=== PATIENT | male | born 1960 | race Caucasian/White ===

== ENCOUNTER 2018-01-08 19:10 | Inpatient (IN) | payer OTHER ==
--- NOTE | 2018-01-08 19:25 | ER Document Report ---
ED General - General Stated Complaint: IRRIGULAR HEART BEAT Time Seen by Provider: 01/08/18 19:14 Mode of Arrival: Medic Information source: Patient, Emergency Med Personnel Notes: 58-year-old male history of SVT presents with complaints of heart racing lightheadedness. Patient comes from intermediate where he was noted the patient's heart rate was in the 200s+, patient denies any actual chest pain EMS gave adenosine with no improvement 3 and then cardioverted at 60 J TRAVEL OUTSIDE OF THE [place] IN LAST 30 DAYS: No - HPI Onset: Just prior to arrival Onset/Duration: Sudden Quality of pain: No pain Severity: Severe Pain Level: Denies Associated symptoms: Other Exacerbated by: Denies Relieved by: Denies Similar symptoms previously: Yes Recently seen / treated by doctor: No Past Medical History - Social History Smoking Status: Unknown if Ever Smoked Cigarette use (# per day): No Chew tobacco use (# tins/day): No Smoking Education Provided: No Family History: Reviewed & Not Pertinent Review of Systems - Review of Systems Notes: REVIEW OF SYSTEMS: CONSTITUTIONAL : Denies fever, chills, or sweats. Denies recent illness. EENT: Denies eye, ear, throat, or mouth pain or symptoms. Denies nasal or sinus congestion or discharge. Denies throat, tongue, or mouth swelling or difficulty swallowing. CARDIOVASCULAR: Admits to palpitations RESPIRATORY: Denies cough, cold, or chest congestion. Denies shortness of breath, difficulty breathing, or wheezing. GASTROINTESTINAL: Denies abdominal pain or distention. Denies nausea, vomiting , or diarrhea. Denies blood in vomitus, stools, or per rectum. Denies black, tarry stools. Denies constipation. GENITOURINARY: Denies difficulty urinating, painful urination, burning, frequency, blood in urine, or discharge. MUSCULOSKELETAL: Denies back or neck pain or stiffness. Denies joint pain or swelling. SKIN: Denies rash, lesions or sores. HEMATOLOGIC : Denies easy bruising or bleeding. LYMPHATIC: Denies swollen, enlarged glands. NEUROLOGICAL: Denies confusion or altered mental status. Denies passing out or loss of consciousness. Denies dizziness or lightheadedness. Denies headache. Denies weakness or paralysis or loss of use of either side. Denies problems with gait or speech. Denies sensory loss, numbness, or tingling. Denies seizures. PSYCHIATRIC: Denies anxiety or stress. Denies depression, suicidal ideation, or homicidal ideation. ALL OTHER SYSTEMS REVIEWED AND NEGATIVE. Dictation was performed using [employer] voice recognition software PHYSICAL EXAMINATION: GENERAL: Well-appearing, well-nourished and in no acute distress. HEAD: Atraumatic, normocephalic. EYES: Pupils equal round and reactive to light, extraocular movements intact, sclera anicteric, conjunctiva are normal. ENT: Nares patent, oropharynx clear without exudates. Moist mucous membranes. NECK: Normal range of motion, supple without lymphadenopathy LUNGS: Breath sounds clear to auscultation bilaterally and equal. No wheezes rales or rhonchi. HEART: Tachycardic ABDOMEN: Soft, nontender, nondistended abdomen. No guarding, no rebound. No masses appreciated. Musculoskeletal: Normal range of motion, no pitting or edema. No cyanosis. NEUROLOGICAL: Cranial nerves grossly intact. Normal speech, normal gait. Normal sensory, motor exams PSYCH: Normal mood, normal affect. SKIN: Warm, Dry, normal turgor, no rashes or lesions noted. Physical Exam - Vital signs Vitals: Resp 31 H 01/08/18 19:16 Course - Re-evaluation Re-evalutation: 01/08/18 20:42 Patient has been sinus tach throughout, I did speak with Dr. Carver who requested I placed the patient on metoprolol, given the acute renal failure I do believe further hydration and observation overnight is appropriate for the patient - Vital Signs Vital signs: Temp Pulse Resp BP Pulse Ox 20 135/81 H 98 01/08/18 20:01 01/08/18 20:01 01/08/18 20:01 - Laboratory Result Diagrams: 01/08/18 19:13 01/08/18 19:13 Laboratory results interpreted by me: 01/08/18 01/08/18 19:13 19:13 WBC 11.2 H MCHC 36.3 H Lymphocytes % (Manual) 10 L Monocytes % (Manual) 14 H Abs Neuts (Manual) 8.5 H Abs Monocytes (Manual) 1.6 H Potassium 3.4 L BUN 51 H Creatinine 2.27 H Est GFR ( Amer) 36 L Est GFR (Non-Af Amer) 30 L Glucose 127 H Direct Bilirubin 0.5 H Discharge - Discharge Clinical Impression: SVT (supraventricular tachycardia) Condition: Stable Disposition: ADMITTED OBSERVATION Admitting Provider: Hospitalist Unit Admitted: Telemetry Referrals: NARENDRA ARRIETA II, MD [Primary Care Provider] - Follow up as needed
[2018-01-08 19:26] LABS: HEMOGLOBIN 15.6 g/dL (13.5-17.0); MEAN CORPUSCULAR HEMOGLOBIN 29.2 pg (27.0-33.4); MEAN CORPUSCULAR HGB CONC 36.3 g/dL (32.0-36.0); MEAN CORPUSCULAR VOLUME 80 fl (80-97); PLATELET COUNT 195 10^3/uL (150-450); RED BLOOD COUNT 5.36 10^6/uL (4.35-5.55); RED CELL DISTRIBUTION WIDTH 13.3 % (11.5-14.0); WHITE BLOOD COUNT 11.2 10^3/uL (4.0-10.5)
[2018-01-08 20:07] LABS: ABSOLUTE LYMPHOCYTES# (MANUAL) 1.1 10^3/uL (0.5-4.7); ABSOLUTE MONOCYTES # (MANUAL) 1.6 10^3/uL (0.1-1.4); ABSOLUTE NEUTROPHILS# (MANUAL) 8.5 10^3/uL (1.7-8.2); BASOPHILS % (MANUAL) 0 % (0-2); EOSINOPHILS % (MANUAL) 0 % (0-6); LYMPHOCYTES % (MANUAL) 10 % (13-45); MONOCYTES % (MANUAL) 14 % (3-13); PLATELET COMMENT ADEQUATE; RBC MORPHOLOGY COMMENT NORMO-CYTIC/CHROMIC; SEGMENTED NEUTROPHILS % (MAN) 76 % (42-78); TOTAL CELLS COUNTED 100
[2018-01-08 20:10] LABS: CREATINE KINASE MB 2.08 ng/mL (<4.55)
[2018-01-08 20:11] LABS: ALANINE AMINOTRANSFERASE 46 U/L (21-72); ALBUMIN 4.1 g/dL (3.5-5.0); ALKALINE PHOSPHATASE 118 U/L (38-126); ANION GAP 16 (5-19); ASPARTATE AMINO TRANSFERASE 26 U/L (17-59); BILIRUBIN,DIRECT 0.5 mg/dL (0.0-0.4); BILIRUBIN,TOTAL 0.9 mg/dL (0.2-1.3); BLOOD UREA NITROGEN 51 mg/dL (7-20); CALCIUM 9.3 mg/dL (8.4-10.2); CARBON DIOXIDE 30 mmol/L (22-30); CHLORIDE 99 mmol/L (98-107); CREATINE KINASE 98 U/L (55-170); GLUCOSE 127 mg/dL (75-110); POTASSIUM 3.4 mmol/L (3.6-5.0); TOTAL PROTEIN 7.1 g/dL (6.3-8.2)
[2018-01-08 20:16] LABS: TROPONIN I 0.035 ng/mL
[2018-01-08] MEDS ORDERED: METOPROLOL TARTRATE 50 MG TABLET PO ONE (20:37)
[2018-01-08] MEDS ORDERED: NORMAL SALINE 1000 ML 1,000 ML IV ONE (20:44)
[2018-01-08] MEDS ORDERED: ONDANSETRON HCL INJ/PF 4 MG/2 ML SDV IV PRN (22:28)
[2018-01-08] MEDS ORDERED: ACETAMINOPHEN 325 MG TABLET PO PRN (22:28)
--- NOTE | 2018-01-08 22:44 | EKG REPORT ---
SEVERITY:- ABNORMAL ECG - SINUS TACHYCARDIA LEFT VENTRICULAR HYPERTROPHY : Confirmed by: Bessy Duvall MD 08-Jan-2018 22:43:21
--- NOTE | 2018-01-08 22:44 | EKG REPORT ---
SEVERITY:- ABNORMAL ECG - SINUS RHYTHM ATRIAL PREMATURE COMPLEX PROBABLE LEFT VENTRICULAR HYPERTROPHY BORDERLINE PROLONGED QT INTERVAL : Confirmed by: Bessy Duvall MD 08-Jan-2018 22:43:06
--- NOTE | 2018-01-08 23:35 | RADIOLOGY REPORT (SQ) ---
EXAM DESCRIPTION: XR CHEST 2 VIEWS COMPLETED DATE/TME: 01/08/2018 00:00 CLINICAL HISTORY: tachypnea COMPARISON: 01/03/2011 FINDINGS: Frontal and lateral views of the chest. Leads overlie the chest. The cardiomediastinal silhouette has normal size and contour. No consolidation, pneumothorax, or pleural effusion. 0.8 cm nodular opacity in the right lung base not previously visualized on comparison chest radiograph. No displaced rib fractures identified. Upper abdominal soft tissues are unremarkable. IMPRESSION: 1. No acute pulmonary process identified. 2. Interval development of 0.8 cm nodular opacity in the right chest. Correlation with dedicated CT of the chest recommended for definitive characterization.
[2018-01-08 23:57] LABS: ANION GAP 12 (5-19); BLOOD UREA NITROGEN 49 mg/dL (7-20); CALCIUM 8.9 mg/dL (8.4-10.2); CARBON DIOXIDE 28 mmol/L (22-30); CHLORIDE 103 mmol/L (98-107); CREATINE KINASE 97 U/L (55-170); GLUCOSE 117 mg/dL (75-110); POTASSIUM 3.7 mmol/L (3.6-5.0); SODIUM 143.1 mmol/L (137-145)
[2018-01-09 00:10] LABS: CREATINE KINASE MB 1.77 ng/mL (<4.55); TROPONIN I 0.034 ng/mL
[2018-01-09] MEDS ORDERED: POTASSIUM CHLORIDE 10 MEQ CAPSULE.ER PO ONE (01:03)
--- NOTE | 2018-01-09 01:33 | PDOC H&P ---
History of Present Illness Admission Date/PCP: 01/08/18 22:28 Patient complains of: Heart palpitations, weakness History of Present Illness: ARNOLD JAMES is a 58 year old man who is incarcerated. He states that recently the penitentiary has been changing his blood pressure medications around. Over the last few days he started to feel a little bit different, he could not really describe it any differently. He has been having heart palpitations and felt weak the day of admission. In penitentiary his heart rate was measured at 220. EMS was called and he was brought to the emergency department. Here he was found to be in supraventricular tachycardia. He received adenosine 6 mg followed by 12 mg followed by another 12 mg. He was still in supraventricular tachycardia and was symptomatic. He was cardioverted at 60 J. Subsequent to that he has been in sinus tach. He has been started on metoprolol 50 mg twice daily as recommended by linen supply load builder to the ER physician. He is currently hemodynamically stable and is being admitted to the hospitalist service for further monitoring and evaluation. Of note his first troponin was slightly elevated and this will be monitored as well. Past Medical History Cardiac Medical History: Reports: Hypertension Pulmonary Medical History: Denies: Chronic Obstructive Pulmonary Disease (COPD) EENT Medical History: Denies: Eyes, Ears Neurological Medical History: Denies: Ischemic CVA Endocrine Medical History: Denies: Diabetes Mellitus Type 2 Renal/ Medical History: Denies: Chronic Kidney Disease Malignancy Medical History: Denies: None GI Medical History: Denies: Gastroesophageal Reflux Disease Musculoskeltal Medical History: Reports: Arthritis Skin Medical History: Denies: Eczema, Psoriasis Psychiatric Medical History: Denies: Alcohol Dependency, Depression, General Anxiety Disorder Traumatic Medical History: Denies: Traumatic Brain Injury Hematology: Denies: Bleeding Tendencies Infectious Medical History: Reports: Other Infectious History Note: Patient unaware Past Surgical History Past Surgical History: Reports: Orthopedic Surgery - Right arm surgery for fracture Social History Information Source: Patient Lives with: Other - Incarcerated Smoking Status: Current Every Day Smoker Frequency of Alcohol Use: None Hx Recreational Drug Use: No Drugs: None Hx Prescription Drug Abuse: No Past Social History Note: patient is trying to quit smoking after 40 yrs and is having a hard time doing so, we can offer help on discharge. No illegal drug use or EtOH use currently. 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 Now incarcerated. Has a girlfriend that knows he is here. - Advance Directive Resuscitation Status: Full Code Surrogate healthcare decision maker:: sister Lanette Rodriguez phone: [phone] Family History Parental Family History Reviewed: Yes - mother had CAD/CABG, fatehr ? cause Children Family History Reviewed: Yes - no children Sibling(s) Family History Reviewed.: Yes - many medical problems with his sibllings inlcuding cardiac dx and EtOH use disorder Medication/Allergy Allergies/Adverse Reactions: No Known Allergies Allergy (Verified 01/08/18 22:26) Review of Systems Constitutional: ABSENT: chills, fever(s), headache(s) Eyes: ABSENT: visual disturbances Ears: ABSENT: hearing changes Nose, Mouth, and Throat: ABSENT: sore throat Cardiovascular: PRESENT: palpitations. ABSENT: chest pain, edema, orthropnea Respiratory: ABSENT: cough, dyspnea, sputum Gastrointestinal: ABSENT: nausea, vomiting Genitourinary: ABSENT: dysuria Musculoskeletal: ABSENT: deformity, muscle weakness Integumentary: ABSENT: diaphoresis, lesions Neurological: PRESENT: weakness. ABSENT: confusion, focal weakness, syncope Psychiatric: ABSENT: anxiety, depression Endocrine: ABSENT: cold intolerance, heat intolerance Hematologic/Lymphatic: ABSENT: easy bleeding, easy bruising Allergic/Immunologic: ABSENT: seasonal rhinorrhea Physical Exam Vital Signs: Temp Pulse Resp BP Pulse Ox 19 143/92 H 98 01/09/18 01:02 01/09/18 01:02 01/09/18 01:02 General appearance: PRESENT: no acute distress, cooperative, thin Head exam: PRESENT: atraumatic, normocephalic Eye exam: PRESENT: EOMI. ABSENT: conjunctival injection, scleral icterus Ear exam: PRESENT: normal external ear exam Mouth exam: PRESENT: moist, tongue midline Neck exam: ABSENT: lymphadenopathy Respiratory exam: PRESENT: clear to auscultation carrillo, unlabored. ABSENT: rales , rhonchi, wheezes Cardiovascular exam: PRESENT: tachycardia. ABSENT: irregular rhythm, systolic murmur Pulses: PRESENT: normal radial pulses GI/Abdominal exam: PRESENT: normal bowel sounds, soft. ABSENT: diminished bowel sounds, firm, guarding, tenderness Rectal exam: ABSENT: deferred Gentrourinary exam: ABSENT: indwelling catheter Extremities exam: ABSENT: pedal edema, +1 edema Neurological exam: PRESENT: alert, awake, oriented to person, oriented to place , oriented to situation, CN II-XII grossly intact Psychiatric exam: PRESENT: appropriate affect. ABSENT: anxious Skin exam: PRESENT: dry, intact, warm Results Laboratory Results: 01/08/18 22:48 01/08/18 22:48 Sodium 143.1 Potassium 3.7 Chloride 103 Carbon Dioxide 28 Anion Gap 12 BUN 49 H Creatinine 1.97 H Est GFR ( Amer) 42 L Est GFR (Non-Af Amer) 35 L Glucose 117 H Calcium 8.9 Magnesium 2.0 01/08/18 01/08/18 22:48 22:48 Creatine Kinase 97 CK-MB (CK-2) 1.77 Troponin I 0.034 Impressions: Chest X-Ray 01/08/18 00:00 IMPRESSION: 1. No acute pulmonary process identified. 2. Interval development of 0.8 cm nodular opacity in the right chest. Correlation with dedicated CT of the chest recommended for definitive characterization. Assessment & Plan - Diagnosis (1) SVT (supraventricular tachycardia) Is this a current diagnosis for this admission?: Yes Plan: Came into ED with SVT, failed adenosine 6 mg>>12 mg>>12 mg and then was unstable so then was cardioverted at 60 joules. Was then in sinus tach and now in sinus rhythm. Chest pain free. He is being admitted on tele, firdt trop elevated but possibly due to cardioversion and will follow trops, is chest pain free. Unit Trust Manager was called by ED MD and we have started pt on metoprolol 50 mg po q12 hrs and has gotten one dose. Hemodynamically stable. (2) HTN (hypertension) Qualifiers: Hypertension type: essential hypertension Qualified Code(s): I10 - Essential (primary) hypertension Is this a current diagnosis for this admission?: Yes Plan: well controlled now, will monitor and add is antihypertensives as indicated when meds reconciled. (3) Pulmonary nodule, right Is this a current diagnosis for this admission?: Yes Plan: found on CXR done this evening, long tobacco hx, ct chest ordered to better evaluate (4) Elevated troponin Is this a current diagnosis for this admission?: Yes Plan: prob due to cardioversion, will follow trops. Chest pain free, no EKG findings to indicate ischemia. (5) Hypokalemia Is this a current diagnosis for this admission?: Yes Plan: 3.4 then repeat improved to 3.7, 20 mEq of KCl given and will repeat in the am. Mag is 2.0. - Time Time Spent: 50 to 70 Minutes Medications reviewed and adjusted accordingly: Yes - Inpatient Certification Based on my medical assessment, after consideration of the patient's comorbidities, presenting symptoms, or acuity I expect that the services needed warrant INPATIENT care.: Yes I certify that my determination is in accordance with my understanding of Medicare's requirements for reasonable and necessary INPATIENT services [42 CFR 412.3e].: Yes Medical Necessity: Need For Continuous Telemetry Monitoring
[2018-01-09] MEDS: NORMAL SALINE 1000 ML 1,000 ML IV PRN ×3 (02:14→21:24)
[2018-01-09 05:16] LABS: HEMATOCRIT 39.7 % (37.9-51.0); HEMOGLOBIN 13.9 g/dL (13.5-17.0); MEAN CORPUSCULAR HEMOGLOBIN 28.1 pg (27.0-33.4); MEAN CORPUSCULAR HGB CONC 35.1 g/dL (32.0-36.0); MEAN CORPUSCULAR VOLUME 80 fl (80-97); PLATELET COUNT 163 10^3/uL (150-450); RED BLOOD COUNT 4.96 10^6/uL (4.35-5.55); WHITE BLOOD COUNT 11.1 10^3/uL (4.0-10.5)
[2018-01-09 05:32] LABS: ANION GAP 16 (5-19); BLOOD UREA NITROGEN 48 mg/dL (7-20); CALCIUM 9.1 mg/dL (8.4-10.2); CARBON DIOXIDE 24 mmol/L (22-30); CHLORIDE 105 mmol/L (98-107); CHOLESTEROL 120.33 mg/dL (0-200); CREATINE KINASE 136 U/L (55-170); GLUCOSE 100 mg/dL (75-110); POTASSIUM 3.5 mmol/L (3.6-5.0); TRIGLYCERIDES 142 mg/dL (<150)
[2018-01-09] MEDS: HEPARIN SOD (PORCINE) 5,000 UNIT/ML 1 ML SYRINGE SUBCUT SCH ×2 (05:42→14:07)
[2018-01-09 05:43] LABS: CREATINE KINASE MB 1.72 ng/mL (<4.55); DIRECT LDL 69 mg/dL (<100); TROPONIN I 0.055 ng/mL
--- NOTE | 2018-01-09 08:52 | EKG REPORT ---
SEVERITY:- ABNORMAL ECG - SINUS RHYTHM ATRIAL PREMATURE COMPLEX LEFT VENTRICULAR HYPERTROPHY BORDERLINE PROLONGED QT INTERVAL : Confirmed by: Rony Carver 09-Jan-2018 08:51:45
[2018-01-09] MEDS ORDERED: METOPROLOL TARTRATE PF/INJ 5 MG/5 ML SDV IV ONE ×2 (11:09→11:15)
[2018-01-09] MEDS: METOPROLOL SUCCINATE 50 MG TAB.SR.24H PO SCH ×2 (11:09→22:13)
[2018-01-09] MEDS ORDERED: POTASSIUM CHLORIDE 20 MEQ/15 ML UDCUP PO ONE (11:18)
[2018-01-09 11:29] LABS: CREATINE KINASE MB 2.25 ng/mL (<4.55)
[2018-01-09 11:37] LABS: TROPONIN I 0.054 ng/mL
--- NOTE | 2018-01-09 11:57 | RADIOLOGY REPORT (SQ) ---
EXAM DESCRIPTION: CT CHEST WITHOUT COMPLETED DATE/TIME: 01/09/2018 10:22 am REASON FOR STUDY: right lung nodule eval COMPARISON: None. TECHNIQUE: CT scan performed of the chest without intravenous contrast. Images reviewed with lung, soft tissue and bone windows. Reconstructed coronal and sagittal MPR images reviewed. All images st ored on PACS. All CT scanners at this facility use dose modulation, iterative reconstruction, and/or weight based d osing when appropriate to reduce radiation dose to as low as reasonably achievable (ALARA). [facility]: Dose Right [facility]: CareDose [facility]: Dose Right [facility]: Teradose 4D [facility]: [employer] RADIATION DOSE: CT Rad equipment meets quality standard of care and radiation dose reduction techniq ues were employed. CTDIvol: 9.7 mGy. DLP: 374 mGy-cm. mGy. LIMITATIONS: No technical limitations. FINDINGS: LUNGS AND PLEURA: There is an 8 mm nodule in the right upper lobe. No other nodules are i dentified. No effusions. HILAR AND MEDIASTINAL STRUCTURES: No identified masses or abnormal nodes. No obvious aneurysm. HEART AND VASCULAR STRUCTURES: No aneurysm. No pericardial effusion. UPPER ABDOMEN: Cholelithiasis. Limited exam. THYROID AND OTHER SOFT TISSUES: No masses. No adenopathy. BONES: No significant finding. HARDWARE: None in the chest. OTHER: No other significant findings. IMPRESSION: 8 mm nodule right upper lobe. COMMENT: F[place] CRITERIA FOR FOLLOW-UP OF PULMONARY NODULES Incidentally detected new nodules in persons 35 or older. HIGH RISK: History of smoking or other known risk factors. 6-8mm single solid nodule: LOW RISK: CT 6-12 mo; then consider CT 18-24 mo. HIGH RISK: CT 6-12 mo; th en CT 18-24 mo. TECHNICAL DOCUMENTATION: JOB ID: [id number] Quality ID # [id number]: Final reports with documentation of one or more dose reduction techniques (e.g., Au tomated exposure control, adjustment of the mA and/or kV according to patient size, use of iterative reconstruction technique) 2010 [employer]- All Rights Reserved Reading location - IP/workstation name: [email or web address]
--- NOTE | 2018-01-09 14:47 | PDOC PROGRESS REPORT ---
Subjective Progress Note for:: 01/09/18 Subjective:: Patient was admitted with atrial dysrhythmia. Although it was felt to be SVT and treated with adenosine and subsequently cardioverted as became unstable after further review by Dr. Duvall he feels that patient was in atrial fib/ flutter. Reason For Visit: SVT, JAZMINE Physical Exam Vital Signs: Temp Pulse Resp BP Pulse Ox 98.7 F 97 12 148/86 H 96 01/09/18 13:24 01/09/18 13:24 01/09/18 13:24 01/09/18 13:24 01/09/18 13:24 Intake & Output 01/08/18 01/09/18 01/10/18 06:59 06:59 06:59 Intake Total 1477 Balance 1477 Weight 84.7 kg General appearance: PRESENT: no acute distress, well-developed, well-nourished Head exam: PRESENT: atraumatic, normocephalic Eye exam: PRESENT: conjunctiva pink, EOMI, PERRLA. ABSENT: scleral icterus Ear exam: PRESENT: normal external ear exam Mouth exam: PRESENT: moist, tongue midline Neck exam: ABSENT: carotid bruit, JVD, lymphadenopathy, thyromegaly Respiratory exam: PRESENT: clear to auscultation carrillo. ABSENT: rales, rhonchi, wheezes Cardiovascular exam: PRESENT: RRR. ABSENT: diastolic murmur, rubs, systolic murmur Pulses: PRESENT: normal dorsalis pedis pul Vascular exam: PRESENT: normal capillary refill GI/Abdominal exam: PRESENT: normal bowel sounds, soft. ABSENT: distended, guarding, mass, organolmegaly, rebound, tenderness Rectal exam: PRESENT: deferred Extremities exam: PRESENT: full ROM. ABSENT: calf tenderness, clubbing, pedal edema Neurological exam: PRESENT: alert, awake, oriented to person, oriented to place , oriented to time, oriented to situation, CN II-XII grossly intact. ABSENT: motor sensory deficit Psychiatric exam: PRESENT: appropriate affect, normal mood. ABSENT: homicidal ideation, suicidal ideation Skin exam: PRESENT: dry, intact, warm. ABSENT: cyanosis, rash Results Laboratory Results: 01/09/18 04:48 01/09/18 04:48 01/08/18 01/09/18 01/09/18 22:48 04:48 04:48 WBC 11.1 H RBC 4.96 Hgb 13.9 Hct 39.7 MCV 80 MCH 28.1 MCHC 35.1 RDW 13.0 Plt Count 163 Sodium 143.1 145.0 Potassium 3.7 3.5 L Chloride 103 105 Carbon Dioxide 28 24 Anion Gap 12 16 BUN 49 H 48 H Creatinine 1.97 H 1.74 H Est GFR ( Amer) 42 L 49 L Est GFR (Non-Af Amer) 35 L 40 L Glucose 117 H 100 Calcium 8.9 9.1 Magnesium 2.0 Triglycerides 142 Cholesterol 120.33 LDL Cholesterol Direct 69 VLDL Cholesterol 28.0 HDL Cholesterol 22 L 01/08/18 01/08/18 01/09/18 22:48 22:48 04:48 Creatine Kinase 97 136 CK-MB (CK-2) 1.77 Troponin I 0.034 01/09/18 01/09/18 01/09/18 04:48 10:39 10:39 Creatine Kinase 206 H CK-MB (CK-2) 1.72 2.25 Troponin I 0.055 0.054 Impressions: Chest X-Ray 01/08/18 00:00 IMPRESSION: 1. No acute pulmonary process identified. 2. Interval development of 0.8 cm nodular opacity in the right chest. Correlation with dedicated CT of the chest recommended for definitive characterization. Chest CT 01/09/18 00:00 IMPRESSION: 8 mm nodule right upper lobe. Assessment & Plan - Time Time Spent with patient: 15-24 minutes Medications reviewed and adjusted accordingly: Yes Anticipated discharge: Other - [facility] - Inpatient Certification Based on my medical assessment, after consideration of the patient's comorbidities, presenting symptoms, or acuity I expect that the services needed warrant INPATIENT care.: Yes Medical Necessity: Need Close Monitoring Due to Risk of Patient Decompensation, Risk of Complication if Not Cared For in Hospital - Plan Summary Plan Summary: Atrial dysrhythmia likely flutter status post cardioversion. Patient would need to be on long-term anticoagulation. He is currently in sinus rhythm. 2. Hypertension controlled adjust medications as needed 3. Right 8 mm pulmonary nodule found on chest x-ray and CT scan. Follow-up as appropriate He is scheduled for stress test in a.m. 4. Elevated troponin likely secondary to cardioversion and tachycardia. No clinical evidence of ACS 5. Hypokalemia repleted
--- NOTE | 2018-01-09 17:50 | EKG REPORT ---
SEVERITY:- ABNORMAL ECG - SINUS RHYTHM ATRIAL PREMATURE COMPLEX LEFT VENTRICULAR HYPERTROPHY BORDERLINE PROLONGED QT INTERVAL : Confirmed by: Rony Carver 09-Jan-2018 17:50:27
[2018-01-09] MEDS: APIXABAN 2.5 MG TABLET PO SCH (18:02)
[2018-01-10] MEDS: NORMAL SALINE 1000 ML 1,000 ML IV PRN (05:59)
[2018-01-10 06:12] LABS: HEMATOCRIT 34.2 % (37.9-51.0); HEMOGLOBIN 12.3 g/dL (13.5-17.0); MEAN CORPUSCULAR HGB CONC 36.1 g/dL (32.0-36.0); MEAN CORPUSCULAR VOLUME 80 fl (80-97); PLATELET COUNT 138 10^3/uL (150-450); RED BLOOD COUNT 4.25 10^6/uL (4.35-5.55); RED CELL DISTRIBUTION WIDTH 13.1 % (11.5-14.0); WHITE BLOOD COUNT 7.4 10^3/uL (4.0-10.5)
[2018-01-10 06:37] LABS: ANION GAP 12 (5-19); BLOOD UREA NITROGEN 33 mg/dL (7-20); CALCIUM 8.8 mg/dL (8.4-10.2); CARBON DIOXIDE 23 mmol/L (22-30); CHLORIDE 108 mmol/L (98-107); GLUCOSE 93 mg/dL (75-110); POTASSIUM 3.3 mmol/L (3.6-5.0); SODIUM 142.6 mmol/L (137-145)
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
[2018-01-10] MEDS ORDERED: LOSARTAN POTASSIUM 25 MG TABLET PO SCH (09:00)
[2018-01-10] MEDS: APIXABAN 2.5 MG TABLET PO SCH (11:17)
[2018-01-10] MEDS: METOPROLOL SUCCINATE 50 MG TAB.SR.24H PO SCH (11:18)
[2018-01-10] MEDS ORDERED: REGADENOSON INJ 0.4 MG/5 ML DISP.SYRIN IV ONE (12:29)
[2018-01-10 12:43] VITALS: BP 153/90
--- NOTE | 2018-01-10 17:24 | PDOC DISCHARGE SUMMARY ---
General - Admit/Disc Date/PCP Admission Date/Primary Care Provider: 01/08/18 22:28 None: [facility] Voltmeter Operator: Dr. Duvall Discharge Date: 01/10/18 - Discharge Diagnosis (1) Atrial fibrillation with rapid ventricular response Is this a current diagnosis for this admission?: Yes Summary: The patient has been stabilized. He currently is in a sinus rhythm and rate controlled. He will be discharged on metoprolol and Eliquis for anticoagulation. He should follow-up with Dr. Duvall as an outpatient. (2) Atrial flutter Is this a current diagnosis for this admission?: Yes Summary: As above (3) Uncontrolled hypertension Is this a current diagnosis for this admission?: Yes Summary: He will be discharged on metoprolol and lisinopril. He will need close outpatient follow-up (4) Chronic systolic (congestive) heart failure Is this a current diagnosis for this admission?: Yes Summary: Cardiolite stress test as well as echocardiogram revealed a diminished ejection fraction of 35%. The patient will not stay in the hospital for further workup. His stress test today was negative. (5) Elevated troponin Is this a current diagnosis for this admission?: Yes Summary: Likely due to his uncontrolled hypertension and renal failure. (6) Acute renal failure Is this a current diagnosis for this admission?: Yes Summary: Resolved with IV fluid hydration. This was likely due to dehydration. (7) Dyslipidemia Is this a current diagnosis for this admission?: Yes Summary: Stable (8) Tobacco dependence Is this a current diagnosis for this admission?: Yes Summary: Certainly it would be in his best interest to quit smoking (9) Anemia Is this a current diagnosis for this admission?: Yes Summary: Secondary to hemodilution (10) Hypokalemia Is this a current diagnosis for this admission?: Yes Summary: Repleted and resolved (11) Full code status Is this a current diagnosis for this admission?: Yes - Additional Information Resuscitation Status: Full Code Discharge Diet: As Tolerated Discharge Activity: Activity As Tolerated, Balance Activity w/Rest, Slowly Increase Activity Prescriptions: Apixaban [Eliquis 2.5 mg Tablet] 2.5 mg PO BID #60 tablet Lisinopril [Prinivil] 20 mg PO BID #60 tablet Metoprolol Succinate [Toprol Xl 50 mg Tab.sr] 50 mg PO Q12 #60 tab.sr.24h Home Medications: Apixaban [Eliquis 2.5 mg Tablet] 2.5 mg PO BID #60 tablet 01/10/18 Lisinopril [Prinivil] 20 mg PO BID #60 tablet 01/10/18 Metoprolol Succinate [Toprol Xl 50 mg Tab.sr] 50 mg PO Q12 #60 tab.sr.24h History of Present Illness History of Present Illness: ARNOLD JAMES is a 58 year old male who presented to the emergency room with heart palpitations and shortness of breath. Hospital Course Hospital Course: The patient is a 58-year-old male who was [facility] with heart palpitations and shortness of breath. In the longterm his heart rate was found to be 220 and he was brought to the emergency department. Initially it was felt that he had supraventricular tachycardia. He received multiple doses of adenosine but did not convert. He was remaining symptomatic. He was cardioverted at 60 J and after that developed a sinus tachycardia. He was admitted to the hospital and seen by cardiology. Upon further review it was felt that he had atrial fibrillation and atrial flutter. His blood pressure was quite uncontrolled and we have worked on getting it down during this hospitalization. He had an acute kidney injury as well that resolved with IV fluid hydration. [facility] on [facility]. Today he had a Cardiolite stress test which was revealed no evidence of reversible ischemia however he was noted to have a diminished ejection fraction of 35%. Dr. Duvall then ordered an echocardiogram which confirmed his low EF. The recommendation was for the patient to stay in the hospital tonight for further monitoring and titration of his medications. However this afternoon the patient said that he had to leave the hospital. He was going to check out AMA. I did discuss this with Dr. Duvall and there really is not anything else we are going to do acutely in the hospital. I have written him prescriptions for his medications. He was started on Eliquis as well as metoprolol and lisinopril. I have consulted the discharge planners for medication assistance and we are going to get the patient a new patient appointment at the [facility] as he has no insurance. This is not ideal but the patient is insistent that he is going to go. He will be discharged home today in stable condition. Physical Exam Vital Signs: Temp Pulse Resp BP Pulse Ox 98.5 F 96 18 153/90 H 98 01/10/18 16:40 01/10/18 16:40 01/10/18 16:40 01/10/18 12:11 01/10/18 16:40 Intake & Output 01/09/18 01/10/18 01/11/18 06:59 06:59 06:59 Intake Total 4939 1173 Balance 4939 1173 Weight 84.7 kg 86.6 kg General appearance: PRESENT: no acute distress, well-developed, well-nourished Head exam: PRESENT: atraumatic, normocephalic Mouth exam: PRESENT: moist, tongue midline Respiratory exam: PRESENT: clear to auscultation [place]. ABSENT: rales, rhonchi, wheezes Cardiovascular exam: PRESENT: RRR. ABSENT: diastolic murmur, rubs, systolic murmur GI/Abdominal exam: PRESENT: normal bowel sounds, soft. ABSENT: distended, guarding, mass, organolmegaly, rebound, tenderness Rectal exam: PRESENT: deferred Extremities exam: PRESENT: full ROM. ABSENT: calf tenderness, clubbing, pedal edema Neurological exam: PRESENT: alert, awake, oriented to person, oriented to place , oriented to time, oriented to situation, CN II-XII grossly intact. ABSENT: motor sensory deficit Psychiatric exam: PRESENT: appropriate affect, normal mood. ABSENT: homicidal ideation, suicidal ideation Skin exam: PRESENT: dry, intact, warm. ABSENT: cyanosis, rash Results Laboratory Results: 01/10/18 05:15 01/10/18 05:15 01/10/18 01/10/18 01/10/18 05:15 05:15 05:15 WBC 7.4 RBC 4.25 L Hgb 12.3 L Hct 34.2 L MCV 80 MCH 29.0 MCHC 36.1 H RDW 13.1 Plt Count 138 L Sodium 142.6 Potassium 3.3 L Chloride 108 H Carbon Dioxide 23 Anion Gap 12 BUN 33 H Creatinine 1.16 Est GFR ( Amer) > 60 Est GFR (Non-Af Amer) > 60 Glucose 93 Calcium 8.8 Phosphorus 3.6 01/08/18 01/08/18 01/09/18 22:48 22:48 04:48 Creatine Kinase 97 136 CK-MB (CK-2) 1.77 Troponin I 0.034 01/09/18 01/09/18 01/09/18 04:48 10:39 10:39 Creatine Kinase 206 H CK-MB (CK-2) 1.72 2.25 Troponin I 0.055 0.054 Impressions: Chest X-Ray 01/08/18 00:00 IMPRESSION: 1. No acute pulmonary process identified. 2. Interval development of 0.8 cm nodular opacity in the right chest. Correlation with dedicated CT of the chest recommended for definitive characterization. Chest CT 01/09/18 00:00 IMPRESSION: 8 mm nodule right upper lobe. Qualifiers - * PATIENT BEING DISCHARGED WITH ANY OF THE FOLLOWING DIAGNOSIS: No Plan Time Spent: Greater than 30 Minutes
[2018-01-10] MEDS ORDERED: LISINOPRIL 10 MG TABLET PO SCH (18:00)
--- NOTE | 2018-01-10 20:55 | DRAGON STRESS TEST REPORT ---
Intravenous Lexiscan Cardiolite stress test using single photon emmision computerized tomography. Date of procedure: 01/10/2018. Ordering Provider: Dr. Bessy alvarez. Patient's status: In Patient. Indication: Chest pain. Coronary risk factors: Age, hypertension, tobacco abuse and paroxysmal atrial flutter Resting EKG: Sinus rhythm with APCs, LVH by voltage Stress EKG: No changes of ischemia. The patient had no chest pain or discomfort, and there were no arrhythmias seen. Reason for termination: Protocol. Conclusions: Normal EKG and hemodynamic response to IV Lexiscan. Nuclear data: At rest the patient was given 12.99 millicuries of technetium 99m sestamibi injected intravenously. As per protocol rest non gated SPECT images were obtained. Subsequently the patient was given intravenous Lexiscan at a dose of 0.4 mg in 5 mL intravenously, followed by flush with normal saline. Subsequently the stress dose of 36.6 millicuries of technetium 99m sestamibi was injected intravenously. As per protocol stress gated images were obtained. Nuclear interpretation: Review of images showed that this is a poor quality study with motion artifact. In spite of this all segments of the myocardium had normal perfusion at rest, and normal perfusion post stress with IV Lexiscan. All segments of the myocardium had normal thickening by gated study. There was moderate global hypokinesis, with a dilated left ventricle T. I D. ratio was normal at 0.90. Computer read rest, and stress left ventricular ejection fraction were 30 %, and 31 %, respectively. Visually both the stress and rest ejection fractions were abnormal, and were around 35% to 40 %. Conclusion: 1. There is no scintigraphic evidence of Lexiscan induced myocardial ischemia. 2. There is no scintigraphic evidence of myocardial infarction/scar. 3. There is evidence of cardiomyopathy, dilated, with moderate to severe global hypokinesis. Recommendations: 1. Would recommend getting an echocardiogram for LV ejection fraction correlation. 2. Would aggressively treat the patient's cardiomyopathy. 3. His ejection fraction is 35% of below, would recommend repeat echo in 3 months, and if still 35% of low then would send the patient for an AICD. 4.Aggressive risk factor modification, and treating the underlying co- morbidities. MTDD
--- NOTE | 2018-01-11 17:21 | XCELERA REPORT ---
[address] [address] Transthoracic Echocardiogram Report Name: ARNOLD JAMES Age: 58 yrs Gender: Male : 1960 Patient Status: Inpatient Patient Location: [address] [place] [address] Study Date: 01/10/2018 01:49 PM Height: 68 in Weight: 190 lb BSA: 2.0 m2 Procedure: A two-dimensional transthoracic echocardiogram with color flow Doppler was performed. Study Quality: Technically suboptimal. Reason For Study: SVT, cardiomyopathy History: SVT, cardiomyopathy. Ordering Physician: BESSY TOLLIVER Performed By: Suzy Fine Interpretation Summary The left ventricle is moderately dilated. There is normal left ventricular wall thickness. LV EF is 35% to 40% Left ventricular systolic function is moderately reduced. Doppler measurements suggest normal left ventricular diastolic function There is moderate global hypokinesis of the left ventricle. There is no thrombus. There is no ventricular septal defect visualized. The right ventricle is normal in size and function. The right atrium is normal. The left atrial size is normal. The interatrial septum is intact with no evidence for an atrial septal defect. There is no evidence of mitral valve prolapse. There is no mitral valve stenosis. There is a trace amount of mitral regurgitation There is no aortic valve stenosis There is no LVOT obstruction. There is Aortic Sclerosis without Aortic Stenosis There is a mild amount of aortic regurgitation There is no tricuspid stenosis. There is a trace amount of tricuspid regurgitation Right ventricular systolic pressure is normal. RVSP is 28 mm of Hg , with RA mean of 5. There is no pericardial effusion. MMode/2D Measurements & Calculations RVDd: 2.5 cm LVIDd: 6.2 cmFS: 20.6 % Ao root diam: 3.1 cm IVSd: 0.96 cm LVIDs: 4.9 cmEDV(Teich): 190.8 ml LVPWd: 1.0 cmESV(Teich): 112.2 ml Ao root area: 7.7 cm2 EF(Teich): 41.2 % LVOT diam: 2.0 cm LVOT area: 3.1 cm2 Doppler Measurements & Calculations MV E max gloria: MV dec slope: AI max gloria: LV V1 max P.8 cm/sec 823.8 cm/sec2 544.4 cm/sec 5.3 mmHg MV A max gloria: MV dec time: AI max PG: LV V1 mean P.8 cm/sec 0.13 sec 118.6 mmHg 3.2 mmHg MV E/A: 1.1 AI dec slope: LV V1 max: 376.5 cm/sec2 115.0 cm/sec AI P1/2t: LV V1 mean: 423.6 msec 85.3 cm/sec LV V1 VTI: 21.0 cm SV(LVOT): 65.6 ml PA V2 max: TR max gloria: 117.9 cm/sec 237.7 cm/sec PA max P.6 mmHgTR max P.6 mmHg Left Ventricle The left ventricle is moderately dilated. There is normal left ventricular wall thickness. LV EF is 35% to 40%. Left ventricular systolic function is moderately reduced. Doppler measurements suggest normal left ventricular diastolic function. There is moderate global hypokinesis of the left ventricle. There is no thrombus. There is no ventricular septal defect visualized. Right Ventricle The right ventricle is normal in size and function. Atria The right atrium is normal. The left atrial size is normal. The interatrial septum is intact with no evidence for an atrial septal defect. Mitral Valve There is no evidence of mitral valve prolapse. There is no vegetation seen on the mitral valve. There is no mitral valve stenosis. There is a trace amount of mitral regurgitation. Aortic Valve There is no aortic valvular vegetation. There is no aortic valve stenosis. There is no LVOT obstruction. There is Aortic Sclerosis without Aortic Stenosis. There is a mild amount of aortic regurgitation. Tricuspid Valve There is no tricuspid stenosis. There is a trace amount of tricuspid regurgitation. Right ventricular systolic pressure is normal. RVSP is 28 mm of Hg , with RA mean of 5. Pulmonic Valve There is no pulmonic valvular stenosis. There is a trace amount of pulmonic regurgitation. Great Vessels The aortic root is not well visualized but is probably normal size. Effusions There is no pericardial effusion. : BESSY TOLLIVER > Bessy Tolliver
--- NOTE | 2018-01-12 00:55 | PROGRESS NOTE E ---
Progress Note NAME: ARNOLD JAMES : 1960 AGE: 58Y DATE: 01/10/2018 ROOM: 326 NOTE: This is a redictation. The first dictation did not go through. SUBJECTIVE: The patient denies any chest pain or discomfort. There is no PND, orthopnea, or shortness of breath. There is no arrhythmia seen on the monitor. There is no recurrence of SVT or atrial flutter or fibrillation, or any ventricular arrhythmia. The patient has no leg edema. The patient underwent an IV Lexiscan Cardiolite stress test this morning. OBJECTIVE: GENERAL: At present, the patient is in no acute distress. He is well built and well nourished. VITAL SIGNS: He is afebrile with a temperature of 98.5 degrees Fahrenheit, pulse 97 beats per minute, blood pressure 153/90, respirations 18 per minute, O2 saturation 98% on room air. HEENT: Head is normocephalic/atraumatic. Eyes: Pupils equal, round, regular, reactive to light and accommodation. Extraocular movements are normal. There is no conjunctival pallor. There is no scleral icterus. ENT is negative. NECK: Supple. There is no JVD. Carotids are equal. There are no bruit. There is no goiter. There is no lymphadenopathy. Trachea is central. LUNGS: Clear to auscultation and percussion. There is no chest wall tenderness. HEART: S1, S2 heard. There is no S3 gallop. There is no S4 gallop. S1 is of normal intensity. There is a systolic murmur of aortic sclerosis present. There is no aortic stenosis murmur. There is a murmur heard in the apex without any radiation. There is no rub. ABDOMEN: Soft, nontender. There is no hepatosplenomegaly. Bowel sounds are well heard. There is no rebound, guarding, or rigidity. EXTREMITIES: Femorals are well heard. There is no femoral bruit. Leg pulses are felt well. There is no pedal edema. There is no DVT or cellulitis. There is no cyanosis or clubbing. SHADE HANGER: The patient is conscious, awake, alert, oriented x3 with no focal deficits. PSYCHIATRIC: The patient's judgment and insight are intact. His affect is normal. LABORATORY: The patient's white count is 10,400. Hemoglobin 12.3, hematocrit 34.0, platelet count 138,000. The patient's sodium is 142.6, potassium 3.3, chloride 108, CO2 is 23. The patient's BUN is 30, creatinine 1.16. GFR is greater than 60. Glucose 93. Calcium 8.8. Phosphorus 3.6. The patient's Cardiolite stress test showed no reversible ischemia and no scar, but the LV is dilated and the left ventricular ejection fraction is 30%. Echocardiogram was ordered. The stress test was discussed with the patient. Would recommend continuing the patient on a beta kevin and increase the patient's lisinopril as tolerated. Would use Lasix only on an as needed basis. Note that the patient's renal functions are normal. Would replace the patient's potassium. ASSESSMENT: 1. PAROXYSMAL ATRIAL FIBRILLATION/PAROXYSMAL ATRIAL FLUTTER. At present in sinus rhythm. 2. HYPERTENSION. Blood pressure still not very adequately controlled. Will increase the patient's ZAFAR inhibitor or maybe *------*. 3. ACUTE RENAL FAILURE. Resolved. The patient's renal function is normal. 4. HYPOKALEMIA. Replace the patient's potassium. 5. DYSLIPIDEMIA. Low LDL levels. 6. HISTORY OF TOBACCO ABUSE. The patient is given tobacco cessation counseling. 7. CARDIOMYOPATHY. Note: All of the above discussed, but by the time the echo was done, the patient already had discharged himself, since he threatened to sign out AMA. The echo shows that the left ventricle is moderately dilated. Moderate global hypokinesis with ejection fraction of 35-40%. There is trace to moderate tricuspid regurgitation. Right ventricular systolic pressure was normal at 28 mmHg. There is aortic sclerosis without aortic stenosis. There is mild to moderate aortic regurgitation. There is trace amount of mitral regurgitation. Will discuss this with the patient as an outpatient. Note that the patient's medications have been reviewed, and medication management has been discussed with the hospitalist. The patient desires to follow up with me, and hence he has my cell phone number so that he may make an appointment to follow up with me. Note medical decision making is of moderate to high complexity. Will sign off and follow the patient in the office. Will discuss the patient's echocardiogram in the office. Note that 40 minutes spent with the patient. More than 30% of the time was spent in direct patient care. DICTATING PHYSICIAN: CRYS TOLLIVER M.D. [id number] PHY#: [id number] ID: [id number] JOB#: [id number] ACCT: [id number] cc: >
== END 2018-01-10 17:05 | disposition home or self-care (01) | DRG 309 ==
LOC: ER 19:10 → EH 21:41 → OBSVTOIN 22:28 → 3S 01-09 01:28
PROVIDERS: ADMIT Internal Medicine; ATTEND Internal Medicine
DX: I48.0 Paroxysmal atrial fibrillation (principal); N17.9 Acute kidney failure, unspecified; I50.22 Chronic systolic (congestive) heart failure; I11.0 Hypertensive heart disease with heart failure; I48.92 Unspecified atrial flutter; I47.1 Supraventricular tachycardia; E87.6 Hypokalemia; R91.1 Solitary pulmonary nodule; F17.210 Nicotine dependence, cigarettes, uncomplicated
CPT/HCPCS: 36415; 71046; 71250; 78452; 80048; 80053; 80061; 82550; 82553; 83036; 83735; 84100; 84484; 85025; 85027; 93005; 93010; 93017; 93306; 96360; 99285; A9500; J1644; J2785; J3490; J7030; Q9969

== ENCOUNTER 2018-01-29 22:39 | Emergency (ER) | payer OTHER ==
[2018-01-29] MEDS ORDERED: HYDROCHLOROTHIAZIDE 25 MG TABLET PO ONE (22:57)
--- NOTE | 2018-01-29 23:00 | ER Document Report ---
ED General - General Stated Complaint: BLOOD PRESSURE ISSUES Time Seen by Provider: 01/29/18 22:50 Notes: Patient is a 58-year-old male who [facility] from [facility] with complaint of a headache. Patient says around 3 PM he started feeling a headache that gradually worsened throughout the day. He also noticed blood pressure is running high. He says he has had similar headaches in the past. He denies any focal weakness or numbness. No chest pain. No shortness of breath. No abdominal pain. He was given clonidine and then brought here by ambulance. Is currently hypertensive. He was recently discharged from hospital after having atrial flutter and hypertension. At that time a cardiac stress test. He was discharged on lisinopril and metoprolol for his blood pressure. He says he is pretty sure he received those today in [facility]. He has no other complaints at this time. TRAVEL OUTSIDE OF THE [place] IN LAST 30 DAYS: No - Related Data Allergies/Adverse Reactions: No Known Allergies Allergy (Verified 01/08/18 22:26) Past Medical History - Social History Smoking Status: Unknown if Ever Smoked Frequency of alcohol use: None Drug Abuse: None Family History: Reviewed & Not Pertinent - Past Medical History Cardiac Medical History: Reports: Hx Hypertension Pulmonary Medical History: Denies: Hx COPD Endocrine Medical History: Denies: Hx Diabetes Mellitus Type 2 Renal/ Medical History: Denies: Hx Peritoneal Dialysis GI Medical History: Denies: Hx Gastroesophageal Reflux Disease Musculoskeletal Medical History: Reports Hx Arthritis Skin Medical History: Denies Hx Eczema, Denies Hx Psoriasis Psychiatric Medical History: Denies: Hx Depression Traumatic Medical History: Denies: Hx Traumatic Brain Injury Past Surgical History: Reports: Hx Orthopedic Surgery - Right arm surgery for fracture Review of Systems - Review of Systems Notes: My Normal Review Basic REVIEW OF SYSTEMS: CONSTITUTIONAL : Denies fever, chills, or sweats. Denies recent illness. EENT: Denies eye, ear, throat, or mouth pain or symptoms. Denies nasal or sinus congestion. CARDIOVASCULAR: Denies chest pain. RESPIRATORY: Denies cough, cold, or chest congestion. Denies shortness of breath, difficulty breathing, or wheezing. GASTROINTESTINAL: Denies abdominal pain. Denies nausea, vomiting, or diarrhea. MUSCULOSKELETAL: Denies neck or back pain or joint pain or swelling. SKIN: Denies rash or skin lesions. NEUROLOGICAL: Denies altered mental status or loss of consciousness. has a headache. Denies weakness or paralysis or loss of use of either side. Denies problems with gait or speech. Denies sensory or motor loss. ALL OTHER SYSTEMS REVIEWED AND NEGATIVE. Physical Exam - Vital signs Vitals: Resp Pulse Ox 21 H 97 01/29/18 22:51 01/29/18 22:51 - Notes Notes: General Appearance: Well nourished, alert, cooperative, no acute distress, no obvious discomfort. Well-appearing. Vitals: reviewed, See vital signs table. Head: no swelling or tenderness to the head Eyes: PERRL, EOMI, Conjuctiva clear Mouth: No decreasd moisture Throat: No tonsillar inflammation, No airway obstruction, No lymphadenopathy Neck: Supple, no neck tenderness, No neck stiffness on exam. Lungs: No wheezing, No rales, No rhonci, No accessory muscle use, good air exchange bilaterally. Heart: Normal rate, Regular rythm, No murmur, no rub Abdomen: Normal BS, soft, No rigidity, No abdominal tenderness, No guarding, no rebound, no abdominal masses, no organomegaly Extremities: strength 5/5 in all extremities, good pulses in all extremities, no swelling or tenderness in the extremities, no edema. Skin: warm, dry, appropriate color, no rash Neuro: speech clear, oriented x 3, normal affect, responds appropriately to questions. Cranial nerves II through XII are intact. Distal sensation intact. Patient moves all extremities without difficulty. Course - Re-evaluation Re-evalutation: 01/29/18 22:59 Patient presents with a headache but no other neurologic deficits. He did receive clonidine. He said some improvement of his headache. He looks well and denies any focal neurologic deficits. I will start out with oral antihypertensive medications. If he does not improve then we will move on to IV medications. Denies any chest pain or shortness of breath or abdominal pain at this time. CT scan has been ordered because patient is on a blood thinner and does have a headache with hypertension. 01/30/18 01:40 She did not receive any pain medication. Once his blood pressure improved his headache was gone. He never any focal neurologic deficits. I believe this headache is most likely hypertensive related. He is awake and alert without any confusion or altered mental status. CBC hemolyzed but I do not think we need repeat CBC. His chemistry panel is normal with a normal renal function and normal cardiac enzymes. I feel the patient is safe to be discharged home. I will add hydrochlorothiazide to the patient's regimen. Patient to return to ER if he has recurrent headache, chest pain, shortness of breath, or if he has recurrent high blood pressure not responding to his home medications. Dictation of this chart was performed using voice recognition software; therefore, there may be some unintended grammatical errors. - Vital Signs Vital signs: Temp Pulse Resp BP Pulse Ox 24 H 155/88 H 97 01/30/18 00:00 01/29/18 23:15 01/30/18 00:00 - Laboratory Result Diagrams: 01/30/18 00:10 01/30/18 00:10 - EKG Interpretation by Me Additional EKG results interpreted by me: 01/29/18 22:57 EKG is reviewed and interpreted by me. EKG shows sinus rhythm with rate of [address] segment elevation. He does have slight ST segment depression in leads V5 and V6. He had similar findings on his previous EKG from January 09, 2018. HI interval, QRS duration, QTc intervals are within normal range. Discharge - Discharge Clinical Impression: HTN (hypertension) Qualifiers: Hypertension type: unspecified Qualified Code(s): I10 - Essential (primary) hypertension Headache Qualifiers: Headache type: unspecified Headache chronicity pattern: episodic headache Intractability: not intractable Qualified Code(s): R51 - Headache Condition: Good Disposition: HOME, SELF-CARE Additional Instructions: I have added a new medication (Hydrochlorothiazide) for your blood pressure control. Please take it as prescribed. Please discontinue the medication if your blood pressure stats to run below 110/70. Please return to the ER immediately if you develop severe headache, chest pain, difficulty breathing, or feel unwell. Please follow up with the [facility] physician in 2-3 days for reevaluation. Prescriptions: Hydrochlorothiazide 25 mg PO DAILY #30 tablet
--- NOTE | 2018-01-29 23:31 | RADIOLOGY REPORT (SQ) ---
EXAM DESCRIPTION: CT HEAD WITHOUT IV CONTRAST COMPLETED DATE/TME: 01/29/2018 22:52 CLINICAL HISTORY: 58 years Male, headache, HTN COMPARISON: None. TECHNIQUE: No contrast. Coronal and sagittal reformat. This exam was performed according to our departmental dose-optimization program, which includes automated exposure control, adjustment of the mA and/or kV according to patient size and/or use of iterative reconstruction technique. FINDINGS: No hemorrhage. No mass, mass effect, or midline shift. Multiple lacunar infarcts bilateral basal ganglia, left more than right. White matter microangiopathy. Small nonspecific skin lesions/nodule of the left parietal scalp. Brain and extra-axial structures appear otherwise intact. IMPRESSION: No acute findings. Lacunar infarcts of bilateral basal ganglia.
[2018-01-30 00:41] LABS: ALANINE AMINOTRANSFERASE 24 U/L (21-72); ALBUMIN 3.5 g/dL (3.5-5.0); ALKALINE PHOSPHATASE 91 U/L (38-126); ANION GAP 12 (5-19); ASPARTATE AMINO TRANSFERASE 22 U/L (17-59); BILIRUBIN,DIRECT 0.3 mg/dL (0.0-0.4); BILIRUBIN,TOTAL 0.6 mg/dL (0.2-1.3); BLOOD UREA NITROGEN 18 mg/dL (7-20); CALCIUM 8.9 mg/dL (8.4-10.2); CARBON DIOXIDE 22 mmol/L (22-30); CHLORIDE 107 mmol/L (98-107); GLUCOSE 103 mg/dL (75-110); POTASSIUM 4.1 mmol/L (3.6-5.0); SODIUM 140.7 mmol/L (137-145); TOTAL PROTEIN 6.5 g/dL (6.3-8.2)
--- NOTE | 2018-01-30 01:02 | RADIOLOGY REPORT (SQ) ---
EXAM DESCRIPTION: XR CHEST 1 VIEW COMPLETED DATE/TME: 01/29/2018 23:47 CLINICAL HISTORY: 58 years Male, hypertensive COMPARISON: January 09, 2018. NUMBER OF VIEWS/TECHNIQUE: 1/AP FINDINGS: Increased emphysematous lung volume, clear parenchyma, normal cardiac silhouette, atherosclerosis, and intact bony thorax. IMPRESSION: No acute cardiopulmonary findings.
[2018-01-30 01:55] VITALS: BP 149/91
--- NOTE | 2018-01-30 06:10 | EKG REPORT ---
SEVERITY:- ABNORMAL ECG - SINUS RHYTHM LVH WITH SECONDARY REPOLARIZATION ABNORMALITY : Confirmed by: Orlando Brito MD 30-Jan-2018 06:10:16
== END 2018-01-30 02:08 | disposition home or self-care (01) ==
LOC: ER 22:39
DX: R51 Headache (principal); I10 Essential (primary) hypertension
CPT/HCPCS: 36415; 70450; 71045; 80053; 84484; 93005; 93010; 99284

== ENCOUNTER → 2018-02-10 | Outpatient (CLI) | payer OTHER ==
[2018-02-10 15:23] LABS: FREE T4 (FREE THYROXINE) 4.09 ng/dL (0.78-2.19)
[2018-02-10 15:42] LABS: THYROID STIMULATING HORMONE < 0.01 uIU/mL (0.47-4.68)
[2018-02-13 07:34] LABS: THYROID STIM IMMUNOGLOBULIN 2.02 IU/L (0.00-0.55); THYROTROPIN RECEPTOR AB 2.24 IU/L (0.00-1.75)
== END ==
LOC: WI 14:07
PROVIDERS: ATTEND Internal Medicine Pulmonary Disease
DX: R79.9 Abnormal finding of blood chemistry, unspecified (principal)
CPT/HCPCS: 36415; 82565; 83519; 84080; 84439; 84443; 84481

== ENCOUNTER → 2018-02-17 | Outpatient (CLI) | payer OTHER ==
--- NOTE | 2018-02-17 10:25 | RADIOLOGY REPORT (SQ) ---
EXAM DESCRIPTION: DUPLEX ART/TIFFANY FLOW COMPLETE COMPLETED DATE/TIME: 02/17/2018 10:15 am REASON FOR STUDY: ABN LABS COMPARISON: None. TECHNIQUE: Realtime and static grayscale images acquired. Selected color Doppler, velocities and spe ctral images recorded. LIMITATIONS: None. FINDINGS: RIGHT KIDNEY: RENAL ARTERY VELOCITIES: 99 cm/sec. Segmental artery velocity 59 cm/sec. RENAL VEIN: Color doppler flow present, patent. VELOCITY RATIO: 1.54. Normal waveforms. KIDNEY: Normal size. No significant pathology. LEFT KIDNEY: RENAL ARTERY VELOCITIES: 107 cm/sec. Segmental artery velocity 68 cm/sec. RENAL VEIN: Color doppler flow present, patent. VELOCITY RATIO: 1.66. Normal waveforms. KIDNEY: Normal size. No significant pathology. BLADDER: Normal. OTHER: No other significant finding. IMPRESSION: NO DOPPLER EVIDENCE OF HEMODYNAMICALLY SIGNIFICANT RENAL ARTERY STENOSIS. COMMENT: NORMAL RENAL ARTERY/AORTA VELOCITY RATIO IS LESS THAN OR EQUAL TO 3.5. TECHNICAL DOCUMENTATION: JOB ID: [id number] [employer]- All Rights Reserved Reading location - IP/workstation name: [email or web address]
== END ==
LOC: RAD 09:33
PROVIDERS: ATTEND Family Medicine
DX: R94.4 Abnormal results of kidney function studies (principal)
CPT/HCPCS: 93975

== ENCOUNTER → 2018-04-01 | Outpatient (CLI) | payer OTHER ==
--- NOTE | 2018-04-01 12:03 | RADIOLOGY REPORT (SQ) ---
EXAM DESCRIPTION: CHEST PA/LATERAL COMPLETED DATE/TIME: 04/01/2018 11:34 am REASON FOR STUDY: J44.9, R91.1, COPD, SOLITARY PULMONARY NODULE COMPARISON: Two-view chest 01/08/2018 CT chest 01/09/2018 EXAM PARAMETERS: NUMBER OF VIEWS: two views TECHNIQUE: Digital Frontal and Lateral radiographic views of the chest acquired. RADIATION DOSE: NA LIMITATIONS: none FINDINGS: LUNGS AND PLEURA: 8 mm nodule identified in the right upper lobe on CT chest 01/09/2018 is difficult to visualize by plain film. 8 to 9 mm nodule over the anterior clear space on lateral view likely correlates with the findings on CT 01/09/2018 axial image 50/127. Lungs are otherwise well inflated and clear. No pleural effusion or pneumothorax. MEDIASTINUM AND HILAR STRUCTURES: No masses or contour abnormalities. HEART AND VASCULAR STRUCTURES: Heart normal size. No evidence for failure. BONES: No acute findings. HARDWARE: None in the chest. OTHER: No other significant finding. IMPRESSION: No acute infiltrates 8 mm nodule in the right upper lobe seen on chest CT 01/09/2018 is barely visible on the lateral view anterior clear space region TECHNICAL DOCUMENTATION: JOB ID: [id number] [employer]- All Rights Reserved Reading location - IP/workstation name: [email or web address]
[2018-04-01 12:05] LABS: ANION GAP 10 (5-19); BLOOD UREA NITROGEN 25 mg/dL (7-20); CALCIUM 9.6 mg/dL (8.4-10.2); CARBON DIOXIDE 28 mmol/L (22-30); CHLORIDE 103 mmol/L (98-107); GLUCOSE 107 mg/dL (75-110); POTASSIUM 3.6 mmol/L (3.6-5.0)
== END ==
LOC: CCC 11:07
DX: J44.9 Chronic obstructive pulmonary disease, unspecified (principal); R91.1 Solitary pulmonary nodule; I10 Essential (primary) hypertension
CPT/HCPCS: 36415; 71046; 80048

== ENCOUNTER → 2018-04-10 | Outpatient (CLI) | payer OTHER ==
--- NOTE | 2018-04-10 16:11 | RADIOLOGY REPORT (SQ) ---
EXAM DESCRIPTION: CT CHEST WITHOUT COMPLETED DATE/TIME: 04/10/2018 3:44 pm REASON FOR STUDY: R91.1 SOLITARY PULMONARY NODULE R91.1 SOLITARY PULMONARY NODULE COMPARISON: Chest x-ray 04/01/2018 CT 01/09/2018 TECHNIQUE: CT scan performed of the chest without intravenous contrast. Images reviewed with lung, soft tissue and bone windows. Reconstructed coronal and sagittal MPR images reviewed. All images st ored on PACS. All CT scanners at this facility use dose modulation, iterative reconstruction, and/or weight based d osing when appropriate to reduce radiation dose to as low as reasonably achievable (ALARA). [facility]: Dose Right [facility]: CareDose [facility]: Dose Right [facility]: Teradose 4D [facility]: [employer] RADIATION DOSE: CT Rad equipment meets quality standard of care and radiation dose reduction techniq ues were employed. CTDIvol: 8.5 mGy. DLP: 331 mGy-cm. mGy. LIMITATIONS: No technical limitations. FINDINGS: LUNGS AND PLEURA: 8 mm right upper lobe pulmonary nodule is unchanged. There is very mild ground-glass nodularity with some very small ground-glass opacities in the right upper lobe along so me slightly more prominent ones. The largest measure bowel 6 mm. See image 47 series 4. See image 57 series for. HILAR AND MEDIASTINAL STRUCTURES: No identified masses or abnormal nodes. No obvious aneurysm. HEART AND VASCULAR STRUCTURES: No aneurysm. No pericardial effusion. UPPER ABDOMEN: No significant findings. Limited exam. THYROID AND OTHER SOFT TISSUES: No masses. No adenopathy. BONES: No significant finding. HARDWARE: None in the chest. OTHER: No other significant findings. IMPRESSION: 1. Stable right upper lobe pulmonary nodule. 2. Multiple small ground-glass nodules in the right lung. May indicate foci of infection such as pn eumocystis pneumonia or CMV pneumonia, can be found secondary to hypersensitivity pneumonitis. Could be secondary to sarcoidosis. Cryptogenic organizing pneumonia. TECHNICAL DOCUMENTATION: JOB ID: [id number] Quality ID # [id number]: Final reports with documentation of one or more dose reduction techniques (e.g., Au tomated exposure control, adjustment of the mA and/or kV according to patient size, use of iterative reconstruction technique) 2010 [employer]- All Rights Reserved Reading location - IP/workstation name: [email or web address]
== END ==
LOC: RAD 17:35
DX: R91.1 Solitary pulmonary nodule (principal); R91.8 Other nonspecific abnormal finding of lung field
CPT/HCPCS: 71250

== ENCOUNTER → 2018-07-12 | Outpatient (CLI) | payer OTHER ==
[2018-07-12 13:28] LABS: ALANINE AMINOTRANSFERASE 25 U/L (21-72); ALBUMIN 4.3 g/dL (3.5-5.0); ALKALINE PHOSPHATASE 103 U/L (38-126); ASPARTATE AMINO TRANSFERASE 18 U/L (17-59); BILIRUBIN,DIRECT 0.3 mg/dL (0.0-0.4); BILIRUBIN,TOTAL 0.6 mg/dL (0.2-1.3); BLOOD UREA NITROGEN 20 mg/dL (7-20); CALCIUM 9.4 mg/dL (8.4-10.2); CARBON DIOXIDE 30 mmol/L (22-30); CHOLESTEROL 155.29 mg/dL (0-200); GLUCOSE 100 mg/dL (75-110); SODIUM 140.6 mmol/L (137-145); TRIGLYCERIDES 237 mg/dL (<150); URIC ACID 9.2 mg/dL (3.5-8.5)
[2018-07-12 13:30] LABS: ANION GAP 11 (5-19); CHLORIDE 100 mmol/L (98-107)
[2018-07-12 13:44] LABS: DIRECT LDL 97 mg/dL (<100)
[2018-07-12 13:50] LABS: VLDL CHOLESTEROL 47.4 mg/dL (10-31)
== END ==
LOC: CCC 11:47
DX: I11.0 Hypertensive heart disease with heart failure (principal); I50.9 Heart failure, unspecified
CPT/HCPCS: 36415; 80053; 80061; 84436; 84443; 84550

== ENCOUNTER → 2018-08-03 | Outpatient (CLI) | payer OTHER ==
--- NOTE | 2018-08-03 14:46 | RADIOLOGY REPORT (SQ) ---
EXAM DESCRIPTION: U/S THYROID/SFT TISS HD NECK COMPLETED DATE/TIME: 08/03/2018 9:33 am REASON FOR STUDY: HYPERTHYROIDISM E03.9 HYPOTHYROIDISM, UNSPECIFIED COMPARISON: None. TECHNIQUE: Dynamic and static ricks-scale images acquired of the thyroid gland. Selected additional c olor/power Doppler images recorded. All images stored to PACS. LIMITATIONS: None. FINDINGS: RIGHT LOBE: The right lobe of the thyroid gland measures 4.9 x 2.2 x 2.1 cm, normal size. Heterogenous echotexture. No cystic or solid masses. LEFT LOBE: The left lobe of the thyroid gland measures 5.5 x 2.0 x 2.5 cm, within normal range for s ize. Heterogenous echotexture. No cystic or solid masses. ISTHMUS: The isthmus measures 6.7 mm in AP diameter and is prominent in size. Heterogenous echotext ure. No cystic or solid masses. OTHER: No other significant finding. IMPRESSION: 1. Heterogenous appearance to the thyroid gland. Correlation suggested. 2. Additional findings as above. TECHNICAL DOCUMENTATION: JOB ID: [id number] [employer] [place]- All Rights Reserved Reading location - IP/workstation name: [email or web address]
== END ==
LOC: RAD 08:46
DX: E03.9 Hypothyroidism, unspecified (principal)
CPT/HCPCS: 76536

== ENCOUNTER → 2018-09-02 | Outpatient (CLI) | payer OTHER ==
--- NOTE | 2018-09-02 11:57 | RADIOLOGY REPORT (SQ) ---
EXAM DESCRIPTION: LUMBAR SPINE 2 VIEWS; SACRUM AND COCCYX COMPLETED DATE/TIME: 09/02/2018 11:36 am REASON FOR STUDY: INTERVERTEBRAL DISN DISORDERS WITH MYELOPATHY, THORACIC REGION BACK PAIN COMPARISON: None. FINDINGS: Two view lumbosacral spine: Normal alignment. Disc disease with mild narrowing and multi level osteophytes. No fracture or bone lesion. Visualized pelvis intact. Three views sacrum and coccyx: SI joints without evidence of ankylosis or erosions. Mild degenerati ve sclerosis. No sacral lesions. Coccyx intact. IMPRESSION: 1. Lumbar spondylosis. 2. No sacrococcygeal abnormality beyond degenerative SI joint changes, mild. TECHNICAL DOCUMENTATION: JOB ID: [id number] Reading location - IP/workstation name: [email or web address]
--- NOTE | 2018-09-02 11:57 | RADIOLOGY REPORT (SQ) ---
EXAM DESCRIPTION: LUMBAR SPINE 2 VIEWS; SACRUM AND COCCYX COMPLETED DATE/TIME: 09/02/2018 11:36 am REASON FOR STUDY: INTERVERTEBRAL DISN DISORDERS WITH MYELOPATHY, THORACIC REGION BACK PAIN COMPARISON: None. FINDINGS: Two view lumbosacral spine: Normal alignment. Disc disease with mild narrowing and multi level osteophytes. No fracture or bone lesion. Visualized pelvis intact. Three views sacrum and coccyx: SI joints without evidence of ankylosis or erosions. Mild degenerati ve sclerosis. No sacral lesions. Coccyx intact. IMPRESSION: 1. Lumbar spondylosis. 2. No sacrococcygeal abnormality beyond degenerative SI joint changes, mild. TECHNICAL DOCUMENTATION: JOB ID: [id number] Reading location - IP/workstation name: [email or web address]
== END ==
LOC: CCC 11:00
DX: M51.04 Intervertebral disc disorders with myelopathy, thoracic region (principal)
CPT/HCPCS: 72100; 72220

== ENCOUNTER → 2018-10-28 | Outpatient (CLI) | payer OTHER ==
--- NOTE | 2018-10-28 11:50 | RADIOLOGY REPORT (SQ) ---
EXAM DESCRIPTION: HAND RIGHT 2 VIEWS COMPLETED DATE/TIME: 10/28/2018 11:33 am REASON FOR STUDY: PULMONARY NODULE R FINGER J44.9 CHRONIC OBSTRUCTIVE PULMONARY DISEASE, UNSPECIFIE D I10 ESSENTIAL (PRIMARY) HYPERTENSION E03.9 HYPOTHYROIDISM, UNSPECIFIED COMPARISON: None. EXAM PARAMETERS: NUMBER OF VIEWS: Two view. TECHNIQUE: AP and lateral radiographic images acquired of the right hand. LIMITATIONS: None. FINDINGS: MINERALIZATION: Normal. BONES: No acute fracture or dislocation. No worrisome bone lesions. No significant osteophytes. JOINTS: No erosions. No matthew-articular osteopenia. No chondrocalcinosis. SOFT TISSUES: No swelling. No calcifications. OTHER: No other significant finding. IMPRESSION: NO SIGNIFICANT RADIOGRAPHIC ABNORMALITY. TECHNICAL DOCUMENTATION: JOB ID: [id number] [employer]- All Rights Reserved Reading location - IP/workstation name: [email or web address]
--- NOTE | 2018-10-28 11:50 | RADIOLOGY REPORT (SQ) ---
EXAM DESCRIPTION: CHEST PA/LATERAL COMPLETED DATE/TIME: 10/28/2018 11:33 am REASON FOR STUDY: COPD, COUGH COMPARISON: CT dated 04/10/2018. Chest x-ray dated 04/01/2018. EXAM PARAMETERS: NUMBER OF VIEWS: two views TECHNIQUE: Digital Frontal and Lateral radiographic views of the chest acquired. RADIATION DOSE: NA LIMITATIONS: none FINDINGS: LUNGS AND PLEURA: Faint nodule in the medial right lung adjacent to the hilum unchanged. Lungs are otherwise clear. No focal infiltrates. No pleural effusion or pneumothorax. MEDIASTINUM AND HILAR STRUCTURES: No masses or contour abnormalities. HEART AND VASCULAR STRUCTURES: Heart normal size. No evidence for failure. BONES: No acute findings. HARDWARE: None in the chest. OTHER: No other significant finding. IMPRESSION: FAINT NODULE IN THE MEDIAL RIGHT LUNG APPEARS UNCHANGED. NO ACUTE RADIOGRAPHIC FINDING IN THE CHEST. TECHNICAL DOCUMENTATION: JOB ID: [id number] [employer]- All Rights Reserved Reading location - IP/workstation name: [email or web address]
[2018-10-28 12:27] LABS: ABSOLUTE BASOPHILS # (AUTO) 0.1 10^3/uL (0.0-0.2); ABSOLUTE EOSINOPHILS # (AUTO) 0.2 10^3/uL (0.0-0.6); ABSOLUTE LYMPHOCYTES (AUTO) 2.3 10^3/uL (0.5-4.7); ABSOLUTE MONOCYTES (AUTO) 0.7 10^3/uL (0.1-1.4); ABSOLUTE NEUT (AUTO) 4.8 10^3/uL (1.7-8.2); BASOPHILS % (AUTO) 0.8 % (0-2); EOSINOPHILS % (AUTO) 2.2 % (0-6); HEMOGLOBIN 16.2 g/dL (13.5-17.0); LYMPHOCYTES % (AUTO) 28.6 % (13-45); MEAN CORPUSCULAR HEMOGLOBIN 29.6 pg (27.0-33.4); MEAN CORPUSCULAR HGB CONC 35.3 g/dL (32.0-36.0); MEAN CORPUSCULAR VOLUME 84 fl (80-97); MONOCYTES % (AUTO) 8.2 % (3-13); PLATELET COUNT 197 10^3/uL (150-450); RED BLOOD COUNT 5.49 10^6/uL (4.35-5.55); RED CELL DISTRIBUTION WIDTH 14.4 % (11.5-14.0); SEGMENTED NEUTROPHILS % (AUTO) 60.2 % (42-78); TOTAL CELLS COUNTED % (AUTO) 100 %
[2018-10-28 12:38] LABS: ALANINE AMINOTRANSFERASE 22 U/L (21-72); ALBUMIN 4.1 g/dL (3.5-5.0); ALKALINE PHOSPHATASE 96 U/L (38-126); ANION GAP 10 (5-19); ASPARTATE AMINO TRANSFERASE 20 U/L (17-59); BILIRUBIN,DIRECT 0.3 mg/dL (0.0-0.4); BILIRUBIN,TOTAL 0.6 mg/dL (0.2-1.3); BLOOD UREA NITROGEN 21 mg/dL (7-20); CALCIUM 9.8 mg/dL (8.4-10.2); CARBON DIOXIDE 28 mmol/L (22-30); CHLORIDE 102 mmol/L (98-107); GLUCOSE 92 mg/dL (75-110); POTASSIUM 3.7 mmol/L (3.6-5.0); TOTAL PROTEIN 7.2 g/dL (6.3-8.2); URIC ACID 10.2 mg/dL (3.5-8.5)
[2018-10-28 12:51] LABS: FREE T3 3.71 pg/mL (2.77-5.27); FREE T4 (FREE THYROXINE) 0.75 ng/dL (0.78-2.19)
[2018-10-28 13:05] LABS: THYROID STIMULATING HORMONE 0.74 uIU/mL (0.47-4.68)
== END ==
LOC: OD 11:01
DX: J44.9 Chronic obstructive pulmonary disease, unspecified (principal); I10 Essential (primary) hypertension; E03.9 Hypothyroidism, unspecified; R06.00 Dyspnea, unspecified; R91.1 Solitary pulmonary nodule; R05 Cough; R22.31 Localized swelling, mass and lump, right upper limb
CPT/HCPCS: 36415; 71046; 80053; 84439; 84443; 84481; 84550; 85025

== ENCOUNTER → 2018-11-22 | Outpatient (CLI) | payer OTHER ==
[2018-11-22 13:37] LABS: ARTERIAL BLOOD BASE EXCESS 0.8 mmol/L; ARTERIAL BLOOD H2CO3 1.19 mmol/L (1.05-1.35); ARTERIAL BLOOD HCO3 25.1 mmol/L (20-24); ARTERIAL BLOOD O2 SATURATION 96.6 % (94-98); ARTERIAL BLOOD PCO2 39.4 mmHg (35-45); ARTERIAL BLOOD PH 7.42 (7.35-7.45); ARTERIAL BLOOD PO2 84.7 mmHg (80-100); ARTERIAL BLOOD TOTAL CO2 26.3 mmol/L (23-27)
[2018-11-22 13:38] LABS: ARTERIAL BLOOD FIO2 ROOM AIR
== END ==
LOC: RT 12:54
PROVIDERS: ATTEND Family Medicine
DX: J44.9 Chronic obstructive pulmonary disease, unspecified (principal)
CPT/HCPCS: 36600; 82803; 94060; 94761

== ENCOUNTER → 2019-02-20 | Outpatient (CLI) | payer OTHER | LOC: SP 13:40 | PROVIDERS: ATTEND Family Medicine | DX: I73.9 Peripheral vascular disease, unspecified (principal) | CPT/HCPCS: 93922 ==

== ENCOUNTER 2020-05-03 05:09 | Inpatient (IN) | payer SELFPAY ==
--- NOTE | 2020-05-03 05:15 | ER Document Report ---
ED General - General Stated Complaint: UNRESPONSIVE Time Seen by Provider: 05/03/20 05:15 Primary Care Provider: NILDA ABARCA MD [Primary Care Provider] - Follow up as needed TRAVEL OUTSIDE OF THE [place] IN LAST 30 DAYS: No - HPI Context: Patient is a 60-year-old male with a history of COPD, not on home O2, presenting to the emergency department by EMS for evaluation of unresponsiveness, hypoxia and presumed acute respiratory failure. Patient's sister related history to EMS. Sister stated she does not know much about the patient's past medical history other than his COPD, tobacco abuse, history of CVA and known prior [place]. She states that earlier this morning the patient started complaining of shortness of breath but could not find his inhaler. The sister with the patient have one of her albuterol vials for a albuterol nebulizer treatment. Apparently this was not very helpful for the patient's symptoms and at some point after the breathing treatment, the patient was found by his sister sitting up in chair but was unresponsive. She called 911. When EMS arrived, they said the patient was in a chair, but had a GCS of 3, and initial O2 sat of 40%. Patient was intubated with a 7.5 ET tube by EMS. One of the medics stated the patient's breath sounds were significant for rhonchi and wheezing in all sanchez. Medics said breath sounds seem to have improved after intubating the patient. It is unknown if the patient has had any recent Covid exposures, any history of Covid 19, any fever, chest pain. Patient still smokes. Associated symptoms: Other - Unknown at this time Exacerbated by: Other - Unknown Relieved by: Other - Unknown - Related Data Allergies/Adverse Reactions: No Known Allergies Allergy (Verified 01/08/18 22:26) Past Medical History - General Information source: Emergency Med Personnel - Social History Smoking Status: Current Every Day Smoker Lives with: Other - Sister Family History: Reviewed & Not Pertinent - Past Medical History Cardiac Medical History: Reports: Hx Heart Attack, Hx Hypertension Pulmonary Medical History: Denies: Hx COPD Endocrine Medical History: Denies: Hx Diabetes Mellitus Type 2 Renal/ Medical History: Denies: Hx Peritoneal Dialysis GI Medical History: Denies: Hx Gastroesophageal Reflux Disease Musculoskeletal Medical History: Reports Hx Arthritis Skin Medical History: Denies Hx Eczema, Denies Hx Psoriasis Psychiatric Medical History: Denies: Hx Depression Traumatic Medical History: Denies: Hx Traumatic Brain Injury Past Surgical History: Reports: Hx Orthopedic Surgery - Right arm surgery for fracture Review of Systems - Review of Systems -: Yes ROS unobtainable due to patient's medical condition Physical Exam - Vital signs Vitals: Resp Pulse Ox 15 99 05/03/20 05:10 05/03/20 05:10 - Notes Notes: CONSTITUTIONAL [Vital signs reviewed, Patient is intubated. GCS of 3. HEAD [Atraumatic, Normocephalic.] EYES [Eyes are normal to inspection, No discharge from eyes, Sclera are normal, Conjunctiva are normal.] ENT [External ears normal to inspection, Nose examination normal, Mouth normal to inspection.] NECK No jugular venous distention, no crepitus, step-off or deformity appreciated RESPIRATORY CHEST [Chest is nontender, Breath sounds audible bilaterally. No rhonchi or wheezing is appreciated at this time] CARDIOVASCULAR Tachycardia, No murmurs, Normal S1 S2, No rub, No gallop.] ABDOMEN [Abdomen is nontender, No pulsatile masses, No other masses, Bowel sounds quiet l, No distension, No peritoneal signs, No hernias.] UPPER EXTREMITY [Inspection normal, No cyanosis, No clubbing, No edema, LOWER EXTREMITY [Inspection normal, No cyanosis, No clubbing, No edema, No calf tenderness, NEURO [GCS of 3 SKIN [Skin is warm, Skin is dry, Skin is normal color.] PSYCHIATRIC [Patient has a GCS of 3. Unable to adequately assess patient's psychiatric status at this time] Course - Vital Signs Vital signs: Temp Pulse Resp BP Pulse Ox 96.4 F L 15 210/118 H 98 05/03/20 05:50 05/03/20 05:40 05/03/20 05:40 05/03/20 05:40 - Laboratory Result Diagrams: 05/03/20 05:12 05/03/20 05:12 Laboratory results interpreted by me: 05/03/20 05/03/20 05/03/20 05:12 05:12 05:12 RBC 5.80 H Hgb 17.3 H RDW 14.5 H Robeson % (Auto) 1.9 L Carbonic Acid ABG pH ABG pCO2 ABG pO2 ABG O2 Saturation Creatinine 1.56 H Est GFR ( Amer) 55 L Est GFR (MDRD) Non-Af 45 L Glucose 280 H Lactic Acid NT-Pro-B Natriuret Pep 4950 H 05/03/20 05/03/20 05:12 05:12 RBC Hgb RDW Robeson % (Auto) Carbonic Acid 2.16 H ABG pH 7.13 L* ABG pCO2 71.8 H* ABG pO2 253.2 H ABG O2 Saturation 99.3 H Creatinine Est GFR ( Amer) Est GFR (MDRD) Non-Af Glucose Lactic Acid 3.2 H NT-Pro-B Natriuret Pep - EKG Interpretation by Me Additional EKG results interpreted by me: 05/03/20 06:01 EKG obtained on 05/03/2020 at 0514 hrs. was interpreted by this MD. Findings: Sinus tachycardia, rate 124, DE interval appears to be within normal limits, P waves preceding QRS complexes, QRS complex appears narrow, QTC is 494, there appears to be isolated ST segment elevation in V1 that is seen on prior EKG dated 01/09/2018, there is ST segment depression noted in leads V4 through V6 that was also seen on prior EKG dated 01/29/2018. There is ST segment depression in leads II, III and aVF that is also seen in prior EKG dated 01/09/2018. Impression: Sinus tachycardia with nonspecific ST segments. - Consults VASHTI Pond, Intensive Care service Time consulted: 05:50 - VASHTI Cowart saw the patient in the ED, stated he would accept the patient for admission to ICU Reason for consultation: 05/03/20 05:52 acute respiratory failure, hypoxia, ams, intubated, on ventilator Consulted provider: will come to ER Critical Care Note - Critical Care Note Total time excluding time spent on procedures (mins): 60 - management of intubated pt with hypoxia and respiratory failure Discharge - Discharge Clinical Impression: Acute respiratory failure Qualifiers: Respiratory failure complication: hypoxia Qualified Code(s): J96.01 - Acute respiratory failure with hypoxia Bilateral pneumonia Qualifiers: Pneumonia type: due to unspecified organism Lung location: unspecified part of lung Qualified Code(s): J18.9 - Pneumonia, unspecified organism Sepsis Qualifiers: Sepsis type: sepsis due to unspecified organism Sepsis acute organ dysfunction status: unspecified Qualified Code(s): A41.9 - Sepsis, unspecified organism Condition: Critical Disposition: ADMITTED INPATIENT Admitting Provider: [facility] ([facility]) Unit Admitted: ICU Referrals: NILDA ABARCA MD [Primary Care Provider] - Follow up as needed
[2020-05-03] MEDS ORDERED: METHYLPREDNISOLONE INJ 125 MG/2 ML SDV IV ONE (05:22)
[2020-05-03] MEDS ORDERED: NORMAL SALINE 1000 ML 1,000 ML IV ONE ×2 (05:22→05:32)
[2020-05-03] MEDS ORDERED: PIPERACILLIN/TAZOBACTAM 3.375 GM VIAL IV ONE (05:31)
[2020-05-03] MEDS: MIDAZOLAM HCL 50 MG/100 ML RTUINJ IV PRN ×4 (05:35→21:25)
[2020-05-03 05:50] LABS: ABSOLUTE BASOPHILS # (AUTO) 0.1 10^3/uL (0.0-0.2); ABSOLUTE EOSINOPHILS # (AUTO) 0.1 10^3/uL (0.0-0.6); ABSOLUTE LYMPHOCYTES (AUTO) 2.2 10^3/uL (0.5-4.7); ABSOLUTE MONOCYTES (AUTO) 0.2 10^3/uL (0.1-1.4); ABSOLUTE NEUT (AUTO) 6.1 10^3/uL (1.7-8.2); BASOPHILS % (AUTO) 1.1 % (0-2); EOSINOPHILS % (AUTO) 1.4 % (0-6); HEMATOCRIT 50.3 % (37.9-51.0); HEMOGLOBIN 17.3 g/dL (13.5-17.0); LYMPHOCYTES % (AUTO) 24.9 % (13-45); MEAN CORPUSCULAR HEMOGLOBIN 29.8 pg (27.0-33.4); MEAN CORPUSCULAR HGB CONC 34.3 g/dL (32.0-36.0); MEAN CORPUSCULAR VOLUME 87 fl (80-97); MONOCYTES % (AUTO) 1.9 % (3-13); PLATELET COUNT 196 10^3/uL (150-450); RED CELL DISTRIBUTION WIDTH 14.5 % (11.5-14.0); SEGMENTED NEUTROPHILS % (AUTO) 70.7 % (42-78); TOTAL CELLS COUNTED % (AUTO) 100 %; WHITE BLOOD COUNT 8.7 10^3/uL (4.0-10.5)
[2020-05-03] MEDS ORDERED: IPRATROPIUM/ALBUTEROL 0.5-2.5 MG/3 ML AMPUL NEB ONE (05:50)
[2020-05-03 05:54] LABS: ALBUMIN 3.7 g/dL (3.5-5.0); ALKALINE PHOSPHATASE 89 U/L (38-126); ANION GAP 17 (5-19); ASPARTATE AMINO TRANSFERASE 26 U/L (17-59); BILIRUBIN,DIRECT 0.1 mg/dL (0.0-0.4); BILIRUBIN,TOTAL 0.5 mg/dL (0.2-1.3); BLOOD UREA NITROGEN 16 mg/dL (7-20); CALCIUM 8.6 mg/dL (8.4-10.2); CARBON DIOXIDE 22 mmol/L (22-30); CHLORIDE 101 mmol/L (98-107); GLUCOSE 280 mg/dL (75-110); POTASSIUM 3.7 mmol/L (3.6-5.0); TOTAL PROTEIN 6.4 g/dL (6.3-8.2)
[2020-05-03 05:55] LABS: ARTERIAL BLOOD BASE EXCESS -7.9 mmol/L; ARTERIAL BLOOD H2CO3 2.16 mmol/L (1.05-1.35); ARTERIAL BLOOD HCO3 23.4 mmol/L (20-24); ARTERIAL BLOOD O2 SATURATION 99.3 % (94-98); ARTERIAL BLOOD PO2 253.2 mmHg (80-100); ARTERIAL BLOOD TOTAL CO2 25.6 mmol/L (23-27)
[2020-05-03 05:56] LABS: ALCOHOL < 10 mg/dL (NONE DETECTED)
[2020-05-03 06:07] LABS: TROPONIN I 0.093 ng/mL
[2020-05-03 06:08] LABS: ARTERIAL BLOOD FIO2 100%; ARTERIAL BLOOD PCO2 71.8 mmHg (35-45); ARTERIAL BLOOD PH 7.13 (7.35-7.45)
--- NOTE | 2020-05-03 06:16 | RADIOLOGY REPORT (SQ) ---
CHEST X-RAY 1 VIEW on 05/03/2020 at 5:23 AM CLINICAL INDICATION: ET tube placement COMPARISON: 10/28/2018 FINDINGS: ET tube tip is in the mid thoracic trachea approximately 4.9 cm above the level of the mi. NG tube extends into the upper stomach in good position. Heart is within normal limits for size. There are right greater than left interstitial opacities consistent with asymmetric edema and/or pneumonia, differential diagnosis would include viral infections. IMPRESSION: Developing right greater than left opacities likely representing pneumonia and differential diagnosis would include viral infections.
[2020-05-03 06:21] LABS: URINE AMPHETAMINES SCREEN NEGATIVE; URINE BARBITURATES SCREEN NEGATIVE; URINE BENZODIAZEPINES SCREEN NEGATIVE; URINE COCAINE SCREEN NEGATIVE; URINE METHADONE SCREEN NEGATIVE; URINE PHENCYCLIDINE SCREEN NEGATIVE
[2020-05-03 06:24] LABS: URINE MARIJUANA (THC) SCREEN UNCONFIRMED POSITIVE
[2020-05-03] MEDS ORDERED: NORMAL SALINE 1000 ML 820 ML IV ONE (06:29)
[2020-05-03] MEDS ORDERED: LABETALOL HCL INJ 20 MG/4 ML DISP.SYRIN IV ONE (06:51)
[2020-05-03] MEDS ORDERED: MIDAZOLAM 2 MG/2 ML INJ IV ONE (09:48)
[2020-05-03] MEDS ORDERED: MIDAZOLAM 2 MG/2 ML INJ ONE (09:50)
--- NOTE | 2020-05-03 14:44 | CRITICAL CARE ADMISSION REPORT ---
HPI Date:: 05/03/20 Time:: 14:20 Reason for ICU Reason:: acute respiratory Failure Admission Date/Time & PCP: Admission Date/Time: 05/03/20 06:54 Primary Care Provider: NILDA ABARCA MD HPI: 05/03 Patient is a 60-year-old male with a history of COPD, not on home O2, presenting to the emergency department by EMS for evaluation of unresponsiveness, hypoxia and presumed acute respiratory failure. Patient's sister related history to EMS. Sister stated she does not know much about the patient's past medical h istory other than his COPD, tobacco abuse, history of CVA and known prior [place]. She states that earlier this morning the patient started complaining of shortness of breath but could not find his inhaler. The sister with the patient have one of her albuterol vials for a albuterol nebulizer treatment. Apparently this was not very helpful for the patient's symptoms and at some point after the breathing treatment, the patient was found by his sister sitting up in chair but was unresponsive. She called 911. When EMS arrived, they said the patient was in a chair, but had a GCS of 3, and initial O2 sat of 40%. Patient was intubated with a 7.5 ET tube by EMS. One of the medics stated the patient's breath sounds were significant for rhonchi and wheezing in all sanchez. Medics said breath sounds seem to have improved after intubating the patient. It is unknown if the patient has had any recent Covid exposures, any history of Covid 19, any fever, chest pain. Patient still smokes. 05/03 The patient is sedated on the ventilator . He is still situated in the ED. Vitals are stable Current temp is 99.5. His CXR shows an extensive right sided and possibly left lingular infiltrate. The patient was swabbed for Covid and the results are pending. His WBC was normal on presentation His intial ABG showed a profound resp. acidosis. - Diagnosis/Plan (2) Hyperglycemia Is this a current diagnosis for this admission?: Yes (3) Acute respiratory failure Qualifiers: Respiratory failure complication: hypoxia Qualified Code(s): J96.01 - Acute respiratory failure with hypoxia Is this a current diagnosis for this admission?: Yes Plan: The patient presented with acute hypercapneic resp. failure. He was intubated in the field. He has a long smoking history His CXR shows bilateral infiltrates. He has been tested for COVID -19. He has been placed on abx therapy for CAP. He has been placed on nebulizers and steroids (4) Bilateral pneumonia Qualifiers: Pneumonia type: due to unspecified organism Lung location: unspecified part of lung Qualified Code(s): J18.9 - Pneumonia, unspecified organism Is this a current diagnosis for this admission?: Yes Plan: Sputum culture ordered. the patient is on empirica Rx for CAP. Covid -19 test pending Past Medical History Cardiac Medical History: Reports: Myocardial Infarction, Hypertension Pulmonary Medical History: Denies: Chronic Obstructive Pulmonary Disease (COPD) Endocrine Medical History: Denies: Diabetes Mellitus Type 2 GI Medical History: Denies: Gastroesophageal Reflux Disease Musculoskeltal Medical History: Reports: Arthritis Skin Medical History: Denies: Eczema, Psoriasis Psychiatric Medical History: Denies: Depression Traumatic Medical History: Denies: Traumatic Brain Injury Hematology: Denies: Bleeding Tendencies Past Surgical History Past Surgical History: Reports: Orthopedic Surgery - Right arm surgery for fracture Social/Family History - Social History Lives with: Other - Sister Smoking Status: Current Every Day Smoker Frequency of Alcohol Use: None Hx Recreational Drug Use: No Drugs: None Hx Prescription Drug Abuse: No - Medication/Allergies Home Medications: Hydrochlorothiazide 25 mg PO QAM 05/03/20 Lisinopril [Prinivil] 20 mg PO Q12 05/03/20 Metoprolol Tartrate [Lopressor 50 mg Tablet] 50 mg PO Q12 05/03/20 Allergies/Adverse Reactions: No Known Allergies Allergy (Verified 01/08/18 22:26) Physical Exam Vital Signs: Temp Pulse Resp BP Pulse Ox 96.6 F L 17 127/88 H 94 05/03/20 06:30 05/03/20 13:40 05/03/20 13:40 05/03/20 13:40 Intake & Output 05/02/20 05/03/20 05/04/20 06:59 06:59 06:59 Intake Total 2920 Output Total 270 Balance 2650 Weight 94 kg Weight/Height Weight 94 kg Laboratory/Radiographs Laboratory Results: 05/03/20 05:12 05/03/20 05:12 05/03/20 05/03/20 05/03/20 05:12 05:12 05:12 WBC 8.7 RBC 5.80 H Hgb 17.3 H Hct 50.3 MCV 87 MCH 29.8 MCHC 34.3 RDW 14.5 H Plt Count 196 Seg Neutrophils % 70.7 Carbonic Acid HCO3/H2CO3 Ratio ABG pH ABG pCO2 ABG pO2 ABG HCO3 ABG O2 Saturation ABG Base Excess FiO2 Sodium 139.7 Potassium 3.7 Chloride 101 Carbon Dioxide 22 Anion Gap 17 BUN 16 Creatinine 1.56 H Est GFR ( Amer) 55 L Glucose 280 H Lactic Acid 3.2 H Calcium 8.6 Total Bilirubin 0.5 AST 26 Alkaline Phosphatase 89 Total Protein 6.4 Albumin 3.7 05/03/20 05:12 WBC RBC Hgb Hct MCV MCH MCHC RDW Plt Count Seg Neutrophils % Carbonic Acid 2.16 H HCO3/H2CO3 Ratio 10:1 ABG pH 7.13 L* ABG pCO2 71.8 H* ABG pO2 253.2 H ABG HCO3 23.4 ABG O2 Saturation 99.3 H ABG Base Excess -7.9 FiO2 100% Sodium Potassium Chloride Carbon Dioxide Anion Gap BUN Creatinine Est GFR ( Amer) Glucose Lactic Acid Calcium Total Bilirubin AST Alkaline Phosphatase Total Protein Albumin 05/03/20 05:12 Troponin I 0.093 NT-Pro-B Natriuret Pep 4950 H Impressions: Chest X-Ray 05/03/20 05:21 IMPRESSION: Developing right greater than left opacities likely representing pneumonia and differential diagnosis would include viral infections. Critical Time Critical Time (minutes): 40 -: The care of a critically ill patient is dynamic. This note represents a static moment in the admission process. Orders and treatments may be given simultaneously and urgently, and time is not underwriting account representative of the treatment process. This patient requires Critical Care secondary to life threatening organ or limb dysfunction. Without Critical Care services, the patient is at risk for increased mortality and morbidity.
[2020-05-03 15:40] LABS: ARTERIAL BLOOD BASE EXCESS -2.1 mmol/L; ARTERIAL BLOOD H2CO3 1.47 mmol/L (1.05-1.35); ARTERIAL BLOOD HCO3 24.6 mmol/L (20-24); ARTERIAL BLOOD O2 SATURATION 98.1 % (94-98); ARTERIAL BLOOD PCO2 48.7 mmHg (35-45); ARTERIAL BLOOD PH 7.32 (7.35-7.45); ARTERIAL BLOOD PO2 120.8 mmHg (80-100); ARTERIAL BLOOD TOTAL CO2 26.1 mmol/L (23-27)
[2020-05-03] MEDS: HYDRALAZINE HCL INJ/PF 20 MG/1 ML SDV IV PRN ×2 (15:40→22:18)
[2020-05-03 15:41] LABS: ARTERIAL BLOOD FIO2 60%
[2020-05-03] MEDS: ENOXAPARIN SODIUM INJ 40 MG/0.4 ML DISP.SYRIN SUBCUT SCH (16:37)
[2020-05-03] MEDS: AZITHROMYCIN 500 MG in DEXTROSE 5%-WATER 250 ML IV SCH (17:11)
[2020-05-03 19:28] LABS: ARTERIAL BLOOD BASE EXCESS -2.2 mmol/L; ARTERIAL BLOOD H2CO3 1.18 mmol/L (1.05-1.35); ARTERIAL BLOOD HCO3 22.6 mmol/L (20-24); ARTERIAL BLOOD O2 SATURATION 98.6 % (94-98); ARTERIAL BLOOD PCO2 39.2 mmHg (35-45); ARTERIAL BLOOD PH 7.38 (7.35-7.45); ARTERIAL BLOOD PO2 133.8 mmHg (80-100); ARTERIAL BLOOD TOTAL CO2 23.8 mmol/L (23-27)
[2020-05-03 19:34] LABS: ARTERIAL BLOOD FIO2 60%
[2020-05-03] MEDS: DOCUSATE SODIUM 100 MG CAPSULE PO SCH (19:37)
--- NOTE | 2020-05-03 19:38 | EKG REPORT ---
SEVERITY:- ABNORMAL ECG - SINUS TACHYCARDIA ATRIAL PREMATURE COMPLEX PROBABLE LVH WITH SECONDARY REPOL ABNRM ST DEPRESSION, CONSIDER ISCHEMIA, ANT-LAT LDS BORDERLINE PROLONGED QT INTERVAL : Confirmed by: Bessy Duvall MD 03-May-2020 19:38:16
[2020-05-03] MEDS ORDERED: METHYLPREDNISOLONE INJ 125 MG/2 ML SDV ONE (20:55)
[2020-05-03] MEDS: FAMOTIDINE INJ/PF 20 MG/2 ML SDV IV SCH (21:24)
[2020-05-03] MEDS: METHYLPREDNISOLONE INJ 40 MG/1 ML SDV IV SCH (21:25)
[2020-05-03] MEDS ORDERED: POTASSI CL 20 MEQ/50 ML RIDER 40 MEQ/100 ML RTUPB IV ONE (21:51)
[2020-05-03] MEDS: IPRATROPIUM/ALBUTEROL 0.5-2.5 MG/3 ML AMPUL NEB SCH (22:00)
[2020-05-03] MEDS: POTASSI CL 20 MEQ/50 ML RIDER 20 MEQ/50 ML RTUPB IV SCH (22:19)
[2020-05-03] MEDS: ACETAMINOPHEN 325 MG TABLET PO PRN (22:19)
[2020-05-04] MEDS ORDERED: IPRATROPIUM/ALBUTEROL 0.5-2.5 MG/3 ML AMPUL NEB ONE (00:50)
[2020-05-04 01:52] LABS: ANION GAP 10 (5-19); BLOOD UREA NITROGEN 20 mg/dL (7-20); CALCIUM 8.7 mg/dL (8.4-10.2); CARBON DIOXIDE 20 mmol/L (22-30); CHLORIDE 107 mmol/L (98-107); GLUCOSE 142 mg/dL (75-110); POTASSIUM 4.4 mmol/L (3.6-5.0)
[2020-05-04] MEDS: POTASSI CL 20 MEQ/50 ML RIDER 20 MEQ/50 ML RTUPB IV SCH (02:22)
[2020-05-04] MEDS ORDERED: MAGNESIUM SULFATE 4 GM/100 ML RTUPB IV ONE ×2 (02:48→04:22)
[2020-05-04] MEDS: MIDAZOLAM HCL 50 MG/100 ML RTUINJ IV PRN ×2 (03:39)
[2020-05-04] MEDS: ACETAMINOPHEN 325 MG TABLET PO PRN (04:44)
[2020-05-04] MEDS ORDERED: PROPOFOL 1,000 MG/100 ML INFUS..BTL IV ONE (04:49)
[2020-05-04] MEDS: PROPOFOL 1,000 MG/100 ML INFUS..BTL IV PRN ×5 (05:00→21:26)
[2020-05-04 05:07] LABS: HEMATOCRIT 47.5 % (37.9-51.0); HEMOGLOBIN 16.2 g/dL (13.5-17.0); MEAN CORPUSCULAR HEMOGLOBIN 29.2 pg (27.0-33.4); MEAN CORPUSCULAR VOLUME 86 fl (80-97); PLATELET COUNT 170 10^3/uL (150-450); RED BLOOD COUNT 5.54 10^6/uL (4.35-5.55); RED CELL DISTRIBUTION WIDTH 14.7 % (11.5-14.0)
[2020-05-04] MEDS: METHYLPREDNISOLONE INJ 40 MG/1 ML SDV IV SCH ×3 (05:13→21:43)
[2020-05-04 05:29] LABS: WHITE BLOOD COUNT 18.3 10^3/uL (4.0-10.5)
[2020-05-04 05:31] LABS: ABSOLUTE LYMPHOCYTES# (MANUAL) 0.7 10^3/uL (0.5-4.7); ABSOLUTE MONOCYTES # (MANUAL) 1.1 10^3/uL (0.1-1.4); ALBUMIN 3.8 g/dL (3.5-5.0); ALKALINE PHOSPHATASE 81 U/L (38-126); ANION GAP 12 (5-19); ASPARTATE AMINO TRANSFERASE 28 U/L (17-59); BASOPHILS % (MANUAL) 0 % (0-2); BILIRUBIN,DIRECT 0.2 mg/dL (0.0-0.4); BILIRUBIN,TOTAL 0.7 mg/dL (0.2-1.3); BLOOD UREA NITROGEN 20 mg/dL (7-20); CALCIUM 9.1 mg/dL (8.4-10.2); CARBON DIOXIDE 20 mmol/L (22-30); CHLORIDE 106 mmol/L (98-107); CHOLESTEROL 197.25 mg/dL (0-200); EOSINOPHILS % (MANUAL) 0 % (0-6); GLUCOSE 144 mg/dL (75-110); LYMPHOCYTES % (MANUAL) 4 % (13-45); MONOCYTES % (MANUAL) 6 % (3-13); PLATELET COMMENT ADEQUATE; POTASSIUM 4.6 mmol/L (3.6-5.0); SEGMENTED NEUTROPHILS % (MAN) 90 % (42-78); TOTAL CELLS COUNTED 100; TOTAL PROTEIN 6.5 g/dL (6.3-8.2); TRIGLYCERIDES 122 mg/dL (<150)
[2020-05-04 05:42] LABS: DIRECT LDL 139 mg/dL (<100)
[2020-05-04 05:45] LABS: FREE T4 (FREE THYROXINE) 1.21 ng/dL (0.78-2.19)
[2020-05-04 05:59] LABS: THYROID STIMULATING HORMONE 0.07 uIU/mL (0.47-4.68)
--- NOTE | 2020-05-04 09:03 | RADIOLOGY REPORT (SQ) ---
EXAM DESCRIPTION: CHEST SINGLE VIEW IMAGES COMPLETED DATE/TIME: 05/04/2020 6:58 am REASON FOR STUDY: acute respiratory failure COMPARISON: 05/03/2020 NUMBER OF VIEWS: One view. TECHNIQUE: Single frontal radiographic image of the chest acquired. LIMITATIONS: None. FINDINGS: ENDOTRACHEAL TUBE: Appropriate location. OTHER SUPPORT DEVICES: Nasogastric tube stable. CHANGES IN RADIOGRAPHIC FINDINGS: None. Stable appearance. HARDWARE: None in the chest. OTHER: No other significant finding. IMPRESSION: STABLE APPEARANCE OF THE CHEST. TECHNICAL DOCUMENTATION: JOB ID: [id number] 2010 [employer]- All Rights Reserved Reading location - IP/workstation name: [email or web address]
[2020-05-04] MEDS: IPRATROPIUM/ALBUTEROL 0.5-2.5 MG/3 ML AMPUL NEB SCH ×4 (09:05→20:18)
[2020-05-04] MEDS: FAMOTIDINE INJ/PF 20 MG/2 ML SDV IV SCH ×2 (09:17→21:43)
[2020-05-04] MEDS: ENOXAPARIN SODIUM INJ 40 MG/0.4 ML DISP.SYRIN SUBCUT SCH (09:18)
[2020-05-04] MEDS: DOCUSATE SODIUM 100 MG CAPSULE PO SCH ×2 (09:19→18:48)
[2020-05-04] MEDS ORDERED: AZITHROMYCIN INJ 500 MG VIAL IV SCH (10:00)
--- NOTE | 2020-05-04 11:42 | PDOC CRITICAL CARE PROG REPORT ---
General Date:: 05/04/20 ICU Day:: 2 Ventilator Day:: 2 Hospital Day:: 2 Resuscitation Status: Full Code Events in the past 12 to 24 Hours:: The patient was intuabted in the field for acute resp. failure. has a known hist ory of COPD. Intial CXR suggested a significat right sided infiltrate. WBC was normal onpresentation. he is on nebulizers and seroids. Has been treated with Azithro and roicephin. Reason for ICU Addmission:: acute respiratory Failure Physical Exam Vital Signs: Temp Pulse Resp BP Pulse Ox 98.2 F 99 23 H 122/67 96 05/04/20 10:00 05/04/20 09:05 05/04/20 11:00 05/04/20 10:48 05/04/20 11:00 Intake & Output 05/03/20 05/04/20 05/05/20 06:59 06:59 06:59 Intake Total 3704 74 Output Total 970 85 Balance 2734 -11 Weight 94 kg 89.1 kg Weight/Height Weight 89.1 kg Height 5 ft 7 in Laboratory/Radiographs Laboratory Results: 05/04/20 04:53 05/04/20 04:53 05/03/20 05/03/20 05/04/20 15:13 19:18 01:18 WBC RBC Hgb Hct MCV MCH MCHC RDW Plt Count Seg Neutrophils % Carbonic Acid 1.47 H 1.18 HCO3/H2CO3 Ratio 16:1 19:1 ABG pH 7.32 L 7.38 ABG pCO2 48.7 H 39.2 ABG pO2 120.8 H 133.8 H ABG HCO3 24.6 H 22.6 ABG O2 Saturation 98.1 H 98.6 H ABG Base Excess -2.1 -2.2 FiO2 60% 60% Sodium 137.1 Potassium 4.4 Chloride 107 Carbon Dioxide 20 L Anion Gap 10 BUN 20 Creatinine 1.41 H Est GFR ( Amer) > 60 Glucose 142 H Calcium 8.7 Magnesium 1.6 Total Bilirubin AST Alkaline Phosphatase Total Protein Albumin Triglycerides Cholesterol LDL Cholesterol Direct VLDL Cholesterol HDL Cholesterol TSH Free T4 05/04/20 05/04/20 05/04/20 04:53 04:53 04:53 WBC 18.3 H D RBC 5.54 Hgb 16.2 Hct 47.5 MCV 86 MCH 29.2 MCHC 34.0 RDW 14.7 H Plt Count 170 Seg Neutrophils % Not Reportable Carbonic Acid HCO3/H2CO3 Ratio ABG pH ABG pCO2 ABG pO2 ABG HCO3 ABG O2 Saturation ABG Base Excess FiO2 Sodium 138.4 Potassium 4.6 Chloride 106 Carbon Dioxide 20 L Anion Gap 12 BUN 20 Creatinine 1.41 H Est GFR ( Amer) > 60 Glucose 144 H Calcium 9.1 Magnesium Total Bilirubin 0.7 AST 28 Alkaline Phosphatase 81 Total Protein 6.5 Albumin 3.8 Triglycerides 122 Cholesterol 197.25 LDL Cholesterol Direct 139 H VLDL Cholesterol 24.0 HDL Cholesterol 43 TSH 0.07 L Free T4 1.21 05/03/20 05:12 Troponin I 0.093 NT-Pro-B Natriuret Pep 4950 H Impressions: Chest X-Ray 05/04/20 06:00 IMPRESSION: STABLE APPEARANCE OF THE CHEST. Assessment and Plan - Diagnosis (1) Hyperglycemia Is this a current diagnosis for this admission?: Yes (2) Acute respiratory failure Qualifiers: Respiratory failure complication: hypoxia Qualified Code(s): J96.01 - Acute respiratory failure with hypoxia Is this a current diagnosis for this admission?: Yes Plan: The patient is on the ventiator. May trial him on SBT Ntoday otr tomorrow. (3) Bilateral pneumonia Qualifiers: Pneumonia type: due to unspecified organism Lung location: unspecified part of lung Qualified Code(s): J18.9 - Pneumonia, unspecified organism Is this a current diagnosis for this admission?: Yes Plan: The patient is on CAP coverage for now. His initial COvd-19 test was neagitve (4) CKD (chronic kidney disease) Qualifiers: Chronic kidney disease stage: stage 2 (mild) Qualified Code(s): N18.2 - Chronic kidney disease, stage 2 (mild) Is this a current diagnosis for this admission?: Yes Plan: The patient appears to have chroinic mild CKD. Creatinine is 1.4 and this ois not too dissimilar from his previosu readings pre-admit. His urine output is a little scant and dark. I will place on maintainace fluids at this time Critical Time Critical Time (minutes): 25 Level of Care: ICU -: 1. The care of a critical patient is a dynamic process. This note is a real estate representative synopsis but static in nature. The timeframe for treatments given in order is not necessarily the actual time these treatments may have been done. 2. This patient requires critical care secondary to ongoing requirements for therapy not offered or safe outside the critical care environment. Transfer to a lower level of care will result in altered life or limb morbidity and mortality. 3. Multidisciplinary rounds completed. 4. ABCDE bundle addressed.
[2020-05-04] MEDS: RINGERS SOLUTION,LACTATED 1,000 ML IV PRN ×2 (11:52→23:42)
[2020-05-04] MEDS: CEFTRIAXONE 2 GM/D5W RTU 2 GM/50 ML RTUPB IV SCH (12:16)
[2020-05-04] MEDS: AZITHROMYCIN 500 MG in DEXTROSE 5%-WATER 250 ML IV SCH (17:31)
[2020-05-04] MEDS ORDERED: FENTANYL CITRATE INJ/PF 100 MCG/2 ML AMPUL ONE (21:20)
[2020-05-04] MEDS ORDERED: FENTANYL CITRATE INJ/PF 100 MCG/2 ML AMPUL IV ONE (21:20)
[2020-05-04] MEDS ORDERED: FENTANYL CITRATE/PF 600 MCG/60 ML BAG IV PRN (22:31)
[2020-05-05] MEDS: PROPOFOL 1,000 MG/100 ML INFUS..BTL IV PRN ×4 (00:42→10:25)
[2020-05-05 04:38] LABS: HEMATOCRIT 40.6 % (37.9-51.0); MEAN CORPUSCULAR HEMOGLOBIN 29.7 pg (27.0-33.4); MEAN CORPUSCULAR HGB CONC 34.4 g/dL (32.0-36.0); MEAN CORPUSCULAR VOLUME 87 fl (80-97); PLATELET COUNT 132 10^3/uL (150-450); RED BLOOD COUNT 4.69 10^6/uL (4.35-5.55); RED CELL DISTRIBUTION WIDTH 14.7 % (11.5-14.0); WHITE BLOOD COUNT 17.5 10^3/uL (4.0-10.5)
[2020-05-05 05:20] LABS: ABSOLUTE LYMPHOCYTES# (MANUAL) 0.5 10^3/uL (0.5-4.7); ABSOLUTE MONOCYTES # (MANUAL) 0.4 10^3/uL (0.1-1.4); BASOPHILS % (MANUAL) 0 % (0-2); EOSINOPHILS % (MANUAL) 0 % (0-6); LYMPHOCYTES % (MANUAL) 3 % (13-45); MONOCYTES % (MANUAL) 2 % (3-13); PLATELET COMMENT DECREASED; SEGMENTED NEUTROPHILS % (MAN) 95 % (42-78); TOTAL CELLS COUNTED 100; TOXIC VACUOLATION PRESENT
[2020-05-05 05:21] LABS: ANISOCYTOSIS SLIGHT
[2020-05-05] MEDS: METHYLPREDNISOLONE INJ 40 MG/1 ML SDV IV SCH ×3 (05:29→22:31)
--- NOTE | 2020-05-05 08:12 | RADIOLOGY REPORT (SQ) ---
EXAM DESCRIPTION: CHEST SINGLE VIEW IMAGES COMPLETED DATE/TIME: 05/05/2020 6:48 am REASON FOR STUDY: acute respiratory failure COMPARISON: 05/04/2020 NUMBER OF VIEWS: One view. TECHNIQUE: Single frontal radiographic image of the chest acquired. LIMITATIONS: None. FINDINGS: LUNGS AND PLEURA: Stable appearance. MEDIASTINUM AND HILAR STRUCTURES: Stable heart size and mediastinal structures. HEART AND VASCULAR STRUCTURES: Stable appearance. SUPPORT DEVICES: Appropriate location without change. BONES: No acute findings. OTHER: No other significant finding. IMPRESSION: STABLE APPEARANCE OF THE CHEST. SUPPORT DEVICES UNCHANGED. TECHNICAL DOCUMENTATION: JOB ID: [id number] 2010 [employer]- All Rights Reserved Reading location - IP/workstation name: [email or web address]
--- NOTE | 2020-05-05 08:39 | PDOC CRITICAL CARE PROG REPORT ---
General Date:: 05/05/20 ICU Day:: 2 Ventilator Day:: 2 Hospital Day:: 2 Resuscitation Status: Full Code Events in the past 12 to 24 Hours:: The patient was intuabted in the field for acute resp. failure. has a known hist ory of COPD. Intial CXR suggested a significat right sided infiltrate. WBC was normal onpresentation. he is on nebulizers and seroids. Has been treated with Azithro and roicephin. 05/05. CXR clear. ABG normalized. Start weaning to extubate. Review of systems relevant to events:: Pulmonary. Reason for ICU Addmission:: acute respiratory Failure, PNA, intubated. - Medications: Medications reviewed and adjusted accordingly: Yes Vasopressors:: None Sedation:: Fentanyl, propofol. Physical Exam Vital Signs: Temp Pulse Resp BP Pulse Ox 97.3 F 120 H 15 101/81 93 05/05/20 04:00 05/04/20 20:15 05/05/20 06:09 05/05/20 06:09 05/05/20 06:09 Intake & Output 05/04/20 05/05/20 05/06/20 06:59 06:59 06:59 Intake Total 3704 1879 Output Total 970 1065 Balance 2734 814 Weight 89.1 kg 90.9 kg Weight/Height Weight 90.9 kg Height 5 ft 7 in General appearance: PRESENT: no acute distress Head exam: PRESENT: atraumatic, normocephalic Eye exam: PRESENT: conjunctiva pink, EOMI, PERRLA. ABSENT: scleral icterus Ear exam: PRESENT: normal external ear exam Mouth exam: PRESENT: moist, tongue midline Respiratory exam: PRESENT: clear to auscultation carr[place]. ABSENT: rales, rhonchi, wheezes Cardiovascular exam: PRESENT: RRR. ABSENT: diastolic murmur, rubs, systolic m urmur GI/Abdominal exam: PRESENT: normal bowel sounds, soft. ABSENT: distended, guarding, mass, organolmegaly, rebound, tenderness Rectal exam: PRESENT: deferred Gentrourinary exam: PRESENT: indwelling catheter Extremities exam: PRESENT: full ROM. ABSENT: calf tenderness, clubbing, pedal edema Musculoskeletal exam: PRESENT: normal inspection Neurological exam: PRESENT: other - Very sedated, needs to be convalescent sitter. Skin exam: PRESENT: dry, intact, warm. ABSENT: cyanosis, rash Tubes/Lines: PRESENT: Endotracheal Tube, Nasogastic Tube Laboratory/Radiographs Laboratory Results: 05/05/20 04:25 05/04/20 04:53 05/05/20 04:25 WBC 17.5 H RBC 4.69 Hgb 14.0 D Hct 40.6 MCV 87 MCH 29.7 MCHC 34.4 RDW 14.7 H Plt Count 132 L Seg Neutrophils % Not Reportable 05/03/20 06:03 Blood Blood Culture (PCR) - Final 05/03/20 06:03 Tracheal Aspirate Gram Stain - Final 05/03/20 05:12 Troponin I 0.093 NT-Pro-B Natriuret Pep 4950 H Impressions: Chest X-Ray 05/05/20 06:00 IMPRESSION: STABLE APPEARANCE OF THE CHEST. SUPPORT DEVICES UNCHANGED. All labs, radiographs, diagnostic studies and EKGs were personally reviewed: Yes In addition, reports of radiographic and diagnostic studies were read: Yes Assessment and Plan - Diagnosis (1) Acute respiratory failure Qualifiers: Respiratory failure complication: hypoxia Qualified Code(s): J96.01 - Acute respiratory failure with hypoxia Is this a current diagnosis for this admission?: Yes Plan: Still intubated but his CXR is clear, lung sounds are clear. Move toward extubation. (2) Bilateral pneumonia Qualifiers: Pneumonia type: due to unspecified organism Lung location: unspecified part of lung Qualified Code(s): J18.9 - Pneumonia, unspecified organism Is this a current diagnosis for this admission?: Yes Plan: CXR quite clear. Quick resulution makes this seem like an aspiration. Plan Summary: Beginning to lighten sedatin and wean vent. Critical Time Critical Time (minutes): 35 Level of Care: ICU Anticipated discharge: Home Anticipated DC Timeframe: Other -: 1. The care of a critical patient is a dynamic process. This note is a procurement representative synopsis but static in nature. The timeframe for treatments given in order is not necessarily the actual time these treatments may have been done. 2. This patient requires critical care secondary to ongoing requirements for therapy not offered or safe outside the critical care environment. Transfer to a lower level of care will result in altered life or limb morbidity and mortality. 3. Multidisciplinary rounds completed. 4. ABCDE bundle addressed.
[2020-05-05] MEDS: IPRATROPIUM/ALBUTEROL 0.5-2.5 MG/3 ML AMPUL NEB SCH ×4 (08:50→19:57)
[2020-05-05] MEDS: DOCUSATE SODIUM 100 MG CAPSULE PO SCH ×2 (10:22→18:44)
[2020-05-05] MEDS: CEFTRIAXONE 2 GM/D5W RTU 2 GM/50 ML RTUPB IV SCH (10:25)
[2020-05-05] MEDS: FAMOTIDINE INJ/PF 20 MG/2 ML SDV IV SCH ×2 (10:26→22:31)
[2020-05-05] MEDS: ENOXAPARIN SODIUM INJ 40 MG/0.4 ML DISP.SYRIN SUBCUT SCH (10:26)
--- NOTE | 2020-05-05 12:13 | EKG REPORT ---
SEVERITY:- ABNORMAL ECG - SINUS RHYTHM MULTIPLE ATRIAL PREMATURE COMPLEXES PROBABLE LVH WITH SECONDARY REPOL ABNRM : Confirmed by: Orlando Brito MD 05-May-2020 12:12:28
[2020-05-05] MEDS: RINGERS SOLUTION,LACTATED 1,000 ML IV PRN (12:34)
[2020-05-05] MEDS: AZITHROMYCIN 500 MG in DEXTROSE 5%-WATER 250 ML IV SCH (18:44)
[2020-05-05] MEDS: HYDRALAZINE HCL INJ/PF 20 MG/1 ML SDV IV PRN (19:20)
--- NOTE | 2020-05-05 20:48 | CDI QUERY ---
CDI Query CDI Review: We are seeking further clarification of documentation to reflect the severity of illness of your patient. Per Critical Care Admission: Bilateral pneumonia Qualifiers: Pneumonia type: due to unspecified organism Lung location: unspecified part of lung Qualified Code(s): J18.9 - Pneumonia, unspecified organism Is this a current diagnosis for this admission?: Yes Plan: Sputum culture ordered. the patient is on empirica Rx for CAP. Covid -19 test pending Per Critical Care Notes: Bilateral pneumonia Qualifiers: Pneumonia type: due to unspecified organism Lung location: unspecified part of lung Qualified Code(s): J18.9 - Pneumonia, unspecified organism Is this a current diagnosis for this admission?: Yes Plan: CXR quite clear. Quick resulution makes this seem like an aspiration. Labs: WBC 18.3 BNP 4950 Covid-19: Not detected Based on your medical judgment, can you further clarify in the progress notes the most likely or suspected underlying cause of the pneumonia or if there was no pneumonia: Aspiration Viral Gram negative Staph Pseudomonas Pneumococcus Other cause (please specify) None of the above / Not applicable Thank you for your consideration. DARCY MarieN RN Clinical [employer] Room Attendant Physician Advisor [email or web address]
[2020-05-05] MEDS: LABETALOL HCL INJ 20 MG/4 ML DISP.SYRIN IV PRN (23:37)
[2020-05-06] MEDS ORDERED: LORAZEPAM INJ 2 MG/1 ML VIAL ONE (00:26)
[2020-05-06] MEDS ORDERED: LORAZEPAM INJ 2 MG/1 ML VIAL IV ONE (00:27)
[2020-05-06] MEDS ORDERED: IPRATROPIUM/ALBUTEROL 0.5-2.5 MG/3 ML AMPUL NEB PRN (00:52)
[2020-05-06] MEDS ORDERED: DEXMEDETOMIDINE IN 0.9 % NACL 400 MCG/100 ML RTUPB IV ONE (00:56)
[2020-05-06] MEDS ORDERED: ETOMIDATE INJ/PF 20 MG/10 ML SDV IV ONE ×2 (00:57)
[2020-05-06] MEDS ORDERED: ROCURONIUM BROMIDE INJ 50 MG/5 ML VIAL IV ONE ×2 (00:58→05:00)
[2020-05-06 01:04] LABS: ARTERIAL BLOOD BASE EXCESS -3.1 mmol/L; ARTERIAL BLOOD H2CO3 1.14 mmol/L (1.05-1.35); ARTERIAL BLOOD HCO3 21.6 mmol/L (20-24); ARTERIAL BLOOD O2 SATURATION 94.8 % (94-98); ARTERIAL BLOOD PCO2 37.8 mmHg (35-45); ARTERIAL BLOOD PH 7.37 (7.35-7.45); ARTERIAL BLOOD TOTAL CO2 22.7 mmol/L (23-27)
[2020-05-06 01:05] LABS: ARTERIAL BLOOD FIO2 4L
[2020-05-06] MEDS: PROPOFOL 1,000 MG/100 ML INFUS..BTL IV PRN ×6 (01:35→21:19)
[2020-05-06] MEDS ORDERED: METOPROLOL TARTRATE PF/INJ 5 MG/5 ML SDV IV ONE ×2 (01:40→01:41)
[2020-05-06] MEDS ORDERED: DEXMEDETOMIDINE IN 0.9 % NACL 400 MCG/100 ML RTUPB IV PRN (01:48)
--- NOTE | 2020-05-06 02:37 | RADIOLOGY REPORT (SQ) ---
CLINICAL HISTORY: ETT placement COMPARISON: 05/03/2020. TECHNIQUE: XR CHEST 1 VIEW 05/06/2020 12:00 AM DIRECTOR MARKETING FINDINGS: The heart is enlarged. There is continued moderate right perihilar and right basilar airspace disease. There is no pleural effusion. There is no pneumothorax. There are no acute osseous findings. Endotracheal and nasogastric tubes are unchanged. IMPRESSION: Continued right-sided pneumonia.
[2020-05-06] MEDS: HYDRALAZINE HCL INJ/PF 20 MG/1 ML SDV IV PRN (02:50)
[2020-05-06] MEDS ORDERED: FUROSEMIDE INJ/PF 40 MG/4 ML SDV ONE (03:01)
[2020-05-06] MEDS ORDERED: FUROSEMIDE INJ/PF 40 MG/4 ML SDV IV ONE (03:01)
[2020-05-06] MEDS: RINGERS SOLUTION,LACTATED 1,000 ML IV PRN (03:12)
[2020-05-06] MEDS ORDERED: FENTANYL CITRATE INJ/PF 100 MCG/2 ML AMPUL IV ONE (03:20)
[2020-05-06] MEDS ORDERED: FENTANYL CITRATE INJ/PF 100 MCG/2 ML AMPUL ONE (03:22)
--- NOTE | 2020-05-06 03:56 | Operative Report ---
Bedside Procedure - History of Present Illness Indication for Procedure: Respiratory failure Date: 05/06/20 Provider: MAZIN DUDLEY - Intubation Orotracheal Time of Intubation: 00:50 Airway evaluation: Large tongue Mallampati Classification: Class 2 Medications: Etomidate, Other - Rocuronium Blade type: Jennifer Blade size: 4 Equipment used: Glidescope ETT size: 8.0 ETT secured at: Gums ETT secured at (cm): 23 Post Intubation Xray: Yes Intubation Complications: No complications
[2020-05-06 04:07] LABS: TROPONIN I 0.099 ng/mL
[2020-05-06] MEDS: METHYLPREDNISOLONE INJ 40 MG/1 ML SDV IV SCH ×3 (05:51→18:48)
[2020-05-06 06:46] LABS: HEMATOCRIT 46.1 % (37.9-51.0); HEMOGLOBIN 15.8 g/dL (13.5-17.0); MEAN CORPUSCULAR HEMOGLOBIN 29.7 pg (27.0-33.4); MEAN CORPUSCULAR HGB CONC 34.3 g/dL (32.0-36.0); MEAN CORPUSCULAR VOLUME 87 fl (80-97); RED BLOOD COUNT 5.32 10^6/uL (4.35-5.55); RED CELL DISTRIBUTION WIDTH 14.7 % (11.5-14.0); WHITE BLOOD COUNT 18.3 10^3/uL (4.0-10.5)
[2020-05-06 07:07] LABS: PLATELET COUNT 135 10^3/uL (150-450)
[2020-05-06 07:26] LABS: ABSOLUTE LYMPHOCYTES# (MANUAL) 0.2 10^3/uL (0.5-4.7); ABSOLUTE MONOCYTES # (MANUAL) 0.4 10^3/uL (0.1-1.4); BASOPHILS % (MANUAL) 0 % (0-2); EOSINOPHILS % (MANUAL) 0 % (0-6); LYMPHOCYTES % (MANUAL) 1 % (13-45); MONOCYTES % (MANUAL) 2 % (3-13); SEGMENTED NEUTROPHILS % (MAN) 97 % (42-78); TOTAL CELLS COUNTED 100
--- NOTE | 2020-05-06 07:27 | EKG REPORT ---
SEVERITY:- ABNORMAL ECG - SINUS RHYTHM ATRIAL PREMATURE COMPLEX NONSPECIFIC T ABNORMALITIES, ANT-LAT LEADS : Confirmed by: Orlando Brito MD 06-May-2020 07:26:54
[2020-05-06 07:28] LABS: PLATELET COMMENT ADEQUATE; RBC MORPHOLOGY COMMENT NORMO-CYTIC/CHROMIC
[2020-05-06] MEDS: IPRATROPIUM/ALBUTEROL 0.5-2.5 MG/3 ML AMPUL NEB SCH ×4 (07:58→20:14)
[2020-05-06] MEDS: DOCUSATE SODIUM 100 MG CAPSULE PO SCH ×2 (10:23→18:30)
[2020-05-06] MEDS: CEFTRIAXONE 2 GM/D5W RTU 2 GM/50 ML RTUPB IV SCH (10:24)
[2020-05-06] MEDS: ENOXAPARIN SODIUM INJ 40 MG/0.4 ML DISP.SYRIN SUBCUT SCH (10:24)
[2020-05-06] MEDS: FAMOTIDINE INJ/PF 20 MG/2 ML SDV IV SCH ×2 (10:24→21:14)
--- NOTE | 2020-05-06 12:22 | PDOC CRITICAL CARE PROG REPORT ---
General Date:: 05/06/20 ICU Day:: 3 Ventilator Day:: 3 Hospital Day:: 3 Resuscitation Status: Full Code Events in the past 12 to 24 Hours:: Re-intubated last night Review of systems relevant to events:: Pulmonary. Reason for ICU Addmission:: acute respiratory Failure, PNA, intubated. - Medications: Medications reviewed and adjusted accordingly: Yes Vasopressors:: None Sedation:: Diprivan. Physical Exam Vital Signs: Temp Pulse Resp BP Pulse Ox 99.3 F 75 16 130/72 H 97 05/06/20 10:00 05/06/20 11:23 05/06/20 11:23 05/06/20 10:26 05/06/20 11:23 Intake & Output 05/05/20 05/06/20 05/07/20 06:59 06:59 06:59 Intake Total 1879 2509 434 Output Total 1065 2185 Balance 814 324 434 Weight 90.9 kg 87.9 kg Weight/Height Weight 87.9 kg Height 5 ft 7 in General appearance: PRESENT: no acute distress Head exam: PRESENT: atraumatic, normocephalic Eye exam: PRESENT: conjunctiva pink, EOMI, PERRLA. ABSENT: scleral icterus Ear exam: PRESENT: normal external ear exam Mouth exam: PRESENT: moist, tongue midline Respiratory exam: PRESENT: clear to auscultation [place], decreased breath sounds, rhonchi. ABSENT: rales, wheezes Cardiovascular exam: PRESENT: RRR. ABSENT: diastolic murmur, rubs, systolic murmur GI/Abdominal exam: PRESENT: normal bowel sounds, soft. ABSENT: distended, guarding, mass, organolmegaly, rebound, tenderness Rectal exam: PRESENT: deferred Gentrourinary exam: PRESENT: indwelling catheter Extremities exam: PRESENT: full ROM. ABSENT: calf tenderness, clubbing, pedal edema Musculoskeletal exam: PRESENT: normal inspection Neurological exam: PRESENT: altered, other - Sedated Skin exam: PRESENT: dry, intact, warm. ABSENT: cyanosis, rash Tubes/Lines: PRESENT: Endotracheal Tube, Nasogastic Tube Laboratory/Radiographs Laboratory Results: 05/06/20 06:01 05/04/20 04:53 05/06/20 05/06/20 05/06/20 00:50 03:20 06:01 WBC Cancelled 18.3 H RBC Cancelled 5.32 Hgb Cancelled 15.8 Hct Cancelled 46.1 MCV Cancelled 87 MCH Cancelled 29.7 MCHC Cancelled 34.3 RDW Cancelled 14.7 H Plt Count Cancelled 135 L Seg Neutrophils % Cancelled Not Reportable Carbonic Acid 1.14 HCO3/H2CO3 Ratio 18:1 ABG pH 7.37 ABG pCO2 37.8 ABG pO2 75.0 L ABG HCO3 21.6 ABG O2 Saturation 94.8 ABG Base Excess -3.1 FiO2 4L 05/03/20 05:56 Catheterized Urine Legionella Urinary Antigen - Final 05/03/20 06:03 Blood Blood Culture (PCR) - Final 05/03/20 06:03 Blood Blood Culture - Final Corynebacterium Species 05/03/20 06:03 Tracheal Aspirate Gram Stain - Final 05/03/20 06:03 Tracheal Aspirate Sputum Culture - Final Yeast, Not Neeru Albicans Normal Vicky 05/03/20 05/06/20 05:12 03:20 Troponin I 0.093 0.099 NT-Pro-B Natriuret Pep 4950 H 5580 H Impressions: Chest X-Ray 05/06/20 00:00 IMPRESSION: Continued right-sided pneumonia. All labs, radiographs, diagnostic studies and EKGs were personally reviewed: Yes In addition, reports of radiographic and diagnostic studies were read: Yes Assessment and Plan - Diagnosis (1) Acute respiratory failure Qualifiers: Respiratory failure complication: hypoxia Qualified Code(s): J96.01 - Acute respiratory failure with hypoxia Is this a current diagnosis for this admission?: Yes Plan: Patient did well after extubation and decompensated rather quickly around midnight and was reintubated. Flash pulmonary edema was thought but thick secretions make mucous plugging more likely. (2) Bilateral pneumonia Qualifiers: Pneumonia type: due to unspecified organism Lung location: unspecified part of lung Qualified Code(s): J18.9 - Pneumonia, unspecified organism Is this a current diagnosis for this admission?: Yes Plan: Continue antibiotics. (3) COPD (chronic obstructive pulmonary disease) Qualifiers: COPD type: emphysema Is this a current diagnosis for this admission?: Yes Plan: This is the likely reason for his decompensation and secretions. Plan Summary: Suction and let him rest for another day then try extubation again. Critical Time Critical Time (minutes): 35 Level of Care: ICU Anticipated discharge: Home Anticipated DC Timeframe: Other -: 1. The care of a critical patient is a dynamic process. This note is a insurance follow up representative synopsis but static in nature. The timeframe for treatments given in order is not necessarily the actual time these treatments may have been done. 2. This patient requires critical care secondary to ongoing requirements for therapy not offered or safe outside the critical care environment. Transfer to a lower level of care will result in altered life or limb morbidity and mortality. 3. Multidisciplinary rounds completed. 4. ABCDE bundle addressed.
[2020-05-06] MEDS: AZITHROMYCIN 500 MG in DEXTROSE 5%-WATER 250 ML IV SCH (18:37)
[2020-05-07] MEDS: PROPOFOL 1,000 MG/100 ML INFUS..BTL IV PRN ×3 (00:43→08:08)
[2020-05-07 04:14] LABS: ABSOLUTE LYMPHOCYTES (AUTO) 0.6 10^3/uL (0.5-4.7); ABSOLUTE MONOCYTES (AUTO) 0.6 10^3/uL (0.1-1.4); ABSOLUTE NEUT (AUTO) 9.9 10^3/uL (1.7-8.2); BASOPHILS % (AUTO) 0.3 % (0-2); EOSINOPHILS % (AUTO) 0.1 % (0-6); HEMOGLOBIN 14.4 g/dL (13.5-17.0); LYMPHOCYTES % (AUTO) 5.3 % (13-45); MEAN CORPUSCULAR HEMOGLOBIN 29.9 pg (27.0-33.4); MEAN CORPUSCULAR HGB CONC 35.1 g/dL (32.0-36.0); MEAN CORPUSCULAR VOLUME 85 fl (80-97); MONOCYTES % (AUTO) 5.7 % (3-13); PLATELET COUNT 101 10^3/uL (150-450); RED BLOOD COUNT 4.81 10^6/uL (4.35-5.55); RED CELL DISTRIBUTION WIDTH 14.6 % (11.5-14.0); SEGMENTED NEUTROPHILS % (AUTO) 88.6 % (42-78); TOTAL CELLS COUNTED % (AUTO) 100 %; WHITE BLOOD COUNT 11.2 10^3/uL (4.0-10.5)
[2020-05-07 04:29] LABS: ANION GAP 6 (5-19); BLOOD UREA NITROGEN 42 mg/dL (7-20); CALCIUM 8.3 mg/dL (8.4-10.2); CARBON DIOXIDE 26 mmol/L (22-30); CHLORIDE 104 mmol/L (98-107); GLUCOSE 122 mg/dL (75-110); POTASSIUM 4.2 mmol/L (3.6-5.0)
[2020-05-07] MEDS: METHYLPREDNISOLONE INJ 40 MG/1 ML SDV IV SCH ×2 (06:03→18:32)
--- NOTE | 2020-05-07 07:38 | PDOC CRITICAL CARE PROG REPORT ---
General Date:: 05/07/20 ICU Day:: 4 Ventilator Day:: 4 Hospital Day:: 4 Resuscitation Status: Full Code Events in the past 12 to 24 Hours:: Re-intubated last night 05/07 Placed on CPAP. Aim to extubate today if secretions permit. Review of systems relevant to events:: Pulmonary Reason for ICU Addmission:: acute respiratory Failure, PNA, intubated. - Medications: Medications reviewed and adjusted accordingly: Yes Vasopressors:: None Sedation:: Propofol Physical Exam Vital Signs: Temp Pulse Resp BP Pulse Ox 99.3 F 85 16 112/72 96 05/06/20 19:41 05/06/20 20:14 05/07/20 06:00 05/07/20 05:56 05/07/20 06:00 Intake & Output 05/06/20 05/07/20 05/08/20 06:59 06:59 06:59 Intake Total 2509 1277 Output Total 2185 875 Balance 324 402 Weight 87.9 kg 88.4 kg Weight/Height Weight 88.4 kg Height 5 ft 7 in General appearance: PRESENT: no acute distress Head exam: PRESENT: atraumatic, normocephalic Eye exam: PRESENT: conjunctiva pink, EOMI, PERRLA. ABSENT: scleral icterus Ear exam: PRESENT: normal external ear exam Mouth exam: PRESENT: moist, tongue midline Respiratory exam: PRESENT: clear to auscultation [place], decreased breath sounds. ABSENT: rales, rhonchi, wheezes Cardiovascular exam: PRESENT: RRR. ABSENT: diastolic murmur, rubs, systolic murmur GI/Abdominal exam: PRESENT: normal bowel sounds, soft. ABSENT: distended, guarding, mass, organolmegaly, rebound, tenderness Rectal exam: PRESENT: deferred Gentrourinary exam: PRESENT: indwelling catheter Extremities exam: PRESENT: full ROM. ABSENT: calf tenderness, clubbing, pedal edema Musculoskeletal exam: PRESENT: normal inspection Neurological exam: PRESENT: other - Sedated on propofol. Skin exam: PRESENT: dry, intact, warm. ABSENT: cyanosis, rash Tubes/Lines: PRESENT: Endotracheal Tube, Nasogastic Tube Laboratory/Radiographs Laboratory Results: 05/07/20 04:00 05/07/20 04:00 05/07/20 05/07/20 04:00 04:00 WBC 11.2 H RBC 4.81 Hgb 14.4 Hct 41.0 MCV 85 MCH 29.9 MCHC 35.1 RDW 14.6 H Plt Count 101 L Seg Neutrophils % 88.6 H Sodium 135.6 L Potassium 4.2 Chloride 104 Carbon Dioxide 26 Anion Gap 6 BUN 42 H Creatinine 1.32 H Est GFR ( Amer) > 60 Glucose 122 H Calcium 8.3 L 05/03/20 05:56 Catheterized Urine Legionella Urinary Antigen - Final 05/03/20 06:03 Blood Blood Culture (PCR) - Final 05/03/20 06:03 Blood Blood Culture - Final Corynebacterium Species 05/03/20 05/06/20 05:12 03:20 Troponin I 0.093 0.099 NT-Pro-B Natriuret Pep 4950 H 5580 H Impressions: Chest X-Ray 05/06/20 00:00 IMPRESSION: Continued right-sided pneumonia. All labs, radiographs, diagnostic studies and EKGs were personally reviewed: Yes In addition, reports of radiographic and diagnostic studies were read: Yes Assessment and Plan - Diagnosis (1) Acute respiratory failure Qualifiers: Respiratory failure complication: hypoxia Qualified Code(s): J96.01 - Acute respiratory failure with hypoxia Is this a current diagnosis for this admission?: Yes Plan: He is not hypoxic. Breathing more spontaneously. Plan to extubate if we can manage his secretions. PNA on R is improved but extensive still on CXR. (2) Bilateral pneumonia Qualifiers: Pneumonia type: due to unspecified organism Lung location: unspecified part of lung Qualified Code(s): J18.9 - Pneumonia, unspecified organism Is this a current diagnosis for this admission?: Yes Plan: Continue antibiotics. No positive culture. Aspiration is still a possibility. Treatment would not change. (3) COPD (chronic obstructive pulmonary disease) Qualifiers: COPD type: emphysema Is this a current diagnosis for this admission?: Yes Plan: No wheezing. Steroids decreased 05/06. Plan Summary: Try PSV, lower sedation and may extubate. Critical Time Critical Time (minutes): 35 Level of Care: ICU Anticipated discharge: Home Anticipated DC Timeframe: Other -: 1. The care of a critical patient is a dynamic process. This note is a industrial relations representative synopsis but static in nature. The timeframe for treatments given in order is not necessarily the actual time these treatments may have been done. 2. This patient requires critical care secondary to ongoing requirements for therapy not offered or safe outside the critical care environment. Transfer to a lower level of care will result in altered life or limb morbidity and mortality. 3. Multidisciplinary rounds completed. 4. ABCDE bundle addressed.
[2020-05-07] MEDS: IPRATROPIUM/ALBUTEROL 0.5-2.5 MG/3 ML AMPUL NEB SCH ×4 (08:42→20:01)
[2020-05-07] MEDS: ENOXAPARIN SODIUM INJ 40 MG/0.4 ML DISP.SYRIN SUBCUT SCH (10:04)
[2020-05-07] MEDS: DOCUSATE SODIUM 100 MG CAPSULE PO SCH ×2 (10:13→22:04)
[2020-05-07] MEDS: CEFTRIAXONE 2 GM/D5W RTU 2 GM/50 ML RTUPB IV SCH (10:16)
[2020-05-07] MEDS: FAMOTIDINE INJ/PF 20 MG/2 ML SDV IV SCH ×2 (10:18→22:04)
[2020-05-07] MEDS: LABETALOL HCL INJ 20 MG/4 ML DISP.SYRIN IV PRN ×3 (10:31→22:17)
[2020-05-07] MEDS: AZITHROMYCIN 500 MG in DEXTROSE 5%-WATER 250 ML IV SCH (18:44)
[2020-05-08 04:47] LABS: ANION GAP 6 (5-19); BLOOD UREA NITROGEN 43 mg/dL (7-20); CALCIUM 8.5 mg/dL (8.4-10.2); CARBON DIOXIDE 27 mmol/L (22-30); CHLORIDE 105 mmol/L (98-107); GLUCOSE 115 mg/dL (75-110); POTASSIUM 4.2 mmol/L (3.6-5.0)
[2020-05-08] MEDS: METHYLPREDNISOLONE INJ 40 MG/1 ML SDV IV SCH (05:26)
--- NOTE | 2020-05-08 07:28 | PDOC CRITICAL CARE PROG REPORT ---
General Date:: 05/08/20 Hospital Day:: 5 Resuscitation Status: Full Code Events in the past 12 to 24 Hours:: Awake, alert, breathing well, mobilize Review of systems relevant to events:: Pulmonary Reason for ICU Addmission:: Downgraded - Medications: Medications reviewed and adjusted accordingly: Yes Vasopressors:: None Sedation:: None Physical Exam Vital Signs: Temp Pulse Resp BP Pulse Ox 99.3 F 85 21 H 160/83 H 96 05/07/20 22:00 05/07/20 20:01 05/08/20 05:00 05/08/20 04:57 05/08/20 05:00 Intake & Output 05/07/20 05/08/20 05/09/20 06:59 06:59 06:59 Intake Total 1277 451 Output Total 875 1290 Balance 402 -839 Weight 88.4 kg 84.9 kg Weight/Height Weight 84.9 kg Height 5 ft 7 in General appearance: PRESENT: no acute distress, cooperative Head exam: PRESENT: atraumatic, normocephalic Eye exam: PRESENT: conjunctiva pink, EOMI, PERRLA. ABSENT: scleral icterus Ear exam: PRESENT: normal external ear exam Mouth exam: PRESENT: moist, tongue midline Respiratory exam: PRESENT: clear to auscultation [place], decreased breath sounds. ABSENT: rales, rhonchi, wheezes Cardiovascular exam: PRESENT: RRR. ABSENT: diastolic murmur, rubs, systolic murmur GI/Abdominal exam: PRESENT: normal bowel sounds, soft. ABSENT: distended, guarding, mass, organolmegaly, rebound, tenderness Rectal exam: PRESENT: deferred Gentrourinary exam: PRESENT: indwelling catheter Extremities exam: PRESENT: full ROM. ABSENT: calf tenderness, clubbing, pedal edema Neurological exam: PRESENT: alert, awake, oriented to person, oriented to place, oriented to time, oriented to situation, CN II-XII grossly intact, other - Slurred speech is improved. No extremity weakness.. ABSENT: motor sensory deficit Skin exam: PRESENT: dry, intact, warm. ABSENT: cyanosis, rash Laboratory/Radiographs Laboratory Results: 05/07/20 04:00 05/08/20 04:02 05/08/20 04:02 Sodium 137.7 Potassium 4.2 Chloride 105 Carbon Dioxide 27 Anion Gap 6 BUN 43 H Creatinine 1.19 Est GFR ( Amer) > 60 Glucose 115 H Calcium 8.5 05/03/20 05/06/20 05:12 03:20 Troponin I 0.093 0.099 NT-Pro-B Natriuret Pep 4950 H 5580 H Impressions: Chest X-Ray 05/06/20 00:00 IMPRESSION: Continued right-sided pneumonia. All labs, radiographs, diagnostic studies and EKGs were personally reviewed: Yes In addition, reports of radiographic and diagnostic studies were read: Yes Assessment and Plan - Diagnosis (1) Acute respiratory failure Qualifiers: Respiratory failure complication: hypoxia Qualified Code(s): J96.01 - Acute respiratory failure with hypoxia Is this a current diagnosis for this admission?: Yes Plan: Resolved. Pt needs to be evaluated for home O2 before discharge. (2) Bilateral pneumonia Qualifiers: Pneumonia type: due to unspecified organism Lung location: unspecified part of lung Qualified Code(s): J18.9 - Pneumonia, unspecified organism Is this a current diagnosis for this admission?: Yes Plan: CXR improved. 5 Days of antibiotics, IV or PO. (3) COPD (chronic obstructive pulmonary disease) Qualifiers: COPD type: emphysema Is this a current diagnosis for this admission?: Yes Plan: He states he needs home O2. He needs to be evaluated for this within 48 hours of discharge, which may be soon. Plan Summary: Downgraded, remove brown and PT. Critical Time Critical Time (minutes): 25 Level of Care: IMCU Anticipated discharge: Home Anticipated DC Timeframe: Other -: 1. The care of a critical patient is a dynamic process. This note is a inside technical sales representative synopsis but static in nature. The timeframe for treatments given in order is not necessarily the actual time these treatments may have been done. 2. This patient requires critical care secondary to ongoing requirements for therapy not offered or safe outside the critical care environment. Transfer to a lower level of care will result in altered life or limb morbidity and mortality. 3. Multidisciplinary rounds completed. 4. ABCDE bundle addressed.
[2020-05-08] MEDS: IPRATROPIUM/ALBUTEROL 0.5-2.5 MG/3 ML AMPUL NEB SCH ×2 (07:37→12:42)
[2020-05-08] MEDS ORDERED: PREDNISONE 20 MG TABLET PO SCH (10:00)
[2020-05-08] MEDS: CEFTRIAXONE 2 GM/D5W RTU 2 GM/50 ML RTUPB IV SCH (10:20)
[2020-05-08] MEDS: DOCUSATE SODIUM 100 MG CAPSULE PO SCH ×2 (10:20→19:39)
[2020-05-08] MEDS: ENOXAPARIN SODIUM INJ 40 MG/0.4 ML DISP.SYRIN SUBCUT SCH (10:21)
[2020-05-08] MEDS ORDERED: DEXAMETHASONE SOD PHOSPHATE INJ 4 MG/1 ML VIAL IV SCH (12:15)
[2020-05-08] MEDS ORDERED: LISINOPRIL 10 MG TABLET PO SCH (15:22)
[2020-05-08] MEDS: LABETALOL HCL INJ 20 MG/4 ML DISP.SYRIN IV PRN (17:20)
[2020-05-08] MEDS: METOPROLOL TARTRATE PF/INJ 5 MG/5 ML SDV IV PRN (17:25)
[2020-05-08] MEDS ORDERED: DIGOXIN INJ 0.5 MG/2 ML AMPULE IV ONE ×2 (17:28→18:30)
[2020-05-08] MEDS ORDERED: DIGOXIN INJ 0.5 MG/2 ML AMPULE ONE ×2 (17:31→17:44)
--- NOTE | 2020-05-08 18:07 | EKG REPORT ---
SEVERITY:- ABNORMAL ECG - ATRIAL FIBRILLATION, V-RATE 76-183 WITH PVC PROBABLE LVH WITH SECONDARY REPOL ABNRM ANTERIOR Q WAVES, POSSIBLY DUE TO LVH BORDERLINE PROLONGED QT INTERVAL : Confirmed by: Orlando Brito MD 08-May-2020 18:06:49
[2020-05-08] MEDS ORDERED: METOPROLOL TARTRATE PF/INJ 5 MG/5 ML SDV IV ONE ×2 (18:30→22:00)
[2020-05-08] MEDS ORDERED: DILTIAZEM HCL INJ 25 MG/5 ML VIAL ONE (18:36)
[2020-05-08] MEDS: DILTIAZEM HCL/D5W 125 MG/125 ML RTUINJ IV PRN (18:57)
[2020-05-08] MEDS: FLUTICASONE/UMECLIDIN/VILANTER 100-62.5-25 MCG/DOSE IH SCH (19:41)
[2020-05-08 20:20] LABS: POTASSIUM 4.2 mmol/L (3.6-5.0)
[2020-05-08] MEDS: AZITHROMYCIN 500 MG in DEXTROSE 5%-WATER 250 ML IV SCH (21:41)
[2020-05-08] MEDS ORDERED: METOPROLOL TARTRATE 50 MG TABLET PO SCH (22:00)
[2020-05-08] MEDS ORDERED: (PENDING PHARMACY ID) (Lisinopril [Prinivil] 20 MG Tablet) PO SCH (22:00)
[2020-05-08] MEDS: ENOXAPARIN SODIUM INJ 100 MG/1 ML DISP.SYRIN SUBCUT SCH (22:10)
--- NOTE | 2020-05-08 22:27 | PDOC CONSULTATION ---
Consultation-Blank Consultation: CARDIOLOGY CONSULTATION by Dr. Bessy Duvall on 05/08/2020. Patient seen at 6:45 PM 60 minutes spent as patient more than 50% of time spent in direct patient care. CONSULT REQUESTING PHYSICIAN: Dr. Mccann, [facility] hospitalist physician group REASON FOR CONSULTATION: Patient with new onset of atrial fibrillation with rapid ventricular HISTORY OF PRESENT ILLNESS: Chart reviewed patient not very good historian. Patient is a 60-year-old male with known history of hypertension, chronic obstructive pulmonary disease who continues to smoke was admitted with acute respiratory failure required intubation. He was also treated for pneumonia. The patient improved with treatment and was extubated and transferred to the telemetry floor. The patient is developed sudden onset of atrial fibrillation with rapid ventricular response. He is asymptomatic with no symptoms of palpitations. And his blood pressure in fact is slightly elevated. He denies prior such episodes. He has a history of MT in the past. No recent symptoms of angina. No prior history of atrial fibrillation or congestive heart failure. There is no history of syncope he denies PND orthopnea palpitations or syncope. 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 Past Medical History Cardiac Medical History: Reports: Myocardial Infarction, Hypertension Pulmonary Medical History: Denies: Chronic Obstructive Pulmonary Disease (COPD) Endocrine Medical History: Denies: Diabetes Mellitus Type 2 GI Medical History: Denies: Gastroesophageal Reflux Disease Musculoskeltal Medical History: Reports: Arthritis Skin Medical History: Denies: Eczema, Psoriasis Psychiatric Medical History: Denies: Depression Traumatic Medical History: Denies: Traumatic Brain Injury Hematology: Denies: Bleeding Tendencies Past Surgical History Past Surgical History: Reports: Orthopedic Surgery - Right arm surgery for fracture Social/Family History - Social History Lives with: Other - Sister Smoking Status: Current Every Day Smoker Frequency of Alcohol Use: None Hx Recreational Drug Use: No Drugs: None Hx Prescription Drug Abuse: No RESUSCITATION STATUS: The patient is a full code. His sister is a surrogate healthcare decision maker. Current Medications Generic Name Dose Route Start Last Admin Trade Name Freq PRN Reason Stop Dose Admin Acetaminophen 650 mg 05/03/20 14:28 05/04/20 04:44 Acetaminophen 325 Mg Tablet PO 06/02/20 14:27 650 mg Q4HP PRN Administration FEVER >101 Docusate Sodium 100 mg 05/03/20 18:00 05/08/20 19:39 Docusate Sodium 100 Mg Capsule PO 06/02/20 17:59 Not Given BID TRACY Enoxaparin Sodium 85 mg 05/08/20 22:00 05/08/20 22:10 Enoxaparin Sodium Inj 100 Mg/1 Ml Disp.Syrin SUBCUT 06/07/20 21:59 85 mg Q12 TARCY Administration Fluticasone/Vilanterol 1 inh 05/08/20 18:00 05/08/20 19:41 Fluticasone/Umeclidin/Vilanter 100-62.5-25 Mcg/Dose IH 06/07/20 17:59 1 inhaler DAILY TRACY Administration Azithromycin 500 mg/ Dextrose 250 mls @ 250 mls/hr 05/03/20 18:00 05/08/20 21:41 IV 05/10/20 17:59 Not Given QPM TRACY Ceftriaxone Sodium/Dextrose 2 gm in 50 mls @ 100 mls/hr 05/04/20 12:00 05/08/20 15:28 Rocephin Rtu 2 Gm/D5w 50 Ml Premix Bag IV 05/11/20 11:59 Infused DAILY TRACY Infusion Diltiazem HCl 125 mg in 125 mls @ 0 mls/hr 05/08/20 18:18 05/08/20 19:22 Cardizem Rtu Inj 125 Mg-D5w 125 Ml Premix IV 06/07/20 18:17 10 mls/hr CONTINUOUS PRN 10 mls/hr THIS MED IS NOT "PRN" Titration Protocol Titrate Lisinopril 40 mg 05/09/20 08:00 Lisinopril 10 Mg Tablet PO 06/08/20 07:59 DAILY TRACY Metoprolol Tartrate 2.5 mg 05/08/20 17:21 05/08/20 17:25 Metoprolol Tartrate Pf/Inj 5 Mg/5 Ml Sdv IV 06/07/20 17:20 2.5 mg Q6HP PRN Administration Give For Hr > [150] Sodium Chloride 2.5 ml 05/06/20 06:00 05/08/20 22:11 Normal Saline Flush 2.5 Ml Disp.Syrin IV 06/05/20 05:59 2.5 ml Q8 TRACY Administration Discontinued Medications Generic Name Dose Route Start Last Admin Trade Name Freq PRN Reason Stop Dose Admin Albuterol/Ipratropium 9 ml 05/03/20 05:50 05/03/20 07:24 Ipratropium/Albuterol 0.5-2.5 Mg/3 Ml Ampul NEB 05/03/20 05:51 9 ml NOW ONE Administration Albuterol/Ipratropium 3 ml 05/03/20 21:30 05/08/20 12:42 Ipratropium/Albuterol 0.5-2.5 Mg/3 Ml Ampul NEB 06/02/20 21:29 3 ml [id number] TRACY Administration Albuterol/Ipratropium Confirm 05/04/20 00:50 05/04/20 01:08 Ipratropium/Albuterol 0.5-2.5 Mg/3 Ml Ampul Administered 05/04/20 00:51 Not Given Dose 3 ml NEB .STK-MED ONE Albuterol/Ipratropium 3 ml 05/06/20 00:52 Ipratropium/Albuterol 0.5-2.5 Mg/3 Ml Ampul NEB 06/05/20 00:51 RTQ2HP PRN SHORTNESS OF BREATH Azithromycin 500 mg 05/04/20 10:00 Azithromycin Inj 500 Mg Vial IV 05/11/20 09:59 DAILY [facility] Dexamethasone Sodium Phosphate 4 mg 05/08/20 12:15 Dexamethasone Sod Phosphate Inj 4 Mg/1 Ml Vial IV 06/07/20 12:14 Q12 [facility] Digoxin 0.125 mg 05/08/20 17:28 05/08/20 18:23 Digoxin Inj 0.5 Mg/2 Ml Ampule IV 05/08/20 17:29 Not Given NOW ONE Digoxin Confirm 05/08/20 17:31 05/08/20 18:00 Digoxin Inj 0.5 Mg/2 Ml Ampule Administered 05/08/20 17:32 0.5 mg Dose Administration 0.5 mg .ROUTE .STK-MED ONE Digoxin Confirm 05/08/20 17:44 05/08/20 18:00 Digoxin Inj 0.5 Mg/2 Ml Ampule Administered 05/08/20 17:45 0.5 mg Dose Administration 0.5 mg .ROUTE .STK-MED ONE Digoxin 0.125 mg 05/08/20 18:30 05/08/20 19:39 Digoxin Inj 0.5 Mg/2 Ml Ampule IV 05/08/20 18:31 Not Given NOW ONE Diltiazem HCl Confirm 05/08/20 18:36 05/08/20 19:42 Diltiazem Hcl Inj 25 Mg/5 Ml Vial Administered 05/08/20 18:37 Not Given Dose 25 mg .ROUTE .STK-MED ONE Enoxaparin Sodium 40 mg 05/03/20 15:30 05/08/20 10:21 Enoxaparin Sodium Inj 40 Mg/0.4 Ml Disp.Syrin SUBCUT 06/02/20 15:29 40 mg DAILY TRACY Administration Etomidate Confirm 05/06/20 00:57 05/06/20 03:08 Etomidate Inj/Pf 20 Mg/10 Ml Sdv Administered 05/06/20 00:58 Not Given Dose 20 mg IV .STK-MED ONE Etomidate 20 mg 05/06/20 00:57 05/06/20 01:03 Etomidate Inj/Pf 20 Mg/10 Ml Sdv IV 05/06/20 00:58 20 mg NOW ONE Administration Famotidine 20 mg 05/03/20 22:00 05/07/20 22:04 Famotidine Inj/Pf 20 Mg/2 Ml Sdv IV 06/02/20 21:59 20 mg Q12 TRACY Administration Fentanyl Citrate 100 mcg 05/04/20 21:20 05/04/20 21:29 Fentanyl Citrate Inj/Pf 100 Mcg/2 Ml Ampul IV 05/04/20 21:21 Not Given NOW ONE Fentanyl Citrate Confirm 05/04/20 21:20 05/04/20 21:22 Fentanyl Citrate Inj/Pf 100 Mcg/2 Ml Ampul Administered 05/04/20 21:21 100 mcg Dose Administration 100 mcg .ROUTE .STK-MED ONE Fentanyl Citrate Confirm 05/06/20 03:22 05/06/20 05:49 Fentanyl Citrate Inj/Pf 100 Mcg/2 Ml Ampul Administered 05/06/20 03:23 Not Given Dose 100 mcg .ROUTE .STK-MED ONE Fentanyl Citrate 100 mcg 05/06/20 03:20 05/06/20 03:20 Fentanyl Citrate Inj/Pf 100 Mcg/2 Ml Ampul IV 05/06/20 03:21 100 mcg NOW ONE Administration Furosemide 40 mg 05/06/20 03:01 05/06/20 03:06 Furosemide Inj/Pf 40 Mg/4 Ml Sdv IV 05/06/20 03:02 40 mg NOW ONE Administration Furosemide Confirm 05/06/20 03:01 05/06/20 03:07 Furosemide Inj/Pf 40 Mg/4 Ml Sdv Administered 05/06/20 03:02 Not Given Dose 40 mg .ROUTE .STK-MED ONE Hydralazine HCl 20 mg 05/03/20 15:30 05/06/20 02:50 Hydralazine Hcl Inj/Pf 20 Mg/1 Ml Sdv IV 06/02/20 15:29 20 mg Q6HP PRN Administration GIVE FOR SBP > 150 Midazolam HCl 50 mg in 100 mls @ 0 mls/hr 05/03/20 05:18 05/04/20 04:59 Versed Rtu 50 Mg/100 Ml Premix Bag IV 05/10/20 05:17 0 mls/hr CONTINUOUS PRN 0 mls/hr THIS MED IS NOT "PRN" Titration Protocol Titrate Sodium Chloride 1,000 mls @ 0 mls/hr 05/03/20 05:22 05/03/20 08:01 Nacl 0.9% 1000 Ml Iv Soln IV 05/03/20 05:23 Infused BOLUS ONE Infusion Wide Open Sodium Chloride 1,000 mls @ 0 mls/hr 05/03/20 05:32 05/03/20 07:13 Nacl 0.9% 1000 Ml Iv Soln IV 05/03/20 05:33 Infused BOLUS ONE Infusion Wide Open Sodium Chloride 820 mls @ 0 mls/hr 05/03/20 06:29 05/03/20 10:14 Nacl 0.9% 1000 Ml Iv Soln IV 05/03/20 06:30 Infused BOLUS ONE Infusion Wide Open Potassium Chloride/Water 20 meq in 50 mls @ 25 mls/hr 05/03/20 21:45 05/04/20 06:01 Potassium Chloride Joseph 20 Meq/50 Ml IV 05/04/20 01:44 Infused Q2H TRACY Infusion Potassium Chloride/Water Confirm 05/03/20 21:51 05/03/20 22:20 Potassium Chloride Joseph 20 Meq/50 Ml Administered 05/03/20 21:52 Not Given Dose 40 meq in 100 mls @ ud IV .STK-MED ONE Magnesium Sulfate 4 gm in 100 mls @ 25 mls/hr 05/04/20 02:48 05/04/20 08:43 Magnesium Sulfate Rtu 4 Gm/100 Ml Premix Bag IV 05/04/20 06:47 Infused NOW ONE Infusion Magnesium Sulfate Confirm 05/04/20 04:22 05/04/20 04:43 Magnesium Sulfate Rtu 4 Gm/100 Ml Premix Bag Administered 05/04/20 04:23 Not Given Dose 4 gm in 100 mls @ ud IV .STK-MED ONE Propofol 1,000 mg in 100 mls @ 2.637 mls/hr 05/04/20 04:40 05/05/20 16:16 Diprivan Rtu 1000 Mg/100 Ml Inf.Bottle IV 06/03/20 04:39 Infused CONTINUOUS PRN Titration THIS MED IS NOT "PRN" Protocol 5 MCG/KG/MIN Propofol Confirm 05/04/20 04:49 05/04/20 05:07 Diprivan Rtu 1000 Mg/100 Ml Inf.Bottle Administered 05/04/20 04:50 Not Given Dose 1,000 mg in 100 mls @ ud IV .STK-MED ONE Lactated Ringer's 1,000 mls @ 75 mls/hr 05/04/20 11:36 05/06/20 07:39 Lactated Ringers 1000 Ml Iv Soln IV 06/03/20 11:35 0 mls/hr CONTINUOUS PRN Infusion THIS MED IS NOT "PRN" Fentanyl Citrate 600 mcg in 60 mls @ 0 mls/hr 05/04/20 22:31 05/04/20 22:57 S[employer]im[employer] Man/Pf 600 Mcg/60 Ml Rtu Vial IV 05/11/20 22:30 2.5 mls/hr ASDIR PRN Administration THIS MED IS NOT "PRN" Protocol Per Protocol Dexmedetomidine/Sodium Chloride Confirm 05/06/20 00:56 05/06/20 02:09 Precedex 400 Mcg/Ns 100 Ml Iv Premix Administered 05/06/20 00:57 Not Given Dose 400 mcg in 100 mls @ ud IV .STK-MED ONE Propofol 1,000 mg in 100 mls @ 2.637 mls/hr 05/06/20 01:21 05/07/20 12:30 Diprivan Rtu 1000 Mg/100 Ml Inf.Bottle IV 06/03/20 04:39 Infused CONTINUOUS PRN Titration THIS MED IS NOT "PRN" Protocol 5 MCG/KG/MIN Dexmedetomidine/Sodium Chloride 400 mcg in 100 mls @ 9.09 mls/hr 05/06/20 01:48 Precedex 400 Mcg/Ns 100 Ml Iv Premix IV 06/05/20 01:47 CONTINUOUS PRN THIS MED IS NOT "PRN" Protocol 0.4 MCG/KG/HR Labetalol HCl 10 mg 05/03/20 06:51 05/03/20 07:21 Labetalol Hcl Inj 20 Mg/4 Ml Disp.Syrin IV 05/03/20 06:52 10 mg NOW ONE Administration Labetalol HCl 20 mg 05/05/20 23:17 05/08/20 17:20 Labetalol Hcl Inj 20 Mg/4 Ml Disp.Syrin IV 06/04/20 23:16 20 mg Q4HP PRN Administration SBP > 160 Lisinopril 40 mg 05/09/20 10:00 Lisinopril 10 Mg Tablet PO 06/08/20 09:59 DAILY TRACY Lisinopril 40 mg 05/08/20 15:22 05/08/20 15:29 Lisinopril 10 Mg Tablet PO 06/07/20 15:21 Not Given DAILY TRACY Lorazepam 1 mg 05/06/20 00:27 05/06/20 00:55 Lorazepam Inj 2 Mg/1 Ml Vial IV 05/06/20 00:28 1 mg NOW ONE Administration Lorazepam Confirm 05/06/20 00:26 05/06/20 02:10 Lorazepam Inj 2 Mg/1 Ml Vial Administered 05/06/20 00:27 Not Given Dose 2 mg .ROUTE .STK-MED ONE Methylprednisolone Sodium Succinate 125 mg 05/03/20 05:22 05/03/20 05:42 Methylprednisolone Inj 125 Mg/2 Ml Sdv IV 05/03/20 05:23 125 mg NOW ONE Administration Methylprednisolone Sodium Succinate 40 mg 05/03/20 22:00 05/06/20 18:48 Methylprednisolone Inj 40 Mg/1 Ml Sdv IV 06/02/20 21:59 Not Given Q8 TRACY Methylprednisolone Sodium Succinate Confirm 05/03/20 20:55 05/03/20 22:18 Methylprednisolone Inj 125 Mg/2 Ml Sdv Administered 05/03/20 20:56 Not Given Dose 125 mg .ROUTE .STK-MED ONE Methylprednisolone Sodium Succinate 40 mg 05/06/20 18:00 05/08/20 05:26 Methylprednisolone Inj 40 Mg/1 Ml Sdv IV 06/05/20 17:59 40 mg Q12A TRACY Administration Metoprolol Tartrate Confirm 05/06/20 01:41 05/06/20 02:10 Metoprolol Tartrate Pf/Inj 5 Mg/5 Ml Sdv Administered 05/06/20 01:42 Not Given Dose 5 mg IV .STK-MED ONE Metoprolol Tartrate 5 mg 05/06/20 01:40 05/06/20 02:09 Metoprolol Tartrate Pf/Inj 5 Mg/5 Ml Sdv IV 05/06/20 01:41 5 mg NOW ONE Administration Metoprolol Tartrate 50 mg 05/08/20 22:00 Metoprolol Tartrate 50 Mg Tablet PO 06/07/20 21:59 Q12 [facility] Metoprolol Tartrate 2.5 mg 05/08/20 18:30 05/08/20 18:30 Metoprolol Tartrate Pf/Inj 5 Mg/5 Ml Sdv IV 05/08/20 18:31 2.5 mg NOW ONE Administration Metoprolol Tartrate 5 mg 05/08/20 22:00 05/08/20 22:10 Metoprolol Tartrate Pf/Inj 5 Mg/5 Ml Sdv IV 05/08/20 22:01 5 mg NOW ONE Administration Midazolam HCl 4 mg 05/03/20 09:48 05/03/20 09:57 Midazolam 2 Mg/2 Ml Inj IV 05/03/20 09:49 4 mg NOW ONE Administration Midazolam HCl Confirm 05/03/20 09:50 05/03/20 09:56 Midazolam 2 Mg/2 Ml Inj Administered 05/03/20 09:51 Not Given Dose 2 mg .ROUTE .STK-MED ONE Patient Own Medication 20 mg 05/08/20 22:00 Lisinopril [Prinivil] PO 06/07/20 21:59 Q12 [facility] Piperacillin Sod/Tazobactam Sod 4.5 gm 05/03/20 05:31 05/03/20 06:04 Piperacillin/Tazobactam 3.375 Gm Vial IV 05/03/20 05:32 4.5 gm IVBAG (ED) ONE Administration Prednisone 40 mg 05/08/20 10:00 Prednisone 20 Mg Tablet PO 06/07/20 09:59 DAILY [facility] Rocuronium [place] 50 mg 05/06/20 00:58 05/06/20 01:04 Rocuronium [place] Inj 50 Mg/5 Ml Vial IV 05/06/20 00:59 50 mg NOW ONE Administration Rocuronium [place] 100 mg 05/06/20 05:00 Rocuronium [place] Inj 50 Mg/5 Ml Vial IV 05/06/20 05:01 .STK-MED ONE Sodium Chloride 2.5 ml 05/03/20 22:00 05/08/20 05:26 Normal Saline Flush 2.5 Ml Disp.Syrin IV 06/02/20 21:59 2.5 ml Q8 TRACY Administration - Medication/Allergies Home Medications: Hydrochlorothiazide 25 mg PO QAM 05/03/20 Lisinopril [Prinivil] 20 mg PO Q12 05/03/20 Metoprolol Tartrate [Lopressor 50 mg Tablet] 50 mg PO Q12 05/03/20 Allergies/Adverse Reactions: No Known Allergies Allergy (Verified 01/08/18 22:26) REVIEW OF SYSTEMS: Patient states that when he was brought in he was in his state of mind that he does not remember anything. He denies any fever chills or rigors. EYES: No history of amblyopia diplopia. No history of amaurosis fugax. EARS: No history of hearing loss. No history of tinnitus. NOSE: No history of hayfever. No history of nosebleeds. THROAT: No history of odynophagia or dysphagia. No history of recurrent sore throats. LUNGS: He has history of COPD. Recent symptoms of pneumonia and requiring intubation. States that shortness of breath is much improved. He still has a cough but nonproductive. He continues to smoke. No history of pulmonary embolism. HEART: History of prior myocardial infarction. No recent anginal symptoms. He denies prior history of atrial fibrillation. The patient's atrial fibrillation appears to be new in onset. Although he cannot be reliable since the patient has no symptoms even his heart rate is up he does not feel any palpitations. There is no history of congestive heart failure. ENDOCRINE no history of diabetes mellitus or thyroid disease. No history of polyps or polyuria no history of heat or cold intolerances. RENAL: No history of renal failure. No history of chronic kidney disease. No symptoms of UTI. No hematuria pyuria or dysuria. MUSCULOSKELETAL: Denies arthritis or collagen vascular disease. GI: No history of fatty food intolerance. No history of GI bleed. No history of altered bowel movements. EMERGENCY ROOM REGISTERED NURSE: Prior history of CVA with right-sided weakness from which she is fully recovered. No recurrence of TIA CVA symptoms. No history of headaches migraines or seizures. PSYCHIATRIC: Denies history of anxiety or depression. No history of suicidal ideation. No history of homicidal ideation. Rest of review of symptoms is negative except for in history of present illness. PHYSICAL EXAMINATION: The patient appears to be a frail build and chronically ill. In spite of his heart rate being fast he is in no acute distress. Selected Entries 05/08/20 05/08/20 16:00 17:00 Temperature 98.1 F Temperature Oral Source Heart Rate ( 181 Monitors) Respiratory 19 Rate Blood Pressure 137/98 H [Right Upper Arm] Blood Pressure 111 Mean [Right Upper Arm] Blood Pressure Sitting Position [Right Upper Arm] O2 Sat by Pulse 93 Oximetry Oxygen Delivery Room Air Method ( includes room air) HEAD: Is atraumatic normocephalic. EYES: Pupils are equal round regular reactive light accommodation. Extraocular movements are normal. There is no conjunctival pallor. There is no scleral icterus. EARS: Tympanic membranes are intact. External auditory canals are clear. NOSE: There is no deviated nasal septum. There is no inflammation of the nasal mucous membrane. MOUTH: Mucous membranes of the mouth are moist. Tongue is moist. There is no ulcers. There is no bleeding from the gums. THROAT: There is no redness of the oropharynx. There is no exudates. SKIN there is no skin rashes. There is no petechia or ecchymosis there is no skin lesions. NECK: Is supple. There is no JVD. Carotids are equal there is no bruit there is no lymphadenopathy. There is no goiter. There is no accessory muscle respiration use. Trachea central. LUNGS: There is diminished air entry prolonged expiration and expiration. There is bilateral right greater than left dry crackles. There is no rales of CHF. HEART: S1-S2 is heard. S1 is of variable intensity. There is no S3 gallop. There is no S4 gallop. There is systolic murmur left sternal border and the apex there is no rub. ABDOMEN: Soft. Nontender. There is no hepatosplenomegaly. Bowel sounds are well heard. EXTREMITIES: Femorals are diminished. There is no femoral bruits. Leg pulses are diminished. There is no pedal edema. There is no DVT or cellulitis. There is no calf tenderness. EMERGENCY ROOM REGISTERED NURSE: The patient is conscious awake alert oriented x3 with no focal deficits. PSYCHIATRIC: Patient judgment insight are intact her affect is normal. Labs- Entire Visit 05/03/20 05/03/20 05/03/20 05:12 05:12 05:12 WBC 8.7 RBC 5.80 H Hgb 17.3 H Hct 50.3 MCV 87 MCH 29.8 MCHC 34.3 RDW 14.5 H Plt Count 196 Lymph % (Auto) 24.9 Bowman % (Auto) 1.9 L Eos % (Auto) 1.4 Baso % (Auto) 1.1 Absolute Neuts (auto) 6.1 Absolute Lymphs (auto) 2.2 Absolute Monos (auto) 0.2 Absolute Eos (auto) 0.1 Absolute Basos (auto) 0.1 Total Counted Seg Neutrophils % 70.7 Seg Neuts % (Manual) Lymphocytes % (Manual) Monocytes % (Manual) Eosinophils % (Manual) Basophils % (Manual) Abs Neuts (Manual) Abs Lymphs (Manual) Abs Monocytes (Manual) Absolute Eos (Manual) Abs Basophils (Manual) Toxic Vacuolation Platelet Estimate Platelet Comment Anisocytosis RBC Morph Comment Carbonic Acid HCO3/H2CO3 Ratio ABG pH ABG pCO2 ABG pO2 ABG HCO3 ABG Total CO2 ABG O2 Saturation ABG Base Excess FiO2 Sodium 139.7 Potassium 3.7 Chloride 101 Carbon Dioxide 22 Anion Gap 17 BUN 16 Creatinine 1.56 H Est GFR ( Amer) 55 L Est GFR (MDRD) Non-Af 45 L Glucose 280 H POC Glucose Lactic Acid Calcium 8.6 Magnesium Total Bilirubin 0.5 Direct Bilirubin 0.1 Neonat Total Bilirubin Not Reportable Neonat Direct Bilirubin Not Reportable Neonat Indirect Bili Not Reportable AST 26 ALT 14 Alkaline Phosphatase 89 Troponin I 0.093 NT-Pro-B Natriuret Pep 4950 H Total Protein 6.4 Albumin 3.7 Triglycerides Cholesterol LDL Cholesterol Direct VLDL Cholesterol HDL Cholesterol TSH Free T4 Urine Opiates Screen Urine Methadone Screen Ur Barbiturates Screen Ur Phencyclidine Scrn Ur Amphetamines Screen U Benzodiazepines Scrn Urine Cocaine Screen U Marijuana (THC) Screen Serum Alcohol < 10 COVID-19 Source COVID-19 (ALVARO) Slides for Path Review 05/03/20 05/03/20 05/03/20 05:12 05:12 05:56 WBC RBC Hgb Hct MCV MCH MCHC RDW Plt Count Lymph % (Auto) Bowman % (Auto) Eos % (Auto) Baso % (Auto) Absolute Neuts (auto) Absolute Lymphs (auto) Absolute Monos (auto) Absolute Eos (auto) Absolute Basos (auto) Total Counted Seg Neutrophils % Seg Neuts % (Manual) Lymphocytes % (Manual) Monocytes % (Manual) Eosinophils % (Manual) Basophils % (Manual) Abs Neuts (Manual) Abs Lymphs (Manual) Abs Monocytes (Manual) Absolute Eos (Manual) Abs Basophils (Manual) Toxic Vacuolation Platelet Estimate Platelet Comment Anisocytosis RBC Morph Comment Carbonic Acid 2.16 H HCO3/H2CO3 Ratio 10:1 ABG pH 7.13 L* ABG pCO2 71.8 H* ABG pO2 253.2 H ABG HCO3 23.4 ABG Total CO2 25.6 ABG O2 Saturation 99.3 H ABG Base Excess -7.9 FiO2 100% Sodium Potassium Chloride Carbon Dioxide Anion Gap BUN Creatinine Est GFR ( Amer) Est GFR (MDRD) Non-Af Glucose POC Glucose Lactic Acid 3.2 H Calcium Magnesium Total Bilirubin Direct Bilirubin Neonat Total Bilirubin Neonat Direct Bilirubin Neonat Indirect Bili AST ALT Alkaline Phosphatase Troponin I NT-Pro-B Natriuret Pep Total Protein Albumin Triglycerides Cholesterol LDL Cholesterol Direct VLDL Cholesterol HDL Cholesterol TSH Free T4 Urine Opiates Screen NEGATIVE Urine Methadone Screen NEGATIVE Ur Barbiturates Screen NEGATIVE Ur Phencyclidine Scrn NEGATIVE Ur Amphetamines Screen NEGATIVE U Benzodiazepines Scrn NEGATIVE Urine Cocaine Screen NEGATIVE U Marijuana (THC) Screen UNCONFIRMED POSITIVE Serum Alcohol COVID-19 Source COVID-19 (ALVARO) Slides for Path Review 05/03/20 05/03/20 05/03/20 06:42 15:13 19:18 WBC RBC Hgb Hct MCV MCH MCHC RDW Plt Count Lymph % (Auto) Bowman % (Auto) Eos % (Auto) Baso % (Auto) Absolute Neuts (auto) Absolute Lymphs (auto) Absolute Monos (auto) Absolute Eos (auto) Absolute Basos (auto) Total Counted Seg Neutrophils % Seg Neuts % (Manual) Lymphocytes % (Manual) Monocytes % (Manual) Eosinophils % (Manual) Basophils % (Manual) Abs Neuts (Manual) Abs Lymphs (Manual) Abs Monocytes (Manual) Absolute Eos (Manual) Abs Basophils (Manual) Toxic Vacuolation Platelet Estimate Platelet Comment Anisocytosis RBC Morph Comment Carbonic Acid 1.47 H 1.18 HCO3/H2CO3 Ratio 16:1 19:1 ABG pH 7.32 L 7.38 ABG pCO2 48.7 H 39.2 ABG pO2 120.8 H 133.8 H ABG HCO3 24.6 H 22.6 ABG Total CO2 26.1 23.8 ABG O2 Saturation 98.1 H 98.6 H ABG Base Excess -2.1 -2.2 FiO2 60% 60% Sodium Potassium Chloride Carbon Dioxide Anion Gap BUN Creatinine Est GFR ( Amer) Est GFR (MDRD) Non-Af Glucose POC Glucose Lactic Acid Calcium Magnesium Total Bilirubin Direct Bilirubin Neonat Total Bilirubin Neonat Direct Bilirubin Neonat Indirect Bili AST ALT Alkaline Phosphatase Troponin I NT-Pro-B Natriuret Pep Total Protein Albumin Triglycerides Cholesterol LDL Cholesterol Direct VLDL Cholesterol HDL Cholesterol TSH Free T4 Urine Opiates Screen Urine Methadone Screen Ur Barbiturates Screen Ur Phencyclidine Scrn Ur Amphetamines Screen U Benzodiazepines Scrn Urine Cocaine Screen U Marijuana (THC) Screen Serum Alcohol COVID-19 Source See comment COVID-19 ([facility]VARO) Not Detected Slides for Path Review 05/04/20 05/04/20 05/04/20 01:18 04:53 04:53 WBC 18.3 H D RBC 5.54 Hgb 16.2 Hct 47.5 MCV 86 MCH 29.2 MCHC 34.0 RDW 14.7 H Plt Count 170 Lymph % (Auto) Not Reportable Bowman % (Auto) Not Reportable Eos % (Auto) Not Reportable Baso % (Auto) Not Reportable Absolute Neuts (auto) Not Reportable Absolute Lymphs (auto) Not Reportable Absolute Monos (auto) Not Reportable Absolute Eos (auto) Not Reportable Absolute Basos (auto) Not Reportable Total Counted 100 Seg Neutrophils % Not Reportable Seg Neuts % (Manual) 90 H Lymphocytes % (Manual) 4 L Monocytes % (Manual) 6 Eosinophils % (Manual) 0 Basophils % (Manual) 0 Abs Neuts (Manual) 16.5 H Abs Lymphs (Manual) 0.7 Abs Monocytes (Manual) 1.1 Absolute Eos (Manual) 0.0 Abs Basophils (Manual) 0.0 Toxic Vacuolation Platelet Estimate Platelet Comment ADEQUATE Anisocytosis RBC Morph Comment Carbonic Acid HCO3/H2CO3 Ratio ABG pH ABG pCO2 ABG pO2 ABG HCO3 ABG Total CO2 ABG O2 Saturation ABG Base Excess FiO2 Sodium 137.1 138.4 Potassium 4.4 4.6 Chloride 107 106 Carbon Dioxide 20 L 20 L Anion Gap 10 12 BUN 20 20 Creatinine 1.41 H 1.41 H Est GFR ( Amer) > 60 > 60 Est GFR (MDRD) Non-Af 51 L 51 L Glucose 142 H 144 H POC Glucose Lactic Acid Calcium 8.7 9.1 Magnesium 1.6 Total Bilirubin 0.7 Direct Bilirubin 0.2 Neonat Total Bilirubin Not Reportable Neonat Direct Bilirubin Not Reportable Neonat Indirect Bili Not Reportable AST 28 ALT 18 Alkaline Phosphatase 81 Troponin I NT-Pro-B Natriuret Pep Total Protein 6.5 Albumin 3.8 Triglycerides 122 Cholesterol 197.25 LDL Cholesterol Direct 139 H VLDL Cholesterol 24.0 HDL Cholesterol 43 TSH Free T4 Urine Opiates Screen Urine Methadone Screen Ur Barbiturates Screen Ur Phencyclidine Scrn Ur Amphetamines Screen U Benzodiazepines Scrn Urine Cocaine Screen U Marijuana (THC) Screen Serum Alcohol COVID-19 Source COVID-19 (ALVARO) Slides for Path Review 05/04/20 05/04/20 05/05/20 04:53 12:36 04:25 WBC 17.5 H RBC 4.69 Hgb 14.0 D Hct 40.6 MCV 87 MCH 29.7 MCHC 34.4 RDW 14.7 H Plt Count 132 L Lymph % (Auto) Not Reportable Bowman % (Auto) Not Reportable Eos % (Auto) Not Reportable Baso % (Auto) Not Reportable Absolute Neuts (auto) Not Reportable Absolute Lymphs (auto) Not Reportable Absolute Monos (auto) Not Reportable Absolute Eos (auto) Not Reportable Absolute Basos (auto) Not Reportable Total Counted 100 Seg Neutrophils % Not Reportable Seg Neuts % (Manual) 95 H Lymphocytes % (Manual) 3 L Monocytes % (Manual) 2 L Eosinophils % (Manual) 0 Basophils % (Manual) 0 Abs Neuts (Manual) 16.6 H Abs Lymphs (Manual) 0.5 Abs Monocytes (Manual) 0.4 Absolute Eos (Manual) 0.0 Abs Basophils (Manual) 0.0 Toxic Vacuolation PRESENT Platelet Estimate Platelet Comment DECREASED Anisocytosis SLIGHT RBC Morph Comment Carbonic Acid HCO3/H2CO3 Ratio ABG pH ABG pCO2 ABG pO2 ABG HCO3 ABG Total CO2 ABG O2 Saturation ABG Base Excess FiO2 Sodium Potassium Chloride Carbon Dioxide Anion Gap BUN Creatinine Est GFR ( Amer) Est GFR (MDRD) Non-Af Glucose POC Glucose 133 H Lactic Acid Calcium Magnesium Total Bilirubin Direct Bilirubin Neonat Total Bilirubin Neonat Direct Bilirubin Neonat Indirect Bili AST ALT Alkaline Phosphatase Troponin I NT-Pro-B Natriuret Pep Total Protein Albumin Triglycerides Cholesterol LDL Cholesterol Direct VLDL Cholesterol HDL Cholesterol TSH 0.07 L Free T4 1.21 Urine Opiates Screen Urine Methadone Screen Ur Barbiturates Screen Ur Phencyclidine Scrn Ur Amphetamines Screen U Benzodiazepines Scrn Urine Cocaine Screen U Marijuana (THC) Screen Serum Alcohol COVID-19 Source COVID-19 (ALVARO) Slides for Path Review 05/06/20 05/06/20 05/06/20 00:50 03:20 03:20 WBC Cancelled RBC Cancelled Hgb Cancelled Hct Cancelled MCV Cancelled MCH Cancelled MCHC Cancelled RDW Cancelled Plt Count Cancelled Lymph % (Auto) Cancelled Bowman % (Auto) Cancelled Eos % (Auto) Cancelled Baso % (Auto) Cancelled Absolute Neuts (auto) Cancelled Absolute Lymphs (auto) Cancelled Absolute Monos (auto) Cancelled Absolute Eos (auto) Cancelled Absolute Basos (auto) Cancelled Total Counted Seg Neutrophils % Cancelled Seg Neuts % (Manual) Lymphocytes % (Manual) Monocytes % (Manual) Eosinophils % (Manual) Basophils % (Manual) Abs Neuts (Manual) Abs Lymphs (Manual) Abs Monocytes (Manual) Absolute Eos (Manual) Abs Basophils (Manual) Toxic Vacuolation Platelet Estimate Cancelled Platelet Comment Anisocytosis RBC Morph Comment Carbonic Acid 1.14 HCO3/H2CO3 Ratio 18:1 ABG pH 7.37 ABG pCO2 37.8 ABG pO2 75.0 L ABG HCO3 21.6 ABG Total CO2 22.7 L ABG O2 Saturation 94.8 ABG Base Excess -3.1 FiO2 4L Sodium Potassium Chloride Carbon Dioxide Anion Gap BUN Creatinine Est GFR ( Amer) Est GFR (MDRD) Non-Af Glucose POC Glucose Lactic Acid Calcium Magnesium Total Bilirubin Direct Bilirubin Neonat Total Bilirubin Neonat Direct Bilirubin Neonat Indirect Bili AST ALT Alkaline Phosphatase Troponin I 0.099 NT-Pro-B Natriuret Pep 5580 H Total Protein Albumin Triglycerides Cholesterol LDL Cholesterol Direct VLDL Cholesterol HDL Cholesterol TSH Free T4 Urine Opiates Screen Urine Methadone Screen Ur Barbiturates Screen Ur Phencyclidine Scrn Ur Amphetamines Screen U Benzodiazepines Scrn Urine Cocaine Screen U Marijuana (THC) Screen Serum Alcohol COVID-19 Source COVID-19 (ALVARO) Slides for Path Review Cancelled 05/06/20 05/07/20 05/07/20 06:01 04:00 04:00 WBC 18.3 H 11.2 H RBC 5.32 4.81 Hgb 15.8 14.4 Hct 46.1 41.0 MCV 87 85 MCH 29.7 29.9 MCHC 34.3 35.1 RDW 14.7 H 14.6 H Plt Count 135 L 101 L Lymph % (Auto) Not Reportable 5.3 L Bowman % (Auto) Not Reportable 5.7 Eos % (Auto) Not Reportable 0.1 Baso % (Auto) Not Reportable 0.3 Absolute Neuts (auto) Not Reportable 9.9 H Absolute Lymphs (auto) Not Reportable 0.6 Absolute Monos (auto) Not Reportable 0.6 Absolute Eos (auto) Not Reportable 0.0 Absolute Basos (auto) Not Reportable 0.0 Total Counted 100 Seg Neutrophils % Not Reportable 88.6 H Seg Neuts % (Manual) 97 H Lymphocytes % (Manual) 1 L Monocytes % (Manual) 2 L Eosinophils % (Manual) 0 Basophils % (Manual) 0 Abs Neuts (Manual) 17.8 H Abs Lymphs (Manual) 0.2 L Abs Monocytes (Manual) 0.4 Absolute Eos (Manual) 0.0 Abs Basophils (Manual) 0.0 Toxic Vacuolation Platelet Estimate Platelet Comment ADEQUATE Anisocytosis RBC Morph Comment NORMO-CYTIC/CHROMIC Carbonic Acid HCO3/H2CO3 Ratio ABG pH ABG pCO2 ABG pO2 ABG HCO3 ABG Total CO2 ABG O2 Saturation ABG Base Excess FiO2 Sodium 135.6 L Potassium 4.2 Chloride 104 Carbon Dioxide 26 Anion Gap 6 BUN 42 H Creatinine 1.32 H Est GFR ( Amer) > 60 Est GFR (MDRD) Non-Af 55 L Glucose 122 H POC Glucose Lactic Acid Calcium 8.3 L Magnesium Total Bilirubin Direct Bilirubin Neonat Total Bilirubin Neonat Direct Bilirubin Neonat Indirect Bili AST ALT Alkaline Phosphatase Troponin I NT-Pro-B Natriuret Pep Total Protein Albumin Triglycerides Cholesterol LDL Cholesterol Direct VLDL Cholesterol HDL Cholesterol TSH Free T4 Urine Opiates Screen Urine Methadone Screen Ur Barbiturates Screen Ur Phencyclidine Scrn Ur Amphetamines Screen U Benzodiazepines Scrn Urine Cocaine Screen U Marijuana (THC) Screen Serum Alcohol COVID-19 Source COVID-19 (ALVARO) Slides for Path Review 05/08/20 05/08/20 05/08/20 04:02 04:02 22:42 WBC RBC Hgb Hct MCV MCH MCHC RDW Plt Count Lymph % (Auto) Bowman % (Auto) Eos % (Auto) Baso % (Auto) Absolute Neuts (auto) Absolute Lymphs (auto) Absolute Monos (auto) Absolute Eos (auto) Absolute Basos (auto) Total Counted Seg Neutrophils % Seg Neuts % (Manual) Lymphocytes % (Manual) Monocytes % (Manual) Eosinophils % (Manual) Basophils % (Manual) Abs Neuts (Manual) Abs Lymphs (Manual) Abs Monocytes (Manual) Absolute Eos (Manual) Abs Basophils (Manual) Toxic Vacuolation Platelet Estimate Platelet Comment Anisocytosis RBC Morph Comment Carbonic Acid HCO3/H2CO3 Ratio ABG pH ABG pCO2 ABG pO2 ABG HCO3 ABG Total CO2 ABG O2 Saturation ABG Base Excess FiO2 Sodium 137.7 Potassium 4.2 4.2 Chloride 105 Carbon Dioxide 27 Anion Gap 6 BUN 43 H Creatinine 1.19 Est GFR ( Amer) > 60 Est GFR (MDRD) Non-Af > 60 Glucose 115 H POC Glucose 114 H Lactic Acid Calcium 8.5 Magnesium 2.4 H Total Bilirubin Direct Bilirubin Neonat Total Bilirubin Neonat Direct Bilirubin Neonat Indirect Bili AST ALT Alkaline Phosphatase Troponin I NT-Pro-B Natriuret Pep Total Protein Albumin Triglycerides Cholesterol LDL Cholesterol Direct VLDL Cholesterol HDL Cholesterol TSH Free T4 Urine Opiates Screen Urine Methadone Screen Ur Barbiturates Screen Ur Phencyclidine Scrn Ur Amphetamines Screen U Benzodiazepines Scrn Urine Cocaine Screen U Marijuana (THC) Screen Serum Alcohol COVID-19 Source COVID-19 (ALVARO) Slides for Path Review EKG:STMT - * ATRIAL FIBRILLATION, V-RATE 76-183 WITH PVC [LVHPRE] . PROBABLE LVH WITH SECONDARY REPOL ABNRM [AMI17] . ANTERIOR Q WAVES, POSSIBLY DUE TO LVH [LQTB] . BORDERLINE PROLONGED QT INTERVAL Chest X-Ray 05/03/20 05:21 IMPRESSION: Developing right greater than left opacities likely representing pneumonia and differential diagnosis would include viral infections. Chest X-Ray 05/04/20 06:00 IMPRESSION: STABLE APPEARANCE OF THE CHEST. Chest X-Ray 05/05/20 06:00 IMPRESSION: STABLE APPEARANCE OF THE CHEST. SUPPORT DEVICES UNCHANGED. Chest X-Ray 05/06/20 00:00 IMPRESSION: Continued right-sided pneumonia. IMPRESSION/RECOMMENDATION: 1. Atrial fibrillation with rapid ventricular response. Would recommend increasing the patient's Cardizem infusion to 15 mg/h. We will check the patient's magnesium and potassium. Continue the patient's Lovenox at 85 mg subcutaneously every 12 hours. Note the patient cannot afford Eliquis. Hence would recommend starting the patient on Coumadin the. The patient's corrected Romulo vas 2 score is 4 [2 for history of prior CVA, 1 for coronary artery disease, and 1 for hypertension]. 2. Pneumonia would recommend continue antibiotics check the patient's chest x- ray 3. COPD continue anti-COPD medication and antibiotics. 4. Hypertension: Blood pressure stable. Continue antihypertensives. 5. Ongoing tobacco abuse: Tobacco cessation counseling given 3 minutes spent on this patient. 6. Recent respiratory failure requiring intubation. Patient now extubated. Medications reviewed medical regimen management plan discussed with attending provider on the case. Medical decision making is of high complexity. 60 minutes spent on this patient with more than 50% of time spent in direct patient care will follow
[2020-05-09] MEDS: DILTIAZEM HCL/D5W 125 MG/125 ML RTUINJ IV PRN ×2 (03:28→10:48)
[2020-05-09 06:16] LABS: HEMATOCRIT 44.3 % (37.9-51.0); HEMOGLOBIN 15.3 g/dL (13.5-17.0); MEAN CORPUSCULAR HEMOGLOBIN 29.6 pg (27.0-33.4); MEAN CORPUSCULAR HGB CONC 34.5 g/dL (32.0-36.0); MEAN CORPUSCULAR VOLUME 86 fl (80-97); RED BLOOD COUNT 5.17 10^6/uL (4.35-5.55); RED CELL DISTRIBUTION WIDTH 14.3 % (11.5-14.0); WHITE BLOOD COUNT 10.3 10^3/uL (4.0-10.5)
[2020-05-09 06:45] LABS: PLATELET COUNT 95 10^3/uL (150-450)
[2020-05-09] MEDS ORDERED: LISINOPRIL 10 MG TABLET PO SCH ×2 (08:00→10:00)
--- NOTE | 2020-05-09 09:59 | RADIOLOGY REPORT (SQ) ---
EXAM DESCRIPTION: CHEST SINGLE VIEW IMAGES COMPLETED DATE/TIME: 05/09/2020 8:58 am REASON FOR STUDY: Pneumonia COMPARISON: Chest films 05/06/2020, 05/05/2020, 05/04/2020, 05/03/2020 EXAM PARAMETERS: NUMBER OF VIEWS: One view. TECHNIQUE: Single frontal radiographic view of the chest acquired. RADIATION DOSE: NA LIMITATIONS: None. FINDINGS: LUNGS AND PLEURA: Significant clearing of bilateral airspace since 05/06/2020. There is minimal right basilar residual airspace disease. No pleural effusions. No pneumothorax. MEDIASTINUM AND HILAR STRUCTURES: No masses. Contour normal. HEART AND VASCULAR STRUCTURES: Heart normal in size. Normal vasculature. BONES: No acute findings. HARDWARE: None in the chest. OTHER: No other significant finding. IMPRESSION: Significant clearing of airspace 05/06/2020. Minimal residual right basilar infiltrate persists. TECHNICAL DOCUMENTATION: JOB ID: [id number]- All Rights Reserved Reading location - IP/workstation name: [email or web address]
[2020-05-09] MEDS: DOCUSATE SODIUM 100 MG CAPSULE PO SCH ×2 (10:47→17:42)
[2020-05-09] MEDS: LISINOPRIL 10 MG TABLET PO SCH (10:47)
[2020-05-09] MEDS: CEFTRIAXONE 2 GM/D5W RTU 2 GM/50 ML RTUPB IV SCH (10:47)
[2020-05-09] MEDS: FLUTICASONE/UMECLIDIN/VILANTER 100-62.5-25 MCG/DOSE IH SCH (10:49)
[2020-05-09] MEDS: ENOXAPARIN SODIUM INJ 100 MG/1 ML DISP.SYRIN SUBCUT SCH (10:50)
[2020-05-09] MEDS ORDERED: DIGOXIN INJ 0.5 MG/2 ML AMPULE IV ONE (12:00)
[2020-05-09 12:57] LABS: HEMATOCRIT 44.9 % (37.9-51.0); HEMOGLOBIN 15.4 g/dL (13.5-17.0); MEAN CORPUSCULAR HEMOGLOBIN 29.3 pg (27.0-33.4); MEAN CORPUSCULAR HGB CONC 34.3 g/dL (32.0-36.0); MEAN CORPUSCULAR VOLUME 85 fl (80-97); PLATELET COUNT 106 10^3/uL (150-450); RED BLOOD COUNT 5.27 10^6/uL (4.35-5.55); RED CELL DISTRIBUTION WIDTH 14.3 % (11.5-14.0); WHITE BLOOD COUNT 13.2 10^3/uL (4.0-10.5)
--- NOTE | 2020-05-09 13:17 | PDOC PROGRESS REPORT ---
Subjective Date:: 05/09/20 Subjective:: As per admitting physician's note Patient is a 60-year-old male with a history of COPD, not on home O2, presenting to the emergency department by EMS for evaluation of unresponsiveness, hypoxia and presumed acute respiratory failure. Patient's sister related history to EMS. Sister stated she does not know much about the patient's past medical history other than his COPD, tobacco abuse, history of CVA and known prior SD. She states that earlier this morning the patient started complaining of shortness of breath but could not find his inhaler. The sister with the patient have one of her albuterol vials for a albuterol nebulizer treatment. Apparently this was not very helpful for the patient's symptoms and at some point after the breathing treatment, the patient was found by his sister sitting up in chair but was unresponsive. She called 911. When EMS arrived, they said the patient was in a chair, but had a GCS of 3, and initial O2 sat of 40%. Patient was intubated with a 7.5 ET tube by EMS. One of the medics stated the patient's breath sounds were significant for rhonchi and wheezing in all sanchez. Medics said breath sounds seem to have improved after intubating the patient. It is unknown if the patient has had any recent Covid exposures, any history of Covid 19, any fever, chest pain. Patient still smokes. Reason For Visit: ACUTE HYPERCAPNEIC RESPIRATORY FAILURE Physical Exam Vital Signs: Temp Pulse Resp BP Pulse Ox 97.8 F 90 19 146/96 H 99 05/09/20 08:00 05/09/20 08:00 05/09/20 08:00 05/09/20 08:00 05/09/20 08:00 Intake & Output 05/08/20 05/09/20 05/10/20 06:59 06:59 06:59 Intake Total 451 609 110 Output Total 1290 550 Balance -839 59 110 Weight 84.9 kg 84 kg General appearance: PRESENT: no acute distress, obese, well-developed, well- nourished Head exam: PRESENT: atraumatic, normocephalic Respiratory exam: PRESENT: clear to auscultation carrillo. ABSENT: rales, rhonchi, wheezes Cardiovascular exam: PRESENT: irregular rhythm. ABSENT: diastolic murmur, rubs, systolic murmur GI/Abdominal exam: PRESENT: normal bowel sounds, soft. ABSENT: distended, guarding, mass, organolmegaly, rebound, tenderness Neurological exam: PRESENT: alert, awake, oriented to person, oriented to place, oriented to time, oriented to situation, CN II-XII grossly intact. ABSENT: motor sensory deficit Results Laboratory Results: 05/08/20 04:02 05/08/20 05/09/20 04:02 04:46 WBC 10.3 RBC 5.17 Hgb 15.3 Hct 44.3 MCV 86 MCH 29.6 MCHC 34.5 RDW 14.3 H Plt Count 95 L Potassium 4.2 Magnesium 2.4 H 05/03/20 05/06/20 05:12 03:20 Troponin I 0.093 0.099 NT-Pro-B Natriuret Pep 4950 H 5580 H Impressions: Chest X-Ray 05/09/20 00:00 IMPRESSION: Significant clearing of airspace 05/06/2020. Minimal residual right basilar infiltrate persists. Assessment and Plan - Diagnosis (1) Atrial fibrillation with rapid ventricular response Is this a current diagnosis for this admission?: Yes Plan: New onset atrial fibrillation. Cardizem drip to be transitioned to p.o. Cardizem. Chronic anticoagulation indicated. Patient may not qualify for new oral anticoagulants as he does not have any insurance. We will continue Lovenox and bridged to Coumadin. capacity planner consulted for finding if patient could qualify for new oral anticoagulants. Cardiology consulted. Recommendations noted. (2) Acute respiratory failure Qualifiers: Respiratory failure complication: hypoxia Qualified Code(s): J96.01 - Acute respiratory failure with hypoxia Is this a current diagnosis for this admission?: Yes Plan: Resolved. SPO2 WNL on 2 L nasal cannula. Most likely due to community-acquired pneumonia complicated by acute COPD exacerbation. Received a complete course of IV antibiotics. Cultures negative. Continue supplemental oxygen,, flutter valve, incentive spirometry, DuoNeb, LAMA, LABA, ICS. (3) Bilateral pneumonia Qualifiers: Pneumonia type: due to unspecified organism Lung location: unspecified part of lung Qualified Code(s): J18.9 - Pneumonia, unspecified organism Is this a current diagnosis for this admission?: Yes Plan: CXR improved. Continue empiric IV antibiotics. Plan as per #1. (4) CKD (chronic kidney disease) Qualifiers: Chronic kidney disease stage: stage 2 (mild) Qualified Code(s): N18.2 - Chronic kidney disease, stage 2 (mild) Is this a current diagnosis for this admission?: Yes Plan: Creatinine WNL. Euvolemic. Electrolytes WNL. Monitor electrolytes volume status, replace electrolytes as needed. Avoid nephrotoxic meds. Outpatient PCP and nephrology follow-up. (5) COPD (chronic obstructive pulmonary disease) Qualifiers: COPD type: emphysema Is this a current diagnosis for this admission?: Yes Plan: He states he needs home O2. He needs to be evaluated for this within 48 hours of discharge, which may be soon. (6) CHF (congestive heart failure) Qualifiers: Heart failure type: systolic Heart failure chronicity: chronic Qualified Code(s): I50.22 - Chronic systolic (congestive) heart failure Is this a current diagnosis for this admission?: Yes Plan: Chronic systolic heart failure. Does not appear to be acutely exacerbated. Euvolemic. Elevated proBNP on admission. 2D echo from 01/11/2020. LVEF 40%. Denies any anginal symptoms. Denies any CAD however stating that he had a cardiac arrest in the 90s 70s. Does not follow-up with any traffic operator. Cardiac diet, strict in and out, ZAFAR, beta-blockers, diuretics. - Time Time Spent with patient: 25-34 minutes Anticipated Discharge Disposition: Home with Home Health Anticipated Discharge Timeframe: within 48 hours
[2020-05-09] MEDS ORDERED: IPRATROPIUM/ALBUTEROL 0.5-2.5 MG/3 ML AMPUL NEB PRN (13:18)
[2020-05-09 13:37] LABS: CHOLESTEROL 227.17 mg/dL (0-200); TRIGLYCERIDES 230 mg/dL (<150)
[2020-05-09 13:48] LABS: DIRECT LDL 182 mg/dL (<100)
[2020-05-09] MEDS ORDERED: IPRATROPIUM/ALBUTEROL 0.5-2.5 MG/3 ML AMPUL NEB ONE (13:51)
[2020-05-09] MEDS ORDERED: LEVALBUTEROL HCL NEB 0.63 MG/3 ML AMPUL NEB ONE (13:54)
[2020-05-09] MEDS ORDERED: IPRATROPIUM/ALBUTEROL 0.5-2.5 MG/3 ML AMPUL NEB SCH (14:00)
[2020-05-09] MEDS: LEVALBUTEROL HCL NEB 0.63 MG/3 ML AMPUL NEB SCH ×2 (14:01→21:22)
[2020-05-09] MEDS: DILTIAZEM HCL 60 MG TABLET PO SCH ×2 (14:43→22:43)
[2020-05-09] MEDS: ASPIRIN 81 MG TABLET, CHEWABLE PO SCH (14:43)
--- NOTE | 2020-05-09 17:25 | Progress Note ---
Provider Note Provider Note: CARDIOLOGY PROGRESS NOTE by Dr. Bessy Duvall on 05/09/2020. SUBJECTIVE: The patient continues to be in atrial fibrillation, although the rate is much improved still not very very well controlled. He continues to be on the Cardizem drip. He denies any chest pain or discomfort. There is no shortness of breath. His chest x-ray shows improvement in the infiltrates especially there is only minimal infiltrate in the right lower lobe. There is no ventricular arrhythmias seen on the monitor. There is no TIA CVA symptoms. There is no bleeding on anticoagulation at present. PHYSICAL EXAMINATION: The patient appears to be a frail build and chronically ill-appearing and malnourished. In no acute distress. Selected Entries 05/09/20 05/09/20 06:00 08:00 Temperature 97.8 F Temperature Oral Source Pulse Rate 104 H Respiratory 19 Rate Blood Pressure 146/96 H [Right Upper Arm] Blood Pressure 112 Mean [Right Upper Arm] Blood Pressure Supine Position [Right Upper Arm] O2 Sat by Pulse 99 Oximetry Oxygen Delivery Room Air Method ( includes room air) HEAD: Is atraumatic normocephalic. EYES: Pupils are equal round regular reactive light accommodation. Extraocular movements are normal. There is no conjunctival pallor. There is no scleral icterus. EARS: Tympanic membranes are intact. External auditory canals are clear. NOSE: There is no deviated nasal septum. There is no inflammation of the nasal mucous membrane. MOUTH: Mucous membranes of the mouth are moist. Tongue is moist. There is no ulcers. There is no bleeding from the gums. THROAT: There is no redness of the oropharynx. There is no exudates. SKIN there is no skin rashes. There is no petechia or ecchymosis there is no skin lesions. NECK: Is supple. There is no JVD. Carotids are equal there is no bruit there is no lymphadenopathy. There is no goiter. There is no accessory muscle respiration use. Trachea central. LUNGS: There is diminished air entry prolonged expiration and expiration. There is bilateral right greater than left dry crackles. There is no rales of CHF. HEART: S1-S2 is heard. S1 is of variable intensity. There is no S3 gallop. There is no S4 gallop. There is systolic murmur left sternal border and the apex there is no rub. ABDOMEN: Soft. Nontender. There is no hepatosplenomegaly. Bowel sounds are well heard. EXTREMITIES: Femorals are diminished. There is no femoral bruits. Leg pulses are diminished. There is no pedal edema. There is no DVT or cellulitis. There is no calf tenderness. LABELING ASSOCIATE: The patient is conscious awake alert oriented x3 with no focal deficits. PSYCHIATRIC: Patient judgment insight are intact her affect is normal. Labs- All tests 24 hr 05/08/20 05/08/20 05/09/20 04:02 22:42 04:46 WBC 10.3 RBC 5.17 Hgb 15.3 Hct 44.3 MCV 86 MCH 29.6 MCHC 34.5 RDW 14.3 H Plt Count 95 L Potassium 4.2 POC Glucose 114 H Hemoglobin A1c % Magnesium 2.4 H Triglycerides Cholesterol LDL Cholesterol Direct VLDL Cholesterol HDL Cholesterol 05/09/20 05/09/20 05/09/20 04:46 04:46 12:20 WBC 13.2 H RBC 5.27 Hgb 15.4 Hct 44.9 MCV 85 MCH 29.3 MCHC 34.3 RDW 14.3 H Plt Count 106 L Potassium POC Glucose Hemoglobin A1c % 4.8 Magnesium Triglycerides 230 H Cholesterol 227.17 H LDL Cholesterol Direct 182 H VLDL Cholesterol 46.0 H HDL Cholesterol 37 L Chest X-Ray 05/03/20 05:21 IMPRESSION: Developing right greater than left opacities likely representing pneumonia and differential diagnosis would include viral infections. Chest X-Ray 05/04/20 06:00 IMPRESSION: STABLE APPEARANCE OF THE CHEST. Chest X-Ray 05/05/20 06:00 IMPRESSION: STABLE APPEARANCE OF THE CHEST. SUPPORT DEVICES UNCHANGED. Chest X-Ray 05/06/20 00:00 IMPRESSION: Continued right-sided pneumonia. Chest X-Ray 05/09/20 00:00 IMPRESSION: Significant clearing of airspace 05/06/2020. Minimal residual right basilar infiltrate persists. IMPRESSION/RECOMMENDATION: 1. Atrial fibrillation with rapid ventricular response. Will give an extra dose of digoxin. Will check a dig level in the morning. Would recommend weaning of the patient's Cardizem and titrating it down to off. In the meantime would place the patient on oral Cardizem. Note that the patient has been started on Eliquis. 2. Pneumonia would recommend continue antibiotics chest x-ray of today shows much better clearing of the infiltrates in the lung. 3. COPD continue anti-COPD medication and antibiotics. 4. Hypertension: Blood pressure stable. Continue antihypertensives. 5. Hyperlipidemia: The patient has low HDL levels and I LDL levels. Would recommend starting the patient on statin. 6. Ongoing tobacco abuse: Tobacco cessation counseling given 3 minutes spent on this patient. 7. Recent respiratory failure requiring intubation. Patient now extubated. Medications reviewed medical regimen management plan discussed with attending provider on the case. Medical decision making is of high complexity. 40 minutes spent on this patient with more than 50% of time spent in direct patient care will follow
[2020-05-09] MEDS: APIXABAN 5 MG TABLET PO SCH (17:43)
[2020-05-09] MEDS: AZITHROMYCIN 500 MG in DEXTROSE 5%-WATER 250 ML IV SCH (17:43)
[2020-05-09] MEDS ORDERED: WARFARIN SODIUM 2.5 MG TABLET PO SCH (22:00)
[2020-05-09] MEDS: ATORVASTATIN CALCIUM 40 MG TABLET PO SCH (22:43)
[2020-05-09] MEDS: METOPROLOL TARTRATE PF/INJ 5 MG/5 ML SDV IV PRN (23:56)
[2020-05-10] MEDS: DILTIAZEM HCL 60 MG TABLET PO SCH (06:19)
[2020-05-10 07:08] LABS: HEMOGLOBIN 15.9 g/dL (13.5-17.0); MEAN CORPUSCULAR HEMOGLOBIN 29.5 pg (27.0-33.4); MEAN CORPUSCULAR HGB CONC 34.6 g/dL (32.0-36.0); MEAN CORPUSCULAR VOLUME 85 fl (80-97); PLATELET COUNT 101 10^3/uL (150-450); RED CELL DISTRIBUTION WIDTH 14.5 % (11.5-14.0); WHITE BLOOD COUNT 12.4 10^3/uL (4.0-10.5)
[2020-05-10 07:32] LABS: ALBUMIN 2.9 g/dL (3.5-5.0); ALKALINE PHOSPHATASE 56 U/L (38-126); ANION GAP 6 (5-19); ASPARTATE AMINO TRANSFERASE 27 U/L (17-59); BILIRUBIN,DIRECT 0.3 mg/dL (0.0-0.4); BILIRUBIN,TOTAL 1.2 mg/dL (0.2-1.3); BLOOD UREA NITROGEN 24 mg/dL (7-20); CALCIUM 8.2 mg/dL (8.4-10.2); CARBON DIOXIDE 28 mmol/L (22-30); CHLORIDE 104 mmol/L (98-107); DIGOXIN 0.48 ng/mL (0.8-2.0); GLUCOSE 99 mg/dL (75-110); POTASSIUM 3.2 mmol/L (3.6-5.0); TOTAL PROTEIN 5.2 g/dL (6.3-8.2)
[2020-05-10] MEDS ORDERED: VANCOMYCIN HCL 0 MG in DEXTROSE 5%-WATER 250 ML IV NR (08:15)
[2020-05-10] MEDS: LEVALBUTEROL HCL NEB 0.63 MG/3 ML AMPUL NEB SCH (08:20)
[2020-05-10] MEDS ORDERED: POTASSIUM CHLORIDE 10 MEQ TABLET.ER PO ONE (08:30)
[2020-05-10] MEDS: METOPROLOL TARTRATE PF/INJ 5 MG/5 ML SDV IV PRN ×2 (08:54→18:06)
[2020-05-10] MEDS: LISINOPRIL 10 MG TABLET PO SCH (10:25)
[2020-05-10] MEDS: CEFTRIAXONE 2 GM/D5W RTU 2 GM/50 ML RTUPB IV SCH (10:25)
[2020-05-10] MEDS: APIXABAN 5 MG TABLET PO SCH ×2 (10:26→18:06)
[2020-05-10] MEDS: DILTIAZEM HCL 180 MG CAPSULE.CR PO SCH ×2 (10:26→22:16)
[2020-05-10] MEDS: DOCUSATE SODIUM 100 MG CAPSULE PO SCH ×2 (10:26→18:06)
[2020-05-10] MEDS: ASPIRIN 81 MG TABLET, CHEWABLE PO SCH (10:26)
[2020-05-10] MEDS: FLUTICASONE/UMECLIDIN/VILANTER 100-62.5-25 MCG/DOSE IH SCH (10:57)
[2020-05-10] MEDS: VANCOMYCIN HCL 1,000 MG in DEXTROSE 5%-WATER 250 ML IV SCH ×2 (11:49→22:16)
--- NOTE | 2020-05-10 12:34 | PDOC PROGRESS REPORT ---
Subjective Date:: 05/10/20 Subjective:: As per admitting physician's note Patient is a 60-year-old male with a history of COPD, not on home O2, presenting to the emergency department by EMS for evaluation of unresponsiveness, hypoxia and presumed acute respiratory failure. Patient's sister related history to EMS. Sister stated she does not know much about the patient's past medical history other than his COPD, tobacco abuse, history of CVA and known prior [place]. She states that earlier this morning the patient started complaining of shortness of breath but could not find his inhaler. The sister with the patient have one of her albuterol vials for a albuterol nebulizer treatment. Apparently this was not very helpful for the patient's symptoms and at some point after the breathing treatment, the patient was found by his sister sitting up in chair but was unresponsive. She called 911. When EMS arrived, they said the patient was in a chair, but had a GCS of 3, and initial O2 sat of 40%. Patient was intubated with a 7.5 ET tube by EMS. One of the medics stated the patient's breath sounds were significant for rhonchi and wheezing in all sanchez. Medics said breath sounds seem to have improved after intubating the patient. It is unknown if the patient has had any recent Covid exposures, any history of Covid 19, any fever, chest pain. Patient still smokes. 05/10/2020. No acute events overnight. Saw patient this morning, resting in bed no apparent distress, denies any fever, chills, nausea, vomiting, constipation or any urinary symptoms. BP and heart rate are improving. Possible discharge home tomorrow. Patient is still having leukocytosis and is on 3 L nasal cannula. Reason For Visit: ACUTE HYPERCAPNEIC RESPIRATORY FAILURE Physical Exam Vital Signs: Temp Pulse Resp BP Pulse Ox 97.6 F 68 16 102/69 94 05/10/20 09:39 05/10/20 09:39 05/10/20 09:39 05/10/20 09:39 05/10/20 09:39 Intake & Output 05/09/20 05/10/20 05/11/20 06:59 06:59 06:59 Intake Total 609 1284 Output Total 550 450 Balance 59 834 Weight 84 kg 84 kg 84 kg General appearance: PRESENT: no acute distress, obese Head exam: PRESENT: atraumatic, normocephalic Neck exam: ABSENT: carotid bruit, JVD, lymphadenopathy, thyromegaly Respiratory exam: PRESENT: crackles. ABSENT: rales, rhonchi, wheezes Cardiovascular exam: PRESENT: irregular rhythm, RRR. ABSENT: diastolic murmur, rubs, systolic murmur GI/Abdominal exam: PRESENT: normal bowel sounds, soft. ABSENT: distended, guarding, mass, organolmegaly, rebound, tenderness Neurological exam: PRESENT: alert, awake, oriented to person, oriented to place, oriented to time, oriented to situation, CN II-XII grossly intact. ABSENT: motor sensory deficit Results Laboratory Results: 05/10/20 06:39 05/10/20 06:39 05/09/20 05/09/20 05/10/20 04:46 12:20 06:39 WBC 13.2 H RBC 5.27 Hgb 15.4 Hct 44.9 MCV 85 MCH 29.3 MCHC 34.3 RDW 14.3 H Plt Count 106 L Sodium 138.3 Potassium 3.2 L Chloride 104 Carbon Dioxide 28 Anion Gap 6 BUN 24 H Creatinine 1.04 Est GFR ( Amer) > 60 Glucose 99 Calcium 8.2 L Total Bilirubin 1.2 AST 27 Alkaline Phosphatase 56 Total Protein 5.2 L Albumin 2.9 L Triglycerides 230 H Cholesterol 227.17 H LDL Cholesterol Direct 182 H VLDL Cholesterol 46.0 H HDL Cholesterol 37 L 05/10/20 06:39 WBC 12.4 H RBC 5.40 Hgb 15.9 Hct 46.0 MCV 85 MCH 29.5 MCHC 34.6 RDW 14.5 H Plt Count 101 L Sodium Potassium Chloride Carbon Dioxide Anion Gap BUN Creatinine Est GFR ( Amer) Glucose Calcium Total Bilirubin AST Alkaline Phosphatase Total Protein Albumin Triglycerides Cholesterol LDL Cholesterol Direct VLDL Cholesterol HDL Cholesterol 05/03/20 05/06/20 05:12 03:20 Troponin I 0.093 0.099 NT-Pro-B Natriuret Pep 4950 H 5580 H Impressions: Chest X-Ray 05/09/20 00:00 IMPRESSION: Significant clearing of airspace 05/06/2020. Minimal residual right basilar infiltrate persists. Assessment and Plan - Diagnosis (1) Atrial fibrillation with rapid ventricular response Is this a current diagnosis for this admission?: Yes Plan: Rate controlled and anticoagulated. New onset atrial fibrillation. Cardizem drip to be transitioned to p.o. Cardizem. Chronic anticoagulation indicated. As per urban and regional planner patient will be provided with Eliquis coupons and he will be able to get his medication until his Medicaid kicks in. As per discharge planning patient will be able to get his Medicaid within 40 days. associate media planner consulted for finding if patient could qualify for new oral anticoagulants. Not sure if patient will keep up with Coumadin therapy as he does not appear to have great insight into his medical condition. Unfortunately patient is very poor historian, does not have a PCP or phone screener, and does not regularly follow-up with his doctors. Cardiology consulted. Recommendations noted. (2) Acute respiratory failure Qualifiers: Respiratory failure complication: hypoxia Qualified Code(s): J96.01 - Acute respiratory failure with hypoxia Is this a current diagnosis for this admission?: Yes Plan: Resolved. SPO2 WNL on 2 L nasal cannula. Most likely due to community-acquired pneumonia complicated by acute COPD ex acerbation. Received a complete course of IV antibiotics. Cultures negative. Continue supplemental oxygen,, flutter valve, incentive spirometry, DuoNeb, LAMA, LABA, ICS. (3) Bilateral pneumonia Qualifiers: Pneumonia type: due to unspecified organism Lung location: unspecified part of lung Qualified Code(s): J18.9 - Pneumonia, unspecified organism Is this a current diagnosis for this admission?: Yes Plan: CXR improved. Continue empiric IV antibiotics. Plan as per #1. (4) CKD (chronic kidney disease) Qualifiers: Chronic kidney disease stage: stage 2 (mild) Qualified Code(s): N18.2 - Chronic kidney disease, stage 2 (mild) Is this a current diagnosis for this admission?: Yes Plan: Creatinine WNL. Euvolemic. Electrolytes WNL. Monitor electrolytes volume status, replace electrolytes as needed. Avoid nephrotoxic meds. Outpatient PCP and nephrology follow-up. (5) COPD (chronic obstructive pulmonary disease) Qualifiers: COPD type: emphysema Is this a current diagnosis for this admission?: Yes Plan: He states he needs home O2. He needs to be evaluated for this within 48 hours of discharge, which may be soon. (6) CHF (congestive heart failure) Qualifiers: Heart failure type: systolic Heart failure chronicity: chronic Qualified Code(s): I50.22 - Chronic systolic (congestive) heart failure Is this a current diagnosis for this admission?: Yes Plan: Chronic systolic heart failure. Does not appear to be acutely exacerbated. Euvolemic. Elevated proBNP on admission. 2D echo from 01/11/2020. LVEF 40%. Denies any anginal symptoms. Denies any CAD however stating that he had a cardiac arrest in the 90s 70s. Does not follow-up with any phone screener. Cardiac diet, strict in and out, ZAFAR, beta-blockers, diuretics. - Time Time Spent with patient: 35 or more minutes Smoking Cessation Education: 3 to 10 minutes Anticipated Discharge Disposition: Home with Home Health Anticipated Discharge Timeframe: within 24 hours
--- NOTE | 2020-05-10 13:33 | Progress Note ---
Provider Note Provider Note: CARDIOLOGY PROGRESS NOTE by Dr. Bessy Harrison on 05/10/2020. SUBJECTIVE: The patient denies any chest pain or discomfort. He denies any shortness of breath PND orthopnea or cough or wheezing. In spite of the patient claiming no palpitations he has at times heart rate goes into the 130s. His Cardizem CD has been increased to 180 mg p.o. every 12 hours. His digoxin level is subtherapeutic. He has no anginal symptoms. There is no leg edema. There are a few short bursts of nonsustained wide-complex tachycardia the differential of which is ventricle tachycardia versus atrial fibrillation with aberrancy. The patient is asymptomatic from it. There is no bleeding on Eliquis. There is no TIA CVA symptoms. PHYSICAL EXAMINATION: The patient appears to be chronically ill and malnourished. In no acute distress. Selected Entries 05/10/20 11:31 Temperature 98.0 F Temperature Oral Source Pulse Rate 63 Respiratory 16 Rate Blood Pressure 128/66 H Blood Pressure 86 Mean BP Location Left Arm BP Position Sitting O2 Sat by Pulse 95 Oximetry Oxygen Delivery Room Air Method HEAD: Is atraumatic normocephalic. EYES: Pupils are equal round regular reactive light accommodation. Extraocular movements are normal. There is no conjunctival pallor. There is no scleral icterus. EARS: Tympanic membranes are intact. External auditory canals are clear. NOSE: There is no deviated nasal septum. There is no inflammation of the nasal mucous membrane. MOUTH: Mucous membranes of the mouth are moist. Tongue is moist. There is no ulcers. There is no bleeding from the gums. THROAT: There is no redness of the oropharynx. There is no exudates. SKIN there is no skin rashes. There is no petechia or ecchymosis there is no skin lesions. NECK: Is supple. There is no JVD. Carotids are equal there is no bruit there is no lymphadenopathy. There is no goiter. There is no accessory muscle respiration use. Trachea central. LUNGS: There is diminished air entry prolonged expiration and expiration. There is bilateral right greater than left dry crackles. There is no rales of CHF. HEART: S1-S2 is heard. S1 is of variable intensity. There is no S3 gallop. There is no S4 gallop. There is systolic murmur left sternal border and the apex there is no rub. ABDOMEN: Soft. Nontender. There is no hepatosplenomegaly. Bowel sounds are well heard. EXTREMITIES: Femorals are diminished. There is no femoral bruits. Leg pulses are diminished. There is no pedal edema. There is no DVT or cellulitis. There is no calf tenderness. BILL HIKER: The patient is conscious awake alert oriented x3 with no focal deficits. PSYCHIATRIC: Patient judgment insight are intact her affect is normal. Labs- All tests 24 hr 05/10/20 05/10/20 06:39 06:39 WBC 12.4 H RBC 5.40 Hgb 15.9 Hct 46.0 MCV 85 MCH 29.5 MCHC 34.6 RDW 14.5 H Plt Count 101 L Sodium 138.3 Potassium 3.2 L Chloride 104 Carbon Dioxide 28 Anion Gap 6 BUN 24 H Creatinine 1.04 Est GFR ( Amer) > 60 Est GFR (MDRD) Non-Af > 60 Glucose 99 Calcium 8.2 L Total Bilirubin 1.2 Direct Bilirubin 0.3 Neonat Total Bilirubin Not Reportable Neonat Direct Bilirubin Not Reportable Neonat Indirect Bili Not Reportable AST 27 ALT 35 Alkaline Phosphatase 56 Total Protein 5.2 L Albumin 2.9 L Digoxin 0.48 L Chest X-Ray 05/03/20 05:21 IMPRESSION: Developing right greater than left opacities likely representing pneumonia and differential diagnosis would include viral infections. Chest X-Ray 05/04/20 06:00 IMPRESSION: STABLE APPEARANCE OF THE CHEST. Chest X-Ray 05/05/20 06:00 IMPRESSION: STABLE APPEARANCE OF THE CHEST. SUPPORT DEVICES UNCHANGED. Chest X-Ray 05/06/20 00:00 IMPRESSION: Continued right-sided pneumonia. Chest X-Ray 05/09/20 00:00 IMPRESSION: Significant clearing of airspace 05/06/2020. Minimal residual right basilar infiltrate persists. IMPRESSION/RECOMMENDATION: 1. Atrial fibrillation with rapid ventricular response. The patient's Cardizem CD has been increased to 180 mg p.o. every 12 hours. Since his dig level is subtherapeutic at 0.48 we will start the patient on digoxin 0.125 mg p.o. daily. Continue Eliquis. 2. Pneumonia would recommend continue antibiotics chest x-ray of today shows much better clearing of the infiltrates in the lung. 3. COPD continue anti-COPD medication and antibiotics. 4. Hypertension: Blood pressure stable. Continue antihypertensives. 5. Hyperlipidemia: The patient has low HDL levels and I LDL levels. Would recommend starting the patient on statin. 6. Ongoing tobacco abuse: Tobacco cessation counseling given 3 minutes spent on this patient. 7. Recent respiratory failure requiring intubation. Patient now extubated. 8. Review of the patient's chart showed that in 2018 he had low TSH levels and a high T3 levels. At present the patient's T4 is normal his TSH is still low. We will recheck the patient's T3 level. Medications reviewed. Medications added. Medical regimen management plan d iscussed with attending provider on the case. Medical decision making is of high complexity. 40 minutes spent on this patient with more than 50% of time spent in direct patient care will follow
[2020-05-10] MEDS: DIGOXIN 0.125 MG TABLET PO SCH (14:53)
[2020-05-10] MEDS: IPRATROPIUM BROMIDE 0.02% NEB 0.5 MG/2.5 ML AMPUL NEB SCH (15:42)
[2020-05-10 20:35] LABS: FREE T3 3.72 pg/mL (2.77-5.27); FREE T4 (FREE THYROXINE) 1.53 ng/dL (0.78-2.19)
[2020-05-10 20:48] LABS: THYROID STIMULATING HORMONE 1.15 uIU/mL (0.47-4.68)
[2020-05-10] MEDS: ATORVASTATIN CALCIUM 40 MG TABLET PO SCH (22:16)
[2020-05-11] MEDS: IPRATROPIUM BROMIDE 0.02% NEB 0.5 MG/2.5 ML AMPUL NEB SCH ×3 (01:02→16:00)
[2020-05-11 06:15] LABS: APPEARANCE,URINE CLEAR; BILIRUBIN,URINE NEGATIVE (NEGATIVE); COLOR,URINE YELLOW; GLUCOSE, URINE NEGATIVE (NEGATIVE); KETONES,URINE NEGATIVE (NEGATIVE); LEUKOCYTE ESTERASE,URINE NEGATIVE (NEGATIVE); NITRITE,URINE NEGATIVE (NEGATIVE); PROTEIN,URINE 100 mg/dL (NEGATIVE); URINE SPECIFIC GRAVITY 1.018; UROBILINOGEN,URINE NEGATIVE mg/dL (<2.0)
[2020-05-11] MEDS: METOPROLOL TARTRATE PF/INJ 5 MG/5 ML SDV IV PRN (08:58)
[2020-05-11] MEDS ORDERED: DILTIAZEM HCL 120 MG CAP.SR.24H PO SCH ×2 (10:00→22:00)
[2020-05-11] MEDS: LISINOPRIL 10 MG TABLET PO SCH (10:28)
[2020-05-11] MEDS: DIGOXIN 0.125 MG TABLET PO SCH (10:28)
[2020-05-11] MEDS: DOCUSATE SODIUM 100 MG CAPSULE PO SCH ×2 (10:28→17:03)
[2020-05-11] MEDS: CEFTRIAXONE 2 GM/D5W RTU 2 GM/50 ML RTUPB IV SCH (10:29)
[2020-05-11] MEDS: ASPIRIN 81 MG TABLET, CHEWABLE PO SCH (10:29)
[2020-05-11] MEDS: APIXABAN 5 MG TABLET PO SCH ×2 (10:29→17:03)
--- NOTE | 2020-05-11 10:47 | PDOC PROGRESS REPORT ---
Subjective Date:: 05/11/20 Subjective:: As per admitting physician's note Patient is a 60-year-old male with a history of COPD, not on home O2, presenting to the emergency department by EMS for evaluation of unresponsiveness, hypoxia and presumed acute respiratory failure. Patient's sister related history to EMS. Sister stated she does not know much about the patient's past medical history other than his COPD, tobacco abuse, history of CVA and known prior [place]. She states that earlier this morning the patient started complaining of shortness of breath but could not find his inhaler. The sister with the patient have one of her albuterol vials for a albuterol nebulizer treatment. Apparently this was not very helpful for the patient's symptoms and at some point after the breathing treatment, the patient was found by his sister sitting up in chair but was unresponsive. She called 911. When EMS arrived, they said the patient was in a chair, but had a GCS of 3, and initial O2 sat of 40%. Patient was intubated with a 7.5 ET tube by EMS. One of the medics stated the patient's breath sounds were significant for rhonchi and wheezing in all sanchez. Medics said breath sounds seem to have improved after intubating the patient. It is unknown if the patient has had any recent Covid exposures, any history of Covid 19, any fever, chest pain. Patient still smokes. 05/10/2020. No acute events overnight. Saw patient this morning, resting in bed no apparent distress, denies any fever, chills, nausea, vomiting, constipation or any urinary symptoms. BP and heart rate are improving. Possible discharge home tomorrow. Patient is still having leukocytosis and is on 3 L nasal cannula. 05/11/2020. No acute events noted. Patient was noted to be bradycardic last night however asymptomatic, this morning resting in bed comfortably no apparent distress, denies any fever, chills, nausea, vomiting. Labile heart rate. Reason For Visit: ACUTE HYPERCAPNEIC RESPIRATORY FAILURE Physical Exam Vital Signs: Temp Pulse Resp BP Pulse Ox 97.3 F 135 H 19 123/89 H 99 05/11/20 09:08 05/11/20 09:08 05/11/20 09:08 05/11/20 09:08 05/11/20 09:08 Intake & Output 05/10/20 05/11/20 05/12/20 06:59 06:59 06:59 Intake Total 1284 1410 Output Total 450 Balance 834 1410 Weight 84 kg 84 kg General appearance: PRESENT: no acute distress, well-developed, well-nourished Head exam: PRESENT: atraumatic, normocephalic Respiratory exam: PRESENT: clear to auscultation [place]. ABSENT: rales, rhonchi, wheezes Cardiovascular exam: PRESENT: irregular rhythm, tachycardia. ABSENT: diastolic murmur, rubs, systolic murmur GI/Abdominal exam: PRESENT: normal bowel sounds, soft. ABSENT: distended, guarding, mass, organolmegaly, rebound, tenderness Neurological exam: PRESENT: alert, awake, oriented to person, oriented to place, oriented to time, oriented to situation, CN II-XII grossly intact. ABSENT: motor sensory deficit Results Laboratory Results: 05/10/20 06:39 05/10/20 06:39 05/10/20 05/11/20 06:39 05:15 TSH 1.15 Free T4 1.53 Free T3 pg/mL 3.72 Urine Color YELLOW Urine Appearance CLEAR Urine pH 6.0 Ur Specific [place] 1.018 Urine Protein 100 H Urine Glucose (UA) NEGATIVE Urine Ketones NEGATIVE Urine Blood LARGE H Urine Nitrite NEGATIVE Ur Leukocyte Esterase NEGATIVE Urine WBC (Auto) 1 Urine RBC (Auto) >182 05/03/20 05/06/20 05:12 03:20 Troponin I 0.093 0.099 NT-Pro-B Natriuret Pep 4950 H 5580 H Impressions: Chest X-Ray 05/09/20 00:00 IMPRESSION: Significant clearing of airspace 05/06/2020. Minimal residual right basilar infiltrate persists. Assessment and Plan - Diagnosis (1) Atrial fibrillation with rapid ventricular response Is this a current diagnosis for this admission?: Yes Plan: Labile heart rate. Anticoagulated. New onset atrial fibrillation. Cardizem drip to be transitioned to p.o. Cardizem. Chronic anticoagulation indicated. As per liaison planner patient will be provided with Eliquis coupons and he will be able to get his medication until his Medicaid kicks in. As per discharge planning patient will be able to get his Medicaid within 40 days. associate financial planner consulted for finding if patient could qualify for new oral anticoagulants. Not sure if patient will keep up with Coumadin therapy as he does not appear to have great insight into his medical condition. Unfortunately patient is very poor historian, does not have a PCP or backing in machine tender, and does not regularly follow-up with his doctors. Cardiology consulted. Recommendations noted. (2) Acute respiratory failure Qualifiers: Respiratory failure complication: hypoxia Qualified Code(s): J96.01 - Acute respiratory failure with hypoxia Is this a current diagnosis for this admission?: Yes Plan: Resolved. SPO2 WNL on 2 L nasal cannula. Most likely due to community-acquired pneumonia complicated by acute COPD exacerbation. Received a complete course of IV antibiotics. Cultures negative. Continue supplemental oxygen,, flutter valve, incentive spirometry, DuoNeb, LAMA, LABA, ICS. (3) Bilateral pneumonia Qualifiers: Pneumonia type: due to unspecified organism Lung location: unspecified part of lung Qualified Code(s): J18.9 - Pneumonia, unspecified organism Is this a current diagnosis for this admission?: Yes Plan: CXR improved. Continue empiric IV antibiotics. Plan as per #1. (4) CKD (chronic kidney disease) Qualifiers: Chronic kidney disease stage: stage 2 (mild) Qualified Code(s): N18.2 - Chronic kidney disease, stage 2 (mild) Is this a current diagnosis for this admission?: Yes Plan: Creatinine WNL. Euvolemic. Electrolytes WNL. Monitor electrolytes volume status, replace electrolytes as needed. Avoid nephrotoxic meds. Outpatient PCP and nephrology follow-up. (5) COPD (chronic obstructive pulmonary disease) Qualifiers: COPD type: emphysema Is this a current diagnosis for this admission?: Yes Plan: He states he needs home O2. He needs to be evaluated for this within 48 hours of discharge, which may be soon. (6) CHF (congestive heart failure) Qualifiers: Heart failure type: systolic Heart failure chronicity: chronic Qualified Code(s): I50.22 - Chronic systolic (congestive) heart failure Is this a current diagnosis for this admission?: Yes Plan: Chronic systolic heart failure. Does not appear to be acutely exacerbated. Euvolemic. Elevated proBNP on admission. 2D echo from 01/11/2020. LVEF 40%. Denies any anginal symptoms. Denies any CAD however stating that he had a cardiac arrest in the 90s 70s. Does not follow-up with any backing in machine tender. Cardiac diet, strict in and out, ZAFAR, beta-blockers, diuretics. - Time Time Spent with patient: 25-34 minutes Anticipated Discharge Disposition: Home with Home Health Anticipated Discharge Timeframe: within 24 hours
[2020-05-11] MEDS: VANCOMYCIN HCL 1,000 MG in DEXTROSE 5%-WATER 250 ML IV SCH ×2 (11:26→22:41)
[2020-05-11] MEDS: FLUTICASONE/UMECLIDIN/VILANTER 100-62.5-25 MCG/DOSE IH SCH (11:27)
[2020-05-11] MEDS ORDERED: MAGNESIUM OXIDE 400 MG TABLET PO ONE (13:00)
[2020-05-11] MEDS ORDERED: POTASSIUM CHLORIDE 10 MEQ TABLET.ER PO ONE (13:00)
--- NOTE | 2020-05-11 20:08 | Progress Note ---
Provider Note Provider Note: CARDIOLOGY PROGRESS's note by Dr. Bessy Duvall on 05/11/2020. SUBJECTIVE: The patient remains relatively asymptomatic but his heart rate is still very elevated this is erroneous. The patient's heart rate is still elevated times such as 130. The patient is asymptomatic from this. He denies any chest pain or discomfort. There is no shortness of breath. There is no PND orthopnea or leg edema. He also the significant hematuria a in one of the entries the heart rate was reported to be 40 bpm which is not accurate. In view of this heart rate of 40 the Cardizem CD was decreased. Hence we will change the patient's Cardizem CD back to 180 mg p.o. every 12 hours. Also will hold Eliquis in view of the patient's hematuria. In view of the patient's heart rate and previous subtherapeutic dig level will give an extra dose of digoxin 0.125 mg IV push x1 now and also increase patient digoxin to 0.25 mg p.o. daily. PHYSICAL EXAMINATION: The patient is chronically ill nourished and appears to be chronically ill. But he is in no acute distress. Selected Entries 05/11/20 15:44 Temperature 98.1 F Temperature Oral Source Pulse Rate 120 H Respiratory 17 Rate Blood Pressure 128/76 H Blood Pressure 93 Mean BP Location Right Arm BP Position Supine O2 Sat by Pulse 99 Oximetry Oxygen Delivery Room Air Method HEAD: Is atraumatic normocephalic. EYES: Pupils are equal round regular reactive light accommodation. Extraocular movements are normal. There is no conjunctival pallor. There is no scleral icterus. EARS: Tympanic membranes are intact. External auditory canals are clear. NOSE: There is no deviated nasal septum. There is no inflammation of the nasal mucous membrane. MOUTH: Mucous membranes of the mouth are moist. Tongue is moist. There is no ulcers. There is no bleeding from the gums. THROAT: There is no redness of the oropharynx. There is no exudates. SKIN there is no skin rashes. There is no petechia or ecchymosis there is no skin lesions. NECK: Is supple. There is no JVD. Carotids are equal there is no bruit there is no lymphadenopathy. There is no goiter. There is no accessory muscle respiration use. Trachea central. LUNGS: There is diminished air entry prolonged expiration and expiration. There is bilateral right greater than left dry crackles. There is no rales of CHF. HEART: S1-S2 is heard. S1 is of variable intensity. There is no S3 gallop. There is no S4 gallop. There is systolic murmur left sternal border and the apex there is no rub. ABDOMEN: Soft. Nontender. There is no hepatosplenomegaly. Bowel sounds are well heard. EXTREMITIES: Femorals are diminished. There is no femoral bruits. Leg pulses are diminished. There is no pedal edema. There is no DVT or cellulitis. There is no calf tenderness. 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 PSYCHIATRIC: Patient judgment insight are intact her affect is normal. Labs- All tests 24 hr 05/11/20 05/11/20 05/11/20 05:15 21:26 21:26 Creatinine 1.22 Est GFR ( Amer) > 60 Est GFR (MDRD) Non-Af > 60 Urine Color YELLOW Urine Appearance CLEAR Urine pH 6.0 Ur Specific [place] 1.018 Urine Protein 100 H Urine Glucose (UA) NEGATIVE Urine Ketones NEGATIVE Urine Blood LARGE H Urine Nitrite NEGATIVE Urine Bilirubin NEGATIVE Urine Urobilinogen NEGATIVE Ur Leukocyte Esterase NEGATIVE Urine WBC (Auto) 1 Urine RBC (Auto) >182 U Hyaline Cast (Auto) 4 Urine Mucus (Auto) RARE Urine Ascorbic Acid NEGATIVE Time Trough Drawn 2125 Vancomycin Trough 11.7 Chest X-Ray 05/03/20 05:21 IMPRESSION: Developing right greater than left opacities likely representing pneumonia and differential diagnosis would include viral infections. Chest X-Ray 05/04/20 06:00 IMPRESSION: STABLE APPEARANCE OF THE CHEST. Chest X-Ray 05/05/20 06:00 IMPRESSION: STABLE APPEARANCE OF THE CHEST. SUPPORT DEVICES UNCHANGED. Chest X-Ray 05/06/20 00:00 IMPRESSION: Continued right-sided pneumonia. Chest X-Ray 05/09/20 00:00 IMPRESSION: Significant clearing of airspace 05/06/2020. Minimal residual right basilar infiltrate persists. IMPRESSION/RECOMMENDATION: 1. Atrial fibrillation with rapid ventricular response. The patient's heart rate is still elevated. Hence will give an extra dose of digoxin 0.125 mg IV push x1 now. We will also increase the patient's his oxygen to 0.25 mg p.o. daily from tomorrow. Note is Cardizem CD will decrease to 120 mg p.o. every 12 hours by the hospitalist due to the patient's heart rate being entered as being 40. This is an erroneous entry the patient's heart rate is very high. Hence we will change the patient's Cardizem CD dosage back to 180 mg p.o. every 12 hours. Also the patient has got significant hematuria hence we will hold the Eliquis for now. 2. Pneumonia would recommend continue antibiotics chest x-ray of today shows much better clearing of the infiltrates in the lung. 3. COPD continue anti-COPD medication and antibiotics. 4. Hypertension: Blood pressure stable. Continue antihypertensives. 5. Hematuria: We will hold the patient's Eliquis for now. 6.Hyperlipidemia: The patient has low HDL levels and I LDL levels. Would recomm end starting the patient on statin. 7. Ongoing tobacco abuse: Tobacco cessation counseling given 3 minutes spent on this patient. 8. Recent respiratory failure requiring intubation. Patient now extubated. 9. Cardiomyopathy with moderately reduced LV ejection fraction of 40%. 10. The patient's repeat thyroid function test shows that the thyroid function test are normal. Medications reviewed. Medications added. Medical regimen management plan discussed with attending provider on the case. Medical decision making is of high complexity. 40 minutes spent on this patient with more than 50% of time spent in direct patient care will follow
[2020-05-11] MEDS ORDERED: DIGOXIN INJ 0.5 MG/2 ML AMPULE IV ONE (20:30)
[2020-05-11 22:11] LABS: VANCOMYCIN,TROUGH 11.7 ug/mL (5.0-20.0)
[2020-05-11] MEDS: ATORVASTATIN CALCIUM 40 MG TABLET PO SCH (22:52)
[2020-05-12] MEDS: IPRATROPIUM BROMIDE 0.02% NEB 0.5 MG/2.5 ML AMPUL NEB SCH ×3 (01:14→16:07)
[2020-05-12] MEDS ORDERED: VANCOMYCIN HCL 1,250 MG in DEXTROSE 5%-WATER 250 ML IV SCH (10:00)
[2020-05-12] MEDS: DIGOXIN 0.125 MG TABLET PO SCH (11:39)
[2020-05-12] MEDS: LISINOPRIL 10 MG TABLET PO SCH ×2 (11:40→21:21)
[2020-05-12] MEDS: DOCUSATE SODIUM 100 MG CAPSULE PO SCH ×2 (11:40→17:59)
[2020-05-12] MEDS: ASPIRIN 81 MG TABLET, CHEWABLE PO SCH (11:40)
[2020-05-12] MEDS: DILTIAZEM HCL 180 MG CAPSULE.CR PO SCH ×2 (11:44→21:22)
[2020-05-12] MEDS: FLUTICASONE/UMECLIDIN/VILANTER 100-62.5-25 MCG/DOSE IH SCH (11:44)
[2020-05-12 11:59] LABS: MEAN CORPUSCULAR HEMOGLOBIN 29.6 pg (27.0-33.4); MEAN CORPUSCULAR HGB CONC 34.9 g/dL (32.0-36.0); MEAN CORPUSCULAR VOLUME 85 fl (80-97); PLATELET COUNT 122 10^3/uL (150-450); RED BLOOD COUNT 5.07 10^6/uL (4.35-5.55); RED CELL DISTRIBUTION WIDTH 14.7 % (11.5-14.0); WHITE BLOOD COUNT 12.1 10^3/uL (4.0-10.5)
[2020-05-12 12:34] LABS: ABSOLUTE LYMPHOCYTES# (MANUAL) 2.2 10^3/uL (0.5-4.7); ABSOLUTE MONOCYTES # (MANUAL) 0.8 10^3/uL (0.1-1.4); ANISOCYTOSIS SLIGHT; BASOPHILS % (MANUAL) 0 % (0-2); EOSINOPHILS % (MANUAL) 2 % (0-6); LYMPHOCYTES % (MANUAL) 18 % (13-45); MONOCYTES % (MANUAL) 7 % (3-13); PLATELET COMMENT DECREASED; SEGMENTED NEUTROPHILS % (MAN) 73 % (42-78); TOTAL CELLS COUNTED 100
[2020-05-12 12:35] LABS: PLATELET LARGE PRESENT; RBC MORPHOLOGY COMMENT NORMO-CYTIC/CHROMIC
--- NOTE | 2020-05-12 13:11 | PDOC PROGRESS REPORT ---
Subjective Date:: 05/12/20 Subjective:: As per admitting physician's note Patient is a 60-year-old male with a history of COPD, not on home O2, presenting to the emergency department by EMS for evaluation of unresponsiveness, hypoxia and presumed acute respiratory failure. Patient's sister related history to EMS. Sister stated she does not know much about the patient's past medical history other than his COPD, tobacco abuse, history of CVA and known prior HI. She states that earlier this morning the patient started complaining of shortness of breath but could not find his inhaler. The sister with the patient have one of her albuterol vials for a albuterol nebulizer treatment. Apparently this was not very helpful for the patient's symptoms and at some point after the breathing treatment, the patient was found by his sister sitting up in chair but was unresponsive. She called 911. When EMS arrived, they said the patient was in a chair, but had a GCS of 3, and initial O2 sat of 40%. Patient was intubated with a 7.5 ET tube by EMS. One of the medics stated the patient's breath sounds were significant for rhonchi and wheezing in all sanchez. Medics said breath sounds seem to have improved after intubating the patient. It is unknown if the patient has had any recent Covid exposures, any history of Covid 19, any fever, chest pain. Patient still smokes. 05/10/2020. No acute events overnight. Saw patient this morning, resting in bed no apparent distress, denies any fever, chills, nausea, vomiting, constipation or any urinary symptoms. BP and heart rate are improving. Possible discharge home tomorrow. Patient is still having leukocytosis and is on 3 L nasal cannula. 05/11/2020. No acute events noted. Patient was noted to be bradycardic last night however asymptomatic, this morning resting in bed comfortably no apparent distress, denies any fever, chills, nausea, vomiting. Labile heart rate. 05/12/2020. Acute events overnight. Unfortunately patient heart rate still not optimized, he has developed hematuria and his anticoagulation has been held since yesterday, otherwise denies any fever, chills, nausea, vomiting. Possible discharge home in a day or 2. Currently on room air SPO2 WNL and leukocytosis improving. Reason For Visit: ACUTE HYPERCAPNEIC RESPIRATORY FAILURE Physical Exam Vital Signs: Temp Pulse Resp BP Pulse Ox 97.6 F 101 H 18 163/97 H 97 05/12/20 08:35 05/12/20 08:35 05/12/20 08:35 05/12/20 08:35 05/12/20 08:35 Intake & Output 05/11/20 05/12/20 05/13/20 06:59 06:59 06:59 Intake Total 1410 1255 Balance 1410 1255 Weight 84 kg 84 kg General appearance: PRESENT: no acute distress, obese, well-developed, well- nourished Head exam: PRESENT: atraumatic, normocephalic Respiratory exam: PRESENT: clear to auscultation [place]. ABSENT: rales, rhonchi, wheezes Cardiovascular exam: PRESENT: RRR. ABSENT: diastolic murmur, rubs, systolic murmur GI/Abdominal exam: PRESENT: normal bowel sounds, soft. ABSENT: distended, guarding, mass, organolmegaly, rebound, tenderness Neurological exam: PRESENT: alert, awake, oriented to person, oriented to place, oriented to time, oriented to situation, CN II-XII grossly intact. ABSENT: motor sensory deficit Results Laboratory Results: 05/12/20 11:48 05/11/20 21:26 05/11/20 05/12/20 21:26 11:48 WBC 12.1 H RBC 5.07 Hgb 15.0 Hct 43.0 MCV 85 MCH 29.6 MCHC 34.9 RDW 14.7 H Plt Count 122 L Seg Neutrophils % Not Reportable Creatinine 1.22 Est GFR ( Amer) > 60 05/03/20 05/06/20 05:12 03:20 Troponin I 0.093 0.099 NT-Pro-B Natriuret Pep 4950 H 5580 H Impressions: Chest X-Ray 05/09/20 00:00 IMPRESSION: Significant clearing of airspace 05/06/2020. Minimal residual right basilar infiltrate persists. Assessment and Plan - Diagnosis (1) Atrial fibrillation with rapid ventricular response Is this a current diagnosis for this admission?: Yes Plan: Labile heart rate. Anticoagulation had to be held due to hematuria. New onset atrial fibrillation. Recently placed on Cardizem drip which was transitioned to p.o. Cardizem. Chronic anticoagulation indicated but unfortunately developed hematuria and his anticoagulation is on hold. As per systems planner patient will be provided with Eliquis coupons and he will be able to get his medication until his Medicaid kicks in. As per discharge planning patient will be able to get his Medicaid within 40 days. logistics planner consulted for finding if patient could qualify for new oral anticoagulants. Not sure if patient will keep up with Coumadin therapy as he does not appear to have great insight into his medical condition. 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 Continue Cardizem, digoxin. As needed IV metoprolol. Hold Eliquis. Cardiology consulted. Recommendations noted. (2) Acute respiratory failure Qualifiers: Respiratory failure complication: hypoxia Qualified Code(s): J96.01 - Acute respiratory failure with hypoxia Is this a current diagnosis for this admission?: Yes Plan: Resolved. SPO2 WNL on 2 L nasal cannula. Most likely due to community-acquired pneumonia complicated by acute COPD exacerbation. Received a complete course of IV antibiotics. Cultures negative. Continue supplemental oxygen,, flutter valve, incentive spirometry, DuoNeb, LAMA, LABA, ICS. (3) Bilateral pneumonia Qualifiers: Pneumonia type: due to unspecified organism Lung location: unspecified part of lung Qualified Code(s): J18.9 - Pneumonia, unspecified organism Is this a current diagnosis for this admission?: Yes Plan: CXR improved. Still having persistent leukocytosis but improving. Continue IV antibiotics for another day. Plan as per #1. (4) CKD (chronic kidney disease) Qualifiers: Chronic kidney disease stage: stage 2 (mild) Qualified Code(s): N18.2 - Chronic kidney disease, stage 2 (mild) Is this a current diagnosis for this admission?: Yes Plan: Creatinine WNL. Euvolemic. Electrolytes WNL. Monitor electrolytes volume status, replace electrolytes as needed. Avoid nephrotoxic meds. Outpatient PCP and nephrology follow-up. (5) COPD (chronic obstructive pulmonary disease) Qualifiers: COPD type: emphysema Is this a current diagnosis for this admission?: Yes Plan: He states he needs home O2. He needs to be evaluated for this within 48 hours of discharge, which may be soon. (6) CHF (congestive heart failure) Qualifiers: Heart failure type: systolic Heart failure chronicity: chronic Qualified Code(s): I50.22 - Chronic systolic (congestive) heart failure Is this a current diagnosis for this admission?: Yes Plan: Chronic systolic heart failure. Does not appear to be acutely exacerbated. Euvolemic. Elevated proBNP on admission. 2D echo from 01/11/2020. LVEF 40%. Denies any anginal symptoms. Denies any CAD however stating that he had a cardiac arrest in the 90s 70s. Does not follow-up with any cushion installer. Cardiac diet, strict in and out, ZAFAR, beta-blockers, diuretics. (7) Dyslipidemia Is this a current diagnosis for this admission?: Yes Plan: ASCVD score 30%. High intensity statin indicated. Continue statins. - Time Time Spent with patient: 25-34 minutes Anticipated Discharge Disposition: Home with Home Health Anticipated Discharge Timeframe: within 48 hours
--- NOTE | 2020-05-12 15:35 | Progress Note ---
Provider Note Provider Note: CARDIOLOGY progress note by Dr. Bessy Duvall on 05/12/2020. SUBJECTIVE: The patient is heart rate is still fast but much better controlled than yesterday. He still has having hematuria. He denies any chest pain shortness of breath PND orthopnea or leg edema. There is no TIA CVA symptoms. PHYSICAL EXAMINATION: The patient is a frail build and appears to be chronically ill and malnourished. In no acute distress. Selected Entries 05/12/20 08:35 Temperature 97.6 F Temperature Oral Source Pulse Rate 101 H Respiratory 18 Rate Blood Pressure 163/97 H Blood Pressure 119 Mean BP Location Right Arm BP Position Sitting O2 Sat by Pulse 97 Oximetry Oxygen Delivery Room Air Method HEAD: Is atraumatic normocephalic. EYES: Pupils are equal round regular reactive light accommodation. Extraocular movements are normal. There is no conjunctival pallor. There is no scleral icterus. EARS: Tympanic membranes are intact. External auditory canals are clear. NOSE: There is no deviated nasal septum. There is no inflammation of the nasal mucous membrane. MOUTH: Mucous membranes of the mouth are moist. Tongue is moist. There is no ulcers. There is no bleeding from the gums. THROAT: There is no redness of the oropharynx. There is no exudates. SKIN there is no skin rashes. There is no petechia or ecchymosis there is no skin lesions. NECK: Is supple. There is no JVD. Carotids are equal there is no bruit there is no lymphadenopathy. There is no goiter. There is no accessory muscle respiration use. Trachea central. LUNGS: There is diminished air entry prolonged expiration and expiration. There is bilateral right greater than left dry crackles. There is no rales of CHF. HEART: S1-S2 is heard. S1 is of variable intensity. There is no S3 gallop. There is no S4 gallop. There is systolic murmur left sternal border and the apex there is no rub. ABDOMEN: Soft. Nontender. There is no hepatosplenomegaly. Bowel sounds are well heard. EXTREMITIES: Femorals are diminished. There is no femoral bruits. Leg pulses are diminished. There is no pedal edema. There is no DVT or cellulitis. There is no calf tenderness. WAIT STAFF: The patient is conscious awake alert oriented x3 with no focal deficits. PSYCHIATRIC: Patient judgment insight are intact her affect is normal. Labs- All tests 24 hr 05/11/20 05/11/20 05/12/20 21:26 21:26 11:48 WBC 12.1 H RBC 5.07 Hgb 15.0 Hct 43.0 MCV 85 MCH 29.6 MCHC 34.9 RDW 14.7 H Plt Count 122 L Lymph % (Auto) Not Reportable [place] % (Auto) Not Reportable Eos % (Auto) Not Reportable Baso % (Auto) Not Reportable Absolute Neuts (auto) Not Reportable Absolute Lymphs (auto) Not Reportable Absolute Monos (auto) Not Reportable Absolute Eos (auto) Not Reportable Absolute Basos (auto) Not Reportable Total Counted 100 Seg Neutrophils % Not Reportable Seg Neuts % (Manual) 73 Lymphocytes % (Manual) 18 Monocytes % (Manual) 7 Eosinophils % (Manual) 2 Basophils % (Manual) 0 Abs Neuts (Manual) 8.8 H Abs Lymphs (Manual) 2.2 Abs Monocytes (Manual) 0.8 Absolute Eos (Manual) 0.2 Abs Basophils (Manual) 0.0 Large Platelets PRESENT Platelet Comment DECREASED Anisocytosis SLIGHT RBC Morph Comment NORMO-CYTIC/CHROMIC Creatinine 1.22 Est GFR ( Amer) > 60 Est GFR (MDRD) Non-Af > 60 Time Trough Drawn 2126 Vancomycin Trough 11.7 Chest X-Ray 05/03/20 05:21 IMPRESSION: Developing right greater than left opacities likely representing pneumonia and differential diagnosis would include viral infections. Chest X-Ray 05/04/20 06:00 IMPRESSION: STABLE APPEARANCE OF THE CHEST. Chest X-Ray 05/05/20 06:00 IMPRESSION: STABLE APPEARANCE OF THE CHEST. SUPPORT DEVICES UNCHANGED. Chest X-Ray 05/06/20 00:00 IMPRESSION: Continued right-sided pneumonia. Chest X-Ray 05/09/20 00:00 IMPRESSION: Significant clearing of airspace 05/06/2020. Minimal residual right basilar infiltrate persists. IMPRESSION/RECOMMENDATION: 1. Atrial fibrillation with rapid ventricular response. The patient's heart rate is still elevated. Hence will give an extra dose of digoxin 0.125 mg IV push x1 now. We will also increase the patient's his oxygen to 0.25 mg p.o. daily from tomorrow. Note is Cardizem CD will decrease to 120 mg p.o. every 12 hours by the hospitalist due to the patient's heart rate being entered as being 40. This is an erroneous entry the patient's heart rate is very high. Hence we will change the patient's Cardizem CD dosage back to 180 mg p.o. every 12 hours. Also the patient has got significant hematuria hence we will hold the Eliquis for now. 2. Pneumonia would recommend continue antibiotics chest x-ray of today shows much better clearing of the infiltrates in the lung. 3. COPD continue anti-COPD medication and antibiotics. 4. Hypertension: Blood pressure stable. Continue antihypertensives. 5. Hematuria: We will hold the patient's Eliquis for now. His hemoglobin is stable. 6.Hyperlipidemia: The patient has low HDL levels and I LDL levels. Would recommend starting the patient on statin. 7. Ongoing tobacco abuse: Tobacco cessation counseling given 3 minutes spent on this patient. 8. Recent respiratory failure requiring intubation. Patient now extubated. 9. Cardiomyopathy with moderately reduced LV ejection fraction of 40%. 10. The patient's repeat thyroid function test shows that the thyroid function test are normal. Medications reviewed. Medications added. Medical regimen management plan discussed with attending provider on the case. Medical decision making is of high complexity. 40 minutes spent on this patient with more than 50% of time spent in direct patient care will follow
[2020-05-12] MEDS: ATORVASTATIN CALCIUM 40 MG TABLET PO SCH (21:21)
[2020-05-13] MEDS: IPRATROPIUM BROMIDE 0.02% NEB 0.5 MG/2.5 ML AMPUL NEB SCH ×3 (00:02→15:39)
[2020-05-13] MEDS: ACETAMINOPHEN 325 MG TABLET PO PRN (01:06)
[2020-05-13] MEDS: DOCUSATE SODIUM 100 MG CAPSULE PO SCH ×2 (09:03→17:30)
[2020-05-13] MEDS: DILTIAZEM HCL 180 MG CAPSULE.CR PO SCH (09:05)
[2020-05-13] MEDS: DIGOXIN 0.125 MG TABLET PO SCH (09:06)
[2020-05-13] MEDS: ASPIRIN 81 MG TABLET, CHEWABLE PO SCH (09:06)
[2020-05-13] MEDS: LISINOPRIL 10 MG TABLET PO SCH ×2 (09:06→21:44)
[2020-05-13] MEDS: FLUTICASONE/UMECLIDIN/VILANTER 100-62.5-25 MCG/DOSE IH SCH (09:07)
[2020-05-13] MEDS: METOPROLOL TARTRATE PF/INJ 5 MG/5 ML SDV IV PRN ×2 (11:59→18:29)
--- NOTE | 2020-05-13 12:54 | PDOC PROGRESS REPORT ---
Subjective Date:: 05/13/20 Subjective:: As per admitting physician's note Patient is a 60-year-old male with a history o f COPD, not on home O2, presenting to the emergency department by EMS for evaluation of unresponsiveness, hypoxia and presumed acute respiratory failure. Patient's sister related history to EMS. Sister stated she does not know much about the patient's past medical history other than his COPD, tobacco abuse, history of CVA and known prior MT. She states that earlier this morning the patient started complaining of shortness of breath but could not find his inhaler. The sister with the patient have one of her albuterol vials for a albuterol nebulizer treatment. Apparently this was not very helpful for the patient's symptoms and at some point after the breathing treatment, the patient was found by his sister sitting up in chair but was unresponsive. She called 911. When EMS arrived, they said the patient was in a chair, but had a GCS of 3, and initial O2 sat of 40%. Patient was intubated with a 7.5 ET tube by EMS. One of the medics stated the patient's breath sounds were significant for rhonchi and wheezing in all sanchez. Medics said breath sounds seem to have improved after intubating the patient. It is unknown if the patient has had any recent Covid exposures, any history of Covid 19, any fever, chest pain. Patient still smokes. 05/10/2020. No acute events overnight. Saw patient this morning, resting in bed no apparent distress, denies any fever, chills, nausea, vomiting, constipation or any urinary symptoms. BP and heart rate are improving. Possible discharge home tomorrow. Patient is still having leukocytosis and is on 3 L nasal cannula. 05/11/2020. No acute events noted. Patient was noted to be bradycardic last night however asymptomatic, this morning resting in bed comfortably no apparent distress, denies any fever, chills, nausea, vomiting. Labile heart rate. 05/12/2020. Acute events overnight. Unfortunately patient heart rate still not optimized, he has developed hematuria and his anticoagulation has been held since yesterday, otherwise denies any fever, chills, nausea, vomiting. Possible discharge home in a day or 2. Currently on room air SPO2 WNL and leukocytosis improving. 2020-05-13-patient is comfortable in the bed eating lunch. Denies any complaints denies any problems. [place] will be on hold as per Dr. Bauman and as per his request to do the CT abdomen pelvis without contrast for hematuria. Reason For Visit: ACUTE HYPERCAPNEIC RESPIRATORY FAILURE Physical Exam Vital Signs: Temp Pulse Resp BP Pulse Ox 97.3 F 69 18 145/99 H 98 05/13/20 08:56 05/13/20 08:56 05/13/20 08:56 05/13/20 08:56 05/13/20 08:56 Intake & Output 05/12/20 05/13/20 05/14/20 06:59 06:59 06:59 Intake Total 1255 845 477 Output Total 1 Balance 1255 845 476 Weight 84 kg 85.3 kg General appearance: PRESENT: no acute distress, well-developed Head exam: PRESENT: atraumatic Eye exam: PRESENT: PERRLA Mouth exam: PRESENT: moist, tongue midline Neck exam: ABSENT: carotid bruit, JVD, lymphadenopathy, thyromegaly Respiratory exam: PRESENT: decreased breath sounds Cardiovascular exam: PRESENT: irregular rhythm Pulses: PRESENT: normal dorsalis pedis pul Vascular exam: PRESENT: normal capillary refill GI/Abdominal exam: PRESENT: normal bowel sounds, soft. ABSENT: distended, guarding, mass, organolmegaly, rebound, tenderness Rectal exam: PRESENT: deferred Extremities exam: PRESENT: full ROM. ABSENT: calf tenderness, clubbing, pedal edema Neurological exam: PRESENT: alert, awake, oriented to person, oriented to place, oriented to time, oriented to situation, CN II-XII grossly intact. ABSENT: motor sensory deficit Psychiatric exam: PRESENT: appropriate affect, normal mood. ABSENT: homicidal ideation, suicidal ideation Results Laboratory Results: 05/12/20 11:48 05/11/20 21:26 05/03/20 05/06/20 05:12 03:20 Troponin I 0.093 0.099 NT-Pro-B Natriuret Pep 4950 H 5580 H Impressions: Chest X-Ray 05/09/20 00:00 IMPRESSION: Significant clearing of airspace 05/06/2020. Minimal residual right basilar infiltrate persists. Assessment and Plan - Diagnosis (1) Atrial fibrillation with rapid ventricular response Is this a current diagnosis for this admission?: Yes Plan: Labile heart rate. Anticoagulation had to be held due to hematuria. New onset atrial fibrillation. Recently placed on Cardizem drip which was transitioned to p.o. Cardizem. Chronic anticoagulation indicated but unfortunately developed hematuria and his anticoagulation is on hold. As per space planner patient will be provided with Eliquis coupons and he will be able to get his medication until his Medicaid kicks in. As per discharge planning patient will be able to get his Medicaid within 40 days. telecommunications network planner consulted for finding if patient could qualify for new oral anticoagulants. Not sure if patient will keep up with Coumadin therapy as he does not appear to have great insight into his medical condition. Unfortunately patient is very poor historian, does not have a PCP or it risk advisor, and does not regularly follow-up with his doctors. Continue Cardizem, digoxin. As needed IV metoprolol. Hold Eliquis. Cardiology consulted. Recommendations noted. 2020-05-13-patient has history of chronic atrial fibrillation. Eliquis on hold because of hematuria. To do the CT abdominal pelvis to investigate for hematuria. Unfortunately we do not have the urologist on air director. Patient is on diltiazem 180 mg p.o. yesterday, digoxin 0.25 mg once a day. Patient is also on metoprolol 2.5 mg IV every 6 as needed for rate control. (2) Acute respiratory failure Qualifiers: Respiratory failure complication: hypoxia Qualified Code(s): J96.01 - Acute respiratory failure with hypoxia Is this a current diagnosis for this admission?: Yes Plan: Resolved. SPO2 WNL on 2 L nasal cannula. Most likely due to community-acquired pneumonia complicated by acute COPD exacerbation. Received a complete course of IV antibiotics. Cultures negative. Continue supplemental oxygen,, flutter valve, incentive spirometry, DuoNeb, LAMA, LABA, ICS. 2020-05-13-acute respiratory failure with hypoxia resolved. Pulse ox is 98% room air. (3) CKD (chronic kidney disease) Qualifiers: Chronic kidney disease stage: stage 2 (mild) Qualified Code(s): N18.2 - Chronic kidney disease, stage 2 (mild) Is this a current diagnosis for this admission?: Yes Plan: Creatinine WNL. Euvolemic. Electrolytes WNL. Monitor electrolytes volume status, replace electrolytes as needed. Avoid nephrotoxic meds. Outpatient PCP and nephrology follow-up. 2020-05-13-patient has history of chronic kidney disease. GFR is more than 60. Stable. (4) Bilateral pneumonia Qualifiers: Pneumonia type: due to unspecified organism Lung location: unspecified part of lung Qualified Code(s): J18.9 - Pneumonia, unspecified organism Is this a current diagnosis for this admission?: Yes Plan: CXR improved. Still having persistent leukocytosis but improving. Continue IV antibiotics for another day. Plan as per #1. 2020-05-13-patient is presently not on antibiotic therapy. WBC count is 12,100. (5) COPD (chronic obstructive pulmonary disease) Qualifiers: COPD type: emphysema Is this a current diagnosis for this admission?: Yes Plan: He states he needs home O2. He needs to be evaluated for this within 48 hours of discharge, which may be soon. (6) CHF (congestive heart failure) Qualifiers: Heart failure type: systolic Heart failure chronicity: chronic Qualified Code(s): I50.22 - Chronic systolic (congestive) heart failure Is this a current diagnosis for this admission?: Yes Plan: Chronic systolic heart failure. Does not appear to be acutely exacerbated. Euvolemic. Elevated proBNP on admission. 2D echo from 01/11/2020. LVEF 40%. Denies any anginal symptoms. Denies any CAD however stating that he had a cardiac arrest in the 90s 70s. Does not follow-up with any it risk advisor. Cardiac diet, strict in and out, ZAFAR, beta-blockers, diuretics. - Time Anticipated Discharge Disposition: Home, Self Care Anticipated Discharge Timeframe: within 72 hours
--- NOTE | 2020-05-13 14:14 | RADIOLOGY REPORT (SQ) ---
EXAM DESCRIPTION: CT ABD/PELVIS NO ORAL OR IV IMAGES COMPLETED DATE/TIME: 05/13/2020 1:42 pm REASON FOR STUDY: hematuria COMPARISON: None. TECHNIQUE: CT scan of the abdomen and pelvis performed without intravenous or oral contrast. Images reviewed with lung, soft tissue, and bone windows. Reconstructed coronal and sagittal MPR images revi ewed. All images stored on PACS. All CT scanners at this facility use dose modulation, iterative reconstruction, and/or weight based d osing when appropriate to reduce radiation dose to as low as reasonably achievable (ALARA). [facility]: Dose Right [facility]: CareDose [facility]: Dose Right [facility]: Teradose 4D [facility]: [employer] RADIATION DOSE: CT Rad equipment meets quality standard of care and radiation dose reduction techniq ues were employed. CTDIvol: 10.7 mGy. DLP: 561 mGy-cm.mGy. LIMITATIONS: None. FINDINGS: LOWER CHEST: Trace left pleural effusion. Dependent nodular opacities measuring up to 2 c m right lower lobe. NON-CONTRASTED LIVER, SPLEEN, ADRENALS: Evaluation limited by lack of IV contrast. No identified sign ificant masses. PANCREAS: No masses. No peripancreatic inflammatory changes. GALLBLADDER: Gallstones. No inflammatory changes to suggest cholecystitis. RIGHT KIDNEY AND URETER: No suspicious masses. Assessment limited by lack of IV contrast. No signif icant calcifications. No hydronephrosis or hydroureter. LEFT KIDNEY AND URETER: No suspicious masses. Assessment limited by lack of IV contrast. No signifi cant calcifications. No hydronephrosis or hydroureter. AORTA AND RETROPERITONEUM: No aneurysm. No retroperitoneal masses or adenopathy. BOWEL AND PERITONEAL CAVITY: Sigmoid diverticulosis. No obvious masses or inflammatory changes. No f ree fluid. APPENDIX: Normal. PELVIS, BLADDER, AND ABDOMINAL WALL:No abnormal masses. No free fluid. Bladder normal. BONES: No significant findings. OTHER: No other significant finding. IMPRESSION: 1. No evidence of urinary tract stones. 2. Potential pulmonary nodules right lower lobe. Consider correlation with noncontrast chest CT. 3. Cholelithiasis. COMMENT: Quality ID # [id number]: Final reports with documentation of one or more dose reduction techniques (e.g., Automated exposure control, adjustment of the mA and/or kV according to patient size, use of iterative reconstruction technique) TECHNICAL DOCUMENTATION: JOB ID: [id number] 2010 [employer] [place] [employer]- All Rights Reserved Reading location - IP/workstation name: [email or web address]
[2020-05-13] MEDS ORDERED: APIXABAN 5 MG TABLET PO SCH (18:00)
--- NOTE | 2020-05-13 19:23 | Progress Note ---
Provider Note Provider Note: CARDIOLOGY progress note by Dr. Bessy Duvall on 05/13/2020. SUBJECTIVE: The patient is heart rate is still fast but much better controlled than yesterday. Although fairly well-controlled he still has episodes with a heart rate goes up. He has no further hematuria. He denies any chest pain shortness of breath PND orthopnea or leg edema. There is no TIA CVA symptoms. PHYSICAL EXAMINATION: The patient is a frail build and appears to be chronically ill and malnourished. In no acute distress. Selected Entries 05/13/20 16:19 Temperature 97.9 F Temperature Oral Source Pulse Rate 62 Respiratory 20 Rate Blood Pressure 130/87 H Blood Pressure 101 Mean BP Location Right Arm BP Position Supine O2 Sat by Pulse 96 Oximetry Oxygen Delivery Room Air Method HEAD: Is atraumatic normocephalic. EYES: Pupils are equal round regular davide ctive light accommodation. Extraocular movements are normal. There is no conjunctival pallor. There is no scleral icterus. EARS: Tympanic membranes are intact. External auditory canals are clear. NOSE: There is no deviated nasal septum. There is no inflammation of the nasal mucous membrane. MOUTH: Mucous membranes of the mouth are moist. Tongue is moist. There is no ulcers. There is no bleeding from the gums. THROAT: There is no redness of the oropharynx. There is no exudates. SKIN there is no skin rashes. There is no petechia or ecchymosis there is no skin lesions. NECK: Is supple. There is no JVD. Carotids are equal there is no bruit there is no lymphadenopathy. There is no goiter. There is no accessory muscle respiration use. Trachea central. LUNGS: There is diminished air entry prolonged expiration and expiration. There are no crackles or rales. There is no rales of CHF. HEART: S1-S2 is heard. S1 is of variable intensity. There is no S3 gallop. There is no S4 gallop. There is systolic murmur left sternal border and the apex there is no rub. ABDOMEN: Soft. Nontender. There is no hepatosplenomegaly. Bowel sounds are well heard. EXTREMITIES: Femorals are diminished. There is no femoral bruits. Leg pulses are diminished. There is no pedal edema. There is no DVT or cellulitis. There is no calf tenderness. TENNIS PLAYER: The patient is conscious awake alert oriented x3 with no focal deficits. PSYCHIATRIC: Patient judgment insight are intact her affect is normal. Chest X-Ray 05/03/20 05:21 IMPRESSION: Developing right greater than left opacities likely representing pneumonia and differential diagnosis would include viral infections. Chest X-Ray 05/04/20 06:00 IMPRESSION: STABLE APPEARANCE OF THE CHEST. Chest X-Ray 05/05/20 06:00 IMPRESSION: STABLE APPEARANCE OF THE CHEST. SUPPORT DEVICES UNCHANGED. Chest X-Ray 05/06/20 00:00 IMPRESSION: Continued right-sided pneumonia. Chest X-Ray 05/09/20 00:00 IMPRESSION: Significant clearing of airspace 05/06/2020. Minimal residual right basilar infiltrate persists. Abdomen/Pelvis CT 05/13/20 00:00 IMPRESSION: 1. No evidence of urinary tract stones. 2. Potential pulmonary nodules right lower lobe. Consider correlation with noncontrast chest CT. 3. Cholelithiasis. IMPRESSION/RECOMMENDATION: 1. Atrial fibrillation with rapid ventricular response. The patient's heart rate is still elevated at times. Will discontinue patient Cardizem and switch to metoprolol ER since the patient's LV ejection fraction is 40%. We will restart the patient's Eliquis 2 be ablated absolutely sure that there is no recurrence of hematuria. 2. Pneumonia: This seems to have resolved. 3. COPD continue anti-COPD medication and antibiotics. 4. Hypertension: Blood pressure: Is on the higher side. We will increase the patient's lisinopril to 40 mg p.o. every 12 hours. 5. Hematuria: We will hold the patient's Eliquis for now. His hemoglobin is stable. 6.Hyperlipidemia: The patient has low HDL levels and I LDL levels. Would recommend starting the patient on statin. 7. Ongoing tobacco abuse: Tobacco cessation counseling given 3 minutes spent on this patient. 8. Recent respiratory failure requiring intubation. Patient now extubated. 9. Cardiomyopathy with moderately reduced LV ejection fraction of 40%. 10. The patient's repeat thyroid function test shows that the thyroid function test are normal. Medications reviewed. Medications added. Medical regimen management plan discussed with attending provider on the case. Medical decision making is of high complexity. This is in view of adjusting the patient medication. 40 minutes spent on this patient with more than 50% of time spent in direct patient care will follow
[2020-05-13] MEDS: METOPROLOL SUCCINATE 50 MG TAB.SR.24H PO SCH (21:45)
[2020-05-13] MEDS: ATORVASTATIN CALCIUM 40 MG TABLET PO SCH (21:45)
[2020-05-14] MEDS: IPRATROPIUM BROMIDE 0.02% NEB 0.5 MG/2.5 ML AMPUL NEB SCH ×3 (00:20→16:39)
[2020-05-14] MEDS ORDERED: INFLUENZA QUAD (6MOS+) 2020-21 VAC 0.5 ML SYR IM ONE (08:00)
[2020-05-14 08:12] LABS: ALBUMIN 3.2 g/dL (3.5-5.0); ALKALINE PHOSPHATASE 62 U/L (38-126); ANION GAP 7 (5-19); ASPARTATE AMINO TRANSFERASE 35 U/L (17-59); BILIRUBIN,DIRECT 0.3 mg/dL (0.0-0.4); BILIRUBIN,TOTAL 0.9 mg/dL (0.2-1.3); BLOOD UREA NITROGEN 19 mg/dL (7-20); CALCIUM 8.6 mg/dL (8.4-10.2); CARBON DIOXIDE 24 mmol/L (22-30); CHLORIDE 105 mmol/L (98-107); GLUCOSE 89 mg/dL (75-110); POTASSIUM 4.2 mmol/L (3.6-5.0); TOTAL PROTEIN 5.7 g/dL (6.3-8.2)
[2020-05-14] MEDS: DOCUSATE SODIUM 100 MG CAPSULE PO SCH ×2 (09:39→19:59)
[2020-05-14] MEDS: METOPROLOL SUCCINATE 50 MG TAB.SR.24H PO SCH (09:40)
[2020-05-14] MEDS: DIGOXIN 0.125 MG TABLET PO SCH (09:40)
[2020-05-14] MEDS: ASPIRIN 81 MG TABLET, CHEWABLE PO SCH (09:41)
[2020-05-14] MEDS: LISINOPRIL 10 MG TABLET PO SCH ×2 (09:41→21:12)
[2020-05-14] MEDS: FLUTICASONE/UMECLIDIN/VILANTER 100-62.5-25 MCG/DOSE IH SCH (09:41)
[2020-05-14] MEDS ORDERED: APIXABAN 5 MG TABLET PO SCH ×2 (10:00→18:00)
[2020-05-14 10:26] LABS: ABSOLUTE EOSINOPHILS # (AUTO) 0.2 10^3/uL (0.0-0.6); ABSOLUTE MONOCYTES (AUTO) 1.2 10^3/uL (0.1-1.4); EOSINOPHILS % (AUTO) 2.2 % (0-6); MONOCYTES % (AUTO) 10.3 % (3-13); RED CELL DISTRIBUTION WIDTH 14.2 % (11.5-14.0); TOTAL CELLS COUNTED % (AUTO) 100 %
--- NOTE | 2020-05-14 10:27 | PDOC PROGRESS REPORT ---
Subjective Date:: 05/14/20 Subjective:: As per admitting physician's note Patient is a 60-year-old male with a history o f COPD, not on home O2, presenting to the emergency department by EMS for evaluation of unresponsiveness, hypoxia and presumed acute respiratory failure. Patient's sister related history to EMS. Sister stated she does not know much about the patient's past medical history other than his COPD, tobacco abuse, history of CVA and known prior MO. She states that earlier this morning the patient started complaining of shortness of breath but could not find his inhaler. The sister with the patient have one of her albuterol vials for a albuterol nebulizer treatment. Apparently this was not very helpful for the patient's symptoms and at some point after the breathing treatment, the patient was found by his sister sitting up in chair but was unresponsive. She called 911. When EMS arrived, they said the patient was in a chair, but had a GCS of 3, and initial O2 sat of 40%. Patient was intubated with a 7.5 ET tube by EMS. One of the medics stated the patient's breath sounds were significant for rhonchi and wheezing in all sanchez. Medics said breath sounds seem to have improved after intubating the patient. It is unknown if the patient has had any recent Covid exposures, any history of Covid 19, any fever, chest pain. Patient still smokes. 05/10/2020. No acute events overnight. Saw patient this morning, resting in bed no apparent distress, denies any fever, chills, nausea, vomiting, constipation or any urinary symptoms. BP and heart rate are improving. Possible discharge home tomorrow. Patient is still having leukocytosis and is on 3 L nasal cannula. 05/11/2020. No acute events noted. Patient was noted to be bradycardic last night however asymptomatic, this morning resting in bed comfortably no apparent distress, denies any fever, chills, nausea, vomiting. Labile heart rate. 05/12/2020. Acute events overnight. Unfortunately patient heart rate still not optimized, he has developed hematuria and his anticoagulation has been held since yesterday, otherwise denies any fever, chills, nausea, vomiting. Possible discharge home in a day or 2. Currently on room air SPO2 WNL and leukocytosis improving. 2020-05-13-patient is comfortable in the bed eating lunch. Denies any complaints denies any problems. Eliquis will be on hold as per Dr. Bauman and as per his request to do the CT abdomen pelvis without contrast for hematuria. 05/14/2020-patient is comfortable in the chair communicating well. Expressing desire to go home. Nurses notified me that small amount of hematuria noticed this morning. I spoke with Dr. Bauman he wants to stop Eliquis and is heart rate is still high his recommendation is to increase the metoprolol 200 mg p.o. twice daily. Plan is to closely monitor his labs and hematuria and probable discharge tomorrow. Reason For Visit: ACUTE HYPERCAPNEIC RESPIRATORY FAILURE Physical Exam Vital Signs: Temp Pulse Resp BP Pulse Ox 97.5 F 99 19 140/99 H 96 05/14/20 08:26 05/14/20 08:26 05/14/20 08:26 05/14/20 08:26 05/14/20 08:26 Intake & Output 05/13/20 05/14/20 05/15/20 06:59 06:59 06:59 Intake Total 845 1992 240 Output Total 701 Balance 845 1291 240 Weight 85.3 kg 86 kg General appearance: PRESENT: no acute distress, cooperative, well-developed Head exam: PRESENT: atraumatic Eye exam: PRESENT: PERRLA Mouth exam: PRESENT: moist, tongue midline Teeth exam: PRESENT: poor dentation Neck exam: ABSENT: carotid bruit, JVD, lymphadenopathy, thyromegaly Respiratory exam: PRESENT: decreased breath sounds Cardiovascular exam: PRESENT: tachycardia Pulses: PRESENT: normal dorsalis pedis pul GI/Abdominal exam: PRESENT: normal bowel sounds, soft. ABSENT: distended, guarding, mass, organolmegaly, rebound, tenderness Rectal exam: PRESENT: deferred Extremities exam: PRESENT: full ROM. ABSENT: calf tenderness, clubbing, pedal edema Neurological exam: PRESENT: alert, awake, oriented to person, oriented to place, oriented to time, oriented to situation, CN II-XII grossly intact. ABSENT: motor sensory deficit Psychiatric exam: PRESENT: appropriate affect, normal mood. ABSENT: homicidal ideation, suicidal ideation Results Laboratory Results: 05/14/20 06:11 05/14/20 06:11 05/14/20 05/14/20 06:11 06:11 WBC Cancelled RBC Cancelled Hgb Cancelled Hct Cancelled MCV Cancelled MCH Cancelled MCHC Cancelled RDW Cancelled Plt Count Cancelled Seg Neutrophils % Cancelled Sodium 136.4 L Potassium 4.2 Chloride 105 Carbon Dioxide 24 Anion Gap 7 BUN 19 Creatinine 1.03 Est GFR ( Amer) > 60 Glucose 89 Calcium 8.6 Magnesium 2.0 Total Bilirubin 0.9 AST 35 Alkaline Phosphatase 62 Total Protein 5.7 L Albumin 3.2 L 05/03/20 05/06/20 05:12 03:20 Troponin I 0.093 0.099 NT-Pro-B Natriuret Pep 4950 H 5580 H Impressions: Chest X-Ray 05/09/20 00:00 IMPRESSION: Significant clearing of airspace 05/06/2020. Minimal residual right basilar infiltrate persists. Abdomen/Pelvis CT 05/13/20 00:00 IMPRESSION: 1. No evidence of urinary tract stones. 2. Potential pulmonary nodules right lower lobe. Consider correlation with noncontrast chest CT. 3. Cholelithiasis. Assessment and Plan - Diagnosis (1) Atrial fibrillation with rapid ventricular response Is this a current diagnosis for this admission?: Yes Plan: Labile heart rate. Anticoagulation had to be held due to hematuria. New onset atrial fibrillation. Recently placed on Cardizem drip which was transitioned to p.o. Cardizem. Chronic anticoagulation indicated but unfortunately developed hematuria and his anticoagulation is on hold. As per retail planner patient will be provided with Eliquis coupons and he will be able to get his medication until his Medicaid kicks in. As per discharge planning patient will be able to get his Medicaid within 40 days. business planner consulted for finding if patient could qualify for new oral anticoagulants. Not sure if patient will keep up with Coumadin therapy as he does not appear to have great insight into his medical condition. Unfortunately patient is very poor historian, does not have a PCP or automotive parts coordinator, and does not regularly follow-up with his doctors. Continue Cardizem, digoxin. As needed IV metoprolol. Hold Eliquis. Cardiology consulted. Recommendations noted. 2020-05-13-patient has history of chronic atrial fibrillation. Eliquis on hold because of hematuria. To do the CT abdominal pelvis to investigate for hematuria. 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 Patient is on diltiazem 180 mg p.o. yesterday, digoxin 0.25 mg once a day. Patient is also on metoprolol 2.5 mg IV every 6 as needed for rate control. 05/14/2020-heart rate is close to 100. Discussed the plan of care with Dr. Bauman recommendation is to increase metoprolol TO 100 mg p.o. twice daily. Diltiazem is discontinued yesterday and the patient is presently on digoxin 0.25 mg daily. (2) Acute respiratory failure Qualifiers: Respiratory failure complication: hypoxia Qualified Code(s): J96.01 - Acute respiratory failure with hypoxia Is this a current diagnosis for this admission?: Yes Plan: Resolved. SPO2 WNL on 2 L nasal cannula. Most likely due to community-acquired pneumonia complicated by acute COPD exacerbation. Received a complete course of IV antibiotics. Cultures negative. Continue supplemental oxygen,, flutter valve, incentive spirometry, DuoNeb, LAMA, LABA, ICS. 2020-05-13-acute respiratory failure with hypoxia resolved. Pulse ox is 98% room air. (3) CKD (chronic kidney disease) Qualifiers: Chronic kidney disease stage: stage 2 (mild) Qualified Code(s): N18.2 - Chronic kidney disease, stage 2 (mild) Is this a current diagnosis for this admission?: Yes Plan: Creatinine WNL. Euvolemic. Electrolytes WNL. Monitor electrolytes volume status, replace electrolytes as needed. Avoid nephrotoxic meds. Outpatient PCP and nephrology follow-up. 2020-05-13-patient has history of chronic kidney disease. GFR is more than 60. Stable. (4) Bilateral pneumonia Qualifiers: Pneumonia type: due to unspecified organism Lung location: unspecified part of lung Qualified Code(s): J18.9 - Pneumonia, unspecified organism Is this a current diagnosis for this admission?: Yes Plan: CXR improved. Still having persistent leukocytosis but improving. Continue IV antibiotics for another day. Plan as per #1. 2020-05-13-patient is presently not on antibiotic therapy. WBC count is 12,100. (5) COPD (chronic obstructive pulmonary disease) Qualifiers: COPD type: emphysema Is this a current diagnosis for this admission?: Yes Plan: He states he needs home O2. He needs to be evaluated for this within 48 hours of discharge, which may be soon. (6) CHF (congestive heart failure) Qualifiers: Heart failure type: systolic Heart failure chronicity: chronic Qualified Code(s): I50.22 - Chronic systolic (congestive) heart failure Is this a current diagnosis for this admission?: Yes Plan: Chronic systolic heart failure. Does not appear to be acutely exacerbated. Euvolemic. Elevated proBNP on admission. 2D echo from 01/11/2020. LVEF 40%. Denies any anginal symptoms. Denies any CAD however stating that he had a cardiac arrest in the 90s 70s. Does not follow-up with any automotive parts coordinator. Cardiac diet, strict in and out, ZAFAR, beta-blockers, diuretics. - Time Anticipated Discharge Disposition: Home, Self Care Anticipated Discharge Timeframe: within 24 hours
[2020-05-14 10:50] LABS: ABSOLUTE BASOPHILS # (AUTO) 0.1 10^3/uL (0.0-0.2); ABSOLUTE LYMPHOCYTES (AUTO) 1.5 10^3/uL (0.5-4.7); ABSOLUTE NEUT (AUTO) 8.5 10^3/uL (1.7-8.2); BASOPHILS % (AUTO) 0.5 % (0-2); HEMATOCRIT 44.7 % (37.9-51.0); HEMOGLOBIN 15.3 g/dL (13.5-17.0); LYMPHOCYTES % (AUTO) 12.9 % (13-45); MEAN CORPUSCULAR HEMOGLOBIN 29.1 pg (27.0-33.4); MEAN CORPUSCULAR HGB CONC 34.2 g/dL (32.0-36.0); MEAN CORPUSCULAR VOLUME 85 fl (80-97); RED BLOOD COUNT 5.25 10^6/uL (4.35-5.55); SEGMENTED NEUTROPHILS % (AUTO) 74.1 % (42-78); WHITE BLOOD COUNT 11.4 10^3/uL (4.0-10.5)
[2020-05-14 11:02] LABS: PLATELET COUNT 170 10^3/uL (150-450)
--- NOTE | 2020-05-14 19:24 | Progress Note ---
Provider Note Provider Note: CARDIOLOGY PROGRESS NOTE by Dr. Bessy Duvall on 05/14/2020. Subjective: The patient's heart rate is better. He is tolerating beta-kevin. He has no further hematuria we will restart the patient on Eliquis. He denies any chest pain or discomfort. There is no shortness of breath. There is no PND orthopnea leg edema. There is no ventricle arrhythmia seen on the monitor. There is no TIA CVA symptoms. PHYSICAL EXAMINATION: The patient appears to be chronically ill and malnourished. In no acute distress. Selected Entries 05/14/20 05/14/20 07:39 07:41 Temperature 98.5 F Pulse Rate 105 H Respiratory 20 Rate O2 Sat by Pulse 98 Oximetry Oxygen Delivery Room Air Method ( includes room air) Fraction of 21 Inspired Oxygen (FIO2) HEAD: Is atraumatic normocephalic. EYES: Pupils are equal round regular reactive light accommodation. Extraocular movements are normal. There is no conjunctival pallor. There is no scleral icterus. EARS: Tympanic membranes are intact. External auditory canals are clear. NOSE: There is no deviated nasal s eptum. There is no inflammation of the nasal mucous membrane. MOUTH: Mucous membranes of the mouth are moist. Tongue is moist. There is no ulcers. There is no bleeding from the gums. THROAT: There is no redness of the oropharynx. There is no exudates. SKIN there is no skin rashes. There is no petechia or ecchymosis there is no skin lesions. NECK: Is supple. There is no JVD. Carotids are equal there is no bruit there is no lymphadenopathy. There is no goiter. There is no accessory muscle respiration use. Trachea central. LUNGS: There is diminished air entry prolonged expiration and expiration. There are no crackles or rales. There is no rales of CHF. HEART: S1-S2 is heard. S1 is of variable intensity. There is no S3 gallop. There is no S4 gallop. There is systolic murmur left sternal border and the apex there is no rub. ABDOMEN: Soft. Nontender. There is no hepatosplenomegaly. Bowel sounds are well heard. EXTREMITIES: Femorals are diminished. There is no femoral bruits. Leg pulses are diminished. There is no pedal edema. There is no DVT or cellulitis. There is no calf tenderness. TOWER CLIMBER: The patient is conscious awake alert oriented x3 with no focal deficits. PSYCHIATRIC: Patient judgment insight are intact her affect is normal. Chest X-Ray 05/03/20 05:21 IMPRESSION: Developing right greater than left opacities likely representing pneumonia and differential diagnosis would include viral infections. Chest X-Ray 05/04/20 06:00 IMPRESSION: STABLE APPEARANCE OF THE CHEST. Chest X-Ray 05/05/20 06:00 IMPRESSION: STABLE APPEARANCE OF THE CHEST. SUPPORT DEVICES UNCHANGED. Chest X-Ray 05/06/20 00:00 IMPRESSION: Continued right-sided pneumonia. Chest X-Ray 05/09/20 00:00 IMPRESSION: Significant clearing of airspace 05/06/2020. Minimal residual right basilar infiltrate persists. Abdomen/Pelvis CT 05/13/20 00:00 IMPRESSION: 1. No evidence of urinary tract stones. 2. Potential pulmonary nodules right lower lobe. Consider correlation with noncontrast chest CT. 3. Cholelithiasis. Labs- All tests 24 hr 05/14/20 05/14/20 05/14/20 06:11 06:11 10:18 WBC Cancelled 11.4 H RBC Cancelled 5.25 Hgb Cancelled 15.3 Hct Cancelled 44.7 MCV Cancelled 85 MCH Cancelled 29.1 MCHC Cancelled 34.2 RDW Cancelled 14.2 H Plt Count Cancelled 170 Lymph % (Auto) Cancelled 12.9 L [place] % (Auto) Cancelled 10.3 Eos % (Auto) Cancelled 2.2 Baso % (Auto) Cancelled 0.5 Absolute Neuts (auto) Cancelled 8.5 H Absolute Lymphs (auto) Cancelled 1.5 Absolute Monos (auto) Cancelled 1.2 Absolute Eos (auto) Cancelled 0.2 Absolute Basos (auto) Cancelled 0.1 Seg Neutrophils % Cancelled 74.1 Platelet Estimate Cancelled Sodium 136.4 L Potassium 4.2 Chloride 105 Carbon Dioxide 24 Anion Gap 7 BUN 19 Creatinine 1.03 Est GFR ( Amer) > 60 Est GFR (MDRD) Non-Af > 60 Glucose 89 Calcium 8.6 Magnesium 2.0 Total Bilirubin 0.9 Direct Bilirubin 0.3 Neonat Total Bilirubin Not Reportable Neonat Direct Bilirubin Not Reportable Neonat Indirect Bili Not Reportable AST 35 ALT 43 Alkaline Phosphatase 62 Total Protein 5.7 L Albumin 3.2 L Slides for Path Review Cancelled IMPRESSION/RECOMMENDATION: 1. Atrial fibrillation with rapid ventricular response. The patient's heart rate is still elevated at times. Will discontinue patient Cardizem and switch to metoprolol ER since the patient's LV ejection fraction is 40%. Will increase the metoprolol ER 200 mg p.o. twice daily the patient has no hematuria, and hence we will restart the patient's Eliquis. 2. Pneumonia: This seems to have resolved. 3. COPD continue anti-COPD medication and antibiotics. 4. Hypertension: Blood pressure: Is on the higher side. We will increase the patient's lisinopril to 40 mg p.o. every 12 hours. 5. Hematuria: We will hold the patient's Eliquis for now. His hemoglobin is stable. 6.Hyperlipidemia: The patient has low HDL levels and I LDL levels. Would recommend starting the patient on statin. 7. Ongoing tobacco abuse: Tobacco cessation counseling given 3 minutes spent on this patient. 8. Recent respiratory failure requiring intubation. Patient now extubated. 9. Cardiomyopathy with moderately reduced LV ejection fraction of 40%. But this was from the echo in December 2017. We will repeat echocardiogram to see what the latest ejection fraction is. In view of this we will change the patient's Cardizem to beta-kevin. Continue ZAFAR inhibitor Medications reviewed. Medications added. Medical regimen management plan discussed with attending provider on the case. Medical decision making is of high complexity. This is in view of adjusting the patient medication. 40 minutes spent on this patient with more than 50% of time spent in direct patient care will follow
--- NOTE | 2020-05-14 19:46 | XCELERA REPORT ---
[address] [address] Transthoracic Echocardiogram Report Name: ARNOLD JAMES Age: 60 yrs Gender: Male : 1960 Patient Status: Inpatient Patient Location: [address] [place] [address] Study Date: 05/14/2020 02:12 PM Height: 67 in Weight: 189 lb BSA: 2.0 m2 Procedure: A two-dimensional transthoracic echocardiogram with color flow and Doppler was performed. The study was technically difficult with many images being suboptimal in quality. Reason For Study: Cardiomyopathy / Atrial Fibrillation History: Cardiomyopathy / Atrial Fibrillation. Ordering Physician: BESSY TOLLIVER Performed By: Suzy Fine Interpretation Summary The left ventricle is moderately dilated. There is normal left ventricular wall thickness. LV EF is 35% to 40% Left ventricular systolic function is moderately reduced. LV diastolic function could not be adequately assessed due to atrial fibrilation. There is moderate global hypokinesis of the left ventricle. There is no thrombus. The right ventricle is normal in size and function. The right atrium is normal. The left atrium is borderline dilated. There is no evidence of mitral valve prolapse. There is no vegetation seen on the mitral valve. There is no mitral valve stenosis. There is a trace amount of mitral regurgitation There is no aortic valvular vegetation. There is no aortic valve stenosis There is aortic sclerosis without aortic stenosis. There is a mild to moderate amount of aortic regurgitation There is no tricuspid stenosis. There is a mild amount of tricuspid regurgitation There is mild pulmonary hypertension by echo RVSP is 31 to 36 mm of Hg with RA mean of 5 to 10. There is no pulmonic valvular stenosis. There is no pulmonic valvular regurgitation. The aortic root is normal size. The inferior vena cava appeared normal and decreased > 50% with respiration (RAP 5-10 mmHg) There is no pericardial effusion. MMode/2D Measurements & Calculations RVDd: 1.7 cm LVIDd: 6.1 cm FS: 18.2 % Ao root diam: 2.9 cm IVSd: 0.96 cm LVIDs: 5.0 cm EDV(Teich): LVPWd: 1.1 cm 188.7 ml Ao root area: ESV(Teich): 6.8 cm2 119.0 ml LA dimension: EF(Teich): 36.9 % 3.9 cm LVLd ap4: 8.1 cm SV(MOD-sp4): EDV(MOD-sp4): 56.0 ml 117.0 ml LVLs ap4: 6.5 cm ESV(MOD-sp4): 61.0 ml EF(MOD-sp4): 47.9 % Doppler Measurements & Calculations MV E max gloria: MV P1/2t max gloria: AI max gloria: LV V1 max P.2 cm/sec 120.2 cm/sec 271.2 cm/sec 4.7 mmHg MV A max gloria: MV P1/2t: 45.7 msec AI max P.4 mmHgLV V1 max: 62.2 cm/sec MVA(P1/2t): 4.8 cm2 AI dec slope: 108.0 cm/sec MV E/A: 1.6 MV dec slope: 194.7 cm/sec2 AI P1/2t: 408.0 msec 771.0 cm/sec2 MV dec time: 0.13 sec TR max gloria: AV P1/2t-pr_phl: MV P1/2t-pr_phl: 253.1 cm/sec 408.0 msec 45.7 msec TR max P.6 mmHg Left Ventricle The left ventricle is moderately dilated. There is normal left ventricular wall thickness. LV EF is 35% to 40%. Left ventricular systolic function is moderately reduced. LV diastolic function could not be adequately assessed due to atrial fibrilation. There is moderate global hypokinesis of the left ventricle. There is no thrombus. No ASD,VSD,or PFO seen. Right Ventricle The right ventricle is normal in size and function. Atria The right atrium is normal. The left atrium is borderline dilated. Mitral Valve There is no evidence of mitral valve prolapse. There is no vegetation seen on the mitral valve. There is no mitral valve stenosis. There is a trace amount of mitral regurgitation. Aortic Valve There is no aortic valvular vegetation. There is no aortic valve stenosis. There is aortic sclerosis without aortic stenosis. There is a mild to moderate amount of aortic regurgitation. Tricuspid Valve There is no tricuspid stenosis. There is a mild amount of tricuspid regurgitation. There is mild pulmonary hypertension by echo. RVSP is 31 to 36 mm of Hg with RA mean of 5 to 10. Pulmonic Valve There is no pulmonic valvular stenosis. There is no pulmonic valvular regurgitation. Great Vessels The aortic root is normal size. The inferior vena cava appeared normal and decreased > 50% with respiration (RAP 5-10 mmHg). Effusions There is no pericardial effusion. : BESSY TOLLIVER, Bessy
[2020-05-14] MEDS: ATORVASTATIN CALCIUM 40 MG TABLET PO SCH (21:12)
[2020-05-14] MEDS ORDERED: METOPROLOL SUCCINATE 50 MG TAB.SR.24H PO SCH (22:00)
[2020-05-15] MEDS: IPRATROPIUM BROMIDE 0.02% NEB 0.5 MG/2.5 ML AMPUL NEB SCH ×2 (00:40→08:58)
[2020-05-15 08:44] VITALS: BP 157/137
--- NOTE | 2020-05-15 13:06 | PDOC DISCHARGE SUMMARY ---
Impression - Admit/DC Date/PCP Admission Date/Primary Care Provider: 05/03/20 06:54 NILDA ABARCA MD Discharge Date: 05/15/20 - Discharge Diagnosis (1) Atrial fibrillation with rapid ventricular response Is this a current diagnosis for this admission?: Yes (2) Acute respiratory failure Is this a current diagnosis for this admission?: Yes (3) CKD (chronic kidney disease) Is this a current diagnosis for this admission?: Yes (4) Bilateral pneumonia Is this a current diagnosis for this admission?: Yes (5) COPD (chronic obstructive pulmonary disease) Is this a current diagnosis for this admission?: Yes (6) CHF (congestive heart failure) Is this a current diagnosis for this admission?: Yes - Assessment Summary: (1) Atrial fibrillation with rapid ventricular response Is this a current diagnosis for this admission?: Yes Plan: Labile heart rate. Anticoagulation had to be held due to hematuria. New onset atrial fibrillation. Recently placed on Cardizem drip which was transitioned to p.o. Cardizem. Chronic anticoagulation indicated but unfortunately developed hematuria and his anticoagulation is on hold. As per cyber ops planner patient will be provided with Eliquis coupons and he will be able to get his medication until his Medicaid kicks in. As per discharge planning patient will be able to get his Medicaid within 40 days. medical planner consulted for finding if patient could qualify for new oral anticoagulants. Not sure if patient will keep up with Coumadin therapy as he does not appear to have great insight into his medical condition. Unfortunately patient is very poor historian, does not have a PCP or truck guard, and does not regularly follow-up with his doctors. Continue Cardizem, digoxin. As needed IV metoprolol. Hold Eliquis. Cardiology consulted. Recommendations noted. 2020-05-13-patient has history of chronic atrial fibrillation. Eliquis on hold because of hematuria. To do the CT abdominal pelvis to investigate for hematuria. Unfortunately we do not have the urologist solution professional. Patient is on diltiazem 180 mg p.o. yesterday, digoxin 0.25 mg once a day. Patient is also on metoprolol 2.5 mg IV every 6 as needed for rate control. 05/14/2020-heart rate is close to 100. Discussed the plan of care with Dr. Bauman recommendation is to increase metoprolol TO 100 mg p.o. twice daily. Diltiazem is discontinued yesterday and the patient is presently on digoxin 0.25 mg daily. 05/15-heart rate is around 70 this morning. Atrial fibrillation rate con trolled now. Patient is going home on metoprolol 100 mg p.o. twice daily, digoxin 0.1 mg daily. Patient is unable to afford Eliquis. Prescription for Coumadin 2.5 mg nightly was given. He was advised to follow-up with [facility] for PT/INR checkup next week. (2) Acute respiratory failure Qualifiers: Respiratory failure complication: hypoxia Qualified Code(s): J96.01 - Acute respiratory failure with hypoxia Is this a current diagnosis for this admission?: Yes Plan: Resolved. SPO2 WNL on 2 L nasal cannula. Most likely due to community-acquired pneumonia complicated by acute COPD exacerbation. Received a complete course of IV antibiotics. Cultures negative. Continue supplemental oxygen,, flutter valve, incentive spirometry, DuoNeb, LAMA, LABA, ICS. -acute respiratory failure with hypoxia resolved. Pulse ox is 98% room air. 05/15/20-acute respiratory failure with hypoxia resolved. Pulse ox is 96% room air. Patient is initially admitted to ICU intubated and successfully extubated. (3) CKD (chronic kidney disease) Qualifiers: Chronic kidney disease stage: stage 2 (mild) Qualified Code(s): N18.2 - Chronic kidney disease, stage 2 (mild) Is this a current diagnosis for this admission?: Yes Plan: Creatinine WNL. Euvolemic. Electrolytes WNL. Monitor electrolytes volume status, replace electrolytes as needed. Avoid nephrotoxic meds. Outpatient PCP and nephrology follow-up. -patient has history of chronic kidney disease. GFR is more than 60. Stable. (4) Bilateral pneumonia Qualifiers: Pneumonia type: due to unspecified organism Lung location: unspecified part of lung Qualified Code(s): J18.9 - Pneumonia, unspecified organism Is this a current diagnosis for this admission?: Yes Plan: CXR improved. Still having persistent leukocytosis but improving. Continue IV antibiotics for another day. Plan as per #1. -patient is presently not on antibiotic therapy. WBC count is 12,100. (5) COPD (chronic obstructive pulmonary disease) Qualifiers: COPD type: emphysema Is this a current diagnosis for this admission?: Yes Plan: He states he needs home O2. He needs to be evaluated for this within 48 hours of discharge, which may be soon. 05/15/20-pulse ox is 96% on room air. Patient did not qualify for home oxygen. (6) CHF (congestive heart failure) Qualifiers: Heart failure type: systolic Heart failure chronicity: chronic Qualified Code(s): I50.22 - Chronic systolic (congestive) heart failure Is this a current diagnosis for this admission?: Yes Plan: Chronic systolic heart failure. Does not appear to be acutely exacerbated. Euvolemic. Elevated proBNP on admission. 2D echo from 01/11/2020. LVEF 40%. Denies any anginal symptoms. Denies any CAD however stating that he had a cardiac arrest in the 90s 70s. Does not follow-up with any truck guard. Cardiac diet, strict in and out, ZAFAR, beta-blockers, diuretics. - Additional Information Resuscitation Status: Full Code Discharge Activity: Activity As Tolerated Referrals: NILDA ABARCA MD [Primary Care Provider] - 05/19/20 2:00 pm (apt will be over the phone and the nurse will call the day before ) Prescriptions: Aspirin [Aspirin 81 mg Chewable Tablet] 81 mg PO DAILY 30 Days #30 tab.chew Warfarin Sodium [Coumadin] 2.5 mg PO DAILY 30 Days #30 tablet Digoxin [Lanoxin 0.125 mg Tablet] 0.25 mg PO DAILY 30 Days #30 tablet Atorvastatin Calcium [Lipitor 40 mg Tablet] 40 mg PO QHS 30 Days #30 tablet Lisinopril [Prinivil] 20 mg PO Q12 60 Days #30 tab Metoprolol Succinate [Toprol Xl 50 mg Tab.sr] 100 mg PO Q12 60 Days #30 tab.sr.24h Home Medications: Hydrochlorothiazide 25 mg PO QAM 05/03/20 Aspirin [Aspirin 81 mg Chewable Tablet] 81 mg PO DAILY 30 Days #30 tab.chew 05/15/20 Atorvastatin Calcium [Lipitor 40 mg Tablet] 40 mg PO QHS 30 Days #30 tablet 05/15/20 Digoxin [Lanoxin 0.125 mg Tablet] 0.25 mg PO DAILY 30 Days #30 tablet 05/15/20 Lisinopril [Prinivil] 20 mg PO Q12 60 Days #30 tab 05/15/20 Metoprolol Succinate [Toprol Xl 50 mg Tab.sr] 100 mg PO Q12 60 Days #30 tab.sr.24h 05/15/20 Warfarin Sodium [Coumadin] 2.5 mg PO DAILY 30 Days #30 tablet 05/15/20 History of Present Illiness History of Present Illness: ARNOLD JAMES is a 60 year old male 60-year-old male with a history of COPD, not on home O2, presenting to the emergency department by EMS for evaluation of unresponsiveness, hypoxia and presumed acute respiratory failure. Patient's sister related history to EMS. Sister stated she does not know much about the patient's past medical history other than his COPD, tobacco abuse, history of CVA and known prior LA. She states that earlier this morning the patient started complaining of shortness of breath but could not find his inhaler. The sister with the patient have one of her albuterol vials for a albuterol nebulizer treatment. Apparently this was not very helpful for the patient's symptoms and at some point after the breathing treatment, the patient was found by his sister sitting up in chair but was unresponsive. She called 911. When EMS arrived, they said the patient was in a chair, but had a GCS of 3, and initial O2 sat of 40%. Patient was intubated with a 7.5 ET tube by EMS. One of the medics stated the patient's breath sounds were significant for rhonchi and wheezing in all sanchez. Medics said breath sounds seem to have improved after intubating the patient. It is unknown if the patient has had any recent Covid exposures, any history of Covid 19, any fever, chest pain. Patient still smokes. Hospital Course Hospital Course: 60-year-old male with a history of COPD, not on home O2, presenting to the emergency department by EMS for evaluation of unresponsiveness, hypoxia and presumed acute respiratory failure. Patient's sister related history to EMS. Sister stated she does not know much about the patient's past medical history other than his COPD, tobacco abuse, history of CVA and known prior LA. She states that earlier this morning the patient started complaining of shortness of breath but could not find his inhaler. The sister with the patient have one of her albuterol vials for a albuterol nebulizer treatment. Apparently this was not very helpful for the patient's symptoms and at some point after the breathing treatment, the patient was found by his sister sitting up in chair but was unresponsive. She called 911. When EMS arrived, they said the patient was in a chair, but had a GCS of 3, and initial O2 sat of 40%. Patient was intubated with a 7.5 ET tube by EMS. One of the medics stated the patient's breath sounds were significant for rhonchi and wheezing in all sanchez. Medics said breath sounds seem to have improved after intubating the patient. It is unknown if the patient has had any recent Covid exposures, any history of Covid 19, any fever, chest pain. Patient still smokes. 05/10/2020. No acute events overnight. Saw patient this morning, resting in bed no apparent distress, denies any fever, chills, nausea, vomiting, constipation or any urinary symptoms. BP and heart rate are improving. Possible discharge home tomorrow. Patient is still having leukocytosis and is on 3 L nasal cannula. 05/11/2020. No acute events noted. Patient was noted to be bradycardic last night however asymptomatic, this morning resting in bed comfortably no apparent distress, denies any fever, chills, nausea, vomiting. Labile heart rate. 05/12/2020. Acute events overnight. Unfortunately patient heart rate still not optimized, he has developed hematuria and his anticoagulation has been held since yesterday, otherwise denies any fever, chills, nausea, vomiting. Possible discharge home in a day or 2. Currently on room air SPO2 WNL and leukocytosis improving. 2020-05-13-patient is comfortable in the bed eating lunch. Denies any complaints denies any problems. Eliquis will be on hold as per Dr. Bauman and as per his request to do the CT abdomen pelvis without contrast for hematuria. 05/14/2020-patient is comfortable in the chair communicating well. Expressing desire to go home. Nurses notified me that small amount of hematuria noticed this morning. I spoke with Dr. Bamuan he wants to stop Eliquis and is heart rate is still high his recommendation is to increase the metoprolol 200 mg p.o. twice daily. Plan is to closely monitor his labs and hematuria and probable discharge tomorrow. 05/[id number]-old male history of COPD not on home oxygen admitted for unresponsiveness, hypoxia, presumed respiratory failure. He was admitted to ICU and he was intubated. Patient was successfully extubated and transferred to medical floor. Dr. Bauman follow the patient for A. fib with RVR. Acute hypoxic restaurant failure is resolved. Pulse ox is 96% room air this morning. Patient is going home on warfarin 2.5 mg p.o. daily and he was advised to follow-up with PT[facility]R [facility], digoxin 0.25 mg, metoprolol 100 mg p.o. twice daily. Patient is advised to call Dr. Bauman to get an appointment in his office in 2 weeks time. He was also advised to follow-up with [facility] next week for PT/INR checkup. Patient agreed verbalized the response and going home today. The nurses noticed mild hematuria 3 days ago and which was resolved. ct abdomine/ pelvis was done negative for acute pathology. Physical Exam Vital Signs: Temp Pulse Resp BP Pulse Ox 98.2 F 87 16 157/137 H 95 05/15/20 09:45 05/15/20 09:30 05/15/20 09:30 05/15/20 09:30 05/15/20 09:30 Intake & Output 05/14/20 05/15/20 05/16/20 06:59 06:59 06:59 Intake Total 1992 1290 Output Total 701 Balance 1291 1290 Weight 86 kg 86.9 kg General appearance: PRESENT: no acute distress, cooperative, well-developed Head exam: PRESENT: atraumatic Eye exam: PRESENT: PERRLA Ear exam: PRESENT: normal external ear exam Teeth exam: PRESENT: poor dentation Neck exam: ABSENT: carotid bruit, JVD, lymphadenopathy, thyromegaly Respiratory exam: PRESENT: decreased breath sounds Cardiovascular exam: PRESENT: RRR. ABSENT: diastolic murmur, rubs, systolic mur mur GI/Abdominal exam: PRESENT: normal bowel sounds, soft. ABSENT: distended, guarding, mass, organolmegaly, rebound, tenderness Rectal exam: PRESENT: deferred Extremities exam: PRESENT: full ROM. ABSENT: calf tenderness, clubbing, pedal edema Neurological exam: PRESENT: alert, awake, oriented to person, oriented to place, oriented to time, oriented to situation, CN II-XII grossly intact. ABSENT: motor sensory deficit Psychiatric exam: PRESENT: appropriate affect, normal mood. ABSENT: homicidal ideation, suicidal ideation Results Laboratory Results: WBC 11.4 10^3/uL (4.0-10.5) H 05/14/20 10:18 RBC 5.25 10^6/uL (4.35-5.55) 05/14/20 10:18 Hgb 15.3 g/dL (13.5-17.0) 05/14/20 10:18 Hct 44.7 % (37.9-51.0) 05/14/20 10:18 MCV 85 fl (80-97) 05/14/20 10:18 MCH 29.1 pg (27.0-33.4) 05/14/20 10:18 MCHC 34.2 g/dL (32.0-36.0) 05/14/20 10:18 RDW 14.2 % (11.5-14.0) H 05/14/20 10:18 Plt Count 170 10^3/uL (150-450) 05/14/20 10:18 Lymph % (Auto) 12.9 % (13-45) L 05/14/20 10:18 [place] % (Auto) 10.3 % (3-13) 05/14/20 10:18 Eos % (Auto) 2.2 % (0-6) 05/14/20 10:18 Baso % (Auto) 0.5 % (0-2) 05/14/20 10:18 Absolute Neuts (auto) 8.5 10^3/uL (1.7-8.2) H 05/14/20 10:18 Absolute Lymphs (auto) 1.5 10^3/uL (0.5-4.7) 05/14/20 10:18 Absolute Monos (auto) 1.2 10^3/uL (0.1-1.4) 05/14/20 10:18 Absolute Eos (auto) 0.2 10^3/uL (0.0-0.6) 05/14/20 10:18 Absolute Basos (auto) 0.1 10^3/uL (0.0-0.2) 05/14/20 10:18 Total Counted 100 05/12/20 11:48 Seg Neutrophils % 74.1 % (42-78) 05/14/20 10:18 Seg Neuts % (Manual) 73 % (42-78) 05/12/20 11:48 Lymphocytes % (Manual) 18 % (13-45) 05/12/20 11:48 Monocytes % (Manual) 7 % (3-13) 05/12/20 11:48 Eosinophils % (Manual) 2 % (0-6) 05/12/20 11:48 Basophils % (Manual) 0 % (0-2) 05/12/20 11:48 Abs Neuts (Manual) 8.8 10^3/uL (1.7-8.2) H 05/12/20 11:48 Abs Lymphs (Manual) 2.2 10^3/uL (0.5-4.7) 05/12/20 11:48 Abs Monocytes (Manual) 0.8 10^3/uL (0.1-1.4) 05/12/20 11:48 Absolute Eos (Manual) 0.2 10^3/uL (0.0-0.6) 05/12/20 11:48 Abs Basophils (Manual) 0.0 10^3/uL (0.0-0.2) 05/12/20 11:48 Toxic Vacuolation PRESENT 05/05/20 04:25 Platelet Estimate Cancelled 05/14/20 06:11 Large Platelets PRESENT 05/12/20 11:48 Platelet Comment DECREASED 05/12/20 11:48 Anisocytosis SLIGHT 05/12/20 11:48 RBC Morph Comment NORMO-CYTIC/CHROMIC 05/12/20 11:48 Carbonic Acid 1.14 mmol/L (1.05-1.35) 05/06/20 00:50 HCO3/H2CO3 Ratio 18:1 05/06/20 00:50 ABG pH 7.37 (7.35-7.45) 05/06/20 00:50 ABG pCO2 37.8 mmHg (35-45) 05/06/20 00:50 ABG pO2 75.0 mmHg (80-100) L 05/06/20 00:50 ABG HCO3 21.6 mmol/L (20-24) 05/06/20 00:50 ABG Total CO2 22.7 mmol/L (23-27) L 05/06/20 00:50 ABG O2 Saturation 94.8 % (94-98) 05/06/20 00:50 ABG Base Excess -3.1 mmol/L 05/06/20 00:50 FiO2 4L 05/06/20 00:50 Sodium 136.4 mmol/L (137-145) L 05/14/20 06:11 Potassium 4.2 mmol/L (3.6-5.0) 05/14/20 06:11 Chloride 105 mmol/L (98-107) 05/14/20 06:11 Carbon Dioxide 24 mmol/L (22-30) 05/14/20 06:11 Anion Gap 7 (5-19) 05/14/20 06:11 BUN 19 mg/dL (7-20) 05/14/20 06:11 Creatinine 1.03 mg/dL (0.52-1.25) 05/14/20 06:11 Est GFR ( Amer) > 60 (>60) 05/14/20 06:11 Est GFR (MDRD) Non-Af > 60 (>60) 05/14/20 06:11 Glucose 89 mg/dL (75-110) 05/14/20 06:11 POC Glucose 114 mg/dL (70-110) H 05/08/20 22:42 Hemoglobin A1c % 4.8 % (4.7-6.0) 05/09/20 04:46 Lactic Acid 3.2 mmol/L (0.7-2.1) H 05/03/20 05:12 Calcium 8.6 mg/dL (8.4-10.2) 05/14/20 06:11 Magnesium 2.0 mg/dL (1.6-2.3) 05/14/20 06:11 Total Bilirubin 0.9 mg/dL (0.2-1.3) 05/14/20 06:11 Direct Bilirubin 0.3 mg/dL (0.0-0.4) 05/14/20 06:11 Neonat Total Bilirubin Not Reportable 05/14/20 06:11 Neonat Direct Bilirubin Not Reportable 05/14/20 06:11 Neonat Indirect Bili Not Reportable 05/14/20 06:11 AST 35 U/L (17-59) 05/14/20 06:11 ALT 43 U/L (<50) 05/14/20 06:11 Alkaline Phosphatase 62 U/L (38-126) 05/14/20 06:11 Troponin I 0.099 ng/mL 05/06/20 03:20 NT-Pro-B Natriuret Pep 5580 pg/mL (<125) H 05/06/20 03:20 Total Protein 5.7 g/dL (6.3-8.2) L 05/14/20 06:11 Albumin 3.2 g/dL (3.5-5.0) L 05/14/20 06:11 Triglycerides 230 mg/dL (<150) H 05/09/20 04:46 Cholesterol 227.17 mg/dL (0-200) H 05/09/20 04:46 LDL Cholesterol Direct 182 mg/dL (<100) H 05/09/20 04:46 VLDL Cholesterol 46.0 mg/dL (10-31) H 05/09/20 04:46 HDL Cholesterol 37 mg/dL (>40) L 05/09/20 04:46 TSH 1.15 uIU/mL (0.47-4.68) 05/10/20 06:39 Free T4 1.53 ng/dL (0.78-2.19) 05/10/20 06:39 Free T3 pg/mL 3.72 pg/mL (2.77-5.27) 05/10/20 06:39 Urine Color YELLOW 05/11/20 05:15 Urine Appearance CLEAR 05/11/20 05:15 Urine pH 6.0 (5.0-9.0) 05/11/20 05:15 Ur Specific [place] 1.018 05/11/20 05:15 Urine Protein 100 mg/dL (NEGATIVE) H 05/11/20 05:15 Urine Glucose (UA) NEGATIVE mg/dL (NEGATIVE) 05/11/20 05:15 Urine Ketones NEGATIVE mg/dL (NEGATIVE) 05/11/20 05:15 Urine Blood LARGE (NEGATIVE) H 05/11/20 05:15 Urine Nitrite NEGATIVE (NEGATIVE) 05/11/20 05:15 Urine Bilirubin NEGATIVE (NEGATIVE) 05/11/20 05:15 Urine Urobilinogen NEGATIVE mg/dL (<2.0) 05/11/20 05:15 Ur Leukocyte Esterase NEGATIVE (NEGATIVE) 05/11/20 05:15 Urine WBC (Auto) 1 /HPF 05/11/20 05:15 Urine RBC (Auto) >182 /HPF 05/11/20 05:15 U Hyaline Cast (Auto) 4 /LPF 05/11/20 05:15 Urine Mucus (Auto) RARE /LPF 05/11/20 05:15 Urine Ascorbic Acid NEGATIVE (NEGATIVE) 05/11/20 05:15 Time Trough Drawn 212505/11/20 21:26 Vancomycin Trough 11.7 ug/mL (5.0-20.0) 05/11/20 21:26 Digoxin 0.48 ng/mL (0.8-2.0) L 05/10/20 06:39 Urine Opiates Screen NEGATIVE 05/03/20 05:56 Urine Methadone Screen NEGATIVE 05/03/20 05:56 Ur Barbiturates Screen NEGATIVE 05/03/20 05:56 Ur Phencyclidine Scrn NEGATIVE 05/03/20 05:56 Ur Amphetamines Screen NEGATIVE 05/03/20 05:56 U Benzodiazepines Scrn NEGATIVE 05/03/20 05:56 Urine Cocaine Screen NEGATIVE 05/03/20 05:56 U Marijuana (THC) Screen UNCONFIRMED POSITIVE 05/03/20 05:56 Serum Alcohol < 10 mg/dL (NONE DETECTED) 05/03/20 05:12 COVID-19 Source See comment 05/03/20 06:42 COVID-19 (ALVARO) Not Detected (Not Detect) 05/03/20 06:42 Slides for Path Review Cancelled 05/14/20 06:11 05/03/20 05/06/20 05:12 03:20 Troponin I 0.093 0.099 NT-Pro-B Natriuret Pep 4950 H 5580 H Impressions: Chest X-Ray 05/03/20 05:21 IMPRESSION: Developing right greater than left opacities likely representing pneumonia and differential diagnosis would include viral infections. Chest X-Ray 05/04/20 06:00 IMPRESSION: STABLE APPEARANCE OF THE CHEST. Chest X-Ray 05/05/20 06:00 IMPRESSION: STABLE APPEARANCE OF THE CHEST. SUPPORT DEVICES UNCHANGED. Chest X-Ray 05/06/20 00:00 IMPRESSION: Continued right-sided pneumonia. Chest X-Ray 05/09/20 00:00 IMPRESSION: Significant clearing of airspace 05/06/2020. Minimal residual right basilar infiltrate persists. Abdomen/Pelvis CT 05/13/20 00:00 IMPRESSION: 1. No evidence of urinary tract stones. 2. Potential pulmonary nodules right lower lobe. Consider correlation with noncontrast chest CT. 3. Cholelithiasis. Plan Time Spent: Greater than 30 Minutes Stroke Is this a Stroke Patient?: No Acute Heart Failure Is this a Heart Failure Patient?: No
== END 2020-05-15 09:30 | disposition home or self-care (01) | DRG 208 ==
LOC: ER 05:09 → EH 06:54 → ICU 21:00 → 5 05-08 13:04
PROVIDERS: ADMIT Internal Medicine; ATTEND Internal Medicine
PROC: 5A1945Z Respiratory Ventilation, 24-96 Consecutive Hours (ICD-10-PCS; principal; 2020-05-03)
PROC: 0BH17EZ Insertion of Endotracheal Airway into Trachea, Via Natural or Artificial Opening (ICD-10-PCS; 2020-05-06)
PROC: 5A1935Z Respiratory Ventilation, Less than 24 Consecutive Hours (ICD-10-PCS; 2020-05-06)
PROC: B24BZZZ Ultrasonography of Heart with Aorta (ICD-10-PCS; 2020-05-14)
DX: J96.01 Acute respiratory failure with hypoxia (principal); J18.9 Pneumonia, unspecified organism; I13.0 Hypertensive heart and chronic kidney disease with heart failure and stage 1 through stage 4 chronic kidney disease, or unspecified chronic kidney disease; I50.22 Chronic systolic (congestive) heart failure; I48.20 Chronic atrial fibrillation, unspecified; F17.200 Nicotine dependence, unspecified, uncomplicated; J43.9 Emphysema, unspecified; N18.2 Chronic kidney disease, stage 2 (mild); R40.2432 Glasgow coma scale score 3-8, at arrival to emergency department; M19.90 Unspecified osteoarthritis, unspecified site; R31.9 Hematuria, unspecified; Z20.828 Contact with and (suspected) exposure to other viral communicable diseases; Z82.3 Family history of stroke; I25.2 Old myocardial infarction; Z79.51 Long term (current) use of inhaled steroids; Z79.899 Other long term (current) drug therapy; Z59.7 Insufficient social insurance and welfare support; Z71.6 Tobacco abuse counseling; Z79.01 Long term (current) use of anticoagulants; Z78.1 Physical restraint status
CPT/HCPCS: 31500; 36415; 51702; 71045; 74176; 80048; 80053; 80061; 80162; 80202; 80307; 81001; 82565; 82803; 82962; 83036; 83605; 83735; 83880; 84132; 84439; 84443; 84481; 84484; 85025; 85027; 87040; 87070; 87077; 87150; 87205; 87635; 93005; 93010; 93306; 94002; 94003; 94667; 94668; 94799; 96365; 96368; 96375; 99221; 99291; C9803; J0360; J0456; J0696; J1160; J1650; J1940; J2060; J2250; J2543; J2704; J2920; J2930; J3010; J3370; J3475; J3480; J3490; J7030; J7060; J7120; J7644; S0028

== ENCOUNTER 2020-06-01 20:54 | Inpatient (IN) | payer SELFPAY ==
--- NOTE | 2020-06-01 21:19 | ER Document Report ---
ED General - General Stated Complaint: RESPIRATORY DISTRESS Time Seen by Provider: 06/01/20 21:00 Mode of Arrival: Medic Notes: 60-year-old man history of COPD EMS was called for respiratory distress patient was found to be in extreme respiratory distress he was put on BiPAP but could not tolerate it had to be intubated because of becoming poorly responsive. Patient was noted to be in atrial fibrillation with RVR. He was given ketamine and a.m. 150 mg of each. Intubation was then given another 200 mg of ketamine. Patient was noted to be hypoxic with O2 sat of 65% prior to intubation and tachycardic with A. fib RVR 146. He was given IV epinephrine for hypotension as well as a Levophed drip started for a very short duration. Arriving in the emergency department patient is intubated and bagged easily with a O2 sat of 100%. Patient has a past medical history of COPD, apparently not using home O2, recently admitted to the hospital with hypercapnic respiratory failure (May 15, 2020) history of tobacco abuse, CVA and a prior CA. He was apparently intubated on that hospitalization as well. He received Solu-Medrol 125 mg IV and add 2 g of magnesium IV during the transport by EMS. TRAVEL OUTSIDE OF THE [place] IN LAST 30 DAYS: No - Related Data Allergies/Adverse Reactions: No Known Allergies Allergy (Verified 01/08/18 22:26) Past Medical History - Social History Smoking Status: Current Every Day Smoker Family History: Reviewed & Not Pertinent - Past Medical History Cardiac Medical History: Reports: Hx Heart Attack, Hx Hypertension Pulmonary Medical History: Denies: Hx COPD Endocrine Medical History: Denies: Hx Diabetes Mellitus Type 2 Renal/ Medical History: Denies: Hx Peritoneal Dialysis GI Medical History: Denies: Hx Gastroesophageal Reflux Disease Musculoskeletal Medical History: Reports Hx Arthritis Skin Medical History: Denies Hx Eczema, Denies Hx Psoriasis Psychiatric Medical History: Denies: Hx Depression Traumatic Medical History: Denies: Hx Traumatic Brain Injury Past Surgical History: Reports: Hx Orthopedic Surgery - Right arm surgery for fracture Review of Systems - Review of Systems -: Yes ROS unobtainable due to patient's medical condition Physical Exam - Vital signs Vitals: Resp Pulse Ox 24 H 100 06/01/20 20:56 06/01/20 20:56 - Notes Notes: PHYSICAL EXAMINATION: Physical Exam: General: Well-nourished well-developed in no acute distress HEENT: NC/AT, pupils equal round and reactive to light, MM moist,nares clear, oropharynx clear, airway patent Neck: supple, no adenopathy, no masses. Good range of motion Lungs: clear, no wheezing, no rales no rhonchi CVS: Tachycardic rate and rhythm no murmur gallop or rub Abdomen: Soft, active, nontender, no masses, no hepatosplenomegaly Ext: 1+ edema lower extremities bilaterally Neuro: Intubated and unresponsive Skin: Intact no open lesions, no rash Course - Re-evaluation Re-evalutation: 06/01/20 22:44 Patient was started on a Cardizem drip after bolus of 2 mg for atrial fib with RVR. I have reviewed the chest x-ray ET tube is in good position. Hyperinflated lungs with bilateral infiltrates or pneumothorax. Labs are still pending and a redraw was performed by the lab. 06/02/20 00:05 Cardizem bolus 10 mg IV and Cardizem drip at 5 mg per to be titrated as needed. ABG was reviewed the patient is acidotic with hypercapnia, the rate on the ventilator was increased from 15-18 and given a PO2 of greater than 230 CO2 was cut back. I have requested a repeat ABG in about 3 hours to assess the improvement. 06/02/20 00:29 Patient's pH is gradually improving, heart rate is down into the 70s blood pressure is holding well. Question of bilateral infiltrates on chest x-ray negative coronavirus test and patient was intubated less than 3 weeks ago, no fever, no increase WBC. Will hold antibiotic for now. - Vital Signs Vital signs: Temp Pulse Resp BP Pulse Ox 97.2 F 20 136/84 H 100 06/02/20 00:46 06/02/20 00:46 06/02/20 00:46 06/02/20 00:46 - Laboratory Results Result Diagrams: 06/01/20 20:55 06/01/20 22:16 Laboratory Results Interpreted: 06/01/20 06/01/20 06/01/20 20:55 20:55 20:55 PT 18.4 H Carbonic Acid ABG pH ABG pCO2 ABG pO2 ABG Total CO2 ABG O2 Saturation Creatinine Est GFR ( Amer) Est GFR (MDRD) Non-Af Glucose Lactic Acid 2.5 H Calcium Alkaline Phosphatase NT-Pro-B Natriuret Pep 19704 H Total Protein Albumin Urine Protein Urine Blood Urine Urobilinogen Leukocyte Esterase Rfl 06/01/20 06/01/20 06/01/20 21:00 21:10 22:16 PT Carbonic Acid 1.74 H ABG pH 7.18 L* ABG pCO2 57.9 H ABG pO2 234.9 H ABG Total CO2 22.8 L ABG O2 Saturation 99.3 H Creatinine 1.49 H Est GFR ( Amer) 58 L Est GFR (MDRD) Non-Af 48 L Glucose 176 H Lactic Acid Calcium 8.0 L Alkaline Phosphatase 129 H NT-Pro-B Natriuret Pep Total Protein 6.2 L Albumin 3.4 L Urine Protein 100 H Urine Blood SMALL H Urine Urobilinogen 2.0 H Leukocyte Esterase Rfl TRACE H 06/01/20 23:00 PT Carbonic Acid 1.73 H ABG pH 7.23 L ABG pCO2 57.5 H ABG pO2 ABG Total CO2 ABG O2 Saturation Creatinine Est GFR ( Amer) Est GFR (MDRD) Non-Af Glucose Lactic Acid Calcium Alkaline Phosphatase NT-Pro-B Natriuret Pep Total Protein Albumin Urine Protein Urine Blood Urine Urobilinogen Leukocyte Esterase Rfl Critical Laboratory Results Reviewed: No Critical Results - Radiology Results Radiology Results Interpreted: 06/02/20 00:29 Chest X-Ray 06/01/20 21:01 IMPRESSION: 1. Bilateral infiltrates, likely pneumonia 2. Intubated 3. Enteric tube extends into the stomach Critical Radiology Results Reviewed: No Critical Results - EKG Interpretation by Ca Rhythm: A.Fib - EKG interpreted by Dr. Montiel: Atrial fibrillation, rate 118, QT interval 372 ms, normal axis, repolarization abnormality? Ischemic changes, compared to EKG dated 05/16/2020, there are no significant interval changes, interpretation Abnormal EKG Critical Care Note - Critical Care Note Total time excluding time spent on procedures (mins): 60 - Critical care time spent obtaining history from patient or surrogate, discussions with consultants, development of treatment plan with patient or surrogate, evaluation of patient's response to treatment, examination of patient, ordering and performing alvaro atments and interventions, ordering and review of laboratory studies, re- evaluation of patient's condition, ordering and review of radiographic studies and review of old charts Discharge - Discharge Clinical Impression: Atrial fibrillation with rapid ventricular response, Chronic obstructive pulmonary disease with acute respiratory failure, Elevated troponin Condition: Serious Disposition: ADMITTED INPATIENT Unit Admitted: ICU
[2020-06-01] MEDS ORDERED: DILTIAZEM HCL INJ 25 MG/5 ML VIAL IV ONE ×2 (21:27→23:20)
[2020-06-01] MEDS ORDERED: DILTIAZEM HCL/D5W 125 MG/125 ML RTUINJ IV PRN (21:28)
[2020-06-01 21:33] LABS: INTERNATIONAL RATION (INR) 1.51; PROTHROMBIN TIME 18.4 SEC (11.4-15.4)
[2020-06-01 21:44] LABS: ARTERIAL BLOOD BASE EXCESS -8.1 mmol/L; ARTERIAL BLOOD H2CO3 1.74 mmol/L (1.05-1.35); ARTERIAL BLOOD O2 SATURATION 99.3 % (94-98); ARTERIAL BLOOD PCO2 57.9 mmHg (35-45); ARTERIAL BLOOD PO2 234.9 mmHg (80-100); ARTERIAL BLOOD TOTAL CO2 22.8 mmol/L (23-27)
[2020-06-01 21:45] LABS: ARTERIAL BLOOD FIO2 100%
[2020-06-01 21:46] LABS: ARTERIAL BLOOD PH 7.18 (7.35-7.45)
[2020-06-01 21:55] LABS: APPEARANCE,URINE CLEAR; BILIRUBIN,URINE NEGATIVE (NEGATIVE); CALCIUM OXALATE CRYSTALS,URINE FEW /HPF; COLOR,URINE AMBER; GLUCOSE, URINE NEGATIVE (NEGATIVE); KETONES,URINE NEGATIVE (NEGATIVE); PROTEIN,URINE 100 mg/dL (NEGATIVE); URINE SPECIFIC GRAVITY 1.024
[2020-06-01 21:55] LABS: ABSOLUTE BASOPHILS # (AUTO) 0.1 10^3/uL (0.0-0.2); ABSOLUTE EOSINOPHILS # (AUTO) 0.3 10^3/uL (0.0-0.6); ABSOLUTE LYMPHOCYTES (AUTO) 3.3 10^3/uL (0.5-4.7); ABSOLUTE MONOCYTES (AUTO) 0.6 10^3/uL (0.1-1.4); ABSOLUTE NEUT (AUTO) 5.7 10^3/uL (1.7-8.2); BASOPHILS % (AUTO) 0.6 % (0-2); EOSINOPHILS % (AUTO) 3.3 % (0-6); HEMOGLOBIN 14.2 g/dL (13.5-17.0); MEAN CORPUSCULAR HEMOGLOBIN 29.6 pg (27.0-33.4); MEAN CORPUSCULAR HGB CONC 34.6 g/dL (32.0-36.0); MEAN CORPUSCULAR VOLUME 85 fl (80-97); MONOCYTES % (AUTO) 5.8 % (3-13); PLATELET COUNT 259 10^3/uL (150-450); RED CELL DISTRIBUTION WIDTH 13.8 % (11.5-14.0); SEGMENTED NEUTROPHILS % (AUTO) 57.3 % (42-78); TOTAL CELLS COUNTED % (AUTO) 100 %
--- NOTE | 2020-06-01 22:12 | RADIOLOGY REPORT (SQ) ---
EXAM DESCRIPTION: Site: CHEST SINGLE VIEW RP: XR CHEST 1 VIEW CLINICAL HISTORY: 60 years Male; Post intubation; COMPARISON: 05/09/2020 FINDINGS: Lungs: Diffuse groundglass infiltrates involving the majority of the right lung as well as the left perihilar region. Endotracheal tube 7 cm above mi. Enteric tube extends into the stomach. No pneumothorax or pleural effusion. Mediastinum: Mediastinum is within normal limits for this positioning. Bones: Bony structures are unremarkable. IMPRESSION: 1. Bilateral infiltrates, likely pneumonia 2. Intubated 3. Enteric tube extends into the stomach
[2020-06-01 22:42] LABS: ALBUMIN 3.4 g/dL (3.5-5.0); ALKALINE PHOSPHATASE 129 U/L (38-126); ANION GAP 6 (5-19); ASPARTATE AMINO TRANSFERASE 37 U/L (17-59); BILIRUBIN,DIRECT 0.2 mg/dL (0.0-0.4); BILIRUBIN,TOTAL 0.7 mg/dL (0.2-1.3); BLOOD UREA NITROGEN 13 mg/dL (7-20); CARBON DIOXIDE 27 mmol/L (22-30); CHLORIDE 104 mmol/L (98-107); GLUCOSE 176 mg/dL (75-110); POTASSIUM 3.9 mmol/L (3.6-5.0); TOTAL PROTEIN 6.2 g/dL (6.3-8.2)
[2020-06-01 22:53] LABS: CREATINE KINASE MB 2.52 ng/mL (<4.55)
[2020-06-01 22:56] LABS: TROPONIN I 0.059 ng/mL
[2020-06-01 23:26] LABS: ARTERIAL BLOOD BASE EXCESS -4.8 mmol/L; ARTERIAL BLOOD H2CO3 1.73 mmol/L (1.05-1.35); ARTERIAL BLOOD HCO3 23.7 mmol/L (20-24); ARTERIAL BLOOD O2 SATURATION 94.7 % (94-98); ARTERIAL BLOOD PCO2 57.5 mmHg (35-45); ARTERIAL BLOOD PH 7.23 (7.35-7.45); ARTERIAL BLOOD PO2 86.6 mmHg (80-100); ARTERIAL BLOOD TOTAL CO2 25.5 mmol/L (23-27)
[2020-06-01 23:27] LABS: ARTERIAL BLOOD FIO2 90%
[2020-06-01 23:49] LABS: URINE AMPHETAMINES SCREEN NEGATIVE; URINE BARBITURATES SCREEN NEGATIVE; URINE BENZODIAZEPINES SCREEN NEGATIVE; URINE COCAINE SCREEN NEGATIVE; URINE METHADONE SCREEN NEGATIVE; URINE PHENCYCLIDINE SCREEN NEGATIVE
[2020-06-01 23:55] LABS: URINE MARIJUANA (THC) SCREEN UNCONFIRMED POSITIVE
[2020-06-02] MEDS ORDERED: PROPOFOL 1,000 MG/100 ML INFUS..BTL IV ONE (02:20)
[2020-06-02] MEDS: PROPOFOL 1,000 MG/100 ML INFUS..BTL IV PRN ×3 (02:30→10:18)
[2020-06-02] MEDS ORDERED: GLUCAGON,HUMAN RECOMB 1 MG INJ SUBCUT PRN (02:33)
[2020-06-02] MEDS ORDERED: DEXTROSE 50%-WATER 25 GM/50 ML DISP.SYRIN IV PRN ×2 (02:33)
[2020-06-02] MEDS ORDERED: DEXTROSE 40% GEL 15 GM TUBE PO PRN ×2 (02:33)
--- NOTE | 2020-06-02 02:33 | CRITICAL CARE ADMISSION REPORT ---
HPI Date:: 06/02/20 Time:: 02:00 Reason for ICU Reason:: Respiratory failure, A. fib with RVR Admission Date/Time & PCP: Admission Date/Time: 06/01/20 23:21 Primary Care Provider: NILDA ABARCA MD HPI: Mr. Jimenez is a 60-year-old gentleman with a history of COPD, A. fib with RVR, CVA, CKD stage II (last creatinine on 05/14/2020 was 1.03) and prior CA. Has had multiple admissions to this hospital and he has recently been admitted with respiratory failure this past month. Unfortunately, Mr. Jimenez is historically poor to follow-up and has limited medical understanding and access to medications. On this admission, EMS was called for respiratory distress. Upon arrival, EMS placed him on BiPAP which she did not tolerate and he became poorly responsive. He was then intubated and sedated and started on Solu-Medrol for his acute exacerbation of COPD. I was called to assess this intubated patient for admission to the intensive care unit. Patient has not been on any sedation since arriving in the emergency room. At the time of my examination, he began to wake up and is following commands. History obtained from:: Medical documentation - Diagnosis/Plan (1) Atrial fibrillation with rapid ventricular response Is this a current diagnosis for this admission?: Yes Plan: Patient was placed on a Cardizem drip in the emergency department. It has since been weaned off and rate seems to be better controlled. We will start as needed metoprolol. (2) Chronic obstructive pulmonary disease with acute respiratory failure Is this a current diagnosis for this admission?: Yes Plan: Begin albuterol and Atrovent nebs Continue daily steroids Start LABA/LAMA/ICS regimen once acute wheezing subsides Patient was briefly placed on spontaneous ventilation to assess respiratory status. He quickly became distressed and was placed back on PRVC. (3) Bilateral pneumonia Qualifiers: Pneumonia type: due to unspecified organism Lung location: unspecified part of lung Qualified Code(s): J18.9 - Pneumonia, unspecified organism Is this a current diagnosis for this admission?: Yes Plan: Likely diffuse interstitial pneumonia seen on CXR. Continue current ventilator settings with PRVC. Start levofloxacin. Obtain repeat chest x-ray in a.m. (4) CKD (chronic kidney disease) Qualifiers: Chronic kidney disease stage: stage 2 (mild) Qualified Code(s): N18.2 - Chronic kidney disease, stage 2 (mild) Is this a current diagnosis for this admission?: Yes Plan: Patient's creatinine only slightly elevated from discharge levels 3 weeks ago. Start LR at 100 mL an hour. Follow-up renal panel in a.m. Past Medical History Cardiac Medical History: Reports: Myocardial Infarction, Hypertension Pulmonary Medical History: Reports: Chronic Obstructive Pulmonary Disease (COPD) Endocrine Medical History: Denies: Diabetes Mellitus Type 2 Renal/ Medical History: Reports: Chronic Kidney Disease GI Medical History: Denies: Gastroesophageal Reflux Disease Musculoskeltal Medical History: Reports: Arthritis Skin Medical History: Denies: Eczema, Psoriasis Psychiatric Medical History: Denies: Depression Traumatic Medical History: Denies: Traumatic Brain Injury Hematology: Denies: Bleeding Tendencies Past Surgical History Past Surgical History: Reports: Orthopedic Surgery - Right arm surgery for fracture Social/Family History - Social History Smoking Status: Current Every Day Smoker Frequency of Alcohol Use: None Hx Recreational Drug Use: No Drugs: Marijuana Hx Prescription Drug Abuse: No - Medication/Allergies Home Medications: Hydrochlorothiazide 25 mg PO QAM 05/03/20 Aspirin [Aspirin 81 mg Chewable Tablet] 81 mg PO DAILY 30 Days #30 tab.chew 05/15/20 Atorvastatin Calcium [Lipitor 40 mg Tablet] 40 mg PO QHS 30 Days #30 tablet 08/30 Digoxin [Lanoxin 0.125 mg Tablet] 0.25 mg PO DAILY 30 Days #30 tablet 05/15/20 Lisinopril [Prinivil] 20 mg PO Q12 60 Days #30 tab 05/15/20 Metoprolol Succinate [Toprol Xl 50 mg Tab.sr] 100 mg PO Q12 60 Days #30 tab.sr.24h 05/15/20 Warfarin Sodium [Coumadin] 2.5 mg PO DAILY 30 Days #30 tablet 05/15/20 Allergies/Adverse Reactions: No Known Allergies Allergy (Verified 01/08/18 22:26) Review of Systems ROS unobtainable: Due to endotracheal tube, Due to mental status Physical Exam Vital Signs: Temp Pulse Resp BP Pulse Ox 97.3 F 81 20 135/90 H 100 06/02/20 01:00 06/02/20 01:00 06/02/20 01:00 06/02/20 01:00 06/02/20 01:00 Intake & Output 05/31/20 06/01/20 06/02/20 06:59 06:59 06:59 Intake Total 26 Balance 26 Weight 84.1 kg Weight/Height Weight 84.1 kg Height 6 ft General appearance: PRESENT: no acute distress Head exam: PRESENT: atraumatic, normocephalic Eye exam: PRESENT: EOMI, PERRLA Ear exam: PRESENT: normal external ear exam Mouth exam: PRESENT: dry mucosa Neck exam: PRESENT: full ROM Respiratory exam: PRESENT: wheezes Cardiovascular exam: PRESENT: irregular rhythm, +S1, +S2, tachycardia Pulses: PRESENT: normal carotid pulses, normal radial pulses, normal femoral pulses Vascular exam: PRESENT: normal capillary refill GI/Abdominal exam: PRESENT: diminished bowel sounds, soft. ABSENT: tenderness Neurological exam: PRESENT: awake, CN II-XII grossly intact Skin exam: PRESENT: normal color. ABSENT: cyanosis, skin tears Tubes/Lines: PRESENT: Endotracheal Tube Laboratory/Radiographs Laboratory Results: 06/01/20 20:55 06/01/20 22:16 06/01/20 06/01/20 06/01/20 20:55 20:55 20:55 WBC 10.0 RBC 4.80 Hgb 14.2 Hct 41.0 MCV 85 MCH 29.6 MCHC 34.6 RDW 13.8 Plt Count 259 Seg Neutrophils % 57.3 Carbonic Acid HCO3/H2CO3 Ratio ABG pH ABG pCO2 ABG pO2 ABG HCO3 ABG O2 Saturation ABG Base Excess FiO2 Sodium Cancelled Potassium Cancelled Chloride Cancelled Carbon Dioxide Cancelled Anion Gap Cancelled BUN Cancelled Creatinine Cancelled Est GFR ( Amer) Cancelled Est GFR (Non-Af Amer) Cancelled Glucose Cancelled Lactic Acid 2.5 H Calcium Cancelled Total Bilirubin Cancelled AST Cancelled Alkaline Phosphatase Cancelled Total Protein Cancelled Albumin Cancelled Urine Color Urine Appearance Urine pH Ur Specific [place] Urine Protein Urine Glucose (UA) Urine Ketones Urine Blood Urine RBC (Auto) 06/01/20 06/01/20 06/01/20 21:00 21:10 22:16 WBC RBC Hgb Hct MCV MCH MCHC RDW Plt Count Seg Neutrophils % Carbonic Acid 1.74 H HCO3/H2CO3 Ratio 12:1 ABG pH 7.18 L* ABG pCO2 57.9 H ABG pO2 234.9 H ABG HCO3 21.0 ABG O2 Saturation 99.3 H ABG Base Excess -8.1 FiO2 100% Sodium 137.1 Potassium 3.9 Chloride 104 Carbon Dioxide 27 Anion Gap 6 BUN 13 Creatinine 1.49 H Est GFR ( Amer) 58 L Est GFR (Non-Af Amer) Glucose 176 H Lactic Acid Calcium 8.0 L Total Bilirubin 0.7 AST 37 Alkaline Phosphatase 129 H Total Protein 6.2 L Albumin 3.4 L Urine Color IAM Urine Appearance CLEAR Urine pH 5.0 Ur Specific [place] 1.024 Urine Protein 100 H Urine Glucose (UA) NEGATIVE Urine Ketones NEGATIVE Urine Blood SMALL H Urine RBC (Auto) 17 06/01/20 06/02/20 23:00 00:14 WBC RBC Hgb Hct MCV MCH MCHC RDW Plt Count Seg Neutrophils % Carbonic Acid 1.73 H HCO3/H2CO3 Ratio 13:1 ABG pH 7.23 L ABG pCO2 57.5 H ABG pO2 86.6 ABG HCO3 23.7 ABG O2 Saturation 94.7 ABG Base Excess -4.8 FiO2 90% Sodium Potassium Chloride Carbon Dioxide Anion Gap BUN Creatinine Est GFR ( Amer) Est GFR (Non-Af Amer) Glucose Lactic Acid 1.8 Calcium Total Bilirubin AST Alkaline Phosphatase Total Protein Albumin Urine Color Urine Appearance Urine pH Ur Specific [place] Urine Protein Urine Glucose (UA) Urine Ketones Urine Blood Urine RBC (Auto) 06/01/20 06/01/20 06/01/20 20:55 20:55 20:55 Creatine Kinase 70 CK-MB (CK-2) Cancelled Troponin I Cancelled NT-Pro-B Natriuret Pep [id number] H 06/01/20 22:16 Creatine Kinase CK-MB (CK-2) 2.52 Troponin I 0.059 NT-Pro-B Natriuret Pep Impressions: Chest X-Ray 06/01/20 21:01 IMPRESSION: 1. Bilateral infiltrates, likely pneumonia 2. Intubated 3. Enteric tube extends into the stomach All labs, radiographs, diagnostic studies and EKGs were personally reviewed: Yes In addition, reports of radiographic and diagnostic studies were read: Yes Critical Time Critical Time (minutes): 65 -: The care of a critically ill patient is dynamic. This note represents a static moment in the admission process. Orders and treatments may be given simultaneously and urgently, and time is not textile machinery sales representative of the treatment process. This patient requires Critical Care secondary to life threatening organ or limb dysfunction. Without Critical Care services, the patient is at risk for increased mortality and morbidity.
[2020-06-02] MEDS ORDERED: LEVOFLOXACIN 500 MG/D5W RTU 500 MG/100 ML RTUPB IV ONE (03:00)
[2020-06-02] MEDS: RINGERS SOLUTION,LACTATED 1,000 ML IV PRN ×2 (03:30→16:33)
[2020-06-02 04:02] LABS: HEMATOCRIT 40.7 % (37.9-51.0); HEMOGLOBIN 14.5 g/dL (13.5-17.0); MEAN CORPUSCULAR HEMOGLOBIN 29.7 pg (27.0-33.4); MEAN CORPUSCULAR HGB CONC 35.7 g/dL (32.0-36.0); MEAN CORPUSCULAR VOLUME 83 fl (80-97); PLATELET COUNT 190 10^3/uL (150-450); WHITE BLOOD COUNT 7.7 10^3/uL (4.0-10.5)
[2020-06-02 04:24] LABS: ANION GAP 7 (5-19); BLOOD UREA NITROGEN 14 mg/dL (7-20); CALCIUM 8.2 mg/dL (8.4-10.2); CARBON DIOXIDE 26 mmol/L (22-30); CHLORIDE 104 mmol/L (98-107); GLUCOSE 174 mg/dL (75-110)
[2020-06-02] MEDS ORDERED: METHYLPREDNISOLONE INJ 125 MG/2 ML SDV IV SCH (06:00)
[2020-06-02] MEDS: HEPARIN SOD (PORCINE) 5,000 UNIT/ML 1 ML VIAL SUBCUT SCH ×3 (06:05→21:50)
[2020-06-02 06:38] LABS: ARTERIAL BLOOD BASE EXCESS -0.3 mmol/L; ARTERIAL BLOOD H2CO3 1.26 mmol/L (1.05-1.35); ARTERIAL BLOOD HCO3 24.7 mmol/L (20-24); ARTERIAL BLOOD O2 SATURATION 99.6 % (94-98); ARTERIAL BLOOD PCO2 41.7 mmHg (35-45); ARTERIAL BLOOD PH 7.39 (7.35-7.45); ARTERIAL BLOOD PO2 271.5 mmHg (80-100)
[2020-06-02 06:39] LABS: ARTERIAL BLOOD FIO2 90%
[2020-06-02] MEDS: IPRATROPIUM/ALBUTEROL 0.5-2.5 MG/3 ML AMPUL NEB SCH ×5 (07:03→20:48)
--- NOTE | 2020-06-02 07:48 | EKG REPORT ---
SEVERITY:- ABNORMAL ECG - ATRIAL FIBRILLATION REPOL ABNRM SUGGESTS ISCHEMIA, DIFFUSE LEADS PROLONGED QT INTERVAL NONSPECIFIC INTRAVENTRICULAR CONDUCTION DELAY : Confirmed by: Orlando Brito MD 02-Jun-2020 07:48:33
--- NOTE | 2020-06-02 08:22 | RADIOLOGY REPORT (SQ) ---
EXAM DESCRIPTION: CHEST SINGLE VIEW IMAGES COMPLETED DATE/TIME: 06/02/2020 6:20 am REASON FOR STUDY: Respiratory failure, pneumonia COMPARISON: AP view of the chest from 06/01/2020. EXAM PARAMETERS: NUMBER OF VIEWS: One view. TECHNIQUE: An AP view of the chest was obtained. RADIATION DOSE: NA LIMITATIONS: None. FINDINGS: LUNGS AND PLEURA: Unchanged bilateral basilar predominant hazy opacities that are associat ed with blunting of the costophrenic sulci. There is no pneumothorax. MEDIASTINUM AND HILAR STRUCTURES: Stable mediastinal and hilar contours. HEART AND VASCULAR STRUCTURES: Stable cardiac silhouette. BONES: No acute findings. HARDWARE: None in the chest. OTHER: The tip of the endotracheal tube projects 7.4 cm above the mi. The tip of the enteric tub e projects within the gastric lumen. IMPRESSION: Tubes and lines as above. Otherwise unchanged radiographic appearance of the chest. TECHNICAL DOCUMENTATION: JOB ID: [id number] 2010 [employer]- All Rights Reserved Reading location - IP/workstation name: [email or web address]
[2020-06-02] MEDS: FAMOTIDINE INJ/PF 20 MG/2 ML SDV IV SCH ×2 (10:20→21:50)
--- NOTE | 2020-06-02 12:49 | PDOC CRITICAL CARE PROG REPORT ---
General Date:: 06/02/20 ICU Day:: 1 Ventilator Day:: 1 Hospital Day:: 1 Resuscitation Status: Full Code Events in the past 12 to 24 Hours:: Awake, following commands. Review of systems relevant to events:: Respiratory Reason for ICU Addmission:: Respiratory failure, A. fib with RVR, intubated. - Medications: Medications reviewed and adjusted accordingly: Yes Vasopressors:: None Sedation:: Propofol Physical Exam Vital Signs: Temp Pulse Resp BP Pulse Ox 99.3 F 83 22 H 161/136 H 98 06/02/20 12:23 06/02/20 09:37 06/02/20 12:23 06/02/20 12:23 06/02/20 12:23 Intake & Output 06/01/20 06/02/20 06/03/20 06:59 06:59 06:59 Intake Total 126 95 Output Total 520 218 Balance -394 -123 Weight 87.7 kg Weight/Height Weight 87.7 kg Height 6 ft General appearance: PRESENT: no acute distress Head exam: PRESENT: atraumatic, normocephalic Eye exam: PRESENT: conjunctiva pink, EOMI, PERRLA. ABSENT: scleral icterus Ear exam: PRESENT: normal external ear exam Mouth exam: PRESENT: moist, tongue midline Respiratory exam: PRESENT: clear to auscultation [place]. ABSENT: rales, rhonchi, wheezes Cardiovascular exam: PRESENT: irregular rhythm, tachycardia. ABSENT: diastolic murmur, rubs, systolic murmur GI/Abdominal exam: PRESENT: normal bowel sounds, soft. ABSENT: distended, guarding, mass, organolmegaly, rebound, tenderness Rectal exam: PRESENT: deferred Gentrourinary exam: PRESENT: indwelling catheter Extremities exam: PRESENT: full ROM. ABSENT: calf tenderness, clubbing, pedal edema Musculoskeletal exam: PRESENT: normal inspection Neurological exam: PRESENT: awake, CN II-XII grossly intact, other - Somewhat sedated. Psychiatric exam: PRESENT: appropriate affect, normal mood. ABSENT: homicidal i deation, suicidal ideation Skin exam: PRESENT: dry, intact, warm. ABSENT: cyanosis, rash Tubes/Lines: PRESENT: Endotracheal Tube, Nasogastic Tube Laboratory/Radiographs Laboratory Results: 06/02/20 03:41 06/02/20 03:41 06/01/20 06/01/20 06/01/20 20:55 20:55 20:55 WBC 10.0 RBC 4.80 Hgb 14.2 Hct 41.0 MCV 85 MCH 29.6 MCHC 34.6 RDW 13.8 Plt Count 259 Seg Neutrophils % 57.3 Carbonic Acid HCO3/H2CO3 Ratio ABG pH ABG pCO2 ABG pO2 ABG HCO3 ABG O2 Saturation ABG Base Excess FiO2 Sodium Cancelled Potassium Cancelled Chloride Cancelled Carbon Dioxide Cancelled Anion Gap Cancelled BUN Cancelled Creatinine Cancelled Est GFR ( Amer) Cancelled Est GFR (Non-Af Amer) Cancelled Glucose Cancelled Lactic Acid 2.5 H Calcium Cancelled Magnesium Total Bilirubin Cancelled AST Cancelled Alkaline Phosphatase Cancelled Total Protein Cancelled Albumin Cancelled Urine Color Urine Appearance Urine pH Ur Specific [place] Urine Protein Urine Glucose (UA) Urine Ketones Urine Blood Urine RBC (Auto) 06/01/20 06/01/20 06/01/20 21:00 21:10 22:16 WBC RBC Hgb Hct MCV MCH MCHC RDW Plt Count Seg Neutrophils % Carbonic Acid 1.74 H HCO3/H2CO3 Ratio 12:1 ABG pH 7.18 L* ABG pCO2 57.9 H ABG pO2 234.9 H ABG HCO3 21.0 ABG O2 Saturation 99.3 H ABG Base Excess -8.1 FiO2 100% Sodium 137.1 Potassium 3.9 Chloride 104 Carbon Dioxide 27 Anion Gap 6 BUN 13 Creatinine 1.49 H Est GFR ( Amer) 58 L Est GFR (Non-Af Amer) Glucose 176 H Lactic Acid Calcium 8.0 L Magnesium Total Bilirubin 0.7 AST 37 Alkaline Phosphatase 129 H Total Protein 6.2 L Albumin 3.4 L Urine Color IAM Urine Appearance CLEAR Urine pH 5.0 Ur Specific [place] 1.024 Urine Protein 100 H Urine Glucose (UA) NEGATIVE Urine Ketones NEGATIVE Urine Blood SMALL H Urine RBC (Auto) 17 06/01/20 06/02/20 06/02/20 23:00 00:14 03:41 WBC RBC Hgb Hct MCV MCH MCHC RDW Plt Count Seg Neutrophils % Carbonic Acid 1.73 H HCO3/H2CO3 Ratio 13:1 ABG pH 7.23 L ABG pCO2 57.5 H ABG pO2 86.6 ABG HCO3 23.7 ABG O2 Saturation 94.7 ABG Base Excess -4.8 FiO2 90% Sodium Potassium Chloride Carbon Dioxide Anion Gap BUN Creatinine Est GFR ( Amer) Est GFR (Non-Af Amer) Glucose Lactic Acid 1.8 1.6 Calcium Magnesium Total Bilirubin AST Alkaline Phosphatase Total Protein Albumin Urine Color Urine Appearance Urine pH Ur Specific [place] Urine Protein Urine Glucose (UA) Urine Ketones Urine Blood Urine RBC (Auto) 06/02/20 06/02/20 06/02/20 03:41 03:41 05:50 WBC 7.7 RBC 4.90 Hgb 14.5 Hct 40.7 MCV 83 MCH 29.7 MCHC 35.7 RDW 14.0 Plt Count 190 Seg Neutrophils % Carbonic Acid 1.26 HCO3/H2CO3 Ratio 19:1 ABG pH 7.39 ABG pCO2 41.7 ABG pO2 271.5 H ABG HCO3 24.7 H ABG O2 Saturation 99.6 H ABG Base Excess -0.3 FiO2 90% Sodium 136.6 L Potassium 4.0 Chloride 104 Carbon Dioxide 26 Anion Gap 7 BUN 14 Creatinine 1.46 H Est GFR ( Amer) 59 L Est GFR (Non-Af Amer) Glucose 174 H Lactic Acid Calcium 8.2 L Magnesium 2.4 H Total Bilirubin AST Alkaline Phosphatase Total Protein Albumin Urine Color Urine Appearance Urine pH Ur Specific [place] Urine Protein Urine Glucose (UA) Urine Ketones Urine Blood Urine RBC (Auto) 06/01/20 06/01/20 06/01/20 20:55 20:55 20:55 Creatine Kinase 70 CK-MB (CK-2) Cancelled Troponin I Cancelled NT-Pro-B Natriuret Pep [id number] H 06/01/20 06/02/20 22:16 03:41 Creatine Kinase CK-MB (CK-2) 2.52 Troponin I 0.059 NT-Pro-B Natriuret Pep [id number] H Impressions: Chest X-Ray 06/02/20 06:00 IMPRESSION: Tubes and lines as above. Otherwise unchanged radiographic appearance of the chest. All labs, radiographs, diagnostic studies and EKGs were personally reviewed: Yes In addition, reports of radiographic and diagnostic studies were read: Yes Assessment and Plan - Diagnosis (1) Chronic obstructive pulmonary disease with acute respiratory failure Is this a current diagnosis for this admission?: Yes Plan: Probably COPD. Currently not wheezing. Awake try to extubate today. Steroids and duonebs. (2) Atrial fibrillation with rapid ventricular response Is this a current diagnosis for this admission?: Yes Plan: Restart his metoprolol, 100mg, BID. (3) Bilateral pneumonia Qualifiers: Pneumonia type: due to unspecified organism Lung location: unspecified part of lung Qualified Code(s): J18.9 - Pneumonia, unspecified organism Is this a current diagnosis for this admission?: Yes Plan: This appears to involve RLL, RML and LLL. Aspiration cannot be ruled out. Treat for CAP. Plan Summary: Wean and extubate today if possible. Critical Time Critical Time (minutes): 35 Level of Care: ICU Anticipated discharge: Home with Homehealth Anticipated DC Timeframe: Other -: 1. The care of a critical patient is a dynamic process. This note is a abrasives sales representative synopsis but static in nature. The timeframe for treatments given in order is not necessarily the actual time these treatments may have been done. 2. This patient requires critical care secondary to ongoing requirements for therapy not offered or safe outside the critical care environment. Transfer to a lower level of care will result in altered life or limb morbidity and mortality. 3. Multidisciplinary rounds completed. 4. ABCDE bundle addressed.
[2020-06-02] MEDS: METOPROLOL TARTRATE 100 MG TABLET PO SCH ×2 (13:17→21:49)
[2020-06-02] MEDS: METHYLPREDNISOLONE INJ 125 MG/2 ML SDV IV SCH ×2 (13:18→21:48)
[2020-06-02] MEDS: NICOTINE 21 MG/24 HR PATCH.TD24 TD SCH (15:34)
[2020-06-02] MEDS: LEVOFLOXACIN 500 MG/D5W RTU 500 MG/100 ML RTUPB IV SCH (21:49)
--- NOTE | 2020-06-03 03:01 | Progress Note ---
Provider Note Provider Note: Mr. Jimenez is a 60-year-old male with a history of severe COPD, A. fib, CKD and CAD was initially admitted to ICU on account of acute respiratory failure due to COPD exacerbation likely precipitated by bilateral pneumonia and A. fib with RVR. Patient was intubated and was placed on Cardizem drip. Subsequently imp roved and was successfully extubated on 06/02 morning. Following extubation the patient was monitored in the unit for about 18 hours. Currently he is on 3 L intranasal oxygen and saturating above 95%. His A. fib has been rate controlled and patient has been transitioned to his home dose of oral metoprolol. Patient was deemed to be stable enough and was stepped down to MICU for further care. 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 Vital signs were: BP 140/74, pulse rate 60-80, respiratory rate 16, oxygen saturation 96%, afebrile Chest was clear with good air entry bilaterally. No wheezes or crackles appreciated Assessment ========= 1. Acute hypoxic respiratory failure due to COPD exacerbation -Status post extubation -Continue intranasal oxygen, breathing treatment, steroids and antibiotic -May need home oxygen eval 2. A. fib with RVR -Currently rate controlled -Continue telemetry monitoring -Continue metoprolol at home dose
[2020-06-03 05:21] LABS: HEMATOCRIT 39.1 % (37.9-51.0); HEMOGLOBIN 13.5 g/dL (13.5-17.0); MEAN CORPUSCULAR HGB CONC 34.6 g/dL (32.0-36.0); MEAN CORPUSCULAR VOLUME 84 fl (80-97); PLATELET COUNT 168 10^3/uL (150-450); RED BLOOD COUNT 4.67 10^6/uL (4.35-5.55); RED CELL DISTRIBUTION WIDTH 13.8 % (11.5-14.0); WHITE BLOOD COUNT 15.3 10^3/uL (4.0-10.5)
[2020-06-03 05:40] LABS: ANION GAP 10 (5-19)
[2020-06-03 05:41] LABS: BLOOD UREA NITROGEN 20 mg/dL (7-20); CALCIUM 9.1 mg/dL (8.4-10.2); CARBON DIOXIDE 23 mmol/L (22-30); CHLORIDE 104 mmol/L (98-107); GLUCOSE 130 mg/dL (75-110); POTASSIUM 4.3 mmol/L (3.6-5.0)
[2020-06-03] MEDS: IPRATROPIUM/ALBUTEROL 0.5-2.5 MG/3 ML AMPUL NEB SCH ×6 (06:56→19:32)
[2020-06-03] MEDS: METHYLPREDNISOLONE INJ 125 MG/2 ML SDV IV SCH ×3 (06:59→21:26)
[2020-06-03] MEDS: HEPARIN SOD (PORCINE) 5,000 UNIT/ML 1 ML VIAL SUBCUT SCH ×3 (06:59→21:26)
--- NOTE | 2020-06-03 08:46 | RADIOLOGY REPORT (SQ) ---
EXAM DESCRIPTION: CHEST SINGLE VIEW IMAGES COMPLETED DATE/TIME: 06/03/2020 8:30 am REASON FOR STUDY: Respiratory failure, pneumonia COMPARISON: 06/02/2020. EXAM PARAMETERS: NUMBER OF VIEWS: One view. TECHNIQUE: Single frontal radiographic view of the chest acquired. RADIATION DOSE: NA LIMITATIONS: None. FINDINGS: LUNGS AND PLEURA: Faint density in the right lung base with improved aeration. MEDIASTINUM AND HILAR STRUCTURES: No masses. Contour normal. HEART AND VASCULAR STRUCTURES: Heart normal in size. Normal vasculature. BONES: No acute findings. HARDWARE: Interval removal of the endotracheal tube and nasogastric tube. OTHER: No other significant finding. IMPRESSION: IMPROVED AERATION IN THE RIGHT LUNG BASE. LIFE LINES DESCRIBED. TECHNICAL DOCUMENTATION: JOB ID: [id number] 2010 [employer]- All Rights Reserved Reading location - IP/workstation name: [email or web address]
[2020-06-03] MEDS: METOPROLOL TARTRATE 100 MG TABLET PO SCH ×2 (09:35→21:25)
[2020-06-03] MEDS: NICOTINE 21 MG/24 HR PATCH.TD24 TD SCH (09:35)
[2020-06-03] MEDS: FAMOTIDINE INJ/PF 20 MG/2 ML SDV IV SCH ×2 (09:36→21:26)
[2020-06-03] MEDS ORDERED: LISINOPRIL 10 MG TABLET PO SCH (10:00)
[2020-06-03] MEDS: RINGERS SOLUTION,LACTATED 1,000 ML IV PRN (13:14)
[2020-06-03 16:00] LABS: HEMATOCRIT 37.9 % (37.9-51.0); HEMOGLOBIN 13.1 g/dL (13.5-17.0); MEAN CORPUSCULAR HEMOGLOBIN 28.8 pg (27.0-33.4); MEAN CORPUSCULAR HGB CONC 34.6 g/dL (32.0-36.0); MEAN CORPUSCULAR VOLUME 83 fl (80-97); PLATELET COUNT 169 10^3/uL (150-450); RED BLOOD COUNT 4.55 10^6/uL (4.35-5.55); RED CELL DISTRIBUTION WIDTH 14.1 % (11.5-14.0); WHITE BLOOD COUNT 14.8 10^3/uL (4.0-10.5)
[2020-06-03 16:17] LABS: INTERNATIONAL RATION (INR) 1.24; PROTHROMBIN TIME 15.8 SEC (11.4-15.4)
--- NOTE | 2020-06-03 19:47 | PDOC PROGRESS REPORT ---
Subjective Date:: 06/03/20 Subjective:: -Per admitting provider - Mr. Jimenez is a 60-year-old gentleman with a history of COPD, A. fib with RVR, CVA, CKD stage II (last creatinine on 05/14/2020 was 1.03) and prior [place]. Has had multiple admissions to this hospital and he has recently been admitted with respiratory failure this past month. Unfortunately, Mr. Jimenez is historically poor to follow-up and has limited medical understanding and access to medications. On this admission, EMS was called for respiratory distress. Upon arrival, EMS placed him on BiPAP which she did not tolerate and he became poorly responsive. He was then intubated and sedated and started on Solu-Medrol for his acute exacerbation of COPD. I was called to assess this intubated patient for admission to the intensive care unit. Patient has not been on any sedation since arriving in the emergency room. At the time of my examination, he began to wake up and is following commands. Care assumed today. He was intubated for acute respiratory failure due to COPD. He was subsequently extubated morning of 06/02/20. He was transferred out of the ICU 06/03/20 at 3 am in stable condition. He was seen and examined at bedside. He is on 2L of nasal cannula saturating 95%. He has occasional palpitations but denies any SOB, chest pain. According to the patient he has not seen a doctor for years. Reason For Visit: ATRIAL FIBRILATION WITH RAPID VENTRICULAR RESPONSE Physical Exam Vital Signs: Temp Pulse Resp BP Pulse Ox 97.4 F 104 H 19 152/90 H 100 06/03/20 16:34 06/03/20 16:34 06/03/20 16:34 06/03/20 16:34 06/03/20 16:34 Intake & Output 06/02/20 06/03/20 06/04/20 06:59 06:59 06:59 Intake Total 126 2377 690 Output Total 520 1013 1300 Balance -394 1364 -610 Weight 87.7 kg 88 kg 88 kg General appearance: PRESENT: cooperative, mild distress Head exam: PRESENT: atraumatic, normocephalic Eye exam: PRESENT: EOMI, PERRLA Mouth exam: PRESENT: moist Neck exam: PRESENT: full ROM Respiratory exam: PRESENT: clear to auscultation [place], symmetrical, unlabored Cardiovascular exam: PRESENT: RRR, +S1, +S2 Pulses: PRESENT: +2 pedal pulses bilateral GI/Abdominal exam: PRESENT: normal bowel sounds, soft. ABSENT: rebound, tenderness Gentrourinary exam: PRESENT: indwelling catheter Extremities exam: PRESENT: +1 edema Musculoskeletal exam: PRESENT: full ROM Neurological exam: PRESENT: alert, awake, oriented to person, oriented to place, oriented to time, oriented to situation Psychiatric exam: PRESENT: normal mood Skin exam: PRESENT: normal color Results Laboratory Results: 06/03/20 15:28 06/03/20 04:50 06/03/20 06/03/20 06/03/20 04:50 04:50 15:28 WBC 15.3 H 14.8 H RBC 4.67 4.55 Hgb 13.5 13.1 L Hct 39.1 37.9 MCV 84 83 MCH 29.0 28.8 MCHC 34.6 34.6 RDW 13.8 14.1 H Plt Count 168 169 Sodium 137.2 Potassium 4.3 Chloride 104 Carbon Dioxide 23 Anion Gap 10 BUN 20 Creatinine 1.62 H Est GFR ( Amer) 53 L Glucose 130 H Calcium 9.1 Magnesium 2.0 06/01/20 21:00 Catheterized Urine Urine Culture - Final NO GROWTH 2 DAYS 06/01/20 06/01/20 06/01/20 20:55 20:55 20:55 Creatine Kinase 70 CK-MB (CK-2) Cancelled Troponin I Cancelled NT-Pro-B Natriuret Pep [id number] H 06/01/20 06/02/20 22:16 03:41 Creatine Kinase CK-MB (CK-2) 2.52 Troponin I 0.059 NT-Pro-B Natriuret Pep 17932 H Impressions: Chest X-Ray 06/03/20 06:00 IMPRESSION: IMPROVED AERATION IN THE RIGHT LUNG BASE. LIFE LINES DESCRIBED. Assessment and Plan - Diagnosis (1) Acute respiratory failure Qualifiers: Respiratory failure complication: hypercapnia Qualified Code(s): J96.02 - Acute respiratory failure with hypercapnia Is this a current diagnosis for this admission?: Yes Plan: - acute hypercapnic respiratory failure due to COPD exacerbation - successfully extubated 06/02/20 - currently on 2L NC saturating 95% - continue duoneb - O2 support, wean off as tolerated. O2 sats to be kept at 89-92% only. He has COPD and he does not need to be above 94% (2) Atrial fibrillation with rapid ventricular response Is this a current diagnosis for this admission?: Yes Plan: Restart his metoprolol, 100mg, BID. - warfarin restarted - daily PT/INR (3) Chronic obstructive pulmonary disease with acute respiratory failure Is this a current diagnosis for this admission?: Yes Plan: - extubated 06/02/20 - on solumedrol, levaquin and trelegy for COPD exacerbation - would need outpatient pulm follow up (4) Chronic systolic (congestive) heart failure Is this a current diagnosis for this admission?: Yes Plan: - LAst Echo December 2019 EF 40% - BNP 54860 - IV fluids stopped - will continue to monitor. will not give lasix for now and monitor his volume status (5) CKD (chronic kidney disease) Qualifiers: Chronic kidney disease stage: stage 2 (mild) Qualified Code(s): N18.2 - Chronic kidney disease, stage 2 (mild) Is this a current diagnosis for this admission?: Yes Plan: - Baseline 1.2 currently 1.6 - IV fluids stopped will monitor his crea (6) Dyslipidemia Is this a current diagnosis for this admission?: Yes Plan: - statin resumed - Time Time Spent with patient: 25-34 minutes Medications reviewed and adjusted accordingly: Yes Anticipated Discharge Disposition: Home with Home Health Anticipated Discharge Timeframe: tbd
[2020-06-03] MEDS: FLUTICASONE/UMECLIDIN/VILANTER 100-62.5-25 MCG/DOSE IH SCH (21:24)
[2020-06-03] MEDS: ATORVASTATIN CALCIUM 40 MG TABLET PO SCH (21:25)
[2020-06-03] MEDS: LISINOPRIL 10 MG TABLET PO SCH (21:25)
[2020-06-03] MEDS: LEVOFLOXACIN 500 MG/D5W RTU 500 MG/100 ML RTUPB IV SCH (21:25)
[2020-06-03] MEDS: WARFARIN SODIUM 2.5 MG TABLET PO SCH (21:25)
[2020-06-03] MEDS ORDERED: (PENDING PHARMACY ID) (Lisinopril [Prinivil] 20 MG Tablet) PO SCH (22:00)
[2020-06-04] MEDS: IPRATROPIUM/ALBUTEROL 0.5-2.5 MG/3 ML AMPUL NEB SCH ×6 (00:30→21:20)
[2020-06-04] MEDS: METHYLPREDNISOLONE INJ 125 MG/2 ML SDV IV SCH (06:40)
[2020-06-04] MEDS: HEPARIN SOD (PORCINE) 5,000 UNIT/ML 1 ML VIAL SUBCUT SCH ×3 (06:41→21:22)
[2020-06-04 07:13] LABS: HEMATOCRIT 36.8 % (37.9-51.0); HEMOGLOBIN 12.9 g/dL (13.5-17.0); MEAN CORPUSCULAR HEMOGLOBIN 29.4 pg (27.0-33.4); MEAN CORPUSCULAR HGB CONC 35.1 g/dL (32.0-36.0); MEAN CORPUSCULAR VOLUME 84 fl (80-97); PLATELET COUNT 132 10^3/uL (150-450); RED BLOOD COUNT 4.38 10^6/uL (4.35-5.55); RED CELL DISTRIBUTION WIDTH 13.9 % (11.5-14.0); WHITE BLOOD COUNT 10.7 10^3/uL (4.0-10.5)
[2020-06-04 07:25] LABS: INTERNATIONAL RATION (INR) 1.33; PROTHROMBIN TIME 16.7 SEC (11.4-15.4)
[2020-06-04 07:29] LABS: ANION GAP 7 (5-19); BLOOD UREA NITROGEN 20 mg/dL (7-20); CALCIUM 8.7 mg/dL (8.4-10.2); CARBON DIOXIDE 25 mmol/L (22-30); CHLORIDE 104 mmol/L (98-107); GLUCOSE 136 mg/dL (75-110)
[2020-06-04] MEDS: NICOTINE 21 MG/24 HR PATCH.TD24 TD SCH (09:13)
[2020-06-04] MEDS: LISINOPRIL 10 MG TABLET PO SCH ×2 (09:13→21:21)
[2020-06-04] MEDS: METOPROLOL TARTRATE 100 MG TABLET PO SCH ×2 (09:13→21:23)
[2020-06-04] MEDS: ASPIRIN 81 MG TABLET, CHEWABLE PO SCH (09:13)
[2020-06-04] MEDS: FAMOTIDINE INJ/PF 20 MG/2 ML SDV IV SCH ×2 (09:13→21:22)
[2020-06-04] MEDS: FLUTICASONE/UMECLIDIN/VILANTER 100-62.5-25 MCG/DOSE IH SCH (09:14)
[2020-06-04] MEDS ORDERED: WARFARIN SODIUM 2.5 MG PO SCH (10:00)
--- NOTE | 2020-06-04 17:01 | PDOC PROGRESS REPORT ---
Subjective Date:: 06/04/20 Subjective:: -Per admitting provider - Mr. Jimenez is a 60-year-old gentleman with a history of COPD, A. fib with RVR, CVA, CKD stage II (last creatinine on 05/14/2020 was 1.03) and prior [place]. Has had multiple admissions to this hospital and he has recently been admitted with respiratory failure this past month. Unfortunately, Mr. Jimenez is historically poor to follow-up and has limited medical understanding and access to medications. On this admission, EMS was called for respiratory distress. Upon arrival, EMS placed him on BiPAP which she did not tolerate and he became poorly responsive. He was then intubated and sedated and started on Solu-Medrol for his acute exacerbation of COPD. I was called to assess this intubated patient for admission to the intensive care unit. Patient has not been on any sedation since arriving in the emergency room. At the time of my examination, he began to wake up and is following commands. Care assumed today. He was intubated for acute respiratory failure due to COPD. He was subsequently extubated morning of 06/02/20. He was transferred out of the ICU 06/03/20 at 3 am in stable condition. He was seen and examined at bedside. He is on 2L of nasal cannula saturating 95%. He has occasional palpitations but denies any SOB, chest pain. According to the patient he has not seen a doctor for years. 06/04/20 Patient was seen and examined at bedside. He was weaned off O2 completely and brown was removed today. He is otherwise doing Ok and has no new complains. Reason For Visit: ATRIAL FIBRILATION WITH RAPID VENTRICULAR RESPONSE Physical Exam Vital Signs: Temp Pulse Resp BP Pulse Ox 97.5 F 100 17 151/93 H 93 06/04/20 10:55 06/04/20 14:00 06/04/20 11:48 06/04/20 10:55 06/04/20 11:48 Intake & Output 06/03/20 06/04/20 06/05/20 06:59 06:59 06:59 Intake Total 2377 1790 957 Output Total 1013 3600 500 Balance 1364 -1810 457 Weight 88 kg 88 kg General appearance: PRESENT: no acute distress, cooperative Head exam: PRESENT: atraumatic, normocephalic Eye exam: PRESENT: EOMI, PERRLA Mouth exam: PRESENT: moist Neck exam: PRESENT: full ROM Respiratory exam: PRESENT: clear to auscultation [place], symmetrical, unlabored Cardiovascular exam: PRESENT: irregular rhythm, +S1, +S2. ABSENT: diastolic murmur Pulses: PRESENT: +2 pedal pulses bilateral GI/Abdominal exam: PRESENT: normal bowel sounds, soft. ABSENT: rebound, tenderness Extremities exam: PRESENT: full ROM Musculoskeletal exam: PRESENT: full ROM Neurological exam: PRESENT: alert, awake, oriented to person, oriented to place, oriented to time, oriented to situation Psychiatric exam: PRESENT: normal mood Skin exam: PRESENT: normal color Results Laboratory Results: 06/04/20 06:04 06/04/20 06:04 06/04/20 06/04/20 06:04 06:04 WBC 10.7 H RBC 4.38 Hgb 12.9 L Hct 36.8 L MCV 84 MCH 29.4 MCHC 35.1 RDW 13.9 Plt Count 132 L Sodium 135.7 L Potassium 4.0 Chloride 104 Carbon Dioxide 25 Anion Gap 7 BUN 20 Creatinine 1.41 H Est GFR ( Amer) > 60 Glucose 136 H Calcium 8.7 Magnesium 2.0 06/02/20 05:55 Tracheal Aspirate Gram Stain - Final 06/02/20 05:55 Tracheal Aspirate Sputum Culture - Final Normal Vicky 06/01/20 06/01/20 06/01/20 20:55 20:55 20:55 Creatine Kinase 70 CK-MB (CK-2) Cancelled Troponin I Cancelled NT-Pro-B Natriuret Pep [id number] H 06/01/20 06/02/20 22:16 03:41 Creatine Kinase CK-MB (CK-2) 2.52 Troponin I 0.059 NT-Pro-B Natriuret Pep 31059 H Impressions: Chest X-Ray 06/03/20 06:00 IMPRESSION: IMPROVED AERATION IN THE RIGHT LUNG BASE. LIFE LINES DESCRIBED. Assessment and Plan - Diagnosis (1) Acute respiratory failure Qualifiers: Respiratory failure complication: hypercapnia Qualified Code(s): J96.02 - Acute respiratory failure with hypercapnia Is this a current diagnosis for this admission?: Yes Plan: - RESOLVED - acute hypercapnic respiratory failure due to COPD exacerbation - successfully extubated 06/02/20 - currently on 2L NC saturating 95% - continue duoneb PRN - (2) Atrial fibrillation with rapid ventricular response Is this a current diagnosis for this admission?: Yes Plan: - Restart his metoprolol, 100mg, BID. - warfarin restarted - daily PT/INR. INR goal 2-3 (3) Chronic obstructive pulmonary disease with acute respiratory failure Is this a current diagnosis for this admission?: Yes Plan: - extubated 06/02/20 - on solumedrol, levaquin and trelegy for COPD exacerbation - would need outpatient pulm follow up (4) Chronic systolic (congestive) heart failure Is this a current diagnosis for this admission?: Yes Plan: - LAst Echo December 2019 EF 40% - BNP 86087 - IV fluids stopped - will continue to monitor. will not give lasix for now and monitor his volume status (5) CKD (chronic kidney disease) Qualifiers: Chronic kidney disease stage: stage 2 (mild) Qualified Code(s): N18.2 - Chronic kidney disease, stage 2 (mild) Is this a current diagnosis for this admission?: Yes Plan: - Baseline 1.2 currently 1.6>1.4 - IV fluids stopped will monitor his crea (6) Dyslipidemia Is this a current diagnosis for this admission?: Yes Plan: - statin resumed - Time Time Spent with patient: 25-34 minutes Medications reviewed and adjusted accordingly: Yes Anticipated Discharge Disposition: Home with Home Health Anticipated Discharge Timeframe: TBD
[2020-06-04] MEDS ORDERED: LEVOFLOXACIN 750 MG TABLET PO SCH (18:00)
[2020-06-04] MEDS: WARFARIN SODIUM 2.5 MG TABLET PO SCH (21:22)
[2020-06-04] MEDS: ATORVASTATIN CALCIUM 40 MG TABLET PO SCH (21:23)
[2020-06-04] MEDS: METOPROLOL TARTRATE PF/INJ 5 MG/5 ML SDV IV PRN (22:03)
[2020-06-05] MEDS: IPRATROPIUM/ALBUTEROL 0.5-2.5 MG/3 ML AMPUL NEB SCH ×3 (00:21→07:53)
[2020-06-05] MEDS: METOPROLOL TARTRATE PF/INJ 5 MG/5 ML SDV IV PRN (04:07)
[2020-06-05] MEDS: HEPARIN SOD (PORCINE) 5,000 UNIT/ML 1 ML VIAL SUBCUT SCH (05:35)
[2020-06-05 07:00] LABS: HEMATOCRIT 38.4 % (37.9-51.0); HEMOGLOBIN 13.7 g/dL (13.5-17.0); MEAN CORPUSCULAR HEMOGLOBIN 29.9 pg (27.0-33.4); MEAN CORPUSCULAR HGB CONC 35.8 g/dL (32.0-36.0); MEAN CORPUSCULAR VOLUME 83 fl (80-97); PLATELET COUNT 101 10^3/uL (150-450); RED CELL DISTRIBUTION WIDTH 14.3 % (11.5-14.0); WHITE BLOOD COUNT 10.6 10^3/uL (4.0-10.5)
[2020-06-05 07:21] LABS: ANION GAP 10 (5-19); BLOOD UREA NITROGEN 21 mg/dL (7-20); CALCIUM 8.6 mg/dL (8.4-10.2); CARBON DIOXIDE 23 mmol/L (22-30); CHLORIDE 105 mmol/L (98-107); GLUCOSE 90 mg/dL (75-110)
[2020-06-05 07:23] LABS: INTERNATIONAL RATION (INR) 1.82; PROTHROMBIN TIME 21.2 SEC (11.4-15.4)
[2020-06-05 07:49] LABS: POTASSIUM 3.7 mmol/L (3.6-5.0)
[2020-06-05] MEDS: LISINOPRIL 10 MG TABLET PO SCH (09:18)
[2020-06-05] MEDS: NICOTINE 21 MG/24 HR PATCH.TD24 TD SCH (09:18)
[2020-06-05] MEDS: ASPIRIN 81 MG TABLET, CHEWABLE PO SCH (09:19)
[2020-06-05] MEDS: METOPROLOL TARTRATE 100 MG TABLET PO SCH (09:19)
[2020-06-05] MEDS: FAMOTIDINE INJ/PF 20 MG/2 ML SDV IV SCH (09:20)
[2020-06-05] MEDS ORDERED: PREDNISONE 20 MG TABLET PO SCH (10:00)
[2020-06-05] MEDS ORDERED: ALBUTEROL SULFATE HFA (90 MCG/PUFF) 8 GM MDI IH PRN (11:37)
[2020-06-05] MEDS: FLUTICASONE/UMECLIDIN/VILANTER 100-62.5-25 MCG/DOSE IH SCH (12:47)
[2020-06-05 13:38] VITALS: BP 146/83
--- NOTE | 2020-06-07 16:37 | PDOC DISCHARGE SUMMARY ---
Impression - Admit/DC Date/PCP Admission Date/Primary Care Provider: 06/01/20 23:21 NILDA ABARCA MD Discharge Date: 06/05/20 - Discharge Diagnosis (1) Acute respiratory failure Is this a current diagnosis for this admission?: Yes (2) Atrial fibrillation with rapid ventricular response Is this a current diagnosis for this admission?: Yes (3) Chronic obstructive pulmonary disease with acute respiratory failure Is this a current diagnosis for this admission?: Yes (4) Chronic systolic (congestive) heart failure Is this a current diagnosis for this admission?: Yes (5) CKD (chronic kidney disease) Is this a current diagnosis for this admission?: Yes (6) Dyslipidemia Is this a current diagnosis for this admission?: Yes - Assessment Summary: (1) Acute respiratory failure Qualifiers: Respiratory failure complication: hypercapnia Qualified Code(s): J96.02 - Acute respiratory failure with hypercapnia Is this a current diagnosis for this admission?: Yes Plan: - RESOLVED - acute hypercapnic respiratory failure due to COPD exacerbation - successfully extubated 06/02/20 - currently on 2L NC saturating 95% - continue duoneb PRN - (2) Atrial fibrillation with rapid ventricular response Is this a current diagnosis for this admission?: Yes Plan: - Restart his metoprolol, 100mg, BID. - warfarin restarted - daily PT/INR. INR goal 2-3 (3) Chronic obstructive pulmonary disease with acute respiratory failure Is this a current diagnosis for this admission?: Yes Plan: - extubated 06/02/20 - on solumedrol, levaquin and trelegy for COPD exacerbation - would need outpatient pulm follow up (4) Chronic systolic (congestive) heart failure Is this a current diagnosis for this admission?: Yes Plan: - LAst Echo December 2019 EF 40% - BNP 21011 - IV fluids stopped - will continue to monitor. will not give lasix for now and monitor his volume status (5) CKD (chronic kidney disease) Qualifiers: Chronic kidney disease stage: stage 2 (mild) Qualified Code(s): N18.2 - Chronic kidney disease, stage 2 (mild) Is this a current diagnosis for this admission?: Yes Plan: - Baseline 1.2 currently 1.6>1.4 - IV fluids stopped will monitor his crea (6) Dyslipidemia Is this a current diagnosis for this admission?: Yes Plan: - statin resumed - Additional Information Resuscitation Status: Full Code Discharge Diet: As Tolerated Discharge Activity: Activity As Tolerated Referrals: [facility] [Outside] Prescriptions: Azithromycin 500 mg PO DAILY 3 Days #3 tablet Fluticasone/Vilanterol [Breo 100-25 Mcg Ellipta 14 Dose/Dpi] 1 inh IH DAILY 30 Days #2 inhaler Warfarin Sodium [Coumadin] 2.5 mg PO DAILY 30 Days #30 tablet Prednisone [Deltasone 20 mg Tablet] 40 mg PO DAILY 5 Days #10 tablet Home Medications: Aspirin [Aspirin 81 mg Chewable Tablet] 81 mg PO DAILY 30 Days #30 tab.chew 05/15/20 Atorvastatin Calcium [Lipitor 40 mg Tablet] 40 mg PO QHS 30 Days #30 tablet 05/15/20 Digoxin [Lanoxin 0.125 mg Tablet] 0.25 mg PO DAILY 30 Days #30 tablet 05/15/20 Lisinopril [Prinivil] 20 mg PO Q12 60 Days #30 tab 05/15/20 Metoprolol Succinate [Toprol Xl 50 mg Tab.sr] 100 mg PO Q12 60 Days #30 tab.sr.24h 05/15/20 Azithromycin 500 mg PO DAILY 3 Days #3 tablet 06/05/20 Fluticasone/Vilanterol [Breo 100-25 Mcg Ellipta 14 Dose/Dpi] 1 inh IH DAILY 30 Days #2 inhaler 06/05/20 Prednisone [Deltasone 20 mg Tablet] 40 mg PO DAILY 5 Days #10 tablet 06/05/20 Warfarin Sodium [Coumadin] 2.5 mg PO DAILY 30 Days #30 tablet 06/05/20 History of Present Illiness History of Present Illness: ARNOLD JIMENEZ is a 60 year old male, with a history of COPD, A. fib with RVR, CVA, CKD stage II (last creatinine on 05/14/2020 was 1.03) and prior [place]. Has had multiple admissions to this hospital and he has recently been admitted with respiratory failure this past month. Unfortunately, Mr. Jimenez is historically poor to follow-up and has limited medical understanding and access to medications. On this admission, EMS was called for respiratory distress. Upon arrival, EMS placed him on BiPAP which she did not tolerate and he became poorly responsive. He was then intubated and sedated and started on Solu-Medrol for his acute exacerbation of COPD. I was called to assess this intubated patient for admission to the intensive care unit. Patient has not been on any sedation since arriving in the emergency room. At the time of my examination, he began to wake up and is following commands. Care assumed today. He was intubated for acute respiratory failure due to COPD. He was subsequently extubated morning of 06/02/20. He was transferred out of the ICU 06/03/20 at 3 am in stable condition. He was seen and examined at bedside. He is on 2L of nasal cannula saturating 95%. He has occasional palpitations but denies any SOB, chest pain. According to the patient he has not seen a doctor for years. Hospital Course Hospital Course: Care assumed today. He was intubated for acute respiratory failure due to COPD. He was subsequently extubated morning of 06/02/20. He was transferred out of the ICU 06/03/20 at 3 am in stable condition. He was seen and examined at bedside. He is on 2L of nasal cannula saturating 95%. He has occasional palpitations but denies any SOB, chest pain. According to the patient he has not seen a doctor for years. 06/04/20 Patient was seen and examined at bedside. He was weaned off O2 completely and brown was removed today. He is otherwise doing Ok and has no new complains. 06/05/20 Patient was eventually discharged He was given trelegy and albuterol inhaler at home. Importance of follow up with PCP was emphasized as he was in the ICU and has also not seen his PCP for 1 year. He was completely weaned off oxygen. Physical Exam Vital Signs: Temp Pulse Resp BP Pulse Ox 98.4 F 125 H 20 146/83 H 96 06/05/20 13:36 06/05/20 13:36 06/05/20 13:36 06/05/20 13:36 06/05/20 13:36 Intake & Output 06/06/20 06/07/20 06/08/20 06:59 06:59 06:59 Intake Total 120 Balance 120 Weight 81.7 kg General appearance: PRESENT: no acute distress, cooperative Head exam: PRESENT: atraumatic, normocephalic Eye exam: PRESENT: EOMI, PERRLA Mouth exam: PRESENT: moist Neck exam: PRESENT: full ROM Respiratory exam: PRESENT: clear to auscultation [place], symmetrical, unlabored Cardiovascular exam: PRESENT: RRR, +S1, +S2 Pulses: PRESENT: +2 pedal pulses bilateral GI/Abdominal exam: PRESENT: normal bowel sounds, soft. ABSENT: rebound, tenderness Extremities exam: PRESENT: full ROM Musculoskeletal exam: PRESENT: full ROM Neurological exam: PRESENT: alert, awake, oriented to person, oriented to place, oriented to time, oriented to situation Psychiatric exam: PRESENT: normal mood Results Laboratory Results: WBC 10.6 10^3/uL (4.0-10.5) H 06/05/20 06:07 RBC 4.60 10^6/uL (4.35-5.55) 06/05/20 06:07 Hgb 13.7 g/dL (13.5-17.0) 06/05/20 06:07 Hct 38.4 % (37.9-51.0) 06/05/20 06:07 MCV 83 fl (80-97) 06/05/20 06:07 MCH 29.9 pg (27.0-33.4) 06/05/20 06:07 MCHC 35.8 g/dL (32.0-36.0) 06/05/20 06:07 RDW 14.3 % (11.5-14.0) H 06/05/20 06:07 Plt Count 101 10^3/uL (150-450) L 06/05/20 06:07 Lymph % (Auto) 33.0 % (13-45) 06/01/20 20:55 [place] % (Auto) 5.8 % (3-13) 06/01/20 20:55 Eos % (Auto) 3.3 % (0-6) 06/01/20 20:55 Baso % (Auto) 0.6 % (0-2) 06/01/20 20:55 Absolute Neuts (auto) 5.7 10^3/uL (1.7-8.2) 06/01/20 20:55 Absolute Lymphs (auto) 3.3 10^3/uL (0.5-4.7) 06/01/20 20:55 Absolute Monos (auto) 0.6 10^3/uL (0.1-1.4) 06/01/20 20:55 Absolute Eos (auto) 0.3 10^3/uL (0.0-0.6) 06/01/20 20:55 Absolute Basos (auto) 0.1 10^3/uL (0.0-0.2) 06/01/20 20:55 Seg Neutrophils % 57.3 % (42-78) 06/01/20 20:55 PT 21.2 SEC (11.4-15.4) H 06/05/20 06:07 INR 1.82 06/05/20 06:07 Carbonic Acid 1.26 mmol/L (1.05-1.35) 06/02/20 05:50 HCO3/H2CO3 Ratio 19:1 06/02/20 05:50 ABG pH 7.39 (7.35-7.45) 06/02/20 05:50 ABG pCO2 41.7 mmHg (35-45) 06/02/20 05:50 ABG pO2 271.5 mmHg (80-100) H 06/02/20 05:50 ABG HCO3 24.7 mmol/L (20-24) H 06/02/20 05:50 ABG Total CO2 26.0 mmol/L (23-27) 06/02/20 05:50 ABG O2 Saturation 99.6 % (94-98) H 06/02/20 05:50 ABG Base Excess -0.3 mmol/L 06/02/20 05:50 FiO2 90% 06/02/20 05:50 Sodium 137.9 mmol/L (137-145) 06/05/20 06:07 Potassium 3.7 mmol/L (3.6-5.0) 06/05/20 06:07 Chloride 105 mmol/L (98-107) 06/05/20 06:07 Carbon Dioxide 23 mmol/L (22-30) 06/05/20 06:07 Anion Gap 10 (5-19) 06/05/20 06:07 BUN 21 mg/dL (7-20) H 06/05/20 06:07 Creatinine 1.48 mg/dL (0.52-1.25) H 06/05/20 06:07 Est GFR ( Amer) 58 (>60) L 06/05/20 06:07 Est GFR (Non-Af Amer) Cancelled 06/01/20 20:55 Est GFR (MDRD) Non-Af 48 (>60) L 06/05/20 06:07 Glucose 90 mg/dL (75-110) 06/05/20 06:07 POC Glucose 145 mg/dL (70-110) H 06/04/20 06:39 Lactic Acid 1.6 mmol/L (0.7-2.1) 06/02/20 03:41 Calcium 8.6 mg/dL (8.4-10.2) 06/05/20 06:07 Magnesium 2.0 mg/dL (1.6-2.3) 06/04/20 06:04 Total Bilirubin 0.7 mg/dL (0.2-1.3) 06/01/20 22:16 Direct Bilirubin 0.2 mg/dL (0.0-0.4) 06/01/20 22:16 Neonat Total Bilirubin Not Reportable 06/01/20 22:16 Neonat Direct Bilirubin Not Reportable 06/01/20 22:16 Neonat Indirect Bili Not Reportable 06/01/20 22:16 AST 37 U/L (17-59) 06/01/20 22:16 ALT 23 U/L (<50) 06/01/20 22:16 Alkaline Phosphatase 129 U/L (38-126) H 06/01/20 22:16 Creatine Kinase 70 U/L (55-170) 06/01/20 20:55 CK-MB (CK-2) 2.52 ng/mL (<4.55) 06/01/20 22:16 Troponin I 0.059 ng/mL 06/01/20 22:16 NT-Pro-B Natriuret Pep 13788 pg/mL (<125) H 06/02/20 03:41 Total Protein 6.2 g/dL (6.3-8.2) L 06/01/20 22:16 Albumin 3.4 g/dL (3.5-5.0) L 06/01/20 22:16 EGFR Cancelled 06/01/20 20:55 Urine Color IAM 06/01/20 21:00 Urine Appearance CLEAR 06/01/20 21:00 Urine pH 5.0 (5.0-9.0) 06/01/20 21:00 Ur Specific [place] 1.024 06/01/20 21:00 Urine Protein 100 mg/dL (NEGATIVE) H 06/01/20 21:00 Urine Glucose (UA) NEGATIVE mg/dL (NEGATIVE) 06/01/20 21:00 Urine Ketones NEGATIVE mg/dL (NEGATIVE) 06/01/20 21:00 Urine Blood SMALL (NEGATIVE) H 06/01/20 21:00 Urine Nitrite (Reflex) NEGATIVE (NEGATIVE) 06/01/20 21:00 Urine Bilirubin NEGATIVE (NEGATIVE) 06/01/20 21:00 Urine Urobilinogen 2.0 mg/dL (<2.0) H 06/01/20 21:00 Leukocyte Esterase Rfl TRACE (NEGATIVE) H 06/01/20 21:00 Urine RBC (Auto) 17 /HPF 06/01/20 21:00 Urine WBC (Reflex) 4 /HPF 06/01/20 21:00 Squamous Epi Cells Auto 1 /HPF 06/01/20 21:00 Calcium Oxalate Cr Auto FEW /HPF 06/01/20 21:00 Urine Mucus (Auto) RARE /LPF 06/01/20 21:00 Urine Ascorbic Acid NEGATIVE (NEGATIVE) 06/01/20 21:00 Urine Opiates Screen NEGATIVE 06/01/20 21:00 Urine Methadone Screen NEGATIVE 06/01/20 21:00 Ur Barbiturates Screen NEGATIVE 06/01/20 21:00 Ur Phencyclidine Scrn NEGATIVE 06/01/20 21:00 Ur Amphetamines Screen NEGATIVE 06/01/20 21:00 U Benzodiazepines Scrn NEGATIVE 06/01/20 21:00 Urine Cocaine Screen NEGATIVE 06/01/20 21:00 U Marijuana (THC) Screen UNCONFIRMED POSITIVE 06/01/20 21:00 Influenza A (RT-PCR) NEGATIVE (NEGATIVE) 06/01/20 21:43 Influenza B (RT-PCR) NEGATIVE (NEGATIVE) 06/01/20 21:43 RSV (RT-PCR) NEGATIVE (NEGATIVE) 06/01/20 21:43 SARS-CoV-2 Rap RNA(RT-PCR) NEGATIVE (NEGATIVE) 06/01/20 21:43 06/01/20 06/01/20 06/01/20 20:55 20:55 22:16 CK-MB (CK-2) Cancelled 2.52 Troponin I Cancelled 0.059 NT-Pro-B Natriuret Pep [id number] H 06/02/20 03:41 CK-MB (CK-2) Troponin I NT-Pro-B Natriuret Pep [id number] H Impressions: Chest X-Ray 06/01/20 21:01 IMPRESSION: 1. Bilateral infiltrates, likely pneumonia 2. Intubated 3. Enteric tube extends into the stomach Chest X-Ray 06/02/20 06:00 IMPRESSION: Tubes and lines as above. Otherwise unchanged radiographic appearance of the chest. Chest X-Ray 06/03/20 06:00 IMPRESSION: IMPROVED AERATION IN THE RIGHT LUNG BASE. LIFE LINES DESCRIBED. Plan Plan of Treatment: - continue inhalers at home - ff.up with PCP Stroke Is this a Stroke Patient?: No Acute Heart Failure Is this a Heart Failure Patient?: No
== END 2020-06-05 13:38 | disposition home or self-care (01) | DRG 208 ==
LOC: ER 20:54 → EH 23:21 → ICU 06-02 01:28 → 4S 06-03 04:35
PROVIDERS: ADMIT Internal Medicine Critical Care Medicine; ATTEND Internal Medicine
PROC: 5A1935Z Respiratory Ventilation, Less than 24 Consecutive Hours (ICD-10-PCS; principal; 2020-06-01)
PROC: 0BH17EZ Insertion of Endotracheal Airway into Trachea, Via Natural or Artificial Opening (ICD-10-PCS; 2020-06-01)
DX: J96.02 Acute respiratory failure with hypercapnia (principal); J18.9 Pneumonia, unspecified organism; J44.1 Chronic obstructive pulmonary disease with (acute) exacerbation; I50.22 Chronic systolic (congestive) heart failure; I13.0 Hypertensive heart and chronic kidney disease with heart failure and stage 1 through stage 4 chronic kidney disease, or unspecified chronic kidney disease; J44.0 Chronic obstructive pulmonary disease with (acute) lower respiratory infection; Z20.828 Contact with and (suspected) exposure to other viral communicable diseases; E78.5 Hyperlipidemia, unspecified; N18.2 Chronic kidney disease, stage 2 (mild); F17.210 Nicotine dependence, cigarettes, uncomplicated; I48.0 Paroxysmal atrial fibrillation; I25.2 Old myocardial infarction; Z78.1 Physical restraint status; Z79.899 Other long term (current) drug therapy; Z79.01 Long term (current) use of anticoagulants; Z79.82 Long term (current) use of aspirin; Z79.52 Long term (current) use of systemic steroids; Z86.73 Personal history of transient ischemic attack (TIA), and cerebral infarction without residual deficits
CPT/HCPCS: 36415; 36600; 71045; 80048; 80053; 80307; 81001; 82550; 82553; 82803; 82962; 83605; 83735; 83880; 84484; 85025; 85027; 85610; 87040; 87070; 87086; 87205; 93005; 93010; 94002; 94003; 96365; 96375; 99285; 0241U; C9803; J1644; J1956; J2704; J2930; J3490; J7120; J7512; S0028

== ENCOUNTER → 2020-06-28 | Outpatient (CLI) | payer SELFPAY ==
[2020-06-28 10:44] LABS: INTERNATIONAL RATION (INR) 1.08; PROTHROMBIN TIME 14.2 SEC (11.4-15.4)
[2020-06-28 11:02] LABS: ALBUMIN 3.8 g/dL (3.5-5.0); ALKALINE PHOSPHATASE 117 U/L (38-126); ANION GAP 7 (5-19); ASPARTATE AMINO TRANSFERASE 14 U/L (17-59); BILIRUBIN,DIRECT 0.2 mg/dL (0.0-0.4); BILIRUBIN,TOTAL 0.9 mg/dL (0.2-1.3); BLOOD UREA NITROGEN 13 mg/dL (7-20); CARBON DIOXIDE 27 mmol/L (22-30); CHLORIDE 105 mmol/L (98-107); CHOLESTEROL 145.14 mg/dL (0-200); GLUCOSE 126 mg/dL (75-110); POTASSIUM 3.7 mmol/L (3.6-5.0); TOTAL PROTEIN 6.1 g/dL (6.3-8.2); TRIGLYCERIDES 144 mg/dL (<150)
[2020-06-28 11:11] LABS: DIRECT LDL 95 mg/dL (<100)
== END ==
LOC: LAB 10:04
PROVIDERS: ATTEND Nurse Practitioner Family
DX: I50.9 Heart failure, unspecified (principal); E78.5 Hyperlipidemia, unspecified; N18.31 Chronic kidney disease, stage 3a; R73.01 Impaired fasting glucose; Z51.81 Encounter for therapeutic drug level monitoring; Z79.01 Long term (current) use of anticoagulants
CPT/HCPCS: 36415; 80053; 80061; 80162; 83036; 85610